=== PATIENT | female | born 1990 | race Caucasian/White ===

== ENCOUNTER 2016-09-27 17:11 | Emergency (ER) | payer MEDICAID ==
[~2016-09-27] VITALS: Ht 177.8 cm; Wt 61.2 kg
[~2016-09-27 17:11] MED LIST: ACYCLOVIR400 MG PO; AURALGAN OT10 ML/BOT OT; CELEXA40 MG PO; CIPRO 500MG TA500 MG PO; CORTISPORIN OTI10 M1 OT; DIFLUCAN150 MG PO; KEFLEX 500MG.500 MG PO; MOTRIN400 MG PO; MOTRIN600 MG PO; PREDNISONE50 MG PO; PYRIDIUM 200MG200 MG PO; SEPTRA DS 800 M1 TAB PO; SULFAMETHOXAZOL1 TA6 PO; TRAMADOL 50MG T50 MG PO; VENLAFAXINE H37.5 M2 PO; VICODIN 5/500 T1 TAB PO; ZITHROMAX Z-PA250 M1 PO; ZOFRAN4 MG PO; ZOLOFT100 MG PO; ZOVIRAX 5% OIN1 INCH TP
--- NOTE | 2016-09-27 17:58 | Urgent Treatment Center Report ---
History of Present Issue Date/Time Seen by Provider 09/27/16 1194 Visit Reason Pt arrived:Walked Presenting Problem:PT STATES MIGRAINE FOR TWO DAYS. STATES NAUSEA AND VOMITING X1. STATES PROBLEMS WITH VERTIGO. Location if Accident: Onset of symptoms date/time:/ or onset unknown for:MEDICAL HX UNKNOWN Have you (or family members/close friends) recently traveled outside the [place]? N If Yes, where/when: Have you had exposure to infectious disease within the past month? TB? Other? Specify: Patient states that she has has a migraine headache for a couple of days States that she went to work today with it and got extremly nauseated and vomited State that she was standing there and kind of got motion sick with the room spinning before vomiting. States that pain is in her orthodoxy area and she has a family history of migraine headache ALLERGIES Coded Allergies: No Known Allergies (03/04/16) Home Medications Reported Medications VENLAFAXINE HCL (Venlafaxine HCl ER) 37.5 MG PO DAILY #14 History Medical History General CAD? No Angina: No RI: No Hypertension? Yes Hyperlipidemia? No CHF? No DVT? No PE? No COPD? No Asthma? Yes Anemia? No GERD? No Gastric ulcers? No GI Bleed? No Hernia? No Thyroid Problems? No Hypothyroidism? No CVA? No Seizures? No Diabetes? No Renal Insuffiency? No UTI? No Stones? No BPH? No GB Disease: No Nephritic Syndrome? No Asplenia? No Hepatitis? No Sickle Cell Disease? No Arthritis? No Migraines? No Cataracts? No Glaucoma? No MRSA? No HIV? No TB? No Anxiety? Yes Depression? Yes Cancer? No More? 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 No: respiratory distress. 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 No Results/Orders Laboratory Tests 09/27/16 1736: Urine Test NEGATIVE Current Medication Orders Sig/Jolene Start time Last Medication Dose Route Stop Time Status Admin Metoclopramide HCl 0 .STK-MED ONE 09/27 1753 DC .ROUTE Diphenhydramine HCl 0 .STK-MED ONE 09/27 1750 DC .ROUTE Ketorolac 0 .STK-MED ONE 09/27 1749 DC Tromethamine .ROUTE Diphenhydramine HCl 25 MG ONCE ONE 09/27 1745 DC 09/27 IM 09/27 1746 1804 Ketorolac 60 MG ONCE ONE 09/27 1745 DC 09/27 Tromethamine IM 09/27 1746 1805 Metoclopramide HCl 10 MG ONCE ONE 09/27 1745 DC 09/27 IM 09/27 1746 1803 Orders Procedure Date/time Status [facility] URINE 09/27 173 Complete Progress [facility] Progress Notes Date 09/27/16 Time 1824 Comment Patient states that the medication that she recieved helped with pain and feeling much better Patient now ready for discharge home Departure Departure Time of Disposition 1824 Disposition DC Home or Self Care(routine) Clinical Impression Primary Impression: Migraine Qualifiers: Migraine type: without aura Status migrainosus presence: without status migrainosus Intractability: not intractable Qualified Code: G43.009 - Migraine without aura, not intractable, without status migrainosus Condition STABLE Referrals LÓPEZ,VIRAL (Family): 2 Days-Call Office if no improvement or worsening of symptom Patient Instructions Migraine -- Adult, Migraine Headaches (Alternative Therapy) Additional Instructions Over the counter Motrin or TYLENOL as needed for pain Follow up with family doctor Return if needed Go home and lay down and rest Discharge Counseling Counseled pt/family regarding diagnosis, medications/RX, home care, follow up needs at [phone]
--- NOTE | 2016-09-27 17:58 | Urgent Treatment Center Report ---
History of Present Issue Date/Time Seen by Provider 09/27/16 9383 Visit Reason Pt arrived:Walked Presenting Problem:PT STATES MIGRAINE FOR TWO DAYS. STATES NAUSEA AND VOMITING X1. STATES PROBLEMS WITH VERTIGO. Location if Accident: Onset of symptoms date/time:/ or onset unknown for:MEDICAL HX UNKNOWN Have you (or family members/close friends) recently traveled outside the [place]? N If Yes, where/when: Have you had exposure to infectious disease within the past month? TB? Other? Specify: Patient states that she has has a migraine headache for a couple of days States that she went to work today with it and got extremly nauseated and vomited State that she was standing there and kind of got motion sick with the room spinning before vomiting. States that pain is in her christianity area and she has a family history of migraine headache ALLERGIES Coded Allergies: No Known Allergies (03/04/16) Home Medications Reported Medications VENLAFAXINE HCL (Venlafaxine HCl ER) 37.5 MG PO DAILY #14 History Medical History General CAD? No Angina: No GA: No Hypertension? Yes Hyperlipidemia? No CHF? No DVT? No PE? No COPD? No Asthma? Yes Anemia? No GERD? No Gastric ulcers? No GI Bleed? No Hernia? No Thyroid Problems? No Hypothyroidism? No CVA? No Seizures? No Diabetes? No Renal Insuffiency? No UTI? No Stones? No BPH? No GB Disease: No Nephritic Syndrome? No Asplenia? No Hepatitis? No Sickle Cell Disease? No Arthritis? No Migraines? No Cataracts? No Glaucoma? No MRSA? No HIV? No TB? No Anxiety? Yes Depression? Yes Cancer? No More? 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 No: respiratory distress. 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 No Results/Orders Laboratory Tests 09/27/16 1736: Urine Test NEGATIVE Current Medication Orders Sig/Jolene Start time Last Medication Dose Route Stop Time Status Admin Metoclopramide HCl 0 .STK-MED ONE 09/27 1753 DC .ROUTE Diphenhydramine HCl 0 .STK-MED ONE 09/27 1750 DC .ROUTE Ketorolac 0 .STK-MED ONE 09/27 1749 DC Tromethamine .ROUTE Diphenhydramine HCl 25 MG ONCE ONE 09/27 1745 DC 09/27 IM 09/27 1746 1804 Ketorolac 60 MG ONCE ONE 09/27 1745 DC 09/27 Tromethamine IM 09/27 1746 1805 Metoclopramide HCl 10 MG ONCE ONE 09/27 1745 DC 09/27 IM 09/27 1746 1803 Orders Procedure Date/time Status [facility] URINE 09/27 173 Complete Progress [facility] Progress Notes Date 09/27/16 Time 1824 Comment Patient states that the medication that she recieved helped with pain and feeling much better Patient now ready for discharge home Departure Departure Time of Disposition 1824 Disposition DC Home or Self Care(routine) Clinical Impression Primary Impression: Migraine Qualifiers: Migraine type: without aura Status migrainosus presence: without status migrainosus Intractability: not intractable Qualified Code: G43.009 - Migraine without aura, not intractable, without status migrainosus Condition STABLE Referrals LÓPEZ,VIRAL (Family): 2 Days-Call Office if no improvement or worsening of symptom Patient Instructions Migraine -- Adult, Migraine Headaches (Alternative Therapy) Additional Instructions Over the counter Motrin or TYLENOL as needed for pain Follow up with family doctor Return if needed Go home and lay down and rest Discharge Counseling Counseled pt/family regarding diagnosis, medications/RX, home care, follow up needs at 182
[2016-09-27 18:37] VITALS: BP 125/90
--- OUTSIDE RECORDS SUMMARY | 2016-09-30 17:04 | External Medical Summary Rpt ---
Author Author , CHASE Navas CHASE Address Unknown Phone [email or web address] Care Team Providers Care Revenue Field Agent Name Role Phone NAT KOVACS, Unavailable Unavailable NAT KOVACS CORDOVA KIR, CORDOVA Unavailable Unavailable KIR [facility] Unavailable Unavailable PHYSICIANS, [facility] SERGIO FUENTES, Unavailable Unavailable SERGIO FUENTES JEFFREY T, Unavailable Unavailable PAOLO LOERA DAVREN Unavailable Unavailable MERRICK VIKY MAR, VIKY Unavailable Unavailable MAR REMA PEARSON, REMA PEARSON Unavailable Unavailable PADMAJA GIANG Unavailable Unavailable KARLOS MORALES, Unavailable Unavailable KARLOS MORALES, ELIN Unavailable Unavailable DAVID MANUEL WORTHINGTON, Unavailable Unavailable MANUEL WORTHINGTON [facility], Unavailable Unavailable [facility] MANUEL SHIN, Unavailable Unavailable MANUEL SHIN [facility] Unavailable [facility], [facility] GLORIA SAUCEDA, Unavailable Unavailable GLORIA SAUCEDA JOHNSON Unavailable Unavailable Ginger Núñez MD, Unavailable Unavailable TIERRA Laird MD, Unavailable Unavailable TIERRA BLOCK LEHMKUHL RAC, Unavailable Unavailable LEHMKUHL RAC DEBORA ANDRADE Unavailable Unavailable K, DEBORA ANDRADE HARRY, MILLS, Unavailable Unavailable FARHAN TONEY, Unavailable Unavailable FARHAN PATE MUKHERJEE Unavailable Unavailable NEILS, NEL W, NEILS, Unavailable Unavailable NEL W LÓPEZ, LÓPEZ Unavailable Unavailable LÓPEZ VIR, LÓPEZ VIR Unavailable Unavailable LÓPEZ, VIRAL, LÓPEZ, Unavailable Unavailable VIRAL JR. JOEY, , Unavailable Unavailable JR. COOK DO [facility] Unavailable Unavailable OF NOT, [facility] NOT [id number], Unavailable Unavailable [id number] BUDDY ESCAMILLA, Unavailable Unavailable BUDDY ESCAMILLA JEFFREY L, Unavailable Unavailable PAOLO MORGAN SCHOTT Unavailable Unavailable KHLOE FREITAS, Unavailable Unavailable KHLOE LEVI SHERMAN Unavailable Unavailable STEVEN LUJAN SOWER, Unavailable Unavailable STEVEN [facility] Unavailable [facility]available [facility] Unavailable Unavailable [facility], [facility], Unavailable Unavailable [facility] Unavailable Unavailable 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 MARION PHYLLIS, Unavailable Unavailable . MARION STEVEN MEJIA, Unavailable Unavailable STEVEN LOPEZ STEVEN B, Unavailable Unavailable ANTIONETTE WALLACE [facility] Unavailable Unavailable #[id number], [facility] Unavailable Unavailable #591, [id number], Unavailable Unavailable [id number] DHRUV PEÑA Unavailable Unavailable DIYA SPRAGUE Unavailable Unavailable JAILENE Purpose Continuity of Care Document - 03-23-2007 through 2016 Problems Code Diagnosis DOS Provider Status N3000 ACUTE 09-02-2016 CYSTITIS [facility] HEMATURIA R300 DYSURIA 09-02-2016 [facility] P30508 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 [facility] GENERAL N [facility]ALTHCARE W/O EDGE ABNORMAL FIND B373 CANDIDIASIS 08-15-2016 OF [facility] AND [facility]INA [facility] N390 URINARY 08-15-2016 TRACT [facility] INFECTION [facility]ANS SITE NOT SPECIFIED N760 ACUTE 08-15-2016 VAGINITIS [facility] R140 ABDOMINAL 08-15-2016 DISTENSION [facility] GASEOUS PHYSIC[facility]ANS Z6820 BODY MASS 08-15-2016 ST INDEX BMI [facility] 20.0-20.9 PHYSICIANS ADULT N3090 CYSTITIS 07-23-2016 [facility] UNSPECIFIED [facility]Y WITHOUT PHYSICIANS HEMATURIA J069 ACUTE UPPER 06-02-2016 [facility] RESPIRATORY [facility]YS[facility]ANS INFECTION UNSPECIFIED N888 OTH SPEC 04-27-2016 [facility] NONINFLAMMA [facility]ERGENCY TORY PHYSICIANS DISORDERS CERVIX UTERI N898 OTHER 04-27-2016 [facility] SPECIFIED [facility]Y NONINFLAMMA PHYSICIANS TORY DISORDERS VAGINA J111 FLU D/T 05-21-2015 [facility] UNIDENTIFIE [facility]ERGENCY D FLU VIRUS PHYSICIANS W/OTH RESP MANIF R109 UNSPECIFIED 03-25-2015 [facility] ABDOMINAL EMERGENCY PAIN PHYSICIANS A64 UNSPECIFIED 01-09-2015 [facility] SEXUALLY EMERGENCY TRANSMITTED PHYSICIANS DISEASE N12 TUBULO-INTE 01-09-2015 [facility] RST EMERGENCY NEPHRITIS PHYSICIANS NOT SPEC ACUTE/CHRON N926 IRREGULAR 01-06-2015 [facility] N PHYLLIS UNSPECIFIED 5950 ACUTE 09-17-2014 [facility] CYSTITIS EMERGENCY PHYSICIANS 37928 HEMATURIA 09-17-2014 [facility] UNSPECIFIED [facility]ERGENCY PHYSICIANS 6268 OTH D/O 08-29-2014 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 N PHYLLIS 46865 ABDOMINAL 10-21-2013 ST. PAIN, [facility] UNSPECIFIED PHYLLIS SITE 62042 GENERALIZED 08-08-2013 ST ANXIETY [facility] DISORDER PHYSIC[facility] 19617 UNSPECIFIED 08-08-2013 [facility] CONSTIPATIO PHYSICIANS N V700 ROUTINE 07-19-2013 [facility]AL [facility] EXAM@HEALTH CARE FACL V7231 ROUTINE 07-19-2013 GYNECOLOGIC [facility] AL PHYSICIANS EXAMINATION 2639 UNSPECIFIED 06-10-2013 [facility] PROTEIN-IRON MED CTR MANAGER INDUSTRIAL ORIE ST MALNUTRITIO N 7804 DIZZINESS 06-10-2013 [facility] GIDDINESS MED CTR MANAGER INDUSTRIAL ST 1101 DERMATOPHYT 04-05-2013 ST [facility] OF [facility] NAIL MED CTR MANAGER INDUSTRIAL ST [phone] 08-14-2012 [facility] PYELONEPHRI [facility] 30576 CLOSED 04-22-2009 [facility] FRACTURE OF ASSOCIATES HEAD OF [facility] RADIUS 64736 CONTUSION 03-25-2009 [facility] PSC 81484 CONTUSION 03-25-2009 [facility] HIP H ORTHOPAEDIC CTR [facility] 4779 ALLERGIC 03-23-2009 [facility]USE [facility] UNSPECIFIED 68088 ESOPHAGEAL 03-23-2009 [facility] 56651 NAUSEA 03-23-2009 [facility] 60393 CLOSED 03-23-2009 [facility] FRACTURE [facility]ICAL UNSPEC PART GROUP LOWER END HUMERUS E8490 PLACE OF 03-20-2009 [place] [facility] E8851 FALL FROM 03-20-2009 [facility] 36276 MASTODYNIA 03-11-2009 [facility] PSC 77955 LUMP OR 03-11-2009 [facility] MASS IN ASSOCIATES BREAST [facility] 22604 UNSPECIFIED 02-12-2009 [facility] VIRAL [facility] INFECTION [facility] IN CCE & UNS SITE 462 ACUTE 02-12-2009 [facility] PHARYNGITIS [facility] 6100 SOLITARY 01-20-2009 [facility] CYST OF MEDICAL BREAST GROUP 81628 OTHER 01-20-2009 [facility] MALAISE AND MEDICAL FATIGUE GROUP 5969 UNSPECIFIED 12-10-2008 [facility] 87045 ABDOMINAL 12-10-2008 [facility] PAIN RIGHT ASS[facility] LOWER [facility] QUADRANT 4619 ACUTE 12-08-2008 [facility] SINUSITIS, MEDICAL UNSPECIFIED GROUP 6253 DYSMENORRHE 12-08-2008 [facility] A [facility] 7231 CERVICALGIA 09-12-2008 [facility] PSC 39391 ABDOMINAL 09-12-2008 [facility] PAIN RIGHT MEDICAL UPPER GROUP QUADRANT 8470 NECK SPRAIN 09-12-2008 [facility] STR[facility] 7379 UNSPECIFIED 09-02-2008 [facility] CURVATURE [facility] OF SPINE PSC 0340 STREPTOCOCC 06-10-2008 [facility] 7892 SPLENOMEGAL 06-10-2008 Y [facility] 3671 MYOPIA 06-06-2008 [facility] 30153 UNSPECIFIED 05-21-2008 [facility] DENTAL ANESTHEISAA CARIES SERVICES [facility] V7284 UNSPECIFIED 05-13-2008 [facility] VE EXAMINATION 28222 CALCU 04-17-2008 [facility] GALLBLADD [facility] W/O MENTION GROUP CHOLECYST/O BST 50858 ABDOMINAL 03-20-2008 [facility] TENDERNESS MEDICAL RIGHT UPPER GROUP QUADRANT 3829 UNSPECIFIED 02-27-2008 [facility] OTITIS MEDICAL MEDIA GROUP 6929 CONTACT 02-27-2008 [facility] DERMATITIS& MEDICAL OTHER GROUP ECZEMA DUE UNSPEC CAUSE 43049 DIARRHEA 01-25-2008 [facility] 21473 EXTRINSIC 12-21-2007 [facility] WITH [facility] STATUS [facility] ASTHMATICUS 74972 ASTHMA, 12-21-[address] [facility] 5110 PLEURISY 06-26-2007 [facility] MENTION INC EFFUS/CURRE NT TB 5997 HEMATURIA 06-26-2007 [facility] 72216 CHEST PAIN 06-26-2007 [place] [facility] 4659 ACUTE URIS 04-25-2007 OF [facility] UNSPECIFIED MED CTR SITE 0549 HERPES 04-17-2007 [facility] WITHOUT INC MENTION OF COMPLICATIO N 34630 UNSPECIFIED 03-29-2007 [facility] 3804 IMPACTED 03-23-2007 [facility] 00015 SCOLIOSIS , 03-23-2007 [facility] B34.9 Viral infection, unspecified B37.3 Candidiasis of vulva and vagina F17.200 Nicotine dependence, unspecified , uncomplicat ed F33.1 Major depressive disorder, recurrent, moderate J06.9 Acute upper respiratory infection, unspecified J20.9 Acute bronchitis, unspecified N30.90 Cystitis, unspecified without hematuria N39.0 Urinary tract infection, site not specified N76.0 Acute vaginitis N88.8 Other specified noninflamma tory disorders of cervix uteri N89.8 Other specified noninflamma tory disorders of vagina R00.0 Tachycardia , unspecified R10.9 Unspecified abdominal pain R14.0 Abdominal distension (gaseous) R30.0 DYSURIA R55 Syncope and collapse R63.4 Abnormal weight loss Z01.419 Encounter for gynecologic al examination (general) (routine) without abnormal findings Allergies, Adverse Reactions, Alerts Type Allergy to substance Adverse Reaction to Substance Substance Reaction Severity NO KNOWN ALLERGIES Unknown Unknown Medications Na ND Rx Da Fi Fi Am Da Di Ph RX Ph St me C No te ll ll ou ys ag ar # ys at rm s nt no ma ic us Or Da si cy ia de te s n re d FL 55 07 08 1. 1 00 AL Ac UC 11 -0 -0 00 00 L- ti ON 10 7- 4- 0 06 MA ve AZ 14 20 20 12 RT OL 51 17 17 78 E 2 44 PH 15 AR 0 MA MG CY TA #5 BL 84 ET VE 00 07 08 30 30 00 AL Ac NL 09 -0 -0 .0 00 L- ti AF 37 7- 4- 00 06 MA ve AX 38 20 20 10 RT IN 65 17 17 76 E 6 22 PH HC AR L MA ER CY 15 #5 0 84 MG CA P ME 62 07 08 30 30 00 AL Ac TO 03 -0 -0 .0 00 L- ti PA 70 7- 4- 00 06 MA ve OL 83 20 20 10 RT OL 01 17 17 76 0 20 PH MERIDA AR CC MA CY ER #5 25 84 MG TA B NI 47 07 08 10 5 00 AL Ac TR 78 -0 -0 .0 00 L- ti OF 10 7- 4- 00 06 MA ve UR 30 20 20 12 RT AN 30 17 17 78 TO 1 43 PH IN AR MA MO CY NO -M #5 CR 84 10 0 MG ME 50 06 07 14 7 00 AL Ac TR 11 -2 -2 .0 00 L- ti ON 10 7- 8- 00 06 MA ve ID 33 20 20 12 RT AZ 40 17 17 58 OL 2 57 PH E AR 50 MA 0 CY MG #5 TA 84 BL ET FL 55 06 07 1. 1 00 AL Ac UC 11 -1 -1 00 00 L- ti ON 10 9- 4- 0 06 MA ve AZ 14 20 20 12 RT OL 51 17 17 41 E 2 11 PH 15 AR 0 MA MG CY TA #5 BL 84 ET ME 50 06 07 4. 1 00 AL Ac TR 11 -2 -1 00 00 L- ti ON 10 1- 4- 0 06 MA ve ID 33 20 20 12 RT AZ 40 17 17 45 OL 2 67 PH E AR 50 MA 0 CY MG #5 TA 84 BL ET PH 51 05 06 6. 2 00 [facility] EN 29 -2 -2 00 00 L- ti AZ 30 7- 3- 0 06 MA ve OP 81 20 20 11 RT YR 10 17 17 92 ID 1 44 PH IN AR E MA 20 CY 0 MG #5 84 TA B CE 68 05 06 15 5 00 [facility] PH 18 -2 -2 .0 00 L- ti AL 00 7- 3- 00 06 MA ve EX 12 20 20 11 RT IN 20 17 17 92 2 45 PH 50 AR 0 MA MG CY CA #5 PS 84 UL E FL 55 05 06 1. 1 00 [facility] UC 11 -2 -2 00 00 L- ti ON 10 7- 3- 0 06 MA ve AZ 14 20 20 11 RT OL 51 17 17 92 E 2 43 PH 15 AR 0 MA MG CY TA #5 BL 84 ET VE 00 05 06 30 30 00 [facility] NL 09 -2 -1 .0 00 L- ti AF 37 4- 6- 00 06 MA ve AX 38 20 20 10 RT IN 65 17 17 76 E 6 22 PH HC AR L MA ER CY 15 #5 [address] 57 05 06 30 30 00 [facility] RT 23 -2 -1 .0 00 L- ti AZ 70 4- 6- 00 06 MA ve AP 00 20 20 10 RT IN 83 17 17 76 E 0 21 PH 15 AR MA MG CY TA #5 BL 84 ET ME 62 05 06 30 30 00 [facility] TO 03 -2 -1 .0 00 L- ti PA 70 4- 6- 00 06 MA ve OL 83 20 20 10 RT OL 01 17 17 76 0 20 PH MERIDA AR CC MA CY ER #5 25 84 MG TA B EQ 49 04 05 89 4 00 [facility] 03 -0 -0 .0 00 L- ti CO 50 7- 5- 00 08 MA ve UG 38 20 20 86 RT H 42 17 17 46 DM 1 36 PH AR ER MA CY 30 #5 MG 84 /5 ML MERIDA SP VE 00 04 05 30 30 00 [facility] NL 09 -0 -0 .0 00 L- ti AF 37 7- 5- 00 06 MA ve AX 38 20 20 10 RT IN 65 17 17 76 E 6 22 PH HC AR L MA ER CY 15 #5 [address] 57 04 05 30 30 00 AL Ac RT 23 -0 -0 .0 00 L- ti AZ 70 7- 5- 00 06 MA ve AP 00 20 20 10 RT IN 83 17 17 76 E 0 21 PH 15 AR MA MG CY TA #5 BL 84 ET ME 62 04 05 30 30 00 [facility] TO 03 -0 -0 .0 00 L- ti PA 70 7- 5- 00 06 MA ve OL 83 20 20 10 RT OL 01 17 17 76 0 20 PH MERIDA AR CC MA CY ER #5 25 84 MG TA B PA 60 04 05 24 8 00 [facility] OM 43 -0 -0 0. 00 L- ti ET 20 7- 5- 00 04 MA ve QURESHI 60 20 20 0 65 RT ZI 61 17 17 22 NE 6 60 PH -C AR OD MA EI CY NE #5 SY 84 RU P CE 68 04 05 40 10 00 [facility] PH 18 -0 -0 .0 00 L- ti AL 00 7- 5- 00 06 MA ve EX 12 20 20 10 RT IN 10 17 17 76 1 18 PH 25 AR 0 MA MG CY CA #5 PS 84 UL E FL 55 04 05 1. 1 00 AL Ac UC 11 -0 -0 00 00 L- ti ON 10 7- 5- 0 06 MA ve AZ 14 20 20 10 RT OL 51 17 17 76 E 2 17 PH 15 AR 0 MA MG CY TA #5 BL 84 ET FL 55 03 04 1. 1 00 AL Ac UC 11 -1 -0 00 00 L- ti ON 10 4- 7- 0 06 MA ve AZ 14 20 20 10 RT OL 51 17 17 09 E 2 10 PH 15 AR 0 MA MG CY TA #5 BL 84 ET ME 50 03 04 14 7 00 AL Ac TR 11 -1 -0 .0 00 L- ti ON 10 4- 7- 00 06 MA ve ID 33 20 20 10 RT AZ 40 17 17 09 OL 2 12 PH E AR 50 MA 0 CY MG #5 TA 84 BL ET VE 00 03 03 30 30 00 GR NL 09 -0 -3 .0 00 AN ti AF 37 6- 1- 00 02 T ve AX 38 20 20 25 CO IN 69 17 17 34 UN E [address] ER UG S, 15 0 IN MG C. CA P CT 57 03 03 30 30 00 GR Ac RT 66 -0 -3 .0 00 AN ti AZ 40 6- 1- 00 02 T ve AP 49 20 20 25 CO IN 98 17 17 34 UN E [address] MG UG S, TA BL IN ET C. ME 49 03 03 30 30 00 GR Ac TO 88 -0 -3 .0 00 AN ti PA 40 6- 1- 00 02 T ve OL 82 20 20 25 CO OL 50 17 17 34 UN [address] UG ER S, 25 IN C. MG TA B Sa 63 06 0 No li 80 -1 ne 70 8- Lo 10 20 ng Fl 07 13 er us 5 h Ac 10 ti ML ve Sy ri ng e Le 51 06 0 No vo 07 -1 fl 90 8- Lo ox 03 20 ng ac 52 13 er in 0 Ac 50 ti 0M ve G Ta bl et SP 00 10 02 03 28 28 RI 80 CE Ac RI 55 -2 -2 .0 TE 49 NT ti NT 59 0- 6- 00 70 NE ve EC 01 20 20 AI R 65 09 10 D RO 28 8 PH NA AR LD DA M F Y #3 TA 93 BL 8 ET PA 37 06 02 00 28 28 RI 82 PA Ac IL 00 -1 -2 .0 TE 16 TE ti OS 00 6- 6- 00 52 L ve EC 45 20 20 AI 50 09 10 D RA OT 3 PH L C AR 20 M .6 #3 93 MG 8 TA BL ET SE 59 11 02 01 30 30 RI 81 PA Ac RT 76 -0 -2 .0 TE 63 TE ti RA 24 2- 6- 00 62 L ve LI 91 20 20 AI NE 00 09 10 D RA 1 PH L HC AR L M 10 #3 0 93 MG 8 TA BL ET PA 68 01 02 00 30 7 WA 75 PA Ac OM 38 -2 -1 .0 L- 40 TE ti ET 20 5- 1- 00 MA 11 L ve QURESHI 04 20 20 RT 9 ZI 10 10 10 RA NE 1 PH L AR 25 MA CY MG #5 TA 84 BL ET IB 68 01 02 00 60 30 WA 75 PA Ac UP 64 -2 -1 .0 L- 40 TE ti RO 50 5- 1- 00 MA 11 L ve FE 22 20 20 RT 6 N 15 10 10 RA 60 9 PH L 0 AR MG MA CY TA BL #5 ET 84 00 01 02 00 30 10 WA 45 PA Ac 40 -2 -1 .0 L- 90 TE ti 60 5- 1- 00 MA 29 L ve 35 20 20 RT 0 70 10 10 RA 5 PH L AR MA CY #5 84 00 01 02 00 12 3 WA 44 GA Ac 40 -2 -1 .0 L- 83 IN ti 60 3- 1- 00 MA 00 EY ve 35 20 20 RT [address] 5 PH CH AR AE MA L CY S #5 91 SP 00 10 01 02 28 28 RI 80 CE Ac RI 55 -2 -2 .0 TE 49 NT ti NT 59 0- 8- 00 70 NE ve EC 01 20 20 AI R 65 09 10 D RO 28 8 PH NA AR LD DA M F Y #3 TA 93 BL 8 ET SE 59 11 01 00 30 30 RI 81 PA Ac RT 76 -0 -1 .0 TE 63 TE ti RA 24 2- 4- 00 62 L ve LI 91 20 20 AI NE 00 09 10 D RA 1 PH L HC AR L M 10 #3 0 93 MG 8 TA BL ET NE 00 12 12 00 30 30 WA 75 PA Ac XI 18 -1 -3 .0 L- 32 TE ti UM 65 7- 1- 00 MA 09 L ve 04 [address] 03 09 09 RA 1 PH L 40 AR MA MG CY CA #5 PS 84 UL E CE 68 12 12 00 21 7 WA 75 PA Ac PH 18 -1 -3 .0 L- 32 TE ti AL 00 7- 1- 00 MA 09 L ve EX 12 20 20 RT 3 IN 20 09 09 RA 1 PH L 50 AR 0 MA MG CY CA #5 PS 84 UL E PA 68 12 12 00 20 6 WA 75 PA Ac OM 38 -1 -3 .0 L- 32 TE ti ET 20 7- 1- 00 MA 09 L ve QURESHI 04 20 20 RT 2 ZI 10 09 09 RA NE 1 PH L AR 25 MA CY MG #5 TA 84 BL ET SE 54 11 12 01 30 30 WA 75 PA Ac RT 45 -0 -1 .0 L- 21 TE ti RA 80 2- 7- 00 MA 78 L ve LI 94 20 20 RT 2 NE 51 09 09 RA 0 PH L HC AR L MA 10 CY 0 MG #5 84 TA BL ET SP 00 10 12 01 28 28 RI 80 CE Ac RI 55 -2 -1 .0 TE 49 NT ti NT 59 0- 7- 00 70 NE ve EC 01 20 20 AI R 65 09 09 D RO 28 8 PH NA AR LD DA M F Y #3 TA 93 BL 8 ET AM 65 11 12 00 30 10 RI 81 ME Ac OX 86 -2 -0 .0 TE 02 LT ti IC 20 4- 3- 00 51 ON ve IL 01 20 20 AI LI 70 09 09 D GA N 5 PH RY 50 AR J 0 M MG #3 93 CA 8 PS UL E SE 54 11 11 00 30 30 WA 75 PA Ac RT 45 -0 -1 .0 L- 21 TE ti RA 80 2- 9- 00 MA 78 L ve LI 94 20 20 RT 2 NE 51 09 09 RA 0 PH L HC AR L MA 10 CY 0 MG #5 84 TA BL ET SF 60 10 11 00 51 20 WA 75 IS Ac 25 -3 -0 .0 L- 21 ON ti 50 80 0- 5- 00 MA 21 ve 00 15 20 20 RT 6 DA [address] 1 PH D US AR E MA CR CY EA M #5 84 SP 00 10 11 00 28 28 RI 80 CE Ac RI 55 -2 -0 .0 TE 49 NT ti NT 59 0- 5- 00 70 NE ve EC 01 20 20 AI R 65 09 09 D RO 28 8 PH NA AR LD DA M F Y #3 TA 93 BL 8 ET CH 00 10 11 00 47 25 WA 75 IS Ac LO 11 -3 -0 3. L- 21 ON ti RH 62 0- 5- 00 MA 21 ve EX 00 20 20 0 RT 5 DA ID 11 09 09 IN 6 PH D E AR E 0. MA 12 CY % RI #5 NS 84 E 00 10 10 00 30 15 WA 75 PA Ac 37 -1 -2 .0 L- 16 TE ti 80 2- 2- 00 MA 56 L ve 75 20 20 RT 9 19 09 09 RA 3 PH L AR MA CY #5 84 59 10 10 00 20 10 WA 75 PA Ac 76 -0 -2 .0 L- 14 TE ti 21 6- 2- 00 MA 96 L ve 05 20 20 RT 9 00 09 09 RA 5 PH L AR MA CY #5 84 NA 00 10 10 00 30 15 WA 75 PA Ac PA 09 -1 -2 .0 L- 16 TE ti OX 30 2- 2- 00 MA 57 L ve EN 14 20 20 RT 0 91 09 09 RA 50 0 PH L 0 AR MG MA CY TA BL #5 ET 84 SE 54 06 10 03 30 30 WA 74 PA Ac RT 45 -1 -0 .0 L- 91 TE ti RA 80 6- 8- 00 MA 27 L ve LI 94 20 20 RT 4 NE 51 09 09 RA 0 PH L HC AR L MA 10 CY 0 MG #5 84 TA BL ET SE 54 06 08 02 30 30 WA 74 PA Ac RT 45 -1 -2 .0 L- 91 TE ti RA 80 6- 7- 00 MA 27 L ve LI 94 20 20 RT 4 NE 51 09 09 RA 0 PH L HC AR L MA 10 CY 0 MG #5 84 TA BL ET 00 07 07 00 30 30 WA 74 PA Ac 37 -1 -3 .0 L- 97 TE ti 80 7- 0- 00 MA 50 L ve 77 20 20 RT 1 19 09 09 RA 3 PH L AR MA CY #5 84 SE 54 06 07 01 30 30 WA 74 PA Ac RT 45 -1 -3 .0 L- 91 TE ti RA 80 6- 0- 00 MA 27 L ve LI 94 20 20 RT 4 NE 51 09 09 RA 0 PH L HC AR L MA 10 CY 0 MG #5 84 TA BL ET LO 00 06 07 00 30 30 WA 88 PA Ac RA 78 -1 -0 .0 L- 27 TE ti TA 15 6- 2- 00 MA 81 L ve DI 07 20 20 RT 9 NE 70 09 09 RA 1 PH L 10 AR MA MG CY TA #5 BL 84 ET PA 37 06 07 00 28 28 WA 88 PA Ac IL 00 -1 -0 .0 L- 27 TE ti OS 00 6- 2- 00 MA 82 L ve EC 45 20 20 RT 0 50 09 09 RA OT 3 PH L C AR 20 MA .6 CY MG #5 84 TA BL ET SE 31 06 07 00 30 30 WA 74 PA Ac RT 72 -1 -0 .0 L- 91 TE ti RA 20 6- 2- 00 MA 27 L ve LI 21 20 20 RT 4 NE 43 09 09 RA 0 PH L HC AR L MA 10 CY 0 MG #5 84 TA BL ET SE 31 03 05 01 15 30 WA 74 PA Ac RT 72 -3 -2 .0 L- 74 TE ti RA 20 1- 1- 00 MA 39 L ve LI 21 20 20 RT 6 NE 43 09 09 RA 0 PH L HC AR L MA 10 CY 0 MG #5 84 TA BL ET SE 31 03 04 00 15 30 WA 74 PA Ac RT 72 -3 -0 .0 L- 74 TE ti RA 20 1- 9- 00 MA 39 L ve LI 21 20 20 RT 6 NE 43 09 09 RA 0 PH L HC AR L MA 10 CY 0 MG #5 84 TA BL ET PE 00 03 04 00 30 7 WA 74 IS Ac NI 78 -2 -0 .0 L- 72 ON ti CI 11 5- 9- 00 MA 94 ve LL 20 20 20 RT 0 DA IN 50 09 09 1 PH D VK AR E MA 25 CY 0 MG #5 84 TA BL ET CH 00 03 04 00 47 30 WA 74 IS Ac LO 11 -2 -0 3. L- 72 ON ti RH 62 5- 9- 00 MA 93 ve EX 00 20 20 0 RT 8 DA ID 11 09 09 IN 6 PH D E AR E 0. MA 12 CY % RI #5 NS 84 E ME 00 03 04 00 21 5 WA 74 IS Ac TH 60 -2 -0 .0 L- 72 ON ti YL 34 9 MA 93 ve PA 59 20 20 RT 9 DA ED 31 09 09 NI 5 PH D SO AR E LO MA NE CY 4 #5 MG 84 DO SE PK 60 03 04 00 20 3 GR 17 IS Ac 95 -2 -0 .0 AN 54 ON ti 10 9 T 97 ve 79 20 20 CO 9 DA 67 09 09 UN [address] UG CE 00 03 04 00 30 30 WA 88 PA Ac TI 37 -3 -0 .0 L- 26 TE ti RI 83 1- 9- 00 MA 88 L ve ZI 63 20 20 RT 8 NE 70 09 09 RA 1 PH L HC AR L MA 10 CY MG #5 84 TA BL ET DI 00 03 04 00 30 30 WA 74 PA Ac CY 52 -3 -0 .0 L- 74 TE ti CL 70 1 9- 00 MA 39 L ve OM 58 20 20 RT 8 IN 60 09 09 RA E 1 PH L 10 AR MA MG CY CA #5 PS 84 UL E PA 68 02 02 00 30 7 WA 74 PA Ac OM 38 -1 -2 .0 L- 64 TE ti ET 20 9- 6- 00 MA 35 L ve QURESHI 04 20 20 RT 1 ZI 10 09 09 RA NE 1 PH L AR 25 MA CY MG #5 TA 84 BL ET PA 37 01 02 01 28 28 RI 76 QURESHI Ac IL 00 -2 -2 .0 TE 81 RT ti OS 00 2- 6- 00 11 IG ve EC 45 20 20 AI 50 09 09 D CLAUS OT 3 PH SE C AR PH 20 M E .6 #3 93 MG 8 TA BL ET MERIDA 53 02 02 00 14 7 WA 74 PA Ac LF 74 -1 -2 .0 L- 64 TE ti AM 60 9- 6- 00 MA 35 L ve ET 27 20 20 RT 0 HO 20 09 09 RA XA 5 PH L ZO AR LE MA -T CY MP #5 DS 84 TA BL ET PA 37 01 01 00 28 28 RI 76 QURESHI Ac IL 00 -2 -3 .0 TE 81 RT ti OS 00 2- 0- 00 11 IG ve EC 45 20 20 AI 50 09 09 D CLAUS OT 3 PH SE C AR PH 20 M E .6 #3 93 MG 8 TA BL ET 00 01 01 00 20 3 WA 74 PA Ac 40 -2 -3 .0 L- 58 TE ti 62 2- 0- 00 MA 28 L ve 04 20 20 RT 5 10 09 09 RA 1 PH L AR MA CY #5 84 AM 00 12 01 00 21 7 WA 74 PA Ac OX 78 -3 -1 .0 L- 53 TE ti IC 12 1- 5- 00 MA 25 L ve IL 61 20 20 RT 8 LI 30 08 09 RA N 5 PH L 50 AR 0 MA MG CY CA #5 PS 84 UL E DE 51 12 01 00 30 7 WA 74 PA Ac SO 67 -3 -1 .0 L- 53 TE ti XI 21 1- 5- 00 MA 26 L ve ME 26 20 20 RT 0 TA 10 08 09 RA SO 1 PH L NE AR MA 0. CY 05 % #5 GE 84 L DI 00 11 12 00 [address] Ac CY 52 -2 -0 .0 L- 46 ER ti CL 71 8- 4- 00 MA 31 NE ve OM 28 20 20 RT 3 BE IN 20 08 08 RG E [address] MA EV MG CY EN B TA #5 BL 84 ET PA 00 10 11 00 8. 4 WA 74 SO Ac ED 59 -2 -0 00 L- 37 WE ti NI 15 4- 7- 0 MA 61 R ve SO 44 20 20 RT 8 DA NE 30 08 08 1 PH D 20 AR MA MG CY TA #5 BL 84 ET AM 00 08 08 00 30 10 WA 74 SO Ac OX 78 -0 -1 .0 L- 19 WE ti IC 12 6- 4- 00 MA 08 R ve IL 61 20 20 RT 2 DA LI 33 08 08 N 1 PH D 50 AR 0 MA MG CY CA #5 PS 84 UL E PA 00 07 08 00 6. 25 WA 74 LI Ac OV 08 -2 -0 70 L- 15 CH ti EN 51 1- 1- 0 MA 44 TE ve TI 13 20 20 RT 1 NS L 20 08 08 TE HF 1 PH IN A AR 90 MA PH CY IL MC IP G #5 K IN 84 QURESHI LE R LO 00 07 08 00 30 30 WA 88 LI Ac RA 78 -1 -0 .0 L- 24 CH ti TA 15 2- 1- 00 MA 43 TE ve DI 07 20 20 RT 6 NS NE 70 08 08 TE 1 PH IN 10 AR MA PH MG CY IL IP TA #5 K BL 84 ET AZ 59 04 05 00 6. 5 RI 73 No Ac IT 76 -2 -2 00 TE 17 t ti HR 23 9- 2- 0 64 Av ve OM 06 20 20 AI ai YC 00 08 08 D la IN 1 PH bl AR e 25 M 0 #3 MG 93 8 TA BL ET 53 04 05 00 15 5 RI 73 No Ac 74 -2 -2 .0 TE 17 t ti 60 9- 2- 00 63 Av ve 13 20 20 AI ai 10 08 08 D la 5 PH bl AR e M #3 93 8 53 01 03 00 9. 3 WA 73 No Ac 74 -2 -2 00 LM 73 t ti 60 6- 6- 0 AR 45 Av ve 13 20 20 T 7 ai 20 08 08 PH la 5 M bl 10 e -0 58 4 AC 00 02 03 00 40 10 RI 72 No Ac YC 09 -1 -2 .0 TE 06 t ti LO 38 9- 6- 00 93 Av ve 94 20 20 AI ai R 30 08 08 D la 40 1 PH bl 0 AR e MG M #3 TA 93 BL 8 ET AZ 59 01 03 00 6. 5 RI 71 No Ac IT 76 -3 -2 00 TE 78 t ti HR 23 1- 6- 0 22 Av ve OM 06 20 20 AI ai YC 00 08 08 D la IN 1 PH bl AR e 25 M 0 #3 MG 93 8 TA BL ET AN 24 01 03 00 10 10 WA 73 No Ac TI 20 -2 -2 .0 LM 73 t ti PY 80 6- 6- 00 AR 45 Av ve RI 56 20 20 T 9 ai NE 16 08 08 PH la -B 2 M bl EN 10 e ZO -0 CA 58 IN [address] OP 64 02 03 00 15 7 RI 72 No Ac 45 -1 -2 .0 TE 06 t ti 50 9- 6- 00 95 Av ve 99 20 20 AI ai 39 08 08 D la 4 PH bl AR e M #3 93 8 NE 61 01 03 00 10 10 WA 73 No Ac OM 31 -2 -2 .0 LM 73 t ti YC 40 6- 6- 00 AR 45 Av ve IN 64 20 20 T 8 ai -P 61 08 08 PH la OL 0 M bl YM 10 e YX -0 IN 58 -H 4 C EA R SO LN TR 00 02 03 00 15 3 RI 71 No Ac AM 09 -0 -2 .0 TE 78 t ti AD 30 1- 6- 00 23 Av ve OL 05 20 20 AI ai 80 08 08 D la HC 1 PH bl L AR e 50 M #3 MG 93 8 TA BL ET 63 01 03 00 21 7 WA 73 No Ac 30 -2 -2 .0 LM 73 t ti 40 6- 6- 00 AR 46 Av ve 65 20 20 T 0 ai 70 08 08 PH la 1 M bl 10 e -0 58 4 PA 00 03 03 00 10 20 WA 73 No Ac EV 12 -2 -2 0. LM 66 t ti ID 60 1- 5- 00 AR 38 Av ve EN 07 20 20 0 T 0 ai T 06 07 08 PH la 50 1 M bl 00 10 e -0 SE 58 NS 4 IT IV E PA ST E Vital Signs 08-14-2012 08:57 Name Value Interpretat Reference Comment ion Range BP 75 mm[Hg] Diastolic BP Systolic 115 mm[Hg] Heart 76 /min Rate/Pulse O2% 98 % Respiratory 20 /min Rate 08-14-2012 07:06 Name Value Interpretat Reference Comment ion Range BP 75 mm[Hg] Diastolic BP Systolic 117 mm[Hg] Heart 84 /min Rate/Pulse O2% 100 % Respiratory 20 /min Rate Results Labs Lab Lab Date Result Refere Interp Status Commen Order Detail nces retati t Range on Urine test by rapid immunoassa (09-27-2016 17:36) Urine NEGATIV NEG complet pregnan 017 E ed cy test 17:36 by rapid immunoa ssa COMPREHENSIVE METABOLIC PANEL (08-14-2012 06:50) Glucose 06-18-2 110 74-106 complet 013 mg/dL ed Bld-mCn 06:50 c BUN 18-2 9 mg/dL 7-18 complet Bld-mCn 013 ed c 06:50 Creat 18-2 0.9 0.6-1.0 complet SerPl-m 013 mg/dL ed Cnc 06:50 ESTIMAT 18-2 83 50-200 complet ED 013 ML/MIN ed CREATIN 06:50 INE CLEARAN CE GFR 18-2 78 59- complet (ESTIMA 013 ML/MIN ed KALEY) 06:50 Sodium 18-2 140 136-145 complet SerPl-s 013 mmoL/L ed Cnc 06:50 Potassi 18-2 3.6 3.5-5.1 complet um 013 mmoL/L ed SerPl-s 06:50 Cnc Chlorid 18-2 104 98-107 complet e 013 mmoL/L ed SerPl-s 06:50 Cnc CO2 18-2 29 21.0-32 complet SerPl-s 013 mmoL/L .0 ed Cnc 06:50 Calcium 18-2 8.6 8.5-10. complet 013 mg/dL 1 ed SerPl-m 06:50 Cnc Prot 18-2 7.7 6.4-8.2 complet SerPl-m 013 gm/dL ed Cnc 06:50 Albumin 18-2 4.1 3.4-5.0 complet 013 gm/dL ed SerPl-m 06:50 Cnc Globuli 18-2 3.6 1.3-3.2 complet n 013 gm/dL ed Ser-mCn 06:50 c Albumin 18-2 1.1 UNK 1.1-1.8 complet /Glob 013 ed SerPl-m 06:50 Rto Bilirub 18-2 0.3 0.2-1.0 complet 013 mg/dL ed SerPl-m 06:50 Cnc AST 18-2 21 U/L 15-37 complet SerPl-c 013 ed Cnc 06:50 ALT 18-2 33 U/L 30-65 complet SerPl-c 013 ed Cnc 06:50 ALP 18-2 59 U/L 50-136 complet SerPl-c 013 ed Cnc 06:50 Amylase SerPl-cCnc (06-18-2013 06:50) Amylase 06-18-2 63 U/L 25-115 complet 013 ed SerPl-c 06:50 Cnc LIPASE (08-14-2012 06:50) LIPASE 06-18-2 170 U/L 73-393 complet 013 ed 06:50 CBC with AUTO DIFF (08-14-2012 06:50) WBC # 06-18-2 7.6 4.8-10. complet Bld 013 K/MM3 8 ed Auto 06:50 RBC # 06-18-2 4.33 4.2-5.4 complet Bld 013 M/mm3 ed Auto 06:50 Hgb 06-18-2 12.0 12.2-16 complet Bld-mCn 013 g/dL .2 ed c 06:50 Hct Fr 06-18-2 37.2 % 37.0-47 complet Bld 013 .0 ed 06:50 MCV RBC 06-18-2 85.9 fl 82.2-97 complet 013 .8 ed 06:50 MCH RBC 06-18-2 27.7 pg 27-31.2 complet Qn 013 ed Auto 06:50 MEAN 06-18-2 32.2 31.8-35 complet CORPUSC 013 g/dl .4 ed ULAR 06:50 HGB CONC RDW RBC 06-18-2 13.6 % 11.5-17 complet Auto 013 .5 ed 06:50 Platele 06-18-2 221 142-424 complet t Bld 013 K/mm3 ed Ql 06:50 Manual MEAN 06-18-2 8.7 fl 7.4-10. complet PLATELE 013 4 ed T 06:50 VOLUME Granulo 06-18-2 63.3 % 37.0-80 complet cytes 013 .0 ed Fr Bld 06:50 Auto LYMPH % 06-18-2 27.9 % 10-50.0 complet 013 ed 06:50 Monocyt 06-18-2 4.8 % 1.7-9.3 complet es Fr 013 ed Bld 06:50 Auto Eosinop 06-18-2 3.3 % 0.1-12. complet hil Fr 013 0 ed Bld 06:50 Auto Basophi 06-18-2 0.6 % 0.1-2.0 complet ls Fr 013 ed Bld 06:50 Auto Granulo 06-18-2 4.8 1.8-7.8 complet cytes # 013 K/mm3 ed Bld 06:50 Auto Lymphoc 06-18-2 2.1 0.7-4.5 complet ytes Fr 013 K/mm3 ed Bld 06:50 Auto Monocyt 06-18-2 0.4 0.1-1.0 complet es # 013 K/mm3 ed Bld 06:50 Auto Eosinop 06-18-2 0.3 0.0-0.4 complet hil # 013 K/mm3 ed Bld 06:50 Auto Basophi 06-18-2 0.0 0-0.2 complet ls # 013 K/MM3 ed Bld 06:50 Auto B-HCG Ur Ql (08-14-2012 06:50) B-HCG 06-18-2 NEGATIV NEG complet Ur Ql 013 E ed 06:50 URINALYSIS/COMPLETE (08-14-2012 06:50) URINE 06-18-2 YELLOW YELLOW complet COLOR 013 ed 06:50 URINE 06-18-2 CLEAR CLEAR complet APPEARA 013 ed NCE 06:50 URINE 06-18-2 NEGATIV NEG complet GLUCOSE 013 E ed - 06:50 DIPSTIC K URINE 06-18-2 NEGATIV NEG complet BILIRUB 013 E ed IN - 06:50 DIPSTIC K URINE 06-18-2 NEGATIV NEG complet KETONE 013 E mg/dL ed 06:50 URINE 06-18-2 Greater 1.005-1 complet SPECIFI 013 than .030 ed C 06:50 or GRAVITY equal to 1.030 URINE 06-18-2 3+ NEG complet BLOOD 013 ed 06:50 URINE 06-18-2 6.0 UNK 5.0-8.5 complet PH 013 ed 06:50 URINE 06-18-2 1+ NEG complet PROTEIN 013 mg/dL ed - 06:50 DIPSTIC K URINE 06-18-2 0.2 NEG complet UROBILI 013 E.U./dL ed NOGEN - 06:50 DIPSTIC K URINE 06-18-2 NEGATIV NEG complet NITRATE 013 E ed - 06:50 DIPSTIC K URINE 06-18-2 NEGATIV NEG complet LEUK 013 E ed ESTERAS 06:50 E URINE 06-18-2 20-50 0 complet RBC 013 rbc/hpf ed 06:50 URINE 06-18-2 OCC O complet WBC 013 wbc/hpf ed 06:50 URINE 18-2 OCC 0-5 complet SQUAMOU 013 #/hpf ed S CELLS 06:50 URINE 08-14-2 2+ O complet BACTERI 013 ed A 06:50 Procedures Procedure DOS Code Location Performer Comment CULTURE 38637 [facility] BACTERIAL 7 HELIO GALLEGOSZABETH QUANTTATI HEALTHCAR HEALTHCAR VE COLONY E EDGE E EDGE COUNT URINE IADNA 40311 [facility] CHLAMYDIA 7 HELIOBOZENA MURILLOTH TRACHOMAT HEALTHCAR HEALTHCAR IS E EDGE E EDGE AMPLIFIED PROBE TQ CYTP C/V 32969 [facility] AUTO THIN 7 HELIO HELIO LYR PREPJ SCR HEALTHCAR HEALTHCAR MNL E EDGE E EDGE RESCR PHYS IADNA 01901 [facility] NEISSERIA 7 HELIO HELIO GONORRHOE HEALTHCAR HEALTHCAR AE E EDGE E EDGE AMPLIFIED PROBE TQ IADNA 90206 [facility] RANDELL 7 HELIO HELIO SPECIES DIRECT HEALTHCAR HEALTHCAR PROBE TQ E EDGE E EDGE IADNA 41178 [facility] GARDNEREL 7 HELIO HELIO LA VAGINALIS HEALTHCAR HEALTHCAR DIRECT E EDGE E EDGE PROBE TQ IADNA 66093 [facility] TRICHOMON 7 HELIO HELIO VAGINALIS HEALTHCAR HEALTHCAR DIRECT E EDGE E EDGE PROBE TQ GONADOTRO 08413 [facility] PIN 5 HELIO MURILLOTH FOLLICLE PHYLLIS PHYLLIS STIMULATI NG HORMONE GONADOTRO 78318 [facility] PIN 5 HELIO MURILLOTH LUTEINIZI PHYLLIS PHYLLIS NG HORMONE HEMOGLOBI 49367 [facility] N 5 HELIO MURILLOTH GLYCOSYLA PHYLLIS [place] [address] [place] [address] [facility] PROLACTIN 5 HELIO MURILLOTH PHYLLIS PHYLLIS GONADOTRO 24951 [facility] PIN 5 HELIO MURILLOTH CHORIONIC PHYLLIS PHYLLIS QUALITATI VE COLLECTIO 26577 [facility] N VENOUS 5 HELIO PHILIPBETH BLOOD PHYLL[place] [address] THYROID 5 HELIO HELIO STIMULATI PHYLLIS PHYLLIS NG HORMONE TSH US PELVIC [address] 5 HELIO HELIO NONOBSTET PHYLLIS PHYLLIS [place]OH[place] [address] TRANSVAGI 5 HELIO HELIO NAL PHYLLIS PHYLLIS CULTURE [address] BACTERIAL 4 HELIO HELIO MED CTR MED CTR QUANTTATI MANAGER INDUSTRIAL ST MANAGER INDUSTRIAL ST VE COLONY COUNT URINE CULTURE [address] BCT 4 HELIO HELIO ISOL&PRSM MED CTR MED CTR PTV ID MANAGER INDUSTRIAL ST MANAGER INDUSTRIAL ST ISOLATE EA URINE SUSCEPTIB [address] LTY STDY 4 HELIO HELIO ANTIMICRB MED CTR MED CTR IAL MANAGER INDUSTRIAL ST MANAGER INDUSTRIAL ST MICRO/[place] [address] RADIOLOGY YOUNG VAN TRANSVAGI 4 NAL ASSOCIATE S OF [facility] US PELVIC 32892 RADIOLOGY YOUNG VAN 4 NONOBSTET ASSOCIATE SOHAN S OF [facility] REAL-TIME IMAGE COMPLETE BASIC [address] METABOLIC 4 HELIO HELIO PANEL MED CTR MED CTR CALCIUM MANAGER INDUSTRIAL ST MANAGER INDUSTRIAL ST TOTAL GONADOTRO [address] PIN 4 HELIO HELIO CHORIONIC MED CTR MED CTR MANAGER INDUSTRIAL ST MANAGER INDUSTRIAL ST QUANTITAT KATYA BLOOD [address] COUNT 4 HELIO HELIO COMPLETE MED CTR MED CTR AUTO&AUTO MANAGER INDUSTRIAL ST MANAGER INDUSTRI[place] [address] THYROID 4 HELIO HELIO STIMULATI MED CTR MED CTR NG MANAGER INDUSTRIAL ST MANAGER INDUSTRIAL ST HORMONE TSH IADNA [address] NEISSERIA 4 HELIO HELIO MED CTR MED CTR GONORRHOE MANAGER INDUSTRIAL ST MANAGER INDUSTRIAL ST AE AMPLIFIED PROBE TQ SUSCEPTIB [address] LTY STDY 4 HELIO HELIO ANTIMICRB MED CTR MED CTR IAL MANAGER INDUSTRIAL ST MANAGER INDUSTRIAL ST MICRO/AGA R DILUTJ CULTURE [address] BACTERIAL 4 HELIO HELIO MED CTR MED CTR QUANTTATI MANAGER INDUSTRIAL ST MANAGER INDUSTRIAL ST VE COLONY COUNT URINE CULTURE [address] BCT 4 [facility] ISOL&PRSM MED CTR MED CTR PTV ID MANAGER INDUSTRIAL ST MANAGER INDUSTRIAL ST ISOLATE EA URINE IADNA [address] CHLAMYDIA 4 [facility] MED CTR MED CTR TRACHOMAT MANAGER INDUSTRIAL ST MANAGER INDUSTRIAL ST IS AMPLIFIED PROBE TQ IADNA [address] CHLAMYDIA 4 [facility] MED CTR MED CTR TRACHOMAT MANAGER INDUSTRIAL ST MANAGER INDUSTRIAL ST IS AMPLIFIED PROBE TQ CYTP C/V [address] AUTO THIN 4 [facility] LYR MED CTR MED CTR PREPJ SCR MANAGER INDUSTRIAL ST MANAGER INDUSTRIAL ST MNL RESCR PHYS CERV/VAGI G0101 ST VIKY NAL 4 HELIO MAR CANCER SCR; PHYSICIAN PELV&CLIN S BREAST EXAM IADNA [address] [place] 4 [facility] CTR MED CTR GONORRHOE MANAGER INDUSTRIAL ST MANAGER INDUSTRIAL ST AE AMPLIFIED PROBE TQ SCREEN Q0091 ST VIKY PAP 4 [facility] SMEAR; OBTAIN PHYSICIAN PREP &C S ONVEY TO LAB BASIC [address] METABOLIC 4 [facility] PANEL MED CTR MED CTR CALCIUM MANAGER INDUSTRIAL ST MANAGER INDUSTRIAL ST TOTAL BLOOD [address] COUNT 4 [facility] COMPLETE MED CTR MED CTR AUTOMATED MANAGER INDUSTRIAL ST MANAGER INDUSTRIAL ST PREALBUMI [address] N 4 [facility] MED CTR MED CTR MANAGER INDUSTRIAL ST MANAGER IND[address] HEMOGLOBI [address] N 4 [facility] GLYCOSYLA MED CTR MED CTR KALEY A1C MANAGER INDUSTRIAL ST MANAGER INDUSTRIAL ST COMPREHEN [address] SIVE 4 [facility] METABOLIC MED CTR MED CTR PANEL MANAGER INDUSTRIAL ST MANAGER INDUSTRIAL ST RADEX [address] ELBOW 2 0 [facility] RADEX 20888 RADIOLOGY NEILS, ELBOW 2 0 NEL W [place] [address] ARLEN SAUCEDA RADIAL 0 GLORIA PENALOZA HEAD/NECK ORTHOPAED M FX W/O [place] [address] ELFEGO WORTHINGTON, RADIAL 0 EMERGENCY MANUEL S HEAD/NECK SERVICES FX W/O MANIPULAT ASSOCIATE ION S RADEX 11343 PEREZ PATE, ELBOW 0 MEDICAL FARHAN P COMPLETE IMAGING MINIMUM 3 ASSOCIATE VIEWS S RADEX 77063 PEREZ PATE, FOREARM 2 0 MEDICAL FARHAN P VIEWS IMAGING ASSOCIATE S US BREAST [address]88 ST REAL 0 [facility] W/IMAGE DOCUMENTA TION IADNA 69351 [facility] STREPTOCO 9 [facility] GROUP A DIRECT PROBE TQ US PELVIC [address] ST [address] [place] [address] SOHAN REAL-TIME IMAGE COMPLETE GONADOTRO 40173 [facility] PIN 9 [facility] CHORIONIC MEDICALCE [place] [address] RAD[facility]OLOGY [facility] 9 , PAOLO W/CONTRAS ASSOCIATE L T S PSC MATERIAL CT PELVIS [address] T MATERIAL RADEX [address] [place] [address] 4 OR [address] [place] [address] STUDY W/SUPINE & ERECT STUDY FRAMES V2020 GAUR[facility] LEVI PURCHASES 9 VISION KHLOE M 1 VISN V2103 GA[facility] LEVI PLANO 9 VISION KHLOE M TO+/-4.00 D SPHER 0.12-2.00 D CYL EA FITTING 55751 GAUR[facility] LEVI SPECTACLE 9 VISION KHLOE Snyder S XCPT APHAKIA MONOFOCAL OPHTH 07372 GAUR[facility] LEVI MEDICAL 9 VISION KHLOE M XM&EVAL COMPRHNSV ESTAB PT 1/> ANESTHESI 33604 TRACI SHIN, A 9 MANUEL A INTRAORAL ANESTHEIS WITH AA BIOPSY SERVICES NOS PSC HEPATBL [address] DUX SYS 9 [facility] GLBLDR PROTHROMB [address] IN TIME 9 HELIO HELIO MEDICALCE MEDICALCE NTER NTER BLOOD [address] COUNT 9 [facility] COMPLETE AUTO&AUTO MEDICALCE MEDICALCE DIFRNTL NTER NTER WBC COLLECTIO 01019 [facility], N VENOUS 9 MEDICAL VIRAL BLOOD GROUP VENIPUNCT URE URNLS DIP 14359 [facility], 9 MEDICAL VIRAL STICK/TAB GROUP LET RGNT AUTO W/[place] [address] ABDOMINAL 9 [facility] TIME W/[place] [address] LIPASE 9 HELIO HELIO [place] [address] AMYLASE 9 HELIO HELIO MEDICALCE MEDICALCE NTER NTER COLLECTIO 75376 [facility], N VENOUS 9 MEDICAL VIRAL BLOOD GROUP VENIPUNCT URE HEPATIC [address] FUNCTION 9 HELIO HELIO PANEL MEDICALCE MEDICALCE NTER NTER HEPATIC [address] FUNCTION 8 HELIO HELIO PANEL MEDICALCE MEDICALCE NTER NTER COLLECTIO 51561 [facility] STERNEBER N VENOUS 8 MEDICAL G, ANTIONETTE BLOOD GROUP B VENIPUNCT URE ANTIBODY [address] HELICOBAC 8 [facility] TER PYLORI MEDICALCE MEDICALCE NTER NTER BLOOD [address] COUNT 8 HELIO HELIO COMPLETE AUTO&AUTO MEDICALCE MEDICALCE DIFRNTL NTER NTER WBC BLOOD 44342 AMIRAH MACARIO COUNT 8 [facility] COMPLETE INC INC AUTO&AUTO DIFRNTL WBC URNLS DIP 63616 AMIRAH MACARIO 8 [facility] STICK/TAB INC INC LET REAGENT AUTO MICROSCOP Y RADIOLOGI 44224 [facility] Jess PATE EXAM 8 MEDICAL FARHAN P CHEST 2 IMAGING VIEWS ASSOCIATE FRONTAL&L S ATERAL FIBRIN 53681 AMIRAH AMIRAH DGRADJ 8 [facility] PRODUCTS INC INC D-DIMER QUAL/SEMI CARLOS URINE 72657 AMIRAH AMIRAH 8 [facility] TEST INC INC VISUAL COLOR CMPRSN METHS CT PELVIS 61648 [facility], W/O 8 MEDICAL SERGIO CONTRAST IMAGING MATERIAL ASSOCIATE S COMPREHEN 64036 AMIRAH AMIRAH SIVE 8 [facility] METABOLIC INC INC PANEL 3D 18372 AMIRAH AMIRAH RENDERING 8 [facility] INC INC W/INTERP& [place] [address] AMIRAH AMIRAH ABDOMEN 8 [facility] W/O INC INC CONTRAST MATERIAL IADNA 26153 [facility] STREPTOCO 8 [facility] GROUP A AMPLIFIED PROBE TQ IRRIGATIO 9652 AMIRAH MACARIO N OF EAR 8 [facility] INC INC Encounters Encounter Start End Date Code Location Performer Type Date OFFICE 95870 [facility] 7 7 HELIO MOORE, DO T VISIT 15 PHYSICIAN MINUTES [facility] 7 7 [facility] 7 7 [facility] OFFICE 71959 [facility] 7 7 HELIO T VISIT 25 PHYSICIAN MINUTES [facility] 7 7 [facility] EMERGENCY 24688 SHERRI ALLEN 7 7 EMERGENCY DEPARTMEN T VISIT PHYSICIAN MODERATE S SEVERITY EMERGENCY 17240 SHERRI JO 7 7 EMERGENCY DEPARTMEN T VISIT PHYSICIAN HIGH/URGE S NT SEVERITY EMERGENCY 35506 [facility] FINKLEMAN 7 7 EMERGENCY DEPARTMEN T VISIT PHYSICIAN HIGH/URGE S NT SEVERITY EMERGENCY 82023 [facility] REMA LILI 6 6 EMERGENCY DEPARTMEN T VISIT PHYSICIAN HIGH/URGE S NT SEVERITY EMERGENCY 50176 [facility] NAT 6 6 EMERGENCY KRI DEPARTMEN T VISIT PHYSICIAN HIGH/URGE S NT SEVERITY EMERGENCY 09021 [facility] DAVREN 5 5 EMERGENCY MERRICK DEPARTMEN T VISIT PHYSICIAN HIGH/URGE S NT SEVERITY EMERGENCY 14413 [facility] DIYA 5 5 EMERGENCY JAILENE DEPARTMEN T VISIT PHYSICIAN HIGH/URGE S NT SEVERITY OFFICE 03146 ST [facility]PATI[facility] 5 5 HELIO MAR T VISIT [address] ACCESS 5 5 [facility] EMERGENCY 36689 [facility] REMA LILI 5 5 EMERGENCY DEPARTMEN T VISIT PHYSICIAN HIGH/URGE S NT SEVERITY HOSPITAL ST. - 5 5 HELIO OUTPATIEN PHYLLIS T EMERGENCY 10818 [facility] ELKEL 5 5 EMERGENCY RAC DEPARTMEN T VISIT PHYSICIAN HIGH/URGE S NT SEVERITY EMERGENCY 77535 [facility] ELEAZAR 5 5 EMERGENCY LINDA DEPARTMEN T VISIT PHYSICIAN MODERATE S SEVERITY EMERGENCY 73356 [facility] 4 4 HELIO [facility] MED CTR T VISIT MODERATE SEVERITY OFFICE 93969 ST [facility] 4 4 HELIO KIR T VISIT 15 PHYSICIAN MINUTES S OFFICE 88586 [facility] VIR OUTPATIEN 4 4 HELIO T VISIT 25 PHYSICIAN [address]ES S [facility]P[address] - 4 4 [facility] OUTPATIEN MED CTR T MANAGER INDUSTRIAL ST OFFICE 76841 ST [facility] OUTPATIEN 4 4 HELIO MAR T VISIT 10 PHYSIC[address] [facility] - 4 4 [facility] - 4 4 [facility] OUTPATIEN MED CTR T MANAGER INDUSTRIAL OFFICE 03626 ST [facility] VIR OUTPATIEN 4 4 HELIO T VISIT 25 PHYSICIAN MINUTES S OFFICE 00564 ST [facility] VIR OUTPATIEN 4 4 HELIO T VISIT [address] - 4 4 [facility] OUTPATIEN MED CTR T MANAGER INDUSTRIAL OFFICE 92197 ST L[facility] VIR OUTPATI 4 4 HELIO T VISIT [address] - 4 4 [facility] 55199 ELIN [place] 4 4 DAVID DAVID DEPARTMEN T VISIT HIGH/URGE NT SEVERITY HOSPITAL ST - OTHER 4 4 HELIO MED CTR [facility] EMERGENC[facility] 22932 ELIN WORTH[place] 4 4 DAVID [facility] DEPARTMEN T VISIT HIGH/URGE NT [facility] OTHER 4 4 HELIO [facility] Emergency RY Núñez MD (ER) 3 06:43 3 09:05 [facility] ST - 0 0 [facility] [address] - 0 0 [facility] T OFFICE 81375 [facility] 0 0 MEDICAL VIRAL T VISIT GROUP 25 MINUTES HOSPITAL AMIRAH - 0 0 [facility] EMERGENCY 82394 ELFEGO WORTH[place], 0 0 EMERGENCY [facility] DEPARTMEN SERVICES T VISIT MODERATE ASSOCIATE SEVERITY [facility] ST - 0 0 [facility] T OFFICE 55174 [facility] ADAIR [facility] 9 9 MEDICAL VIRAL T VISIT GROUP 25 MINUTES OFFICE 64468 [facility] SHAHRAM LÓPEZPATIPERNELL 9 9 MEDICAL VIRAL T VISIT GROUP [address] - 9 9 [facility] T EMERGENCY 14557 [facility] 9 9 HELIO Judd [facility] MED CTR T VISIT MODERATE SEVERITY EMERGENCY 05341 ST 9 9 [facility] T VISIT LOW/MODER SEVERITY HOSPITAL ST [facility] 9 [facility] T OFFICE 02386 [facility] ADAIR [facility] 9 9 MEDICAL VIRAL T VISIT GROUP [address] - 9 9 [facility] MEDICALCE NTER OFFICE 38070 [facility] ADAIR L[facility] 9 9 MEDICAL VIRAL T VISIT GROUP [address] 9 9 [facility] ST 9 9 [facility] T OFFICE 18961 [facility] ADAIR L[facility]PE[facility] 9 9 MEDICAL VIRAL T VISIT GROUP [address] 9 9 [facility] T EMERGENCY 94408 [facility] 9 [address] [facility] MED CTR T VISIT HIGH/URGE NT SEVERITY [facility]OSPITAL ST 9 9 [facility] H[facility]PITAL ST 9 9 [facility] MEDICALCE NTER OFFICE 84467 [facility] SANDRA L[facility] 9 9 MEDICAL VIRAL ION GROUP NEW/ESTAB PATIENT 30 MIN OFFICE 86023 [facility] ADAIR [facility] 9 9 MEDICAL VIRAL T VISIT GROUP [address] - 9 9 [facility] T [facility] - 9 9 [facility] T MEDICALCE NTER OFFICE 66836 [facility] 9 9 MEDICAL VIRAL T VISIT GROUP 15 MINUTES OFFICE 93419 [facility] 8 8 MEDICAL VIRAL T VISIT GROUP 15 MINUTES HOSPITAL - 8 8 [facility] MEDICALCE NTER OFFICE 22103 [facility] 8 8 MEDICAL G, ANTIONETTE T NEW 20 GROUP B MINUTES EMERGENCY 81464 8 8 [facility] T VISIT MODERATE SEVERITY HOSPITAL [facility] 8 8 [facility] T EMERGENCY 76965 [facility], 8 8 [facility] T VISIT HIGH/URGE NT SEVERITY EMERGENCY 90101 8 8 [facility] T VISIT LOW/MODER SEVERITY HOSPITAL - 8 8 [facility] T OFFICE 76962 [facility] 8 8 [place], T VISIT [facility] [place] 15 CARE, MINUTES INC. EMERGENCY 83504 [place] 8 8 [facility] T VISIT LOW/MODER SEVERITY HOSPITAL [facility] 8 8 [facility] T EMERGENC[facility] 60945 8 8 [facility] T VISIT MODERATE SEVERITY HOSPITAL - 8 8 [facility] T EMERGENCY 69342 [place] 8 8 [facility] T VISIT LIMITED[facility]M [facility] 8 8 [facility] EM[facility] [id number] [phone] [facility] T VISIT LOW[facility]MODER SEVERITY [facility] 8 [facility] T EMERGENCY [id number] [place] [phone] 8 [facility] MOD[facility]ATE [facility]VERITY [facility] 8 8 [facility] [address] [place] 8 8 [facility]/MODER SEVERITY
--- OUTSIDE RECORDS SUMMARY | 2016-09-30 17:04 | External Medical Summary Rpt ---
Author Author , CHASE Navas CHASE Address Unknown Phone [email or web address] Care Team Providers Care Supervisor Dry Cleaning Name Role Phone NAT KOVACS, Unavailable Unavailable [...] DAVID MANUEL WORTHINGTON, Unavailable Unavailable MANUEL WORTHINGTON [facility], Unavailable Unavailable [facility] MANUEL SHIN, Unavailable Unavailable MANUEL SHIN [facility] Un[facility] Unavailable [facility], [facility] GLORIA SAUCEDA, Unavailable Unavailable GLORIA [...] Unavailable STEVEN LUJAN SOWER, Unavailable Unavailable STEVEN [facility] Unavailable [facility]available [facility] Unavailable Unavailable [facility], [facility], Unavailable [facility] Unavailable Unavailable BACCARAT MANAGER [facility] BACCARAT MANAGER [facility] Unavailable Unavailable [facility], [facility] Un[facility] Unavailable PHYSICIANS, [facility] PHYSICIANS . COMSTOCK PHYLLIS, Unavailable Unavailable . COMSTOCK STEVEN MEJIA, Unavailable Unavailable STEVEN LOPEZ STEVEN [...] DOS Provider Status N3000 ACUTE 09-02-2016 [facility] WITHOUT PHYSICIANS HEMATURIA R300 DYSURIA 09-02-2016 ST [facility] S55303 ENCOUNTER 08-23-2016 [facility] SHARPENER EXAM [facility] GENERAL N HEALTHCARE W/O EDGE ABNORMAL FIND B373 CANDIDIASIS 08-15-2016 OF VULVA [facility] AND VAGINA PHYSICIANS N390 URINARY 08-15-2016 TRACT [facility] INFECTION PHYSICIANS SITE NOT SPECIFIED N760 ACUTE 08-15-2016 VAGINITIS [facility] PHYSICIANS R140 ABDOMINAL 08-15-2016 DISTENSION [facility] GASEOUS PHYSICIANS Z6820 BODY MASS 08-15-2016 ST INDEX BMI [facility] 20.0-20.9 PHYSICIANS ADULT N3090 CYSTITIS 07-23-2016 [facility] UNSPECIFIED EMERGENCY WITHOUT PHYSICIANS HEMATURIA J069 ACUTE UPPER 06-02-2016 [facility] EM[facility]GENCY RESPIRATORY PHYSICIANS INFECTION UNSPECIFIED N888 OTH SPEC 04-27-2016 [facility] NONINFLAMMA EMERGENCY TORY PHYSICIANS DISORDERS CERVIX UTERI N898 OTHER 04-27-2016 [facility] SPECIFIED EMERGENCY NONINFLAMMA PHYSICIANS TORY DISORDERS VAGINA J111 FLU D/T 05-21-2015 [facility] UNIDENTIFIE EMERGENCY D FLU VIRUS PHYSICIANS W/OTH RESP MANIF R109 UNSPECIFIED 03-25-2015 [facility] ABDOMINAL EMERGENCY PAIN PHYSICIANS A64 UNSPECIFIED 01-09-2015 [facility] SEXUALLY EMERGENCY TRANSMITTED PHYSICIANS DISEASE N12 TUBULO-INTE 01-09-2015 [facility] RST EMERGENCY NEPHRITIS PHYSICIANS NOT SPEC ACUTE/CHRON N926 IRREGULAR 01-06-2015 ST. 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 MENSTRUATIO [facility] N PHYLLIS 27517 ABDOMINAL 10-21-2013 ST. PAIN, [facility] UNSPECIFIED PHYLLIS SITE 70062 GENERALIZED 08-08-2013 ST ANXIETY [facility] DISORDER PHYSICIANS 26514 UNSPECIFIED 08-08-2013 [facility] CONSTIPATIO PHYSICIANS N V700 ROUTINE 07-19-2013 GENERAL [facility] MEDICAL PHYSICIANS EXAM@HEALTH CARE FACL V7231 ROUTINE 07-19-2013 GYNECOLOGIC [facility] AL PHYSICIANS EXAMINATION 2639 UNSPECIFIED 06-10-2013 [facility] PROTEIN-IRON MED CTR BACCARAT MANAGER ORIE ST MALNUTRITIO N 7804 DIZZINESS 06-10-2013 [facility] GIDDINESS MED CTR BACCARAT MANAGER ST 1101 DERMATOPHYT 04-05-2013 ST OSIS OF [facility] NAIL MED CTR BACCARAT MANAGER ST 590.80 590.80 08-14-2012 Amirah PYELONEPHRI [facility] 06330 CLOSED 04-22-2009 RAD[facility] FRACTURE OF ASSOCIATES HEAD OF [facility] RADIUS 27532 CONTUSION 03-25-2009 [facility] OF SHOULDER H REGION ORTHOPAEDIC CTR PSC 18104 CONTUSION 03-25-2009 [facility] OF HIP H ORTHOPAEDIC CTR [facility] 4779 ALLERGIC 03-23-2009 [facility] RHINITIS [facility]ICAL CAUSE GROUP UNSPECIFIED 60287 ESOPHAGEAL 03-23-2009 [facility] 62685 NAUSEA 03-23-2009 [facility]ONE [facility] 24543 CLOSED 03-23-2009 [facility] FRACTURE MEDICAL UNSPEC PART GROUP LOWER END HUMERUS E8490 PLACE OF 03-20-2009 [place] OCCURRENCE, [facility] HOME IMAGING ASSOCIATES E8851 FALL FROM 03-20-2009 [facility] IMAGING [facility]OCI[facility] 55202 MASTODYNIA 03-11-2009 RAD[facility] ASSOCIATES PSC 06822 LUMP OR 03-11-2009 RADIOLOGY MASS IN ASSOCIATES BREAST [facility] 15776 UNSPECIFIED 02-12-2009 [facility] VIRAL [facility]ICAL INFECTION GROUP IN CCE & UNS SITE 462 ACUTE 02-12-2009 [facility] PHARYNGITIS [facility] 6100 SOLITARY 01-20-2009 [facility] CYST OF MEDICAL BREAST GROUP 76478 OTHER 01-20-2009 [facility] MALAISE AND MEDICAL FATIGUE GROUP 5969 UNSPECIFIED 12-10-2008 [facility] 60672 ABDOMINAL 12-10-2008 RADIOLOGY PAIN RIGHT ASSOCIATES LOWER [facility] QUADRANT 4619 ACUTE 12-08-2008 [facility] SINUSITIS, MEDICAL UNSPECIFIED GROUP 6253 DYSMENORRHE 12-08-2008 [facility] A [facility] 7231 CERVICALGIA 09-12-2008 RAD[facility] ASSOCIATES PSC 74882 ABDOMINAL 09-12-2008 [facility] PAIN RIGHT MEDICAL UPPER GROUP QUADRANT 8470 NECK SPRAIN 09-12-2008 [facility] AND STRAIN [facility] 7379 UNSPECIFIED 09-02-2008 RADI[facility] CURVATURE ASSOCIATES OF SPINE PSC 0340 STREPTOCOCC 06-10-2008 [facility] 7892 SPLENOMEGAL 06-10-2008 Y [facility] 3671 MYOPIA 06-06-2008 GA[facility] VISION 68347 UNSPECIFIED 05-21-2008 [facility] DENTAL ANESTHEISAA CARIES SERVICES [facility] V7284 UNSPECIFIED 05-13-2008 [facility] PRE-[facility]ATI [facility] VE EXAMINATION 41808 CALCU 04-17-2008 [facility] GALLBLADD MEDICAL W/O MENTION GROUP CHOLECYST/O BST 65433 ABDOMINAL 03-20-2008 [facility] TENDERNESS MEDICAL RIGHT UPPER GROUP QUADRANT 3829 UNSPECIFIED 02-27-2008 [facility] OTITIS MEDICAL MEDIA GROUP 6929 CONTACT 02-27-2008 [facility] DERMATITIS& MEDICAL OTHER GROUP ECZEMA DUE UNSPEC CAUSE 54501 DIARRHEA 01-25-2008 [facility] 18527 EXTRINSIC 12-21-2007 [facility] WITH [facility] STATUS MED CTR ASTHMATICUS 47912 ASTHMA, 12-21-2007 [facility] 5110 PLEURISY 06-26-2007 [facility] WITHOUT [facility] MENTION INC EFFUS/CURRE NT TB 5997 HEMATURIA 06-26-2007 [facility] 88553 CHEST PAIN 06-26-2007 [facility] 4659 ACUTE URIS 04-25-2007 OF [facility] UNSPECIFIED MED CTR SITE 0549 HERPES 04-17-2007 [facility] WITHOUT INC MENTION OF COMPLICATIO N 59294 UNSPECIFIED 03-29-2007 [facility] 3804 IMPACTED 03-23-2007 [facility] 32279 SCOLIOSIS , 03-23-2007 [facility]IOPATHIC [facility] [...] FL 55 07 08 1. 1 00 MT Ac UC 11 -0 -0 00 00 L- ti ON 10 7- 4- 0 06 MA ve AZ 14 20 20 12 RT OL 51 17 17 78 E 2 44 PH 15 AR 0 MA MG CY TA #5 BL 84 ET VE 00 07 08 30 30 00 MT Ac NL 09 -0 -0 .0 00 L- ti AF 37 7- 4- 00 06 MA ve AX 38 20 20 10 RT IN 65 17 17 76 E 6 22 PH HC AR L MA ER CY 15 #5 0 84 MG CA P ME 62 07 08 30 30 00 MT Ac TO 03 -0 -0 .0 00 L- ti DC 70 7- 4- 00 06 MA ve OL 83 20 20 10 RT OL 01 17 17 76 0 20 PH MERIDA AR CC MA CY ER #5 25 84 MG TA B NI 47 07 08 10 5 00 MT Ac TR 78 -0 -0 .0 00 L- ti OF 10 7- 4- 00 06 MA ve UR 30 20 20 12 RT AN 30 17 17 78 TO 1 43 PH IN AR MA MO CY NO -M #5 CR 84 10 0 MG ME 50 06 07 14 7 00 MT Ac TR 11 -2 -2 .0 00 L- ti ON 10 7- 8- 00 06 MA ve ID 33 20 20 12 RT AZ 40 17 17 58 OL 2 57 PH E AR 50 MA 0 CY MG #5 TA 84 BL ET FL 55 06 07 1. 1 00 MT Ac UC 11 -1 -1 00 00 L- ti ON 10 9- 4- 0 06 MA ve AZ 14 20 20 12 RT OL 51 17 17 41 E 2 11 PH 15 AR 0 MA MG CY TA #5 BL 84 ET ME 50 06 07 4. 1 00 MT Ac TR 11 -2 -1 00 00 [...] 15 #5 0 84 MG CA P SD 57 05 06 30 30 00 [facility] [...] 03 -2 -1 .0 00 L- ti DC 70 4- 6- 00 06 MA ve [...] 15 #5 0 84 MG CA P SD 57 04 05 30 30 00 MT Ac RT 23 -0 -0 .0 00 L- ti AZ 70 7- 5- 00 06 MA ve AP 00 20 20 10 RT IN 83 17 17 76 E 0 21 PH 15 AR MA MG CY TA #5 BL 84 ET ME 62 04 05 30 30 00 [facility] TO 03 -0 -0 .0 00 L- ti DC 70 7- 5- 00 06 MA ve OL 83 20 20 10 RT OL 01 17 17 76 0 20 PH MERIDA AR CC MA CY ER #5 25 84 MG TA B DC 60 04 05 24 8 00 [facility] [...] FL 55 04 05 1. 1 00 MT Ac UC 11 -0 -0 00 00 L- ti ON 10 7- 5- 0 06 MA ve AZ 14 20 20 10 RT OL 51 17 17 76 E 2 17 PH 15 AR 0 MA MG CY TA #5 BL 84 ET FL 55 03 04 1. 1 00 MT Ac UC 11 -1 -0 00 00 L- ti ON 10 4- 7- 0 06 MA ve AZ 14 20 20 10 RT OL 51 17 17 09 E 2 10 PH 15 AR 0 MA MG CY TA #5 BL 84 ET ME 50 03 04 14 7 00 MT Ac TR 11 -1 -0 .0 00 [...] 15 0 IN MG C. CA P SD 57 03 03 30 30 00 GR [...] 88 -0 -3 .0 00 AN ti DC 40 6- 1- 00 02 T ve [...] Y #3 TA 93 BL 8 ET DC 37 06 02 00 28 28 RI [...] 0 93 MG 8 TA BL ET DC 68 01 02 00 30 7 WA [...] 20 20 RT 6 70 10 10 SD 5 PH CH AR AE MA L [...] CY CA #5 PS 84 UL E DC 68 12 12 00 20 6 WA [...] 00 30 15 WA 75 PA Ac DC 09 -1 -2 .0 L- 16 TE [...] MG CY TA #5 BL 84 ET DC 37 06 07 00 28 28 WA [...] ti YL 34 9 MA 93 ve DC 59 20 20 RT 9 DA ED [...] CY CA #5 PS 84 UL E DC 68 02 02 00 30 7 WA 74 PA Ac OM 38 -1 -2 .0 L- 64 TE ti ET 20 9- 6- 00 MA 35 L ve QURESHI 04 20 20 RT 1 ZI 10 09 09 RA NE 1 PH L AR 25 MA CY MG #5 TA 84 BL ET DC 37 01 02 01 28 28 RI [...] MP #5 DS 84 TA BL ET DC 37 01 01 00 28 28 RI [...] EN B TA #5 BL 84 ET DC 00 10 11 00 8. 4 WA [...] CY CA #5 PS 84 UL E DC 00 07 08 00 6. 25 WA [...] M bl 10 e -0 58 4 DC 00 03 03 00 10 20 WA [...] Procedure DOS Code Location Performer Comment CULTURE 15512 [facility]3] BACTERIAL 7 [facility] GALLEGOSZABETH QUANTTATI HEALTHCAR HEALTHCAR VE COLONY E EDGE E EDGE COUNT URINE IADNA 93072 [facility]3] CHLAMYDIA 7 HELIOBOZENA MURILLOTH TRACHOMAT HEALTHCAR HEALTHCAR IS E EDGE E EDGE AMPLIFIED PROBE TQ CYTP C/V 97005 [facility]3] AUTO THIN 7 [facility] LYR PREPJ SCR HEALTHCAR HEALTHCAR MNL E EDGE E EDGE RESCR PHYS IADNA 68575 [facility]3] NEISSERIA 7 [facility]IO [facility] GONORRHOE HEALTHCAR HEALTHCAR AE E EDGE E EDGE AMPLIFIED PROBE TQ IADNA 90817 [facility]3] RANDELL 7 [facility]IO [facility] SPECIES DIRECT HEALTHCAR HEALTHCAR PROBE TQ E EDGE E EDGE IADNA 63073 [facility]3] GARDNEREL 7 HELIO HELIO LA VAGINALIS HEALTHCAR HEALTHCAR DIRECT E EDGE E EDGE PROBE TQ IADNA 71650 [facility]3] TRICHOMON 7 [facility]IO [facility] VAGINALIS HEALTHCAR HEALTHCAR DIRECT E EDGE E EDGE PROBE TQ GONADOTRO 33461 [facility] PIN 5 HELIO MURILLOTH FOLLICLE PHYLLIS PHYLLIS STIMULATI NG HORMONE GONADOTRO 33171 [facility] PIN 5 HELIO MURILLOTH LUTEINIZI PHYLLIS PHYLLIS NG HORMONE HEMOGLOBI 02864 [facility]. N 5 HELIO MURILLOTH GLYCOSYLA PHYLL[place] [address] [facility] PROLACTIN 5 HELIO MURILLOTH PHYLLIS PHYLLIS GONADOTRO 02333 [facility] PIN 5 HELIO MURILLOTH CHORIONIC PHYLLIS PHYLLIS QUALITATI VE COLLECTIO 34136 [facility] N VENOUS 5 [facility] PHILIPBETH BLOOD PHY[place] [address] THYROID 5 [facility] STIMULATI PHYLLIS PHYLLIS NG HORMONE TSH US P[place] [address] 5 [facility] NONOBSTET PHYLLIS PHYLLIS [place] [address] TRANSVAGI 5 [facility] NAL PHYLLIS PHYLLIS CULTURE [address] BACTERIAL 4 [facility] MED CTR MED CTR QUANTTATI BACCARAT MANAGER ST BACCARAT MANAGER ST VE COLONY COUNT URINE CULTURE [address] BCT 4 [facility] ISOL&PRSM MED CTR MED CTR PTV ID BACCARAT MANAGER ST BACCARAT MANAGER ST ISOLATE EA URINE SUSCEPTIB [address] LTY STDY 4 [facility] ANTIMICRB MED CTR MED CTR IAL BACCARAT MANAGER ST BACCARAT MANAGER [place]CRO/[place] [address] RADIOLOGY YOUNG VAN TRANSVAGI 4 NAL ASSOCIATE S OF [facility] US PELVIC 55390 RADIOLOGY YOUNG VAN 4 NONOBSTET ASSOCIATE SOHAN S OF [facility] REAL-TIME IMAGE COMPLETE BASIC [address] METABOLIC 4 [facility] PANEL MED CTR MED CTR CALCIUM BACCARAT MANAGER ST BACCARAT MANAGER ST TOTAL GONADOTRO [address] PIN 4 [facility] CHORIONIC MED CTR MED CTR BACCARAT MANAGER ST BACCARAT MANAGER ST QUANTITAT [place]YA BLOOD [address] COUNT 4 [facility] COMPLETE MED CTR MED CTR AUTO&AUTO BACCARAT MANAGER ST BACCARAT [place] [address] THYROID 4 [facility] STIMULATI MED CTR MED CTR NG BACCARAT MANAGER ST BACCARAT MANAGER ST HORMONE TSH IADNA [address] NEISSERIA 4 [facility] MED CTR GONORRHOE BACCARAT MANAGER ST BACCARAT MANAGER ST AE AMPLIFIED PROBE TQ SUSCEPTIB [address] LTY STDY 4 [facility] ANTIMICRB MED CTR MED CTR IAL BACCARAT MANAGER ST BACCARAT MANAGER ST MICRO/AGA R DILUTJ CULTURE [address] ST ST BACTERIAL 4 [facility] MED CTR QUANTTATI BACCARAT MANAGER ST BACCARAT MANAGER ST VE COLONY COUNT URINE CULTURE [address] BCT 4 [facility] ISOL&PRSM MED CTR MED CTR PTV ID BACCARAT MANAGER ST BACCARAT MANAGER ST ISOLATE EA URINE IADNA [address] CHLAMYDIA 4 [facility] MED CTR MED CTR TRACHOMAT BACCARAT MANAGER ST BACCARAT MANAGER ST IS AMPLIFIED PROBE TQ IADNA [address] CHLAMYDIA 4 [facility] MED CTR MED CTR TRACHOMAT BACCARAT MANAGER ST BACCARAT MANAGER ST IS AMPLIFIED PROBE TQ CYTP C/V [address] AUTO THIN 4 [facility] LYR MED CTR MED CTR PREPJ SCR BACCARAT MANAGER ST BACCARAT MANAGER ST MNL RESCR PHYS CERV/VAGI G0101 ST VIKY NAL 4 [facility] MAR CANCER SCR; PHYSICIAN PELV&CLIN S BREAST EXAM IADNA [address] NEISSERIA 4 [facility] CTR MED CTR GONORRHOE BACCARAT MANAGER ST BACCARAT MANAGER ST AE AMPLIFIED PROBE TQ SCREEN Q0091 ST VIKY PAP [address] [facility] SMEAR; OBTAIN PHYSICIAN PREP &C S ONVEY TO LAB BASIC [address] METABOLIC 4 [facility] PANEL MED CTR MED CTR CALCIUM BACCARAT MANAGER ST BACCARAT MANAGER ST TOTAL BLOOD [address] COUNT 4 [facility] COMPLETE MED CTR MED CTR AUTOMATED BACCARAT MANAGER ST BACCARAT MANAGER ST PREALBUMI [address] N 4 [facility] MED CTR MED CTR BACCARAT MANAGER ST BACCARAT MANAGER ST HEMOGLOBI [address] N 4 [facility] GLYCOSYLA MED CTR MED CTR KALEY A1C BACCARAT MANAGER ST BACCARAT MANAGER ST COMPREHEN [address] SIVE 4 [facility] METABOLIC MED CTR MED CTR PANEL BACCARAT MANAGER ST BACCARAT MANAGER ST RADEX [address] ELBOW 2 0 [facility] RADEX 37423 RADIOLOGY NEILS, ELBOW 2 0 NEL W [place] [address] ARLEN SAUCEDA RADIAL 0 GLORIA PENALOZA HEAD/NECK ORTHOPAED M FX W/O [place] [address] ELFEGO WORTHINGTON, RADIAL 0 EMERGENCY MANUEL S HEAD/NECK SERVICES FX W/O MANIPULAT ASSOCIATE ION S RADEX 00021 PEREZ PATE, ELBOW 0 [facility] P COMPLETE IMAGING MINIMUM 3 ASSOCIATE VIEWS S RADEX 87605 PEREZ PATE, FOREARM 2 0 [facility] P VIEWS IMAGING ASSOCIATE S US BREAST [address]907 ST REAL 0 [facility] W/IMAGE DOCUMENTA TION IADNA 96321 [facility]3] STREPTOCO 9 [facility] A DIRECT [place]BE [place] [address] [place] [address] SOHAN REAL-TIME IMAGE COMPLETE GONADOTRO 14186 [facility]3] PIN 9 [facility] CHORIONIC MEDICALCE [place] [address] [facility]OM[facility] 9 , PAOLO W/CONTRAS ASSOCIATE L T S PSC MATERIAL CT PELVIS [address]/[facility] T MATERIAL RADEX [address] SPINE [address] [place] [address] 4 OR [address] V[address] [facility] [address] [place] [address] STUDY W/SUPINE & ERECT STUDY FRAMES V2020 GAURAV LEVI PURCHASES 9 VISION KHLOE M 1 VISN V2103 GAURAV LEVI PLANO 9 VISION KHLOE M TO+/-4.00 D SPHER 0.12-2.00 D CYL EA FITTING 24098 GAURAV LEVI SPECTACLE 9 VISION KHLOE Snyder S XCPT APHAKIA MONOFOCAL OPHTH 66231 GA[facility]AV LEVI MEDICAL 9 VISION KHLOE M XM&EVAL COMPRHNSV ESTAB PT 1/> ANESTHESI 05606 TRACI SHIN, A 9 MANUEL A INTRAORAL ANESTHEIS WITH AA BIOPSY SERVICES NOS PSC HEPATBL [address] DUX SYS 9 [facility] GLBLDR PROTHROMB [address] IN TIME 9 HELOI [facility] MEDICALCE MEDICALCE NTER NTER BLOOD [address] COUNT 9 [facility] COMPLETE AUTO&AUTO MEDICALCE MEDICALCE DIFRNTL NTER NTER WBC COLLECTIO 20536 [facility], N VENOUS 9 MEDICAL VIRAL BLOOD GROUP VENIPUNCT URE URNLS DIP 08452 [facility], 9 MEDICAL VIRAL STICK/TAB GROUP LET RGNT AUTO [place] [address] ABDOMINAL 9 [facility] TIME W/[place] [address] LIPASE 9 [facility] [place] [address] AMYLASE 9 [facility] MEDICALCE MEDICALCE NTER NTER COLLECTIO 21288 [facility], N VENOUS 9 MEDICAL VIRAL BLOOD GROUP VENIPUNCT URE HEPATIC [address] FUNCTION 9 [facility] PANEL MEDICALCE MEDICALCE NTER NTER HEPATIC [address] FUNCTION 8 [facility] PANEL MEDICALCE MEDICALCE NTER NTER COLLECTIO 19436 [facility] STERNEBER N VENOUS 8 MEDICAL G, ANTIONETTE BLOOD GROUP B VENIPUNCT URE ANTIBODY [address] HELICOBAC 8 [facility] TER PYLORI MEDICALCE MEDICALCE NTER NTER BLOOD [address] COUNT 8 [facility] COMPLETE AUTO&AUTO MEDICALCE MEDICALCE DIFRNTL NTER NTER WBC BLOOD 12150 [facility] MACARIO COUNT 8 [facility] COMPLETE INC INC AUTO&AUTO DIFRNTL WBC URNLS DIP 09224 [facility]AH MACARIO 8 [facility] STICK/TAB INC INC LET REAGENT AUTO MICROSCOP Y RADIOLOGI 93971 [facility]ATION[facility] Jess PATE EXAM 8 [facility] P CHEST 2 IMAGING VIEWS ASSOCIATE FRONTAL&L S ATERAL FIBRIN 96578 [facility]AH DGRADJ 8 [facility] PRODUCTS INC INC D-DIMER QUAL/SEMI CARLOS URINE 22820 [facility] AMIRAH 8 [facility] TEST INC INC VISUAL COLOR CMPRSN METHS CT PELVIS 48964 [facility], W/O 8 MEDICAL SERGIO CONTRAST IMAGING MATERIAL ASSOCIATE S COMPREHEN 47014 [facility]AH SIVE 8 [facility] METABOLIC INC INC PANEL 3D 49164 AMIRAH AMIRAH RENDERING 8 [facility] INC INC W/INTERP& [place] [address] AMIRAH AM[facility]AH ABDOMEN 8 [facility] W/O INC INC CONTRAST MATERIAL IADNA 61162 [facility]3] STREPTOCO 8 [facility] A AMPLIFIED PROBE TQ IRRIGATIO 9652 AMIRAH MACARIO N OF EAR 8 [facility] INC INC Encounters Encounter Start End Date Code Location Performer Type Date OFFICE 37815 [facility] 7 7 HELIO MOORE, DO T VISIT 15 PHYSICIAN MINUTES [facility] 7 7 [facility] 7 7 [facility] OFFICE 21284 [facility] 7 7 HELIO T VISIT 25 PHYSICIAN MINUTES [facility] 7 7 [facility] EMERGENCY 11771 SHERRI ALLEN 7 7 EMERGENCY DEPARTMEN T VISIT PHYSICIAN MODERATE S SEVERITY EMERGENCY 79860 SHERRI JO 7 7 EMERGENCY DEPARTMEN T VISIT PHYSICIAN HIGH/URGE S NT SEVERITY EMERGENCY 34953 [facility] FINKLEMAN 7 7 EMERGENCY DEPARTMEN T VISIT PHYSICIAN HIGH/URGE S NT SEVERITY EMERGENCY 01061 [facility] REMA LILI 6 6 EMERGENCY DEPARTMEN T VISIT PHYSICIAN HIGH/URGE S NT SEVERITY EMERGENCY 53970 [facility] NAT 6 6 EMERGENCY KRI DEPARTMEN T VISIT PHYSICIAN HIGH/URGE S NT SEVERITY EMERGENCY 46043 [facility] DAVREN 5 5 EMERGENCY MERRICK DEPARTMEN T VISIT PHYSICIAN HIGH/URGE S NT SEVERITY EMERGENCY 65221 [facility] DIYA 5 5 EMERGENCY JAILENE DEPARTMEN T VISIT PHYSICIAN HIGH/URGE S NT SEVERITY OFFICE 59244 ST [facility] OUTPATIEN 5 5 HELIO MAR T VISIT [address] ACCESS [address] [facility] EMERGENCY 47458 [facility] REMA LILI 5 5 EMERGENCY DEPARTMEN T VISIT PHYSICIAN HIGH/URGE S NT SEVERITY HOSPITAL ST. - 5 5 [facility] OUTPATIEN PHYLLIS T EMERGENCY 64630 [facility] ELKEL 5 5 EMERGENCY RAC DEPARTMEN T VISIT PHYSICIAN HIGH/URGE S NT SEVERITY EMERGENCY 20926 [facility] ELEAZAR 5 5 EMERGENCY LINDA DEPARTMEN T VISIT PHYSICIAN MODERATE S SEVERITY EMERGENCY 54[address] [facility] [place] 4 4 [facility] IRVING [facility] MED CTR T VISIT MODERATE SEVERITY OFFICE 39364 ST [facility] OUTPATIEN 4 4 [facility] KIR T VISIT 15 PHYSICIAN MINUTES S OFFICE 06[address] [facility] VIR OUTPATIEN 4 4 [facility] T VISIT 25 PHYSICIAN MINUTES S [facility] ST - 4 4 [facility] OUTPAT[facility] MED [facility] T BACCARAT MANAGER ST OFFICE 465[address] ST VIKY OUTPATIEN 4 4 [facility] MAR T VISIT 10 PHYSICIAN MIN[address]ES [facility] 4 [address] [facility] T BACCARAT MANAGER OFFICE 98849 ST [facility] VIR OUTPATIEN 4 4 [facility] T VISIT 25 PHYSICIAN MINUTES S OFFICE 48429 [facility] VIR OUTPATIEN 4 4 [facility] T VISIT [address] [facility] - 4 4 [facility] OUTPAT[facility] T BACCARAT MANAGER OFFICE 82812 [facility] VIR OUTPATI 4 4 [facility] T VISIT [address] [facility] [facility] 4 4 [facility] EMERGENCY 07235 ELIN WORTHINGTON 4 4 DAVID DAVID DEPARTMEN T VISIT HIGH/URGE NT SEVERITY HOSPITAL ST - OTHER 4 4 [facility] MED CTR [facility] EMERGENCY 92864 ELIN WORTHINGTON 4 4 DAVID [facility] DEPARTMEN T VISIT HIGH/URGE NT [facility] ST OTHER 4 4 [facility] MED CTR [facility] Emergency RY Nñúez MD (ER) 3 06:43 3 09:05 [facility] ST - 0 0 [facility] ST - [address] [facility] T OFFICE 66805 [facility] 0 0 MEDICAL VIRAL T VISIT GROUP 25 MINUTES HOSPITAL AMIRAH - 0 0 [facility] EMERGENCY 32709 ELFEGO WORTHINGTON, 0 0 [facility] DE[facility] SERVICES T VISIT MODERATE ASSOCIATE SEVERITY [facility] ST - [address] [facility] T OFFICE 43059 [facility] ADAIR LÓPEZ 9 9 MEDICAL VIRAL T VISIT GROUP 25 MINUTES OFFICE 77138 [facility] SHAHRAM LÓPEZPATIPERNELL 9 9 MEDICAL VIRAL T VISIT GROUP [address] - [address] [facility] T EMERGENCY 47907 [facility] 9 9 [facility] Judd [facility] MED CTR T VISIT MODERATE SEVERITY EMERGENCY [address]75 ST 9 9 [facility] T VISIT LOW/MODER SEVERITY HOSPITAL [facility] [address] [facility] T OFFICE 35130 [facility] ADAIR LÓPEZ 9 9 MEDICAL VIRAL T VISIT GROUP [address] - 9 9 [facility] MEDICALCE NTER OFFICE 15863 [facility] ADAIR LÓPEZ 9 9 MEDICAL VIRAL T VISIT GROUP [address] [facility] [facility] T OFFICE 22898 [facility] ADAIR L[facility]PEZ 9 9 MEDICAL VIRAL T VISIT GROUP [address] [facility] T EMERGENCY 36384 [facility] 9 9 [facility] MED CTR T VISIT HIGH/URGE NT SEVERITY [facility]OSPITAL ST [address] [facility] ST 9 9 [facility] MEDICALCE NTER OFFICE [id number] [facility] SANDRA L[facility]PEZ 9 9 MEDICAL VIRAL ION GROUP NEW/ESTAB PATIENT 30 MIN OFFICE [id number] [facility] ADAIR LÓPEZ 9 9 MEDICAL VIRAL T [facility]ISIT GROUP [address] [facility] [address] [facility] T [facility] ST - 9 9 [facility] OFF[facility] 04081 [facility] 9 9 MEDICAL VIRAL T VISIT GROUP 15 MINUTES OFFICE [id number] [facility] 8 8 MEDICAL VIRAL T VISIT GROUP 15 MINUTES HOSPITAL - 8 8 [facility] MEDICALCE NTER OFFICE 35561 [facility] 8 8 MEDICAL G, ANTIONETTE T NEW 20 GROUP B MINUTES EMERGENCY [id number] 8 8 [facility] T VISIT MODERATE [facility]VERITY HOSPITAL [facility] [address] [facility] T EMERGENCY 82372 [facility], 8 8 [facility] T VISIT HIGH/URGE NT SEVERITY EMERGENCY 64825 8 8 [facility] T VISIT LOW/MODER SEVERITY HOSPITAL - [address] [facility] T OFFICE 00154 [facility] 8 8 [place], T VISIT FAMILY [place] 15 CARE, MINUTES INC. EMERGENCY 93584 [facility] 8 8 [facility] T VISIT LOW/MODER SEVERITY [facility]PITAL [facility] 8 8 [facility] EMERGENC[facility] 83401 8 8 [facility] T VISIT MODERATE [facility]VERITY HOSPITAL - [address] [facility] T EMERGENCY 16698 [facility] 8 8 [facility] T [facility]ISIT LIMITED/M [facility] AMIR[facility] - 8 8 [facility] T EMERGENCY [id number] 8 8 [facility] T VISIT [facility]OW/MODER SEVERITY [facility] 8 [facility] T EMERGENCY [address] [place] [address] 8 [facility] T VISIT MODERATE [facility]VERITY [facility] AMIR[facility] - 8 8 [facility] [id number] [place] 8 8 [facility] [place] T VISIT [facility]OW/MODER SEVERITY
--- OUTSIDE RECORDS SUMMARY | 2016-09-30 17:09 | External Medical Summary Rpt ---
Author Author , CHASE STONE Address Unknown Phone [email or web address] Informatic Care Team Providers Care Md Urologist Name Role Phone NAT KOVACS, Unavailable Unavailable NAT CORDOVA KIR, CORDOVA Unavailable Unavailable KIR [facility] Unavailable Unavailable PHYSICIANS, [facility] LITO PIKE, Unavailable Unavailable LITO PIKE DOUGLAS, Unavailable Unavailable SERGIO FUENTES JEFFREY T, Unavailable Unavailable PAOLO LOERA DAVREN Unavailable Unavailable MERRICK VIKY MAR, VIKY Unavailable Unavailable MAR REMA ABEBE Unavailable Unavailable FINKLKADE FINKLEMAN Unavailable Unavailable KARLOS MORALES, Unavailable Unavailable KARLOS MORALES, ELIN Unavailable Unavailable DAVID MANUEL WORTHINGTON, Unavailable Unavailable MANUEL WORTHINGTON [facility], Unavailable Unavailable [facility] MANUEL SHIN, Unavailable Unavailable MANUEL SHIN [facility] Unavailable Unavailable [facility], [facility] GLORIA SAUCEDA, Unavailable Unavailable GLORIA SAUCEDA JOHNSON Unavailable Unavailable TIERRA BLOCK, Unavailable Unavailable TIERRA BLOCK LEHMKUHL RAC, Unavailable Unavailable LEHMKUHL RAC DEBORA ANDRADE Unavailable Unavailable K, DEBORA ANDRADE K BOB PRUETT, Unavailable Unavailable BOB PRUETT HARRY, MILLS, Unavailable Unavailable FARHAN TONEY, Unavailable Unavailable FARHAN PATE ALEJANDRO, ALEJANDRO Unavailable Unavailable NEILS, NEL W, NEILS, Unavailable Unavailable NEL W LÓPEZ, LÓPEZ Unavailable Unavailable LÓPEZ VIR, LÓPEZ VIR Unavailable Unavailable LÓPEZ, VIRAL, LÓPEZ, Unavailable Unavailable VIRAL JR. COOK DO, Unavailable Unavailable JR. COOK DO [facility] Unavailable Unavailable [facility], [id number], Unavailable Unavailable [id number] BUDDY ESCAMILLA, Unavailable Unavailable BUDDY ESCAMILLA JEFFREY L, Unavailable Unavailable PAOLO MORGAN SCHOTT Unavailable Unavailable KHLOE FRIETAS, Unavailable Unavailable KHLOE LEVI SHERMAN Unavailable Unavailable STEVEN LUJAN SOWER, Unavailable Unavailable STEVEN [facility] Unavailable Unavailable [facility] Unavailable Unavailable [facility], [facility]available Unavailable [facility] Unavailable Unavailable HEEL CASER , [facility] HEEL CASER [facility]available Unavailable [facility], [facility] Unavailable Unavailable PHYSICIANS, [facility], Unavailable Unavailable [facility] STEVEN MEJIA, Unavailable Unavailable STEVEN LOPEZ STEVEN B, Unavailable Unavailable ANTIONETTE WALLACE [facility] Unavailable Unavailable #584, [facility] Unavailable Unavailable #591, [id number], Unavailable Unavailable [facility] DHRUV PEÑA Unavailable Unavailable DIYA DENT, DIYA Unavailable Unavailable JAILENE Purpose Continuity of Care Document - 03-23-2007 through 2016 Problems Code Diagnosis DOS Provider Status N3000 ACUTE 09-02-2016 [facility] HEMATURIA R300 DYSURIA 09-02-2016 [facility] [id number] ENCOUNTER 08-23-2016 PERSONAL LINES ADVISOR EXAM [facility]N [facility] W/O EDGE ABNORMAL FIND B373 CANDIDIASIS 08-15-2016 [facility] N390 URINARY 08-15-2016 TRACT [facility] INFECTION PHYSICIANS SITE NOT SPECIFIED N760 ACUTE 08-15-2016 VAGINITIS [facility] R140 ABDOMINAL 08-15-2016 DISTENSION [facility] GASEOUS PHYSICIANS Z6820 BODY MASS 08-15-2016 INDEX BMI [facility] 20.0-20.9 PHYSICIANS ADULT N3090 CYSTITIS 07-23-2016 [facility] UNSPECIFIED EMERGENCY WITHOUT PHYSICIANS HEMATURIA J069 ACUTE UPPER 06-02-2016 [facility] EMERGENCY RESPIRATORY PHYSICIANS INFECTION UNSPECIFIED N888 OTH SPEC 04-27-2016 [facility] NONINFLAMMA EMERGENCY TORY PHYSICIANS DISORDERS CERVIX UTERI N898 OTHER 04-27-2016 [facility] SPECIFIED EMERGENCY NONINFLAMMA PHYSICIANS TORY DISORDERS VAGINA J111 FLU D/T 05-21-2015 [facility] UNIDENTIFIE EMERGENCY D FLU VIRUS PHYSICIANS W/OTH RESP MANIF R109 UNSPECIFIED 03-25-2015 [facility] ABDOMINAL EMERGENCY PAIN PHYSICIANS A64 UNSPECIFIED 01-09-2015 [facility] SEXUALLY EMERGENCY TRANSMITTED PHYSICIANS DISEASE N12 TUBULO-INTE 01-09-2015 [facility] RST EMERGENCY NEPHRITIS PHYSICIANS NOT SPEC ACUTE/CHRON N926 IRREGULAR 01-06-2015 [facility] N PHYLLIS UNSPECIFIED 5950 ACUTE 09-17-2014 [facility] CYSTITIS EMERGENCY PHYSICIANS 56232 HEMATURIA 09-17-2014 [facility] UNSPECIFIED EMERGENCY PHYSICIANS 6268 OTH D/O 08-29-2014 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 N PHYLLIS 96888 ABDOMINAL 10-21-2013 ST. PAIN, [facility] UNSPECIFIED PHYLLIS SITE 27773 GENERALIZED 08-08-2013 ST ANXIETY [facility] DISORDER PHYSIC[facility]ANS 35474 UNSPECIFIED 08-08-2013 ST [facility] CONSTIPATIO PHYSICIANS N V700 ROUTINE 07-19-2013 GENERAL [facility] MEDICAL [facility] EXAM@HEALTH CARE FACL V7231 ROUTINE 07-19-2013 GYNECOLOGIC [facility] AL PHYSICIANS EXAMINATION 2639 UNSPECIFIED 06-10-2013 [facility] PROTEIN-IRON [facility] CTR HEEL CASER ORIE ST MALNUTRITIO N 7804 DIZZINESS 06-10-2013 AND [facility] GIDDINESS MED CTR HEEL CASER ST 1101 DERMATOPHYT 04-05-2013 ST OS[facility] NAIL MED CTR HEEL [facility] ST 07691 CLOSED 04-22-2009 [facility] FRACTURE OF ASSOCIATES HEAD OF [facility] RADIUS 01420 CONTUSION 03-25-2009 [facility] SHOULDER H [facility]ION [facility]ED[facility] PSC 82958 CONTUSION 03-25-2009 [facility] OF HIP H ORTHOPAEDIC CTR [facility] 4779 ALLERGIC 03-23-2009 [facility] RH[facility]IS [facility] CAUSE [facility] UNSPECIFIED 64693 ESOPHAGEAL 03-23-2009 [facility] 87096 NAUSEA 03-23-2009 [facility]ONE [facility] 98226 CLOSED 03-23-2009 [facility] FRACTURE MEDICAL UNSPEC PART GROUP LOWER END HUMERUS E8490 PLACE OF 03-20-2009 [facility] E8851 FALL FROM 03-20-2009 [facility] 46514 MASTODYNIA 03-11-2009 [facility] PSC 10145 LUMP OR 03-11-2009 [facility] MASS IN ASSOCI[facility] BREAST PSC 57553 UNSPECIFIED 02-12-2009 [facility] VIRAL [facility] INFECTION GROUP IN CCE & UNS SITE 462 ACUTE 02-12-2009 [facility] PHARYNGITIS [facility] 6100 SOLITARY 01-20-2009 [facility] CYST OF MEDICAL BREAST GROUP 51872 OTHER 01-20-2009 [facility] MALAISE AND MEDICAL FATIGUE GROUP 5969 UNSPECIFIED 12-10-2008 [facility] 55450 ABDOMINAL 12-10-2008 [facility] PAIN RIGHT ASSOCIATES LOWER [facility] QUADRANT 4619 ACUTE 12-08-2008 [facility] SINUSITIS, MEDICAL UNSPECIFIED GROUP 6253 DYSMENORRHE 12-08-2008 [facility] A [facility] 7231 CERVICALGIA 09-12-2008 [facility] PSC 02681 ABDOMINAL 09-12-2008 [facility] PAIN RIGHT MEDICAL UPPER GROUP QUADRANT 8470 NECK SPRAIN 09-12-2008 [facility] AND STRAIN [facility]ICAL [facility] 7379 UNSPECIFIED 09-02-2008 [facility] CURVATURE [facility] OF SPINE PSC 0340 STREPTOCOCC 06-10-2008 [facility] 7892 SPLENOMEGAL 06-10-2008 [facility] 3671 MYOPIA 06-06-2008 [facility] 86616 UNSPECIFIED 05-21-2008 [facility] DENTAL ANESTHEISAA CARIES SERVICES [facility] V7284 UNSPECIFIED 05-13-2008 [facility] VE EXAMINATION 28775 CALCU 04-17-2008 [facility] GALL[facility]ADD MEDICAL W/O MENTION GROUP CHOLECYST/O BST 91640 ABDOMINAL 03-20-2008 [facility] TENDERNESS MEDICAL RIGHT UPPER GROUP QUADRANT 3829 UNSPECIFIED 02-27-2008 [facility] OT[facility] MED[facility] MEDIA GROUP 6929 CONTACT 02-27-2008 [facility] DERMAT[facility]& MEDICAL OTHER GROUP ECZEMA DUE UNSPEC CAUSE 20717 DIARRHEA 01-25-2008 [facility] 07871 EXTRINSIC 12-21-2007 [facility] STATUS MED CTR ASTHMATICUS 23430 ASTHMA, 12-21-2007 [facility] 5110 PLEURISY 06-26-2007 [facility] MENTION INC EFFUS/CURRE NT TB 5997 HEMATURIA 06-26-2007 [facility] 03332 CHEST PAIN 06-26-2007 [facility] 4659 ACUTE URIS 04-25-2007 OF [facility] UNSPECIFIED MED CTR SITE 0549 HERPES 04-17-2007 [facility] WITHOUT INC MENTION OF COMPLICATIO N 79074 UNSPECIFIED 03-29-2007 [facility] 3804 IMPACTED 03-23-2007 [facility] 79302 SCOLIOSIS , 03-23-2007 [facility] Medications Na ND Rx Da Fi Fi Am Da Di Ph RX Ph St me C No te ll ll ou ys ag ar # ys at rm s nt no ma ic us Or Da si cy ia de te s n re d NI 47 07 08 10 5 00 [place] Ac TR 78 -0 -0 .0 00 L- ti OF 10 7- 4- 00 06 MA ve UR 30 20 20 12 RT AN 30 17 17 78 TO 1 43 PH IN AR MA MO CY NO -M #5 CR 84 10 0 MG FL 55 07 08 1. 1 00 [place] Ac UC 11 -0 -0 00 00 L- ti ON 10 7- 4- 0 06 MA ve AZ 14 20 20 12 RT OL 51 17 17 78 E 2 44 PH 15 AR 0 MA MG CY TA #5 BL 84 ET VE 00 07 08 30 30 00 [facility] NL 09 -0 -0 .0 00 L- ti AF 37 7- 4- 00 06 MA ve AX 38 20 20 10 RT IN 65 17 17 76 E 6 22 PH HC AR L MA ER CY 15 #5 0 84 MG CA P ME 62 07 08 30 30 00 [facility] TO 03 -0 -0 .0 00 L- ti ND 70 7- 4- 00 06 MA ve OL 83 20 20 10 RT OL 01 17 17 76 0 20 PH MERIDA AR CC MA CY ER #5 25 84 MG TA B ME 50 06 07 14 7 00 [facility] TR 11 -2 -2 .0 00 L- ti ON 10 7- 8- 00 06 MA ve ID 33 20 20 12 RT AZ 40 17 17 58 OL 2 57 PH E AR 50 MA 0 CY MG #5 TA 84 BL ET FL 55 06 07 1. 1 00 [facility] UC 11 -1 -1 00 00 L- ti ON 10 9- 4- 0 06 MA ve AZ 14 20 20 12 RT OL 51 17 17 41 E 2 11 PH 15 AR 0 MA MG CY TA #5 BL 84 ET ME 50 06 07 4. 1 00 [facility] TR 11 -2 -1 00 00 L- ti ON 10 1- 4- 0 06 MA ve ID 33 20 20 12 RT AZ 40 17 17 45 OL 2 67 PH E AR 50 MA 0 CY MG #5 TA 84 BL ET FL 55 05 06 1. 1 00 [facility] UC 11 -2 -2 00 00 L- ti ON 10 7- 3- 0 06 MA ve AZ 14 20 20 11 RT OL 51 17 17 92 E 2 43 PH 15 AR 0 MA MG CY TA #5 BL 84 ET PH 51 05 06 6. 2 00 [facility] EN 29 -2 -2 00 00 L- ti AZ 30 7- 3- 0 06 MA ve OP 81 20 20 11 RT YR 10 17 17 92 ID 1 44 PH IN AR E MA 20 CY 0 MG #5 84 TA B CE 68 05 06 15 5 00 [facility] PH 18 -2 -2 .0 00 L- ti AL 00 7- 3- 00 06 MA ve EX 12 20 20 11 RT IN 20 17 17 92 2 45 PH 50 AR 0 MA MG CY CA #5 PS 84 UL E VE 00 05 06 30 30 00 [facility] NL 09 -2 -1 .0 00 L- ti AF 37 4- 6- 00 06 MA ve AX 38 20 20 10 RT IN 65 17 17 76 E 6 22 PH HC AR L MA ER CY 15 #5 0 84 MG CA P DC 57 05 06 30 30 00 ME Ac RT 23 -2 -1 .0 00 L- ti AZ 70 4- 6- 00 06 MA ve AP 00 20 20 10 RT IN 83 17 17 76 E 0 21 PH 15 AR MA MG CY TA #5 BL 84 ET ME 62 05 06 30 30 00 ME Ac TO 03 -2 -1 .0 00 L- ti ND 70 4- 6- 00 06 MA ve OL 83 20 20 10 RT OL 01 17 17 76 0 20 PH MERIDA AR CC MA CY ER #5 25 84 MG TA B ME 62 04 05 30 30 00 ME Ac TO 03 -0 -0 .0 00 L- ti ND 70 7- 5- 00 06 MA ve OL 83 20 20 10 RT OL 01 17 17 76 0 20 PH MERIDA AR CC MA CY ER #5 25 84 MG TA B DC 57 04 05 30 30 00 [facility] RT 23 -0 -0 .0 00 L- ti AZ 70 7- 5- 00 06 MA ve AP 00 20 20 10 RT IN 83 17 17 76 E 0 21 PH 15 AR MA MG CY TA #5 BL 84 ET VE 00 04 05 30 30 00 [facility] NL 09 -0 -0 .0 00 L- ti AF 37 7- 5- 00 06 MA ve AX 38 20 20 10 RT IN 65 17 17 76 E 6 22 PH HC AR L MA ER CY 15 #5 0 84 MG CA P FL 55 04 05 1. 1 00 [facility] UC 11 -0 -0 00 00 L- ti ON 10 7- 5- 0 06 MA ve AZ 14 20 20 10 RT OL 51 17 17 76 E 2 17 PH 15 AR 0 MA MG CY TA #5 BL 84 ET EQ 49 04 05 89 4 00 ME Ac 03 -0 -0 .0 00 L- ti CO 50 7- 5- 00 08 MA ve UG 38 20 20 86 RT H 42 17 17 46 DM 1 36 PH AR ER MA CY 30 #5 MG 84 /5 ML MERIDA SP CE 68 04 05 40 10 00 ME Ac PH 18 -0 -0 .0 00 L- ti AL 00 7- 5- 00 06 MA ve EX 12 20 20 10 RT IN 10 17 17 76 1 18 PH 25 AR 0 MA MG CY CA #5 PS 84 UL E ND 60 04 05 24 8 00 WA Ac OM 43 -0 -0 0. 00 L- ti ET 20 7- 5- 00 04 MA ve QURESHI 60 20 20 0 65 RT ZI 61 17 17 22 NE 6 60 PH -C AR OD MA EI CY NE #5 SY 84 RU P FL 55 03 04 1. 1 00 WA Ac UC 11 -1 -0 00 00 L- ti ON 10 4- 7- 0 06 MA ve AZ 14 20 20 10 RT OL 51 17 17 09 E 2 10 PH 15 AR 0 MA MG CY TA #5 BL 84 ET ME 50 03 04 14 7 00 WA Ac TR 11 -1 -0 .0 00 L- ti ON 10 4- 7- 00 06 MA ve ID 33 20 20 10 RT AZ 40 17 17 09 OL 2 12 PH E AR 50 MA 0 CY MG #5 TA 84 BL ET ME 49 03 03 30 30 00 GR Ac TO 88 -0 -3 .0 00 AN ti ND 40 6- 1- 00 02 T ve OL 82 20 20 25 CO OL 50 17 17 34 UN [address] REA ER S, 25 IN C. MG TA B VE 00 03 03 30 30 00 GR Ac NL 09 -0 -3 .0 00 AN ti AF 37 6- 1- 00 02 T ve AX 38 20 20 25 CO IN 69 17 17 34 UN E [address] PALAK REA S, 15 0 IN MG C. CA P DC 57 03 03 30 30 00 GR Ac RT 66 -0 -3 .0 00 AN ti AZ 40 6- 1- 00 02 T ve AP 49 20 20 25 CO IN 98 17 17 34 UN E [address] MG REA S, TA BL IN ET C. SP 00 10 02 03 28 28 RI 80 CE Ac RI 55 -2 -2 .0 TE 49 NT ti NT 59 0- 6- 00 70 NE ve EC 01 20 20 AI R 65 09 10 D RO 28 8 PH NA AR LD DA M F Y #3 TA 93 BL 8 ET ND 37 06 02 00 28 28 RI [...] 0 93 MG 8 TA BL ET 00 01 02 00 30 10 WA 45 PA Ac 40 -2 -1 .0 L- 90 TE ti 60 5- 1- 00 MA 29 L ve 35 20 20 RT 0 70 10 10 RA 5 PH L AR MA CY #5 84 ND 68 01 02 00 30 7 WA [...] #5 ET 84 00 01 02 00 12 3 WA 44 GA Ac 40 -2 -1 .0 L- 83 IN ti 60 3- 1- 00 MA 00 EY ve 35 20 20 RT 6 70 10 10 DC 5 PH CH AR AE MA L [...] 0 93 MG 8 TA BL ET CE 68 12 12 00 21 7 WA 75 PA Ac PH 18 -1 -3 .0 L- 32 TE ti AL 00 7- 1- 00 MA 09 L ve EX 12 20 20 RT 3 IN 20 09 09 RA 1 PH L 50 AR 0 MA MG CY CA #5 PS 84 UL E ND 68 12 12 00 20 6 WA 75 PA Ac OM 38 -1 -3 .0 L- 32 TE ti ET 20 7- 1- 00 MA 09 L ve QURESHI 04 20 20 RT 2 ZI 10 09 09 RA NE 1 PH L AR 25 MA CY MG #5 TA 84 BL ET NE 00 12 12 00 30 30 WA 75 PA Ac XI 18 -1 -3 .0 L- 32 TE ti UM 65 7- 1- 00 MA 09 L ve 04 [address] 03 09 09 RA 1 PH L 40 AR MA MG CY CA #5 PS 84 UL E SE 54 11 12 01 30 30 [...] #5 84 TA BL ET CH 00 10 11 00 47 25 WA 75 IS Ac LO 11 -3 -0 3. L- 21 ON ti RH 62 0- 5- 00 MA 21 ve EX 00 20 20 0 RT 5 DA ID 11 09 09 IN 6 PH D E AR E 0. MA 12 CY % RI #5 NS 84 E SF 60 10 11 00 51 20 [...] Y #3 TA 93 BL 8 ET 00 10 10 00 30 15 WA [...] 00 30 15 WA 75 PA Ac ND 09 -1 -2 .0 L- 16 TE [...] 0 MG #5 84 TA BL ET ND 37 06 07 00 28 28 WA 88 PA Ac IL 00 -1 -0 .0 L- 27 TE ti OS 00 6- 2- 00 MA 82 L ve EC 45 20 20 RT 0 50 09 09 RA OT 3 PH L C AR 20 MA .6 CY MG #5 84 TA BL ET LO 00 06 07 00 30 30 WA 88 PA Ac RA 78 -1 -0 .0 L- 27 TE ti TA 15 6- 2- 00 MA 81 L ve DI 07 20 20 RT 9 NE 70 09 09 RA 1 PH L 10 AR MA MG CY TA #5 BL 84 ET SE 31 07 00 30 30 WA 74 PA [...] 0 MG #5 84 TA BL ET CE 00 03 04 00 30 30 WA 88 PA Ac TI 37 -3 -0 .0 L- 26 TE ti RI 83 1 9- 00 MA 88 L ve ZI 63 20 20 RT 8 NE 70 09 09 RA 1 PH L HC AR L MA 10 CY MG #5 84 TA BL ET SE 31 04 00 15 30 WA 74 PA Ac RT 72 -3 -0 .0 L- 74 TE ti RA 20 1 9- 00 MA 39 L ve LI 21 20 20 RT 6 NE 43 09 09 RA 0 PH L HC AR L MA 10 CY 0 MG #5 84 TA BL ET DI 00 03 04 00 30 30 WA 74 PA Ac CY 52 -3 -0 .0 L- 74 TE ti CL 70 1- 9- 00 MA 39 L ve OM 58 20 20 RT 8 IN 60 09 09 RA E 1 PH L 10 AR MA MG CY CA #5 PS 84 UL E PE 00 03 04 00 30 7 [...] .0 L- 72 ON ti YL 34 5- 9- 00 MA 93 ve ND 59 20 20 RT 9 DA ED 31 09 09 NI 5 PH D SO AR E LO MA NE CY 4 #5 MG 84 DO SE PK 60 03 04 00 20 3 GR 17 IS Ac 95 -2 -0 .0 AN 54 ON ti 10 5- 9- 00 T 97 ve 79 20 20 CO 9 DA 67 09 09 UN [address] UG ND 37 01 02 01 28 28 RI [...] MP #5 DS 84 TA BL ET ND 68 02 02 00 30 7 WA 74 PA Ac OM 38 -1 -2 .0 L- 64 TE ti ET 20 9 6- 00 MA 35 L ve QURESHI 04 20 20 RT 1 ZI 10 09 09 RA NE 1 PH L AR 25 MA CY MG #5 TA 84 BL ET 00 01 01 00 20 3 WA 74 PA Ac 40 -2 -3 .0 L- 58 TE ti 62 2- 0- 00 MA 28 L ve 04 20 20 RT 5 10 09 09 RA 1 PH L AR MA CY #5 84 ND 37 01 01 00 28 28 RI 76 QURESHI Ac IL 00 -2 -3 .0 TE 81 RT ti OS 00 2- 0- 00 11 IG ve EC 45 20 20 AI 50 09 09 D CLAUS OT 3 PH SE C AR PH 20 M E .6 #3 93 MG 8 TA BL ET DE 51 12 01 00 30 7 WA 74 PA Ac SO 67 -3 -1 .0 L- 53 TE ti XI 21 1- 5- 00 MA 26 L ve ME 26 20 20 RT 0 TA 10 08 09 RA SO 1 PH L NE AR MA 0. CY 05 % #5 GE 84 L AM 00 12 01 00 21 7 WA 74 PA Ac OX 78 -3 -1 .0 L- 53 TE ti IC 12 1- 5- 00 MA 25 L ve IL 61 20 20 RT 8 LI 30 08 09 RA N 5 PH L 50 AR 0 MA MG CY CA #5 PS 84 UL E DI 00 11 12 00 [address] Ac CY 52 -2 -0 .0 L- 46 ER ti CL 71 8- 4- 00 MA 31 NE ve OM 28 20 20 RT 3 BE IN 20 08 08 RG E [address] MA EV MG CY EN B TA #5 BL 84 ET ND 00 10 11 00 8. 4 WA [...] CY CA #5 PS 84 UL E ND 00 07 08 00 6. 25 WA [...] bl AR e M #3 93 8 TR 00 02 03 00 15 3 [...] M bl 10 e -0 58 4 53 01 03 00 9. 3 WA [...] -H 4 C EA R SO LN ND 00 03 03 00 10 20 WA 73 No Ac EV 12 -2 -2 0. LM 66 t ti ID 60 1- 5- 00 AR 38 Av ve EN 07 20 20 0 T 0 ai T 06 07 08 PH la 50 1 M bl 00 10 e -0 SE 58 NS 4 IT IV E PA ST E Procedures Procedure DOS Code Location Performer Comment CULTURE 87397 [facility] BACTERIAL 7 [facility] QUANTTATI HEALTHCAR HEALTHCAR VE COLONY E EDGE E EDGE COUNT URINE IADNA 80626 [facility] CHLAMYDIA 7 [facility] GALLEGOSZABETH TRACHOMAT HEALTHCAR HEALTHCAR IS E EDGE E EDGE AMPLIFIED PROBE TQ IADNA 17065 [facility] NEISSERIA 7 HELIO [facility] GONORRHOE HEALTHCAR HEALTHCAR AE E EDGE E EDGE AMPLIFIED PROBE TQ CYTP C/V 40422 [facility] AUTO THIN 7 [facility]IO [facility] LYR PREPJ SCR HEALTHCAR HEALTHCAR MNL E EDGE E EDGE RESCR PHYS IADNA 45144 [facility] RANDELL 7 HELIO [facility] SPECIES DIRECT HEALTHCAR HEALTHCAR PROBE TQ E EDGE E EDGE IADNA 47336 [facility] GARDNEREL 7 HELIO CADET LA VAGINALIS HEALTHCAR HEALTHCAR DIRECT E EDGE E EDGE PROBE TQ IADNA 94733 [facility] TRICHOMON 7 HELIOBOZENA CADET VAGINALIS HEALTHCAR HEALTHCAR DIRECT [place] [address] [facility] THYROID 5 HELIO CADET STIMULATI PHYLLIS PHYLLIS NG HORMONE TSH HEMOGLOBI 84953 [facility] N 5 HELIO CADET GLYCOSYLA PHYLLIS [place] [address] [facility] PROLACTIN 5 HELIO CADET PHYLLIS PHYLLIS GONADOTRO 32612 [facility] PIN 5 [facility]IO CADET CHORIONIC PHYLLIS PHYLLIS QUALITATI VE GONADOTRO 03558 [facility] PIN 5 [facility] CADET FOLLICLE PHYLLIS PHYLLIS STIMULATI NG HORMONE COLLECTIO 01031 [facility]. N VENOUS 5 HELIO CADET BLOOD PHYLLIS PHYLLIS VENIPUNCT URE GONADOTRO 90509 [facility] PIN 5 HELIO CADET LUTEINIZI [place] [address] TRANSVAGI 5 [facility] NAL PHYLLIS PHYLLIS US PELV[address] 5 [facility] NONOBSTET PHYLLIS PHYLLIS SOHAN REAL-TIME IMAGE COMPLETE CULTURE [address] BACTERIAL 4 [facility] MED CTR QUANTTATI HEEL CASER ST HEEL CASER ST VE COLONY COUNT URINE CULTURE [address] BCT 4 [facility] ISOL&PRSM MED CTR MED CTR PTV ID HEEL CASER ST HEEL CASER ST ISOLATE EA URINE SUSCEPTIB [address] LTY STDY 4 [facility] ANTIMICRB MED CTR MED CTR IAL HEEL CASER ST HEEL CASER ST MICRO/AGA R DILUTJ US PELVIC 15969 [facility] YOUNG VAN 4 NONOBSTET ASSOCIATE SOHAN S [facility] [place] [place] [address] RADI[facility] YOUNG VAN TRANSVAGI 4 NAL ASSOCIATE S OF [facility] GONADOT[address] PIN 4 [facility] CHORIONIC MED CTR MED CTR HEEL CASER ST HEEL CASER ST QUANTITAT KATYA BASIC [address] METABOLIC 4 [facility] PANEL MED CTR MED CTR CALCIUM HEEL [place]ER [place] [address] THYROID 4 [facility] STIMULATI MED CTR MED CTR NG HEEL CASER ST HEEL CASER ST HORMONE TSH BLOOD [address] COUNT 4 [facility] COMPLETE MED CTR MED CTR AUTO&AUTO HEEL CASER ST HEEL CASER ST DIFRNTL WBC CULTURE [address] BCT 4 [facility] ISOL&PRSM MED CTR MED CTR PTV ID HEEL CASER ST HEEL CASER ST ISOLATE EA URINE IADNA [address] CHLAMYDIA 4 [facility] MED CTR TRACHOMAT HEEL CASER ST HEEL CASER ST IS AMPLIFIED PROBE TQ SUSCEPTIB [address] LTY STDY 4 [facility] ANTIMICRB MED CTR MED CTR IAL HEEL CASER ST HEEL CASER ST MICRO/AGA R DILUTJ CULTURE [address] BACTERIAL 4 [facility] MED [facility] MED CTR QUANTTATI HEEL CASER ST HEEL CASER ST VE COLONY COUNT URINE IADNA [address] NEISSERIA 4 [facility] MED CTR MED CTR GONORRHOE HEEL CASER ST HEEL CASER ST AE AMPLIFIED PROBE TQ IADNA [address] NEISSERIA 4 [facility] MED CTR MED CTR GONORRHOE HEEL CASER ST HEEL CASER ST AE AMPLIFIED PROBE TQ IADNA [address] CHLAMYDIA 4 [facility] MED CTR MED CTR TRACHOMAT HEEL CASER ST HEEL CASER ST IS AMPLIFIED PROBE TQ CYTP C/V [address] AUTO THIN 4 [facility] LYR MED CTR MED CTR PREPJ SCR HEEL CASER ST HEEL CASER ST MNL RESCR PHYS CERV/VAGI G0101 ST VIKY NAL 4 [facility] CANCER SCR; PHYSICIAN PELV&CLIN S BREAST EXAM SCREEN Q0091 ST VIKY PAP 4 [facility] SMEAR; OBTAIN PHYSICIAN PREP &C S ONVEY TO LAB BASIC [address] METABOLIC 4 [facility] PANEL MED CTR MED CTR CALCIUM HEEL CASER ST HEEL CASER ST TOTAL HEMOGLOBI [address] N 4 [facility] GLYCOSYLA MED CTR MED CTR KALEY A1C HEEL CASER ST HEEL CASER ST BLOOD [address] COUNT 4 [facility] COMPLETE MED CTR MED CTR AUTOMATED HEEL CASER ST HEEL CASER ST PREALBUMI [address] N 4 [facility] MED CTR MED CTR HEEL CASER ST HEEL CASER ST COMPREHEN [address] SIVE 4 [facility] METABOLIC MED CTR MED CTR PANEL HEEL CASER ST HEEL CASER ST RADEX 59519 RADIOLOGY NEILS, ELBOW 2 0 NEL W [facility] S PSC RADEX [address] ELBOW 2 0 [facility] [place] [place] [address] ARLEN SAUCEDA RADIAL 0 TREMAINE GLORIA HEAD/NECK ORTHOPAED M FX W/O [place] [address] ELFEGO WORTHINGTON, RADIAL 0 EMERGENCY MANUEL S HEAD/NECK SERVICES FX W/O MANIPULAT ASSOCIATE ION S RADEX 10405 PEREZ PATE, ELBOW 0 MEDICAL FARHAN P COMPLETE IMAGING MINIMUM 3 ASSOCIATE VIEWS S RADEX 30652 PEREZ PATE, FOREARM 2 0 MEDICAL FARHAN P VIEWS IMAGING ASSOCIATE S US BREAST 48377 RADIOLOGY FRANCINE, REAL 0 BUDDY C TIME ASSOCIATE W/IMAGE S PSC DOCUMENTA TION IADNA [address]2960 ST STREPTOCO 9 [facility] GROUP A DIRECT PROBE TQ US PELVIC 15318 RADIOLOGY DARDINGER 9 , PAOLO NONOBSTET ASSOCIATE T SOHAN S PSC REAL-TIME IMAGE COMPLETE GONADOTRO 24617 ST PIN 9 [facility] CHORIONIC MEDICALCE [place] [address] ST ABDOMEN 9 [facility] W/[facility]ERIAL [facility] PELVIS 83154 RADIOLOGY SCHMITTER 9 , PAOLO W/CONTRAS ASSOCIATE L T S PSC MATERIAL RADEX 98951 RADIOLOGY MCKAYLA, SPINE 9 TIERRA G CERVICAL ASSOCIATE 4 OR 5 S PSC VIEWS RADEX 97754 RADIOLOGY FRANCINE, SPINE 9 BUDDY C SCPABLITOOS ASSOCIATE STUDY S PSC W/SUPINE & ERECT STUDY FRAMES V2020 GAURAV LEVI PURCHASES 9 VISION KHLOE M 1 VISN V2103 GAURAV LEVI PLANO 9 VISION KHLOE M TO+/-4.00 D SPHER 0.12-2.00 D CYL EA OPHTH 39966 GAURAV LEVI MEDICAL 9 VISION KHLOE M XM&EVAL COMPRHNSV ESTAB PT 1/> FITTING 43612 GAURAV LEVI, SPECTACLE 9 VISION KHLOE M S XCPT APHAKIA MONOFOCAL ANESTHESI 12937 BLUEGRASS SHIN, A 9 MANUEL A INTRAORAL ANESTHEIS WITH AA BIOPSY SERVICES NOS PSC HEPATBL 36808 RADIOLOGY APPLE PRUETT SYS 9 BOB Maria IMG ASSOCIATE GLBLDR S PSC PROTHROMB [address] IN TIME 9 HELIOOPAL CADET MEDICALCE MEDICALCE NTER NTER BLOOD [address] COUNT 9 HELIO HELIO COMPLETE AUTO&AUTO MEDICALCE MEDICALCE DIFRNTL NTER NTER WBC COLLECTIO 33872 [place], N VENOUS 9 MEDICAL VIRAL BLOOD GROUP VENIPUNCT URE URNLS DIP 51261 [place], 9 MEDICAL VIRAL STICK/TAB GROUP LET RG[place] AUTO [place] [address] RADIOLOGY SHAHZAD, ABDOMINAL 9 LITO T REAL ASSOCIATE TIME S PSC W/[place] [address] AMYLASE 9 HELIOOPAL CADET MEDICALCE MEDICALCE NTER NTER COLLECTIO 33546 [place], N VENOUS 9 MEDICAL VIRAL [place] [address] LIPASE 9 HELIOBOZENA MURILLOTH MEDICALCE MEDICALCE NTER NTER HEPATIC [address] FUNCTION 9 HELIO HELIO PANEL MEDICALCE MEDICALCE NTER NTER HEPATIC [address] FUNCTION 8 HELIO HELIO PANEL MEDICALCE MEDICALCE NTER NTER COLLECTIO 93755 [facility] STERNEBER N VENOUS 8 MEDICAL Patricia, ANTIONETTE BLOOD GROUP B VENIPUNCT URE ANTIBODY [address] HELICOBAC [address] PYLORI MEDICALCE MEDICALCE NTER NTER BLOOD [address] COUNT 8 HELIO HELIO COMPLETE AUTO&AUTO MEDICALCE MEDICALCE DIFRNTL NTER NTER WBC COMPREHEN 41475 AMIRAH MACARIO SIVE 8 [facility] METABOLIC INC INC PANEL FIBRIN 02415 AMIRAH MACARIO DGRADJ 8 [facility] PRODUCTS INC INC D-DIMER QUAL/SEMI CARLOS BLOOD 85212 AMIRAH MACARIO COUNT 8 [facility] COMPLETE INC INC AUTO&AUTO DIFRNTL WBC URNLS DIP 13152 AMIRAH MACARIO 8 [facility] STICK/TAB INC [place] [address] PEREZ MIMSUTCHER, ABDOMEN 8 MEDICAL SERGIO W/O IMAGING CONTRAST ASSOCIATE MATERIAL S URINE 82401 AMIRAH AMIRAH 8 [facility] TEST INC INC VISUAL COLOR CMPRSN METHS CT PELVIS 40043 AMIRAH AMIRAH W/O 8 [facility] CONTRAST INC INC MATERIAL 3D 36481 PEREZ ALFREDO, RENDERING 8 MEDICAL SERGIO IMAGING W/INTERP& ASSOCIATE POSTPROC S DIFF WORK STATION RADIOLOGI 87530 AMIRAH AMIRAH C EXAM 8 [facility] CHEST 2 INC INC VIEWS FRONTAL&L ATERAL IADNA 16565 [facility] STREPTOCO 8 [facility] GROUP A AMPLIFIED PROBE TQ IRRIGATIO 9652 AMIRAH MACARIO N OF EAR 8 [facility] INC INC Encounters Encounter Start End Date Code Location Performer Type Date [facility]OSPITAL [facility] 7 7 [facility] OFFICE 42124 [facility] 7 7 HELIO JR., DO T VISIT 15 PHYSICIAN MINUTES S HOSPITAL [facility] 7 7 [facility] 7 7 [facility] OFFICE 52946 [facility] 7 7 HELIO T VISIT 25 PHYSICIAN MINUTES S EMERGENCY 13076 [facility] ALEJANDRO 7 7 EMERGENCY DEPARTMEN T VISIT PHYSICIAN MODERATE S SEVERITY EMERGENCY 56633 [facility] SANDRO 7 7 EMERGENCY DEPARTMEN T VISIT PHYSICIAN HIGH/URGE S NT SEVERITY EMERGENCY 70569 [facility] PADMAJA 7 7 EMERGENCY DEPARTMEN T VISIT PHYSICIAN HIGH/URGE S NT SEVERITY EMERGENCY 57077 [facility] REMA PEARSON 6 6 EMERGENCY DEPARTMEN T VISIT PHYSICIAN HIGH/URGE S NT SEVERITY EMERGENCY 37357 [facility] NAT 6 6 EMERGENCY KRI DEPARTMEN T VISIT PHYSICIAN HIGH/URGE S NT SEVERITY EMERGENCY 02906 [facility] DAVREN 5 5 EMERGENCY MERRICK DEPARTMEN T VISIT PHYSICIAN HIGH/URGE S NT SEVERITY EMERGENCY 19116 [facility] DIYA 5 5 EMERGENCY JAILENE DEPARTMEN T VISIT PHYSICIAN HIGH/URGE S NT SEVERITY [facility] ACCESS 5 5 [facility] 89[facility] 5 HELIO MAR T VISIT 10 PHYSICIAN MINUTES S EMERGENCY 99547 [facility] REMA LILI 5 5 EMERGENCY DEPARTMEN T VISIT PHYSICIAN HIGH/URGE S NT SEVERITY [facility] - 5 5 HELIO OUTPATIEN PHYLLIS T EMERGENCY 32983 [facility] LEJENNIFERKUHL 5 5 EMERGENCY RAC DEPARTMEN T VISIT PHYSICIAN HIGH/URGE S NT SEVERITY EMERGENCY 36635 [facility] ELEAZAR 5 5 EMERGENCY LINDA DEPARTMEN T VISIT PHYSICIAN MODERATE S SEVERITY EMERGENCY [facility] [facility] [place] 4 4 HELIO [facility] MED CTR T VISIT MODERATE SEVERITY OFFICE 54298 [facility] OUTPATI[facility] 4 4 HELIO KIR T VISIT 15 PHYSICIAN MINUTES S OFFICE 13626 [facility] 4 4 HELIO T VISIT [address] - 4 4 [facility] OUTPATIEN MED CTR T HEEL CASER ST OFFICE 50566 [facility] OUTPATIEN 4 4 HELIO MAR T VISIT [address] - 4 4 HELIO OUTPATIEN PHYLLIS T OFFICE 23465 [facility] 4 4 HELIO T VISIT [address] - 4 4 HELIO OUTPATIEN MED CTR [facility] 4 [facility] [place] OFFICE [address] [facility] [facility]IR [facility] 4 HELIO T VISIT 15 PHYSICIAN MINUTES S OFFICE 15[address] [facility] 4 HELIO T VISIT [address] - 4 4 [facility] [place] EMERGENCY 34997 ELIN [place] 4 4 [facility] DEPARTMEN T VISIT HIGH/URGE NT SEVERITY [facility] ST - OTHER 4 4 HELIO MED CTR [facility] [place] EMERGENCY 78016 ELIN WORTH[place] 4 4 [facility] DEPARTMEN T VISIT HIGH/URGE NT SEVERITY [facility]OSPITAL ST - OTHER 4 4 HELIO MED CTR [facility] - 0 [address] [facility] - 0 0 [facility] 0 0 MEDICAL VIRAL T VISIT GROUP 25 MINUTES EMERGENCY 36078 ELFEGO WORTHINGTON, 0 0 EMERGENCY [facility] SERVICES T VISIT MODERATE ASSOCIATE SEVERITY [facility] AMIRAH - 0 0 [facility] - 0 0 [facility] T OFFICE 99086 [facility] 9 MEDICAL VIRAL T VISIT GROUP 25 MINUTES OFFICE 77727 [place] 9 9 MEDICAL VIRAL T VISIT GROUP [address] - 9 9 [facility] T EMERGENCY 44624 [facility] 9 9 HELIO KARLOS Judd [facility] MED CTR T VISIT MODERATE SEVERITY EMERGENCY 83489 9 9 [facility]MODER SEVERITY [facility] ST 9 9 [facility] T OFFICE 23740 [facility] OUTPATIEN 9 9 MEDICAL VIRAL T VISIT GROUP 15 MINUTES OFFICE 05613 [facility] 9 9 MEDICAL VIRAL T VISIT GROUP 15 MINUTES [facility] 9 [facility] 9 [facility] T OFFICE 58414 [facility] [facility] 9 9 MEDICAL [facility]IRAL T VISIT GROUP 15 MINUTES HOSPITAL [facility] 9 [facility] T EMERGENCY 44512 [facility] 9 9 [place] [facility] MED CTR T VISIT [facility]IGH/URGE NT SEVERITY HOSPITAL [facility] 9 [facility] 9 [facility] MEDICAL NT OFFICE 35488 [facility] 9 9 MEDICAL VIRAL ION GROUP NEW/ESTAB PATIENT 30 MIN OFFICE 22421 [facility] [facility] 9 9 MEDICAL VIRAL T VISIT GROUP 15 MINUTES HOSPITAL [facility] 9 [facility] T OFFICE 33378 [place] [facility] 9 9 MEDICAL VIRAL T VISIT GROUP 15 MINUTES HOSPITAL [facility] 9 HELIO OUTPATIEN T MEDICALCE NTER OFFICE 92674 [facility] 8 MEDICAL VIRAL T VISIT GROUP 15 MINUTES OFFICE 57001 [facility] 8 8 MEDICAL G, ANTIONETTE T NEW 20 GROUP B [facility] ST - 8 8 [facility] T MEDICALCE NT EMERGENCY 61159 8 8 [facility] VIS[facility] MODERATE SEVERITY HOSPITAL - 8 8 [facility] T EMERGENCY 26139 [facility], 8 8 HELIO [facility] MED CTR T VISIT HIGH/URGE NT SEVERITY HOSPITAL - 8 8 [facility] T EMERGENCY 42362 8 8 [facility] LOW/MODER SEVERITY OFFICE 54269 [facility] 8 8 POINT EIN, T VISIT FAMILY [facility] 15 CARE, MINUTES INC. EMERGENCY 25652 [place] 8 8 [facility] T VISIT LOW/MODER SEVERITY [facility] [place] 8 8 [facility] T EMERGENCY 42858 [facility], 8 8 HELIO [facility] MED CTR T VISIT MODERATE SEVERITY HOSPITAL - 8 8 [facility] T EMERGENCY 69625 [place] 8 8 [facility] T V[facility]IT LIMITED/M [facility] PR[facility] [place] - 8 8 [facility] [address] [place] [address] 8 HELIO JACQUELIN [facility] MED CTR T VISIT MODERATE SEVERITY EMERGENCY 22072 8 8 [facility] L[facility]MODER SEVERITY HOSPITAL - 8 8 [facility] [place] [address] 8 [facility] EMERGENCY [address] [place] [address] 8 [facility] VISIT LOW/MODER SEVERITY
--- OUTSIDE RECORDS SUMMARY | 2016-09-30 17:09 | External Medical Summary Rpt ---
Author Author , CHASE STONE Address Unknown Phone [email or web address] Care Team Providers Care Mma Fighter Name Role Phone NAT KOVACS, Unavailable Unavailable [...] DAVID MANUEL WORTHINGTON, Unavailable Unavailable MANUEL WORTHINGTON [facility], Unavailable Unavailable [facility] MANUEL SHIN, Unavailable Unavailable [...] COOK DO [facility] Unavailable Unavailable [facility], [id number], Unavailable Unavailable [id number] BUDDY ESCAMILLA, Unavailable Unavailable BUDDY ESCAMILLA JEFFREY L, Unavailable Unavailable PAOLO MORGAN SCHOTT Unavailable Unavailable KHLOE FREITAS, Unavailable Unavailable KHLOE LEVI SHERMAN Unavailable Unavailable STEVEN LUJAN SOWER, Unavailable Unavailable [facility] Unavailable Unavailable [facility] Unavailable [facility]available [facility], [facility], Unavailable Unavailable [facility] Unavailable Unavailable LURE MAKER , [facility] LURE MAKER [facility] Unavailable Unavailable [facility], [facility] Unavailable Unavailable PHYSICIANS, [facility] PHYLLIS, Unavailable Unavailable [facility] STEVEN MEJIA, Unavailable Unavailable STEVEN LOPEZ STEVEN [...] DOS Provider Status N3000 ACUTE 09-02-2016 [facility]STITIS [facility] WITHOUT PHYSICIANS HEMATURIA R300 DYSURIA 09-02-2016 [facility] [id number] ENCOUNTER 08-23-2016 TREATING PLANT PUMPER EXAM [facility] GENERAL RTN [facility]CARE W/O EDGE ABNORMAL FIND B373 CANDIDIASIS 08-15-2016 [facility] AND VAGINA PHYSICIANS N390 URINARY 08-15-2016 TRACT [facility] INFECTION PHYSICIANS SITE NOT SPECIFIED N760 ACUTE 08-15-2016 VAGINITIS [facility] PH[facility]IANS R140 ABDOMINAL 08-15-2016 DISTENSION [facility] GASEOUS PHYSICIANS Z6820 BODY MASS 08-15-2016 INDEX BMI [facility] 20.0-20.9 PHYSICIANS ADULT N3090 CYSTITIS 07-23-2016 [facility] UNSPECIFIED EMERGENCY WITHOUT PHYSICIANS HEMATURIA J069 ACUTE UPPER 06-02-2016 [facility] EMERGENCY RESPIRATORY PHYSICIANS INFECTION UNSPECIFIED N888 OTH SPEC 04-27-2016 [facility] NONINFLAMMA EMERGENCY TORY PHYSICIANS DISORDERS CERVIX UTERI N898 OTHER 04-27-2016 [facility] SPECIFIED EMERGENCY NONINFLAMMA PHYSICIANS TORY DISORDERS VAGINA J111 FLU D/T 05-21-2015 [facility] UNIDENTIFIE EMERGENCY D FLU VIRUS PHYSICIANS W/OTH RESP MANIF R109 UNSPECIFIED 03-25-2015 [facility] ABDOMINAL EMERGENCY PAIN PHYSICIANS A64 UNSPECIFIED 01-09-2015 [facility] SEXUALLY EMERGENCY TRANSMITTED PHYSICIANS DISEASE N12 TUBULO-INTE 01-09-2015 [facility] RST EMERGENCY NEPHRITIS PHYSICIANS NOT SPEC ACUTE/CHRON N926 IRREGULAR 01-06-2015 [facility] N PHYLLIS UNSPECIFIED 5950 ACUTE 09-17-2014 [facility] CYSTITIS EMERGENCY PHYSICIANS 71269 HEMATURIA 09-17-2014 [facility] UNSPECIFIED EMERGENCY PHYSICIANS 6268 OTH D/O 08-29-2014 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 N PHYLLIS 89832 ABDOMINAL 10-21-2013 ST. PAIN, [facility] UNSPECIFIED PHYLLIS SITE 22763 GENERALIZED 08-08-2013 ST ANXIETY [facility] DISORDER PHYSICIANS 79264 UNSPECIFIED 08-08-2013 ST [facility] CONSTIPATIO PHYSICIANS N V700 ROUTINE 07-19-2013 GENERAL [facility] MEDICAL PHYSICIANS EXAM@HEALTH CARE FACL V7231 ROUTINE 07-19-2013 GYNECOLOGIC [facility] AL PHYSICIANS EXAMINATION 2639 UNSPECIFIED 06-10-2013 [facility] PROTEIN-IRON MED CTR LURE MAKER ORIE ST MALNUTRITIO N 7804 DIZZINESS 06-10-2013 AND [facility] GIDDINESS MED CTR LURE MAKER ST 1101 DERMATOPHYT 04-05-2013 ST OSIS OF [facility] NAIL MED [facility] [place] [address] 60054 CLOSED 04-22-2009 RAD[facility]OLOG[facility] FRACTURE OF ASSOCIATES HEAD OF [facility] RADIUS 68731 CONTUSION 03-25-2009 [facility] SHOULDER H REGION ORTHOPAEDIC CTR PSC 37577 CONTUSION 03-25-2009 [facility] OF HIP H ORTHOPAEDIC CTR [facility] 4779 ALLERGIC 03-23-2009 [facility] RHINITIS [facility]ICAL CAUSE GROUP UNSPECIFIED 03518 ESOPHAGEAL 03-23-2009 [facility] 95324 NAUSEA 03-23-2009 [facility] 39303 CLOSED 03-23-2009 [facility] FRACTURE MEDICAL UNSPEC PART GROUP LOWER END HUMERUS E8490 PLACE OF 03-20-2009 [facility] IM[facility] E8851 FALL FROM 03-20-2009 [facility] 81863 MASTODYNIA 03-11-2009 [facility] PSC 85734 LUMP OR 03-11-2009 [facility] MASS IN ASSOCIATES BREAST PSC 67766 UNSPECIFIED 02-12-2009 [facility] VIRAL [facility]ICAL INFECTION GROUP IN CCE & UNS SITE 462 ACUTE 02-12-2009 [facility] PHARYNGITIS [facility] 6100 SOLITARY 01-20-2009 [facility] CYST OF MEDICAL BREAST GROUP 35596 OTHER 01-20-2009 [facility] MALAISE AND MEDICAL FATIGUE GROUP 5969 UNSPECIFIED 12-10-2008 [facility] 60390 ABDOMINAL 12-10-2008 [facility] PAIN RIGHT ASSOCIATES LOWER [facility] QUADRANT 4619 ACUTE 12-08-2008 [facility] SINUSITIS, MEDICAL UNSPECIFIED GROUP 6253 DYSMENORRHE 12-08-2008 [facility] A [facility] 7231 CERVICALGIA 09-12-2008 [facility] PSC 90761 ABDOMINAL 09-12-2008 [facility] PAIN RIGHT MEDICAL UPPER GROUP QUADRANT 8470 NECK SPRAIN 09-12-2008 [facility] AND STRAIN [facility]ICAL [facility] 7379 UNSPECIFIED 09-02-2008 [facility] CURVATURE ASSOCIATES OF SPINE PSC 0340 STREPTOCOCC 06-10-2008 [facility] THROAT [facility] 7892 SPLENOMEGAL 06-10-2008 [facility] 3671 MYOPIA 06-06-2008 GA[facility] VISION 09690 UNSPECIFIED 05-21-2008 [facility] DENTAL ANESTHEISAA CARIES SERVICES [facility] V7284 UNSPECIFIED 05-13-2008 [facility] VE EXAMINATION 51784 CALCU 04-17-2008 [facility] GALLBLADD MEDICAL W/O MENTION GROUP CHOLECYST/O BST 93467 ABDOMINAL 03-20-2008 [facility] TENDERNESS MEDICAL RIGHT UPPER GROUP QUADRANT 3829 UNSPECIFIED 02-27-2008 [facility] OT[facility] MEDIA GROUP 6929 CONTACT 02-27-2008 [facility] DERMAT[facility]& MEDICAL OTHER GROUP ECZEMA DUE UNSPEC CAUSE 16243 DIARRHEA 01-25-2008 [facility] 11629 EXTRINSIC 12-21-2007 [facility] WITH [facility] STATUS MED CTR ASTHMATICUS 94055 ASTHMA, 12-21-[facility] 5110 PLEURISY 06-26-2007 [facility] WITHOUT [facility] MENTION INC EFFUS/CURRE NT TB 5997 HEMATURIA 06-26-2007 [facility] 91772 CHEST PAIN 06-26-2007 [facility] 4659 ACUTE URIS 04-25-2007 OF [facility] UNSPECIFIED MED CTR SITE 0549 HERPES 04-17-2007 [facility] SIMPLEX [facility] WITHOUT INC MENTION OF COMPLICATIO N 00396 UNSPECIFIED 03-29-2007 [facility] 3804 IMPACTED 03-23-2007 [facility]EN [facility] INC 45040 SCOLIOSIS , 03-23-2007 [facility] IDIOPATHIC [facility] [...] VE 00 07 08 30 30 00 [facility] NL 09 -0 -0 .0 00 L- ti AF 37 7- 4- 00 06 MA ve AX 38 20 20 10 RT IN 65 17 17 76 E 6 22 PH HC AR L MA ER CY 15 #5 0 84 MG CA P ME 62 07 08 30 30 00 [facility] TO 03 -0 -0 .0 00 L- ti WY 70 7- 4- 00 06 MA ve OL 83 20 20 10 RT OL 01 17 17 76 0 20 PH MERIDA AR CC MA CY ER #5 25 84 MG TA B ME 50 06 07 14 7 00 [facility] TR 11 -2 -2 .0 00 L- ti ON 10 7- 8- 00 06 MA ve ID 33 20 20 12 RT AZ 40 17 17 58 OL 2 57 PH E AR 50 MA 0 CY MG #5 TA 84 BL ET FL 55 06 07 1. 1 00 [facility] UC 11 -1 -1 00 00 L- ti ON 10 9- 4- 0 06 MA ve AZ 14 20 20 12 RT OL 51 17 17 41 E 2 11 PH 15 AR 0 MA MG CY TA #5 BL 84 ET ME 50 06 07 4. 1 00 [facility] TR 11 -2 -1 00 00 L- ti ON 10 1- 4- 0 06 MA ve ID 33 20 20 12 RT AZ 40 17 17 45 OL 2 67 PH E AR 50 MA 0 CY MG #5 TA 84 BL ET FL 55 05 06 1. 1 00 [facility] UC 11 -2 -2 00 00 L- ti ON 10 7- 3- 0 06 MA ve AZ 14 20 20 11 RT OL 51 17 17 92 E 2 43 PH 15 AR 0 MA MG CY TA #5 BL 84 ET PH 51 05 06 6. 2 00 [facility] EN 29 -2 -2 00 00 L- ti AZ 30 7- 3- 0 06 MA ve OP 81 20 20 11 RT YR 10 17 17 92 ID 1 44 PH IN AR E MA 20 CY 0 MG #5 84 TA B CE 68 05 06 15 5 00 [facility] PH 18 -2 -2 .0 00 L- ti AL 00 7- 3- 00 06 MA ve EX 12 20 20 11 RT IN 20 17 17 92 2 45 PH 50 AR 0 MA MG CY CA #5 PS 84 UL E VE 00 05 06 30 30 00 [facility] NL 09 -2 -1 .0 00 L- ti AF 37 4- 6- 00 06 MA ve AX 38 20 20 10 RT IN 65 17 17 76 E 6 22 PH HC AR L MA ER CY 15 #5 [address] 57 05 06 30 30 00 PA Ac RT 23 -2 -1 .0 00 L- ti AZ 70 4- 6- 00 06 MA ve AP 00 20 20 10 RT IN 83 17 17 76 E 0 21 PH 15 AR MA MG CY TA #5 BL 84 ET ME 62 05 06 30 30 00 PA Ac TO 03 -2 -1 .0 00 L- ti WY 70 4- 6- 00 06 MA ve OL 83 20 20 10 RT OL 01 17 17 76 0 20 PH MERIDA AR CC MA CY ER #5 25 84 MG TA B ME 62 04 05 30 30 00 PA Ac TO 03 -0 -0 .0 00 L- ti WY 70 7- 5- 00 06 MA ve OL 83 20 20 10 RT OL 01 17 17 76 0 20 PH MERIDA AR CC MA CY ER #5 [address] 57 04 05 30 30 00 [facility] RT 23 -0 -0 .0 00 L- ti AZ 70 7- 5- 00 06 MA ve AP 00 20 20 10 RT IN 83 17 17 76 E 0 21 PH 15 AR MA MG CY TA #5 BL 84 ET VE 00 04 05 30 30 00 [facility] NL 09 -0 -0 .0 00 L- ti AF 37 7- 5- 00 06 MA ve AX 38 20 20 10 RT IN 65 17 17 76 E 6 22 PH HC AR L MA ER CY 15 #5 0 84 MG CA P FL 55 04 05 1. 1 00 [facility] UC 11 -0 -0 00 00 L- ti ON 10 7- 5- 0 06 MA ve AZ 14 20 20 10 RT OL 51 17 17 76 E 2 17 PH 15 AR 0 MA MG CY TA #5 BL 84 ET EQ 49 04 05 89 4 00 PA Ac 03 -0 -0 .0 00 L- ti CO 50 7- 5- 00 08 MA ve UG 38 20 20 86 RT H 42 17 17 46 DM 1 36 PH AR ER MA CY 30 #5 MG 84 /5 ML MERIDA SP CE 68 04 05 40 10 00 PA Ac PH 18 -0 -0 .0 00 L- ti AL 00 7- 5- 00 06 MA ve EX 12 20 20 10 RT IN 10 17 17 76 1 18 PH 25 AR 0 MA MG CY CA #5 PS 84 UL E WY 60 04 05 24 8 00 WA [...] 88 -0 -3 .0 00 AN ti WY 40 6- 1- 00 02 T ve [...] Y #3 TA 93 BL 8 ET WY 37 06 02 00 28 28 RI [...] PH L AR MA CY #5 84 WY 68 01 02 00 30 7 WA [...] CY CA #5 PS 84 UL E WY 68 12 12 00 20 6 WA [...] 00 30 15 WA 75 PA Ac WY 09 -1 -2 .0 L- 16 TE [...] 0 MG #5 84 TA BL ET WY 37 06 07 00 28 28 WA [...] 34 5- 9- 00 MA 93 ve WY 59 20 20 RT 9 DA ED [...] UN [address] UG WY 37 01 02 01 28 28 RI [...] MP #5 DS 84 TA BL ET WY 68 02 02 00 30 7 WA [...] PH L AR MA CY #5 84 WY 37 01 01 00 28 28 RI [...] EN B TA #5 BL 84 ET WY 00 10 11 00 8. 4 WA [...] CY CA #5 PS 84 UL E WY 00 07 08 00 6. 25 WA [...] -H 4 C EA R SO LN W[place] 00 03 03 00 10 20 WA [...] Procedure DOS Code Location Performer Comment CULTURE 98291 [facility] BACTERIAL 7 HELIO HELIO QUANTTATI HEALTHCAR HEALTHCAR VE COLONY E EDGE E EDGE COUNT URINE IADNA 93464 [facility] CHLAMYDIA 7 HELIO GALLEGOSZABETH TRACHOMAT HEALTHCAR HEALTHCAR IS E EDGE E EDGE AMPLIFIED PROBE TQ IADNA 09608 [facility] NEISSERIA 7 HELIO HELIO GONORRHOE HEALTHCAR HEALTHCAR AE E EDGE E EDGE AMPLIFIED PROBE TQ CYTP C/V 97740 [facility] AUTO THIN 7 [facility]IO [facility] LYR PREPJ SCR HEALTHCAR HEALTHCAR MNL E EDGE E EDGE RESCR PHYS IADNA 63352 [facility] RANDELL 7 HELIO HELIO SPECIES DIRECT HEALTHCAR HEALTHCAR PROBE TQ E EDGE E EDGE IADNA 08028 [facility] GARDNEREL 7 HELIO CADET LA VAGINALIS HEALTHCAR HEALTHCAR DIRECT E EDGE E EDGE PROBE TQ IADNA 42640 [facility] TRICHOMON 7 HELIOBOZENA CADET VAGINALIS HEALTHCAR HEALTHCAR DIRECT [place] [address] [facility] THYROID 5 HELIO CADET STIMULATI PHYLLIS PHYLLIS NG HORMONE TSH HEMOGLOBI 16693 [facility] N 5 HELIO CADET GLYCOSYLA PHYLL[place] [address] [facility] PROLACTIN 5 HELIO CADET PHYLLIS PHYLLIS GONADOTRO 53332 [facility] PIN 5 HELIO CADET CHORIONIC PHYLLIS PHYLLIS QUALITATI VE GONADOTRO 18510 [facility] PIN 5 HELIO CADET FOLLICLE PHYLLIS PHYLLIS STIMULATI NG HORMONE COLLECTIO 29776 [facility]. N VENOUS 5 HEL[facility] CADET BLOOD PHYLLIS PHYLLIS VENIPUNCT URE GONADOTRO 48171 [facility] PIN 5 HEL[facility] CADET LUTEINIZI [place] [address] TRANSVAGI 5 [facility] NAL PHYLLIS PHYLLIS [place] [address] 5 [facility] NONOBSTET PHYLLIS PHYLLIS SOHAN REAL-TIME IMAGE COMPLETE CULTURE [address] BACTERIAL 4 [facility] MED CTR QUANTTATI LURE MAKER ST LURE MAKER ST VE COLONY COUNT URINE CULTURE [address] BCT 4 [facility] ISOL&PRSM MED CTR MED CTR PTV ID LURE MAKER ST LURE MAKER ST ISOLATE EA URINE SUSCEPTIB [address] LTY STDY 4 [facility] ANTIMICRB MED CTR MED CTR IAL LURE MAKER ST LURE MAKER ST MICRO/AGA R DILUTJ US PELVIC 99421 [facility] YOUNG VAN 4 NONOBSTET ASSOCIATE SOHAN S OF [facility] [place] [address] [facility] YOUNG VAN TRANSVAGI 4 NAL ASSOCIATE S OF [facility] GONADOTRO [address] PIN 4 [facility] CHORIONIC [facility] MED CTR LURE MAKER ST LURE MAKER ST QUANTITAT KATYA BASIC [address] METABOLIC 4 [facility] PANEL MED CTR MED CTR CALCIUM LURE [place] [address] THYROID 4 [facility] STIMULATI MED CTR MED CTR NG LURE MAKER ST LURE MAKER ST HORMONE TSH BLOOD [address] COUNT 4 [facility] COMPLETE MED CTR MED CTR AUTO&AUTO LURE MAKER ST LURE MAKER ST DIFRNTL WBC CULTURE [address] BCT 4 [facility] ISOL&PRSM MED CTR MED CTR PTV ID LURE MAKER ST LURE MAKER ST ISOLATE EA URINE IADNA [address] CHLAMYDIA 4 [facility] MED CTR TRACHOMAT LURE MAKER ST LURE MAKER ST IS AMPLIFIED PROBE TQ SUSCEPTIB [address] LTY STDY 4 [facility] ANTIMICRB MED CTR MED CTR IAL LURE MAKER ST LURE MAKER ST MICRO/AGA R DILUTJ CULTURE [address] BACTERIAL 4 [facility] MED CTR QUANTTATI LURE MAKER ST LURE MAKER ST VE COLONY COUNT URINE IADNA [address] NEISSERIA 4 [facility] MED CTR MED CTR GONORRHOE LURE MAKER ST LURE MAKER ST AE AMPLIFIED PROBE TQ IADNA [address] NEISSERIA 4 [facility] MED CTR MED CTR GONORRHOE LURE MAKER ST LURE MAKER ST AE AMPLIFIED PROBE TQ IADNA [address] CHLAMYDIA 4 [facility] MED CTR MED CTR TRACHOMAT LURE MAKER ST LURE MAKER ST IS AMPLIFIED PROBE TQ CYTP C/V [address] AUTO THIN 4 [facility] LYR MED CTR MED CTR PREPJ SCR LURE MAKER ST LURE MAKER ST MNL RESCR PHYS CERV/VAGI G0101 ST VIKY NAL 4 [facility]; PHYSICIAN PELV&CLIN S BREAST EXAM SCREEN Q0091 ST VIKY PAP 4 [facility] SMEAR; OBTAIN PHYSICIAN PREP &C S ONVEY TO LAB BASIC [address] METABOLIC 4 [facility] PANEL MED CTR MED CTR CALCIUM LURE MAKER ST LURE MAK[address] ST TOTAL HEMOGLOBI [address] N 4 [facility] GLYCOSYLA MED CTR MED CTR KALEY A1C LURE MAKER ST LURE [address] BLO[address] COUNT 4 [facility] COMPLETE MED CTR MED CTR AUTOMATED LURE MAKER ST LURE [address] ST PREALBUMI [address] N 4 [facility] MED CTR MED CTR LURE MAKER ST LURE MAKER ST COMPREHEN [address] SIVE 4 [facility] METABOLIC MED CTR MED CTR PANEL LURE MAKER ST LURE MAKER ST RADEX 11348 RADIOLOGY NEILS, ELBOW 2 0 NEL W [facility] S PSC RADEX [address] ELBOW 2 0 [facility] [place] [address] ARLEN SAUCEDA RADIAL 0 TREMAINE GLORIA HEAD/NECK ORTHOPAED M FX W/O [place] [address] ELFEGO WORTHINGTON, RADIAL 0 EMERGENCY MANUEL S HEAD/NECK SERVICES FX W/O MANIPULAT ASSOCIATE ION S RADEX 85805 PEREZ PATE, ELBOW 0 MEDICAL FARHAN P COMPLETE IMAGING MINIMUM 3 ASSOCIATE VIEWS S RADEX 07133 PEREZ PATE, FOREARM 2 0 MEDICAL FARHAN P VIEWS IMAGING ASSOCIATE S US BREAST 08514 RADIOLOGY FRANCINE, REAL 0 BUDDY C TIME ASSOCIATE W/IMAGE S PSC DOCUMENTA TION IADNA 59928 ST STREPTOCO 9 [facility] GROUP A DIRECT PROBE TQ US PELVIC 41999 RADIOLOG[facility] DARDINGER 9 , PAOLO NONOBSTET ASSOCIATE T SOHAN S PSC REAL-TIME IMAGE COMPLETE GONADOTRO [address]5947 ST PIN 9 [facility] CHORIONIC MEDICALCE [place] [address] ST ABDOMEN 9 [facility] W/[facility] T MATERIAL CT PELVIS 59141 RADIOLOGY SCHMITTER 9 , PAOLO W/CONTRAS ASSOCIATE L T S PSC MATERIAL RADEX 75100 RADIOLOGY MCKAYLA, SPINE 9 TIERRA G CERVICAL ASSOCIATE 4 OR 5 S PSC VIEWS RADEX 53116 RADIOLOGY FRANCINE, SPINE 9 BUDDY C SCPABLITOOS ASSOCIATE STUDY S PSC W/SUPINE & ERECT STUDY FRAMES V2020 [facility] LEVI PURCHASES 9 VISION KHLOE M 1 VISN V2103 [facility] LEVI PLANO 9 VISION KHLOE M TO+/-4.00 D SPHER 0.12-2.00 D CYL EA OPHTH 31594 [facility] LEVI MEDICAL 9 VISION KHLOE M XM&EVAL COMPRHNSV ESTAB PT 1/> FITTING 76006 GA[facility] LEVI, SPECTACLE 9 VISION KHLOE M S XCPT APHAKIA MONOFOCAL ANESTHESI 33534 [facility] SHIN, A 9 MANUEL A INTRAORAL ANESTHEIS WITH AA BIOPSY SERVICES NOS PSC HEPATBL 81605 RADIOLOGY APPLE PRUETT SYS 9 BOB Maria IMG ASSOCIATE GLBLDR S PSC PROTHROMB [address] IN TIME 9 HELIOOPAL CADET MEDICALCE MEDICALCE NTER NTER BLOOD [address] COUNT 9 [facility] HELIO COMPLETE AUTO&AUTO MEDICALCE MEDICALCE DIFRNTL NTER NTER WBC COLLECTIO 60686 [facility], N VENOUS 9 MEDICAL VIRAL BLOOD GROUP VENIPUNCT URE URNLS DIP 37576 [facility], 9 MEDICAL VIRAL STICK/TAB GROUP [place] RG[place] [address] RADIOLOGY SHAHZAD, ABDOMINAL 9 LITO T REAL ASSOCIATE TIME [place] P[place] W/[place] [address] AMYLASE 9 HELIOOPAL CADET MEDICALCE MEDICALCE NTER NTER COLLECTIO 40923 [facility], N VENOUS 9 MEDICAL VIRAL [place] [address] LIPASE 9 HELIOBOZENA MURILLOTH MEDICALCE MEDICALCE NTER NTER HEPATIC [address] FUNCTION 9 [facility] PANEL MEDICALCE MEDICALCE NTER NTER HEPATIC [address] FUNCTION 8 [facility] PANEL MEDICALCE MEDICALCE NTER NTER COLLECTIO 28932 [facility] STERNEBER N VENOUS 8 MEDICAL Patricia, ANTIONETTE BLOOD GROUP B VENIPUNCT URE ANTIBODY [address] HELICOBAC 8 HELIO HELIO TER PYLORI MEDICALCE MEDICALCE NTER NTER BLOOD [address] COUNT 8 [facility] HELIO COMPLETE AUTO&AUTO MEDICALCE MEDICALCE DIFRNTL NTER NTER WBC COMPREHEN 77853 [facility] MACARIO SIVE 8 [facility] METABOLIC INC INC PANEL FIBRIN 03109 AMIRAH MACARIO DGRADJ 8 [facility] PRODUCTS INC INC D-DIMER QUAL/SEMI CARLOS BLOOD 03584 AMIRAH MACARIO COUNT 8 [facility] COMPLETE INC INC AUTO&AUTO DIFRNTL WBC URNLS DIP 93633 [facility]AH MACARIO 8 [facility] STICK/TAB INC [place] [address] PEREZ MIMSUTCHER, ABDOMEN 8 MEDICAL SERGIO W/O IMAGING CONTRAST ASSOCIATE MATERIAL S URINE [address] [facility] HOSP TEST INC INC VISUAL COLOR CMPRSN METHS CT PELVIS 92929 AMIRAH AMIRAH W/O 8 MEM [facility] HOSP CONTRAST INC INC MATERIAL 3D 45248 PEREZ ALFREDO, RENDERING 8 MEDICAL SERGIO IMAGING W/INTERP& ASSOCIATE POSTPROC S DIFF WORK STATION RADIOLOGI 15328 AMIRAH AMIRAH C EXAM 8 [facility] HOSP CHEST 2 INC INC VIEWS FRONTAL&L ATERAL IADNA 48461 [facility] STREPTOCO 8 [facility] GROUP A AMPLIFIED PROBE TQ IRRIGATIO 9652 AMIRAH MACARIO N OF EAR 8 [facility] HOSP INC INC Encounters Encounter Start End Date Code Location Performer Type Date [facility] 7 7 [facility] OFFICE 18517 [facility] 7 7 HELIO JR., DO T VISIT 15 PHYSICIAN MINUTES S [facility] 7 7 [facility] 7 7 [facility] OFFICE 45475 [facility] 7 7 HELIO T VISIT 25 PHYSICIAN MINUTES S EMERGENCY 30493 [facility] ALEJANDRO 7 7 EMERGENCY DEPARTMEN T VISIT PHYSICIAN MODERATE S SEVERITY EMERGENCY 00183 [facility] SANDRO 7 7 EMERGENCY DEPARTMEN T VISIT PHYSICIAN HIGH/URGE S NT SEVERITY EMERGENCY 16435 [facility] PADMAJA 7 7 EMERGENCY DEPARTMEN T VISIT PHYSICIAN HIGH/URGE S NT SEVERITY EMERGENCY 79344 [facility] REMA PEARSON 6 6 EMERGENCY DEPARTMEN T VISIT PHYSICIAN HIGH/URGE S NT SEVERITY EMERGENCY 30568 [facility] NAT 6 6 EMERGENCY KRI DEPARTMEN T VISIT PHYSICIAN HIGH/URGE S NT SEVERITY EMERGENCY 94122 [facility] DAVREN 5 5 EMERGENCY MERRICK DEPARTMEN T VISIT PHYSICIAN HIGH/URGE S NT SEVERITY EMERGENCY 62075 [facility] DIYA 5 5 EMERGENCY JAILENE DEPARTMEN T VISIT PHYSICIAN HIGH/URGE S NT SEVERITY [facility] ACC[facility] 5 5 [facility] PHYLLIS OFFICE 00798 [facility] 5 5 [facility] MAR T VISIT 10 PHYSICIAN MINUTES S EMERGENCY 96072 [facility] REMA LILI 5 5 EMERGENCY DEPARTMEN T VISIT PHYSICIAN HIGH/URGE S NT SEVERITY [facility] ST[facility] - 5 5 [facility] OUTPATIEN PHYLLIS T EMERGENCY 64015 [facility] LEJENNIFERKUHL 5 5 EMERGENCY RAC DEPARTMEN T VISIT PHYSICIAN HIGH/URGE S NT SEVERITY EMERGENCY 71695 [facility] ELEAZAR 5 5 EMERGENCY LINDA DEPARTMEN T VISIT PHYSICIAN MODERATE S SEVERITY EMERGENCY 98433 [facility] 4 4 [facility] IRVING [facility] MED [facility] T VISIT MODERATE SEVERITY OFFICE 13078 [facility] OUTPATIEN 4 4 [facility] KIR T VISIT 15 PHYSICIAN MINUTES S [facility]ICE 560[facility] T VISIT [address] [facility] - 4 4 [facility] T [facility] OFFICE 52922 [facility] OUTPATIEN 4 4 HEL[facility] MAR T VISIT [address] [facility] - 4 4 [facility] OUTPATIEN PHYLLIS T [facility]ICE 57291 [facility] T VISIT [address] - 4 4 [facility] OUTPATIEN MED CTR [facility] 4 4 [facility] OFFICE 84795 [facility] T VISIT 15 PHYSICIAN MINUTES S OFFICE 22742 [facility] 4 [facility] T VISIT [address] [facility] 4 4 [facility] EMERGENCY 16361 ELIN [place] 4 4 [facility] DEPARTMEN T VISIT HIGH/URGE NT SEVERITY [facility]PITAL ST - OTHER 4 4 [facility] MED CTR [facility] EMERGENCY 99199 ELIN [place] 4 4 [facility] DEPARTMEN T VISIT HIGH/URGE NT SEVERITY HOSPITAL ST - OTHER 4 4 [facility] MED CTR [facility] - [address] [facility] ST - 0 0 [facility] 0 0 MEDICAL VIRAL T VISIT GROUP 25 MINUTES EMERGENCY 23556 ELFEGO [place], 0 0 EMERGENCY [facility] T VISIT MODERATE ASSOCIATE [facility]VERITY [facility] AMIR[facility] - 0 0 [facility] 0 [facility] T OFFICE 45784 [facility] 9 MEDICAL VIRAL T VISIT GROUP 25 MINUTES OFFICE 36229 [facility] 9 9 MEDICAL VIRAL T VISIT GROUP [address] - 9 9 [facility] T EMERGENCY 33741 [facility] 9 9 HELIO KARLOS Judd [facility]ENC[facility] DEPARTMENT MED CTR T VISIT MODERATE SEVERITY EMERGENCY 22707 9 9 [facility] T VISIT LOW/MODER [facility] 9 [facility] T OFFICE [id number] [facility] 9 9 MEDICAL VIRAL T VISIT GROUP 15 MINUTES OFFICE [id number] [facility] 9 MEDICAL VIRAL T [facility]ISIT GROUP 15 MINUTES [facility] 9 [facility] [address] [facility] 9 [facility] T OFFICE 63896 [facility] [facility] 9 9 MEDICAL VIRAL T [facility]ISIT GROUP 15 MINUTES [facility] 9 [facility] T EMERGENCY 70686 [facility] [address] [facility] MED [facility] T VISIT [facility]IGH/URGE NT SEVERITY [facility] [address] [facility] 9 [facility] MEDICAL NT OFFICE 53311 [facility] 9 9 MEDICAL VIRAL ION GROUP NEW/ESTAB PATIENT 30 MIN OFFICE 84551 [facility] 9 9 MEDICAL VIRAL T VISIT GROUP 15 MINUTES [facility] 9 [facility] T OFFICE 49005 [facility] [facility] 9 9 MEDICAL [facility]IRAL T VISIT GROUP 15 MINUTES [facility] 9 [facility] T MEDICALCE NTER OFFICE 68528 [facility] 8 8 MEDICAL VIRAL T VISIT GROUP [address]ES [address] [facility] 8 8 MEDICAL G, ANTIONETTE T NEW 20 GROUP [facility] - 8 8 [facility] T MEDICALCE NT EMERGENCY 61666 8 8 [facility] T VISIT MODERATE [facility]VERITY HOSPITAL - 8 8 [facility] T EMERGENCY 64128 [facility], 8 8 [place] [facility] [facility] EMERGENCY DEPARTMENT MED CTR T VISIT HIGH/URGE NT SEVERITY [facility]OSPITAL - 8 8 [facility] T EMERGENCY 70643 8 8 [facility] T VISIT LOW/MODER SEVERITY OFFICE 23677 [facility] 8 8 [place], T VISIT [facility] [facility] EMERGENCY 79723 [facility] 8 8 [facility] T VISIT [facility]OW/MODER SEVERITY HOSPITAL [facility] - 8 8 [facility] T EMERGENCY 68132 [facility], 8 8 [facility] DEPART[facility] MED CTR T VISIT MODERATE SEVERITY [facility]OSPITAL - 8 8 [facility] T EMERGENCY 60612 [facility] 8 8 [facility] T VISIT LIMITED/M IN[facility] PROB HOSPITAL [facility] - 8 8 [facility] [address] [place] [address] 8 [facility] [facility] DEPARTMENT MED CTR T VISIT MODERATE SEVERITY EMERGENCY 92814 8 8 [facility] T VISIT LOW/MODER SEVERITY HOSPITAL - [address] [facility] [place] [address] 8 [facility] EMERGENCY [address] [place] [address] 8 [facility] VISIT LOW/MODER SEVERITY
--- OUTSIDE RECORDS SUMMARY | 2016-09-30 17:10 | External Medical Summary Rpt ---
Demographics Preferred Language South Korean Marital Status Unknown Scientology Affiliation Unknown Race Unknown Ethnic Group Unknown Author Author , CHASE STONE Address Unknown Phone Immunization Unable to retrieve immunization data due to connection failure with Immunization Registry. Please try again later.
--- OUTSIDE RECORDS SUMMARY | 2016-09-30 17:10 | External Medical Summary Rpt ---
Demographics Preferred Language Venezuelan Marital Status Unknown Tenriism Affiliation Unknown Race Unknown Ethnic Group Unknown Author Author , CHASE STONE Address Unknown Phone Immunization Unable to retrieve immunization data due to connection failure with Immunization Registry. Please try again later.
--- OUTSIDE RECORDS SUMMARY | 2016-09-30 17:12 | External Medical Summary Rpt ---
Author Author TONYELIEZER Cat, [employer] Organization [employer] Address Unknown Phone Unavailable Results Urine test by rapid immunoassa Observa Value Referen Units Interpr Notes Date tion ce etation Range Urine NEGATIV NEG No No No Sep 27 pregnan E informa informa informa 2017 cy test tion in tion in tion in 5:36 PM by source source source rapid data data data immunoa ssa Hemogram Observa Value Referen Units Interpr Notes Date tion ce etation Range LEUKOCY 5.1 4.0 - x10(3)/ No No Sep 20 SUMANTH 11.0 mcL informa informa 2016 tion in tion in 7:58 PM source source data data Erythro 4.22 3.80 - x10(6)/ No No Sep 20 cytes 5.10 mcL informa informa 2016 [#/volu tion in tion in 7:58 PM me] in source source Blood data data by Automat ed count Hemoglo 11.7 12.0 - gm/dL Low No Sep 20 bin 15.6 informa 2016 [Mass/v tion in 7:58 PM olume] source in data Blood Hematoc 35.9 35.7 - % No No Sep 20 rit 45.9 informa informa 2016 [Volume tion in tion in 7:58 PM source source Fractio data data n] of Blood by Automat ed count Erythro 85.0 82.5 - fL No No Sep 20 cyte 99.8 informa informa 2017 mean tion in tion in 7:58 PM corpusc source source ular data data volume [Entiti c volume] by Automat ed count Erythro 27.7 27.0 - pg No No Sep 20 cyte 34.3 informa informa 2017 mean tion in tion in 7:58 PM corpusc source source ular data data hemoglo bin [Entiti c mass] by Automat ed count Erythro 32.6 32.1 - gm/dL No No Sep 20 cyte 35.3 informa informa 2017 mean tion in tion in 7:58 PM corpusc source source ular data data hemoglo bin concent ration [Mass/v olume] by Automat ed count Erythro 13.7 11.5 - % No No Sep 20 cyte 15.0 informa informa 2017 distrib tion in tion in 7:58 PM ution source source width data data [Ratio] by Automat ed count Platele 199 144 - x10(3)/ No No Sep 20 ts 423 mcL informa informa 2017 [#/volu tion in tion in 7:58 PM me] in source source Blood data data by Automat ed count MPV 10.8 6.8 - fL No No Sep 20 10.8 informa informa 2017 tion in tion in 7:58 PM source source data data Chlamyd/GC TMA Observa Value Referen Units Interpr Notes Date tion ce etation Range Chlamyd Negativ No No No No Aug 24 ia e informa informa informa informa 2017 trachom tion in tion in tion in tion in 10:19 atis source source source source AM data data data data Neisser Negativ No No No Testing Aug 24 ia e informa informa informa 2017 gonorrh tion in tion in tion in methodo 10:19 oeae source source source logy is AM data data data transcr iption mediate d amplifi cation (TMA) using the Aptima Combo 2 assay from [employer].\.br \A negativ e result does not complet lakeshia rule out a Chlamyd ia trachom atis or Neisser ia gonorrh oeae infecti on due to potenti al inhibit ors or levels present below the limit of detecti on by this assay. Results are depende nt on proper collect ion and transpo rt of specime n. This test is indicat ed for medical purpose s only and should not be used for legal or forensi c purpose s.\.br\ \.br\Th e perform ance charact eristic s of this test were validat ed by [facility] are laborat ory. This assay is FDA cleared to test the followi ng specime ns: clinici an-malinda ected endocer vical, vaginal and male urethra l swab specime ns, patient collect ed vaginal specime ns within a clinic setting , Thin Prep Specime ns in Preserv Cyt Solutio n, and first-s tream, unprese rved male urine specime ns. Testing on female urine is not FDA approve d by this methodo logy, but has been develop ed and validat ed by the [facility] are laborat ory. Detaile d methodo logy is availab le upon request . UA Observa Value Referen Units Interpr Notes Date tion ce etation Range UA Yellow No No No No July 23 Color informa informa informa informa 2017 tion in tion in tion in ti in 10:58 source source source source AM data data data data UA Slightl Clear No Abnorma No July 23 Appear y informa l informa 2016 Cloudy in ti in 10:58 source source AM data data UA Negativ Negativ No No No July 23 Glucose e e informa informa informa 2016 tion in ti in ti in 10:58 source source source AM data data data UA Negativ Negativ No No No July 23 Ketones e e informa informa informa 2016 tion in ti in ti in 10:58 source source source AM data data data UA Negativ Negativ No No No July 23 Blood e e informa informa informa 2016 tion in ti in ti in 10:58 source source source AM data data data UA pH 6.0 5.0 - No No Referen July 23 8.0 informa informa ce 2016 tion in tion in range 10:58 source source valid AM data data for random specime ns only. UA Trace Negativ No Abnorma No July 23 Protein e informa l informa 2016 ti in ti in 10:58 source source AM data data UA 0.2 <=1 No No No July 23 Urobili E.U./dL E.U./dL informa informa informa 2016 nogen tion in ti in ti in 10:58 source source source AM data data data UA Negativ Negativ No No No July 23 Nitrite e e informa informa informa 2016 tion in ti in ti in 10:58 source source source AM data data data UA Leuk Small Negativ No Abnorma No July 23 Est e informa l informa 2017 tion in tion in 10:58 source source AM data data UA Spec >=1.030 1.001 - No No Referen July 23 Grav 1.035 informa informa ce 2017 tion in tion in range 10:58 source source valid AM data data for random specime ns only. UA WBC 20-50 0 - 4 /HPF Abnorma No July 23 l informa 2016 tion in 10:58 source AM data UA 1+ No No No No July 23 Squam informa informa informa informa 2017 Epi tion in tion in tion in tion in 10:58 source source source source AM data data data data UA 1+ No No No No July 23 Mucous informa informa informa informa 2017 tion in tion in tion in tion in 10:58 source source source source AM data data data data UA 2+ No No No No July 23 Bacteri informa informa informa informa 2017 a tion in tion in tion in tion in 10:58 source source source source AM data data data data Auto Diff Observa Value Referen Units Interpr Notes Date tion ce etation Range Neutrop 51.9 No % No No Apr 6 hils informa informa informa 2016 [#/volu tion in tion in tion in 1:19 PM me] in source source source Blood data data data by Automat ed count Lymphoc 33.8 No % No No Apr 6 ytes informa informa informa 2016 [#/volu tion in tion in tion in 1:19 PM me] in source source source Blood data data data by Automat ed count Monocyt 12.2 No % No No Apr 6 es informa informa informa 2016 [#/volu tion in tion in tion in 1:19 PM me] in source source source Blood data data data by Automat ed count Eos 1.6 No % No No Apr 6 Percent informa informa informa 2017 tion in tion in tion in 1:19 PM source source source data data data Baso 0.5 No % No No Apr 6 Percent informa informa informa 2017 tion in tion in tion in 1:19 PM source source source data data data Neut# 2.1 1.8 - x10(3)/ No No Apr 6 7.7 mcL informa informa 2017 tion in tion in 1:19 PM source source data data Lymph# 1.4 0.6 - x10(3)/ No No May 6 4.8 mcL informa informa 2017 tion in tion in 1:19 PM source source data data Lares# 0.5 0.0 - x10(3)/ No No Apr 6 1.3 mcL informa informa 2017 tion in tion in 1:19 PM source source data data Eos# 0.1 0.0 - x10(3)/ No No Apr 6 0.5 mcL informa informa 2017 tion in tion in 1:19 PM source source data data Baso# 0.0 0.0 - x10(3)/ No No Apr 6 0.2 mcL informa informa 2017 tion in tion in 1:19 PM source source data data CBC Observa Value Referen Units Interpr Notes Date tion ce etation Range LEUKOCY 4.1 4.0 - x10(3)/ No No May 6 SUMANTH 11.0 mcL informa informa 2017 tion in tion in 1:19 PM source source data data Erythro 4.52 3.80 - x10(6)/ No No May 6 cytes 5.10 mcL informa informa 2016 [#/volu tion in tion in 1:19 PM me] in source source Blood data data by Automat ed count Hemoglo 12.8 12.0 - gm/dL No No May 6 bin 15.6 informa informa 2016 [Mass/v tion in tion in 1:19 PM olume] source source in data data Blood Hematoc 38.8 35.7 - % No No May 6 rit 45.9 informa informa 2016 [Volume tion in tion in 1:19 PM source source Fractio data data n] of Blood by Automat ed count Erythro 85.9 82.5 - fL No No Jun 02 cyte 99.8 informa informa 2017 mean tion in tion in 1:19 PM corpusc source source ular data data volume [Entiti c volume] by Automat ed count Erythro 28.2 27.0 - pg No No Jun 02 cyte 34.3 informa informa 2016 mean tion in tion in 1:19 PM corpusc source source ular data data hemoglo bin [Entiti c mass] by Automat ed count Erythro 32.8 32.1 - gm/dL No No Jun 02 cyte 35.3 informa informa 2017 mean tion in tion in 1:19 PM corpusc source source ular data data hemoglo bin concent ration [Mass/v olume] by Automat ed count Erythro 14.0 11.5 - % No No Jun 02 cyte 15.0 informa informa 2017 distrib tion in tion in 1:19 PM ution source source width data data [Ratio] by Automat ed count Platele 154 144 - x10(3)/ No No Jun 02 ts 423 mcL informa informa 2017 [#/volu tion in tion in 1:19 PM me] in source source Blood data data by Automat ed count MPV 10.3 6.8 - fL No No Jun 02 10.8 informa informa 2017 tion in tion in 1:19 PM source source data data Chlamyd/GC TMA Observa Value Referen Units Interpr Notes Date tion ce etation Range Chlamyd Negativ No No No No Apr 2 ia e informa informa informa informa 2017 trachom tion in tion in tion in tion in 4:03 PM atis source source source source data data data data Neisser Negativ No No No Testing Apr 2 ia e informa informa informa 2017 gonorrh tion in tion in tion in methodo 4:03 PM oeae source source source logy is data data data transcr iption mediate d amplifi cation (TMA) using the Aptima Combo 2 assay from [employer].\.br \A negativ e result does not complet lakeshia rule out a Chlamyd ia trachom atis or Neisser ia gonorrh oeae infecti on due to potenti al inhibit ors or levels present below the limit of detecti on by this assay. Results are depende nt on proper collect ion and transpo rt of specime n. This test is indicat ed for medical purpose s only and should not be used for legal or forensi c purpose s.\.br\ \.br\Th e perform ance charact eristic s of this test were validat ed by [facility] are laborat ory. This assay is FDA cleared to test the followi ng specime ns: clinici an-malinda ected endocer vical, vaginal and male urethra l swab specime ns, patient collect ed vaginal specime ns within a clinic setting , Thin Prep Specime ns in Preserv Cyt Solutio n, and first-s tream, unprese rved male urine specime ns. Testing on female urine is not FDA approve d by this methodo logy, but has been develop ed and validat ed by the [facility] are laborat ory. Detaile d methodo logy is availab le upon request . Ag Trich Observa Value Referen Units Interpr Notes Date tion ce etation Range Trichom Negativ No No No No Apr 1 onas Ag e informa informa informa informa 2017 tion in tion in tion in ti in 8:28 PM source source source source data data data data HCG Qual Observa Value Referen Units Interpr Notes Date tion ce etation Range HCG Negativ No No No No Apr 27 QUAL e informa informa informa informa 2016 tion in tion in ti in tion in 8:04 PM source source source source data data data data UA Observa Value Referen Units Interpr Notes Date tion ce etation Range UA Yellow No No No No Apr 1 Color informa informa informa informa 2016 tion in tion in tion in tion in 7:51 PM source source source source data data data data UA Slightl Clear No Abnorma No Apr 1 Appear y Hazy informa l informa 2017 tion in tion in 7:51 PM source source data data UA Negativ Negativ No No No Mar 1 Glucose e e informa informa informa 2017 tion in tion in tion in 7:51 PM source source source data data data UA Negativ Negativ No No No Apr 1 Ketones e e informa informa informa 2016 tion in tion in tion in 7:51 PM source source source data data data UA Negativ Negativ No No No Apr 1 Blood e e informa informa informa 2017 tion in tion in tion in 7:51 PM source source source data data data UA pH 7.0 5.0 - No No Referen Mar 1 8.0 informa informa ce 2017 tion in tion in range 7:51 PM source source valid data data for random specime ns only. UA Negativ Negativ No No No Apr 27 Protein e e informa informa informa 2017 tion in tion in tion in 7:51 PM source source source data data data UA 0.2 <=1 No No No Apr 1 Urobili E.U./dL E.U./dL informa informa informa 2017 nogen tion in tion in tion in 7:51 PM source source source data data data UA Negativ Negativ No No No Apr 27 Nitrite e e informa informa informa 2017 tion in tion in tion in 7:51 PM source source source data data data UA Leuk Trace Negativ No Abnorma No Apr 27 Est e informa l informa 2017 tion in tion in 7:51 PM source source data data UA Spec 1.020 1.001 - No No Referen Apr 27 Grav 1.035 informa informa ce 2017 tion in tion in range 7:51 PM source source valid data data for random specime ns only. UA WBC 3-5 0 - 4 /HPF No No Apr 27 informa informa 2017 tion in tion in 7:51 PM source source data data UA 1+ No No No No Apr 27 Squam informa informa informa informa 2017 Epi tion in tion in tion in tion in 7:51 PM source source source source data data data data UA 1+ No No No No Apr 27 Amorph informa informa informa informa 2017 tion in tion in tion in tion in 7:51 PM source source source source data data data data UA 1+ No No No No Apr 1 Bacteri informa informa informa informa 2017 a tion in tion in tion in tion in 7:51 PM source source source source data data data data Flu A/B Observa Value Referen Units Interpr Notes Date tion ce etation Range Influ A Negativ No No No Negativ Mar 06 Ag e informa informa informa e 2017 tion in tion in tion in results 11:48 source source source in PM data data data patient s with high clinica l suspici on should be verfied with RT-PCR, availab le as Respira tory Viral Mini Panel in Epic.\. br\\.br \The WHO recomme nds molecul ar testing (Respir atory Viral DNA Test) during periods of low influen za activit y instead of rapid tests. Should rapid tests be used, then both positiv e and negativ e test results should be confirm ed by a molecul ar method. The WHO also recomme nds confirm atory testing by a molecul ar method (Respir atory Viral DNA Test) for all negativ e rapid test results during seasona l occurre nce of influen za. Influ B Negativ No No No No Mar 06 Ag e informa informa informa informa 2017 tion in tion in tion in tion in 11:48 source source source source PM data data data data HCG Qual Observa Value Referen Units Interpr Notes Date tion ce etation Range HCG Negativ No No No No Mar 06 QUAL e informa informa informa informa 2017 tion in tion in tion in tion in 11:50 source source source source PM data data data data Chlamyd/GC TMA Observa Value Referen Units Interpr Notes Date tion ce etation Range Chlamyd Negativ No No No No Dec 22 ia e informa informa informa informa 2016 trachom tion in tion in tion in tion in 9:48 AM atis source source source source data data data data Neisser Negativ No No No Testing Dec 22 ia e informa informa informa 2016 gonorrh tion in tion in tion in methodo 9:48 AM oeae source source source logy is data data data transcr iption mediate d amplifi cation (TMA) using the Aptima Combo 2 assay from [employer].\.br \A negativ e result does not complet lakeshia rule out a Chlamyd ia trachom atis or Neisser ia gonorrh oeae infecti on due to potenti al inhibit ors or levels present below the limit of detecti on by this assay. Results are depende nt on proper collect ion and transpo rt of specime n. This test is indicat ed for medical purpose s only and should not be used for legal or forensi c purpose s.\.br\ \.br\Th e perform ance charact eristic s of this test were validat ed by [facility] are laborat ory. This assay is FDA cleared to test the followi ng specime ns: clinici an-malinda ected endocer vical, vaginal and male urethra l swab specime ns, patient collect ed vaginal specime ns within a clinic setting , Thin Prep Specime ns in Preserv Cyt Solutio n, and first-s tream, unprese rved male urine specime ns. Testing on female urine is not FDA approve d by this methodo logy, but has been develop ed and validat ed by the [facility] are laborat ory. Detaile d methodo logy is availab le upon request . Ag Trich Observa Value Referen Units Interpr Notes Date tion ce etation Range Trichom Negativ No No No No Dec 20 onas Ag e informa informa informa informa 2016 tion in tion in tion in tion in 7:25 PM source source source source data data data data HCG Qual Observa Value Referen Units Interpr Notes Date tion ce etation Range HCG Negativ No No No No Dec 20 QUAL e informa informa informa informa 2016 tion in tion in tion in tion in 6:37 PM source source source source data data data data CBC Observa Value Referen Units Interpr Notes Date tion ce etation Range LEUKOCY 7.7 4.0 - x10(3)/ No No Dec 20 SUMANTH 11.0 mcL informa informa 2016 tion in tion in 6:26 PM source source data data Erythro 4.14 3.80 - x10(6)/ No No Dec 20 cytes 5.10 mcL informa informa 2016 [#/volu tion in tion in 6:26 PM me] in source source Blood data data by Automat ed count Hemoglo 11.8 12.0 - gm/dL Low No Dec 20 bin 15.6 informa 2016 [Mass/v tion in 6:26 PM olume] source in data Blood Hematoc 35.5 35.7 - % Low No Dec 20 rit 45.9 informa 2016 [Volume tion in 6:26 PM source Fractio data n] of Blood by Automat ed count Erythro 85.7 82.5 - fL No No Dec 20 cyte 99.8 informa informa 2016 mean tion in tion in 6:26 PM corpusc source source ular data data volume [Entiti c volume] by Automat ed count Erythro 28.4 27.0 - pg No No Dec 20 cyte 34.3 informa informa 2016 mean tion in tion in 6:26 PM corpusc source source ular data data hemoglo bin [Entiti c mass] by Automat ed count Erythro 33.1 32.1 - gm/dL No No Dec 20 cyte 35.3 informa informa 2016 mean tion in tion in 6:26 PM corpusc source source ular data data hemoglo bin concent ration [Mass/v olume] by Automat ed count Erythro 13.9 11.5 - % No No Dec 20 cyte 15.0 informa informa 2016 distrib tion in tion in 6:26 PM ution source source width data data [Ratio] by Automat ed count Platele 220 144 - x10(3)/ No No Dec 20 ts 423 mcL informa informa 2016 [#/volu tion in tion in 6:26 PM me] in source source Blood data data by Automat ed count MPV 10.4 6.8 - fL No No Dec 20 10.8 informa informa 2016 tion in tion in 6:26 PM source source data data Auto Diff Observa Value Referen Units Interpr Notes Date tion ce etation Range Neutrop 64.1 No % No No Dec 20 hils informa informa informa 2015 [#/volu tion in tion in tion in 6:26 PM me] in source source source Blood data data data by Automat ed count Lymphoc 24.1 No % No No Dec 20 ytes informa informa informa 2016 [#/volu tion in tion in tion in 6:26 PM me] in source source source Blood data data data by Automat ed count Monocyt 8.4 No % No No Dec 20 es informa informa informa 2016 [#/volu tion in tion in tion in 6:26 PM me] in source source source Blood data data data by Automat ed count Eos 2.8 No % No No Dec 20 Percent informa informa informa 2016 tion in tion in tion in 6:26 PM source source source data data data Baso 0.6 No % No No Oct 24 Percent informa informa informa 2016 tion in tion in tion in 6:26 PM source source source data data data Neut# 4.9 1.8 - x10(3)/ No No Oct 24 7.7 mcL informa informa 2016 tion in tion in 6:26 PM source source data data Lymph# 1.9 0.6 - x10(3)/ No No Oct 24 4.8 mcL informa informa 2016 tion in tion in 6:26 PM source source data data Lares# 0.6 0.0 - x10(3)/ No No Oct 24 1.3 mcL informa informa 2016 tion in tion in 6:26 PM source source data data Eos# 0.2 0.0 - x10(3)/ No No Oct 24 0.5 mcL informa informa 2016 tion in tion in 6:26 PM source source data data Baso# 0.0 0.0 - x10(3)/ No No Oct 24 0.2 mcL informa informa 2016 tion in tion in 6:26 PM source source data data UA Observa Value Referen Units Interpr Notes Date tion ce etation Range UA Yellow No No No No Nov 24 Color informa informa informa informa 2016 tion in tion in tion in tion in 6:12 PM source source source source data data data data UA Slightl Clear No Abnorma No Nov 24 Appear y informa l informa 2016 Cloudy tion in tion in 6:12 PM source source data data UA Negativ Negativ No No No Nov 24 Glucose e e informa informa informa 2016 tion in tion in tion in 6:12 PM source source source data data data UA Negativ Negativ No No No Nov 24 Ketones e e informa informa informa 2016 tion in tion in tion in 6:12 PM source source source data data data UA Negativ Negativ No No No Nov 24 Blood e e informa informa informa 2016 tion in tion in tion in 6:12 PM source source source data data data UA pH 6.0 5.0 - No No Referen Oct 24 8.0 informa informa ce 2016 tion in tion in range 6:12 PM source source valid data data for random specime ns only. UA Negativ Negativ No No No Dec 20 Protein e e informa informa informa 2016 tion in tion in tion in 6:12 PM source source source data data data UA 0.2 <=1 No No No Dec 20 Urobili E.U./dL E.U./dL informa informa informa 2016 nogen tion in tion in tion in 6:12 PM source source source data data data UA Positiv Negativ No Abnorma No Dec 20 Nitrite e e informa l informa 2016 tion in tion in 6:12 PM source source data data UA Leuk Small Negativ No Abnorma No Dec 20 Est e informa l informa 2016 tion in tion in 6:12 PM source source data data UA Spec 1.015 1.001 - No No Referen Dec 20 Grav 1.035 informa informa ce 2016 tion in tion in range 6:12 PM source source valid data data for random specime ns only. UA WBC 10-20 0 - 4 /HPF Abnorma No Dec 20 l informa 2015 tion in 6:12 PM source data UA 2+ No No No No Dec 20 Squam informa informa informa informa 2016 Epi tion in tion in tion in tion in 6:12 PM source source source source data data data data UA Trace No No No No Dec 20 Mucous informa informa informa informa 2016 tion in tion in tion in tion in 6:12 PM source source source source data data data data UA 4+ No No No No Dec 20 Bacteri informa informa informa informa 2016 a tion in tion in tion in tion in 6:12 PM source source source source data data data data UA Rare No No No No Dec 20 Trans informa informa informa informa 2016 Epi tion in tion in tion in tion in 6:12 PM source source source source data data data data EC ECHOCARDIOGRAM COMPLETE W DOPPLER AND COLOR FLOW MAPPING Observa Value Referen Units Interpr Notes Date tion ce etation Range This No No No No Sep 3 patient informa informa informa informa 2016 tion in tion in tion in tion in 12:06 receive source source source source PM d an data data data data examina tion at the [facility] are Vascula r Laborat ory.\.b r\The complet e report can be found in the [facility] ([facility]) Electro rachel Medical Record of the patient . CT HEAD WO CONTRAST Observa Value Referen Units Interpr Notes Date tion ce etation Range \.br\NO No No No No Sep 29 NCONTRA informa informa informa informa 2015 ST HEAD tion in tion in tion in tion in 12:00 CT, source source source source PM data data data data 6\.br\\ .br\HIS TORY: R55-Syn cope and collaps e-ICD-1 0-CM\.b r\\.br\ FINDING S:\.br\ \.br\Co mpariso n none.\. br\\.br \No focal areas of abnorma l brain parench ymal attenua tion identif ied. There\. br\is no\.br\ acute hemorrh age. There is no acute infarct or mass.\. br\\.br \Ventri cular system within normal limits in size and configu ration. \.br\\. br\No extra axial collect ions, mass effect or midline shift demonst rated.\ .br\\.b r\Bony structu res intact. Sinuses and mastoid s clear.\ .br\\.b r\IMPRE SSION: Normal noncont rast head CT.\.br \ HM HOLTER MONITOR RECORDING AND ANALYSIS Observa Value Referen Units Interpr Notes Date ti ce etation Range Scanned No No No No Sep 29 Holter informa informa informa informa 2015 tion in tion in tion in tion in 11:30 Report\ source source source source AM .br\St. data data data data [facility] [place]\.br\ Interpr etive Stateme nts\.br \[place] Representative Date: 6\.br\R eferrin g Physici an: Korina Rae MD\.br\ Patient was monitor ed for 72 hours. Diary entries were present \.br\IN DICATIO NS: Syncope , unspeci fied syncope type\.b r\CONCL USION:\ .br\DAY 1\.br\1 . Rhythm was sinus with episode s of sinus arrhyth frederic and sinus tachyca rdia\.b r\>150. \.br\2. There was rare suprave ntricul ar ectopy. \.br\3. No ventric ular ectopy. \.br\4. Patient marker correla juma with sinus tachyca rdia.\. br\5. Diary entry indicat ing chest pain correla juma with sinus rhythm. \.br\SV /AF Collyer: 0%\.br\ DAY 2\.br\1 . Rhythm was sinus with episode s of sinus tachyca rdia >150.\. br\2. There was rare suprave ntricul ar ectopy. \.br\3. There was rare ventric ular ectopy. \.br\4. Patient marker was not used.\. br\5. Diary was asympto matic.\ .br\SV/ AF Collyer: 0%\.br\ DAY 3\.br\1 . Rhythm was sinus with an episode of sinus arrhyth frederic\.br \2. There was rare suprave ntricul ar ectopy\ .br\3. No ventric ular ectopy. \.br\4. Patient marker was used.\. br\5. Diary was asympto matic.\ .br\SV/ AF Collyer: 0%\.br\ Electro nically Signed On 10-08-19 9:02:45 EDT by Denny inman MD HCG Qual Observa Value Referen Units Interpr Notes Date tion ce etation Range HCG Negativ No No No No Sep 11 QUAL e informa informa informa informa 2015 tion in tion in tion in tion in 7:23 PM source source source source data data data data Auto Diff Observa Value Referen Units Interpr Notes Date tion ce etation Range Neutrop 67.0 No % No No Sep 11 hils informa informa informa 2015 [#/volu tion in tion in tion in 7:06 PM me] in source source source Blood data data data by Automat ed count Lymphoc 22.8 No % No No Sep 11 ytes informa informa informa 2015 [#/volu tion in tion in tion in 7:06 PM me] in source source source Blood data data data by Automat ed count Monocyt 5.9 No % No No Sep 11 es informa informa informa 2016 [#/volu tion in tion in tion in 7:06 PM me] in source source source Blood data data data by Automat ed count Eos 3.5 No % No No Aug 16 Percent informa informa informa 2016 tion in tion in tion in 7:06 PM source source source data data data Baso 0.8 No % No No Aug 16 Percent informa informa informa 2016 tion in tion in tion in 7:06 PM source source source data data data Neut# 4.2 1.8 - x10(3)/ No No Sep 11 7.7 mcL informa informa 2016 tion in tion in 7:06 PM source source data data Lymph# 1.4 0.6 - x10(3)/ No No Sep 11 4.8 mcL informa informa 2016 tion in tion in 7:06 PM source source data data Lares# 0.4 0.0 - x10(3)/ No No Aug 16 1.3 mcL informa informa 2016 tion in tion in 7:06 PM source source data data Eos# 0.2 0.0 - x10(3)/ No No Aug 16 0.5 mcL informa informa 2016 tion in tion in 7:06 PM source source data data Baso# 0.0 0.0 - x10(3)/ No No Aug 16 0.2 mcL informa informa 2016 tion in tion in 7:06 PM source source data data CBC Observa Value Referen Units Interpr Notes Date tion ce etation Range LEUKOCY 6.2 4.0 - x10(3)/ No No Sep 11 SUMANTH 11.0 mcL informa informa 2016 tion in tion in 7:06 PM source source data data Erythro 4.34 3.80 - x10(6)/ No No Sep 11 cytes 5.10 mcL informa informa 2016 [#/volu tion in tion in 7:06 PM me] in source source Blood data data by Automat ed count Hemoglo 12.2 12.0 - gm/dL No No Sep 11 bin 15.6 informa informa 2016 [Mass/v tion in tion in 7:06 PM olume] source source in data data Blood Hematoc 37.4 35.7 - % No No Sep 11 rit 45.9 informa informa 2016 [Volume tion in tion in 7:06 PM source source Fractio data data n] of Blood by Automat ed count Erythro 86.2 82.5 - fL No No Sep 11 cyte 99.8 informa informa 2016 mean tion in tion in 7:06 PM corpusc source source ular data data volume [Entiti c volume] by Automat ed count Erythro 28.0 27.0 - pg No No Sep 11 cyte 34.3 informa informa 2016 mean tion in tion in 7:06 PM corpusc source source ular data data hemoglo bin [Entiti c mass] by Automat ed count Erythro 32.5 32.1 - gm/dL No No Sep 11 cyte 35.3 informa informa 2016 mean tion in tion in 7:06 PM corpusc source source ular data data hemoglo bin concent ration [Mass/v olume] by Automat ed count Erythro 13.8 11.5 - % No No Sep 11 cyte 15.0 informa informa 2016 distrib tion in tion in 7:06 PM ution source source width data data [Ratio] by Automat ed count Platele 182 144 - x10(3)/ No No Sep 11 ts 423 mcL informa informa 2016 [#/volu tion in tion in 7:06 PM me] in source source Blood data data by Automat ed count MPV 10.0 6.8 - fL No No Sep 11 10.8 informa informa 2016 tion in tion in 7:06 PM source source data data Glu Bed Observa Value Referen Units Interpr Notes Date tion ce etation Range GLU BED 86 70 - mg/dL No No Sep 06 100 informa informa 2016 tion in tion in 7:52 AM source source data data HCG Qual Observa Value Referen Units Interpr Notes Date tion ce etation Range HCG Negativ No No No No Sep 06 QUAL e informa informa informa informa 2016 tion in tion in tion in tion in 7:31 AM source source source source data data data data Auto Diff Observa Value Referen Units Interpr Notes Date tion ce etation Range Neutrop 66.1 No % No No Sep 06 hils informa informa informa 2016 [#/volu tion in tion in tion in 7:11 AM me] in source source source Blood data data data by Automat ed count Lymphoc 24.9 No % No No Sep 06 ytes informa informa informa 2016 [#/volu tion in tion in tion in 7:11 AM me] in source source source Blood data data data by Automat ed count Monocyt 5.7 No % No No Sep 06 es informa informa informa 2016 [#/volu tion in tion in tion in 7:11 AM me] in source source source Blood data data data by Automat ed count Eos 2.6 No % No Sep 06 Percent informa informa informa 2016 tion in tion in tion in 7:11 AM source source source data data data Baso 0.7 No % No Sep 06 Percent informa informa informa 2016 tion in tion in tion in 7:11 AM source source source data data data Neut# 4.2 1.8 - x10(3)/ No No Sep 06 7.7 mcL informa informa 2016 tion in tion in 7:11 AM source source data data Lymph# 1.6 0.6 - x10(3)/ No No Sep 06 4.8 mcL informa informa 2016 tion in tion in 7:11 AM source source data data Lares# 0.4 0.0 - x10(3)/ No No Sep 06 1.3 mcL informa informa 2016 tion in tion in 7:11 AM source source data data Eos# 0.2 0.0 - x10(3)/ No No Sep 06 0.5 mcL informa informa 2016 tion in tion in 7:11 AM source source data data Baso# 0.0 0.0 - x10(3)/ No No Sep 06 0.2 mcL informa informa 2016 tion in tion in 7:11 AM source source data data CBC Observa Value Referen Units Interpr Notes Date tion ce etation Range LEUKOCY 6.3 4.0 - x10(3)/ No No Sep 06 SUMANTH 11.0 mcL informa informa 2016 tion in tion in 7:11 AM source source data data Erythro 4.46 3.80 - x10(6)/ No No Sep 06 cytes 5.10 mcL informa informa 2016 [#/volu tion in tion in 7:11 AM me] in source source Blood data data by Automat ed count Hemoglo 12.5 12.0 - gm/dL No No Sep 06 bin 15.6 informa informa 2016 [Mass/v tion in tion in 7:11 AM olume] source source in data data Blood Hematoc 38.5 35.7 - % No No Sep 06 rit 45.9 informa informa 2016 [Volume tion in tion in 7:11 AM source source Fractio data data n] of Blood by Automat ed count Erythro 86.2 82.5 - fL No No Sep 06 cyte 99.8 informa informa 2016 mean tion in tion in 7:11 AM corpusc source source ular data data volume [Entiti c volume] by Automat ed count Erythro 28.0 27.0 - pg No No Sep 06 cyte 34.3 informa informa 2016 mean tion in tion in 7:11 AM corpusc source source ular data data hemoglo bin [Entiti c mass] by Automat ed count Erythro 32.4 32.1 - gm/dL No No Sep 06 cyte 35.3 informa informa 2016 mean tion in tion in 7:11 AM corpusc source source ular data data hemoglo bin concent ration [Mass/v olume] by Automat ed count Erythro 13.4 11.5 - % No No Sep 06 cyte 15.0 informa informa 2016 distrib tion in tion in 7:11 AM ution source source width data data [Ratio] by Automat ed count Platele 169 144 - x10(3)/ No No Sep 06 ts 423 mcL informa informa 2016 [#/volu tion in tion in 7:11 AM me] in source source Blood data data by Automat ed count MPV 10.0 6.8 - fL No No Sep 06 10.8 informa informa 2016 tion in tion in 7:11 AM source source data data EK EKG 12 LEAD Observa Value Referen Units Interpr Notes Date tion ce etation Range Station No No No No Sep 06 pushpa ECG informa informa informa informa 2016 tion in tion in tion in tion in 7:00 AM Study\. source source source source br\St. data data data data Elizabe th Florenc e\.br\I nterpre tive Stateme nts\.br \SINUS RHYTHM WITH SHORT MD INTERVA L\.br\n o old ekg's for compari son\.br \Electr onicall y Signed On 09-07-19 16 7:00:07 EDT by Alistair cunningham MD Glu Bed Observa Value Referen Units Interpr Notes Date ce etation Range GLU BED 102 70 - mg/dL High No Sep 06 100 informa 2015 tion in 6:42 AM source data HSV 2 IgG-ARUP Observa Value Referen Units Interpr Notes Date ti ce etation Range HSV 2 0.11 <=0.90 IV No INTERPR Flakito 3 IgG-ARU informa ETIVE 2015 P tion in INFORMA 5:37 AM source TION: data HSV 2 Glycopr otein G Ab, IgG (MARTHA)\. br\ 0.90 IV or less ....... Negativ e - No signifi cant level\. br\ of detecta ble IgG antibod y to\.br\ HSV type 2 glycopr otein G.\.br\ 0.91 - 1.09 IV ....... . Equivoc al - Questio nable\. br\ presenc e of IgG antibod y to HSV\.br \ type 2 glycopr otein G. Repeat\ .br\ testing in 10-14 days may be helpful .\.br\ 1.10 IV or greater .... Positiv e - IgG antibod y to HSV\.br \ type 2 glycopr otein G detecte d,\.br\ which may indicat e a current or\.br\ past HSV infecti on.\.br \Indivi duals infecte d with HSV may not exhibit detecta ble IgG\.br \antibo dy to type specifi c HSV antigen s 1 and 2 in the early stages\ .br\of infecti on. Detecti on of antibod y presenc e in these cases may\.br \only be possibl e using a non-typ e specifi c screeni ng test. Free T4 Observa Value Referen Units Interpr Notes Date tion ce etation Range Thyroxi 1.09 0.93 - ng/dL No No Jul 28 ne (T4) 1.70 informa informa 2016 free tion in tion in 9:21 PM [Mass/v source source olume] data data in Serum or Plasma TSH Observa Value Referen Units Interpr Notes Date tion ce etation Range Thyrotr 1.000 0.270 - mcIU/mL No No Jul 28 opin 4.200 informa informa 2016 [Units/ tion in tion in 9:21 PM volume] source source in data data Serum or Plasma Flu A/B Observa Value Referen Units Interpr Notes Date tion ce etation Range Influ A Positiv No No Abnorma Negativ May 20 Ag e informa informa l e 2016 tion in tion in results 7:57 PM source source in data data patient s with high clinica l suspici on should be verfied with RT-PCR, availab le as Respira tory Viral Mini Panel in Epic.\. br\\.br \The WHO recomme nds molecul ar testing (Respir atory Viral DNA Test) during periods of low influen za activit y instead of rapid tests. Should rapid tests be used, then both positiv e and negativ e test results should be confirm ed by a molecul ar method. The WHO also recomme nds confirm atory testing by a molecul ar method (Respir atory Viral DNA Test) for all negativ e rapid test results during seasona l occurre nce of influen za. Influ B Negativ No No No No May 20 Ag e informa informa informa informa 2016 tion in tion in tion in tion in 7:57 PM source source source source data data data data UA Observa Value Referen Units Interpr Notes Date tion ce etation Range UA Yellow No No No No May 20 Color informa informa informa informa 2016 tion in tion in tion in tion in 7:43 PM source source source source data data data data UA Hazy Clear No Abnorma No May 20 Appear informa l informa 2016 tion in tion in 7:43 PM source source data data UA Negativ Negativ No No No May 20 Glucose e e informa informa informa 2016 tion in tion in tion in 7:43 PM source source source data data data UA Negativ Negativ No No No May 20 Ketones e e informa informa informa 2016 tion in tion in tion in 7:43 PM source source source data data data UA Large Negativ No Abnorma No May 20 Blood e informa l informa 2016 tion in tion in 7:43 PM source source data data UA pH 6.0 5.0 - No No Referen May 20 8.0 informa informa ce 2016 tion in tion in range 7:43 PM source source valid data data for random specime ns only. UA 30 Negativ No Abnorma No May 20 Protein mg/dl e informa l informa 2016 tion in tion in 7:43 PM source source data data UA 0.2 <=1 No No No May 20 Urobili E.U./dL E.U./dL informa informa informa 2016 nogen tion in tion in tion in 7:43 PM source source source data data data UA Negativ Negativ No No No May 20 Nitrite e e informa informa informa 2016 tion in tion in tion in 7:43 PM source source source data data data UA Leuk Negativ Negativ No No No May 20 Est e e informa informa informa 2016 tion in tion in tion in 7:43 PM source source source data data data UA Spec 1.025 1.001 - No No ReferMay 20 Grav 1.035 informa informa ce 2016 tion in tion in range 7:43 PM source source valid data data for random specime ns only. UA WBC 0-2 0 - 4 /HPF No No May 20 informa informa 2016 tion in tion in 7:43 PM source source data data UA RBC 3-5 0 - 3 /HPF Abnorma No May 20 l informa 2016 tion in 7:43 PM source data UA Rare No No No No May 20 Squam informa informa informa informa 2016 Epi tion in tion in tion in tion in 7:43 PM source source source source data data data data UA Trace No No No No May 20 Mucous informa informa informa informa 2016 tion in tion in tion in tion in 7:43 PM source source source source data data data data UA Trace No No No No May 20 Bacteri informa informa informa informa 2016 a tion in tion in tion in tion in 7:43 PM source source source source data data data data Chlamyd/GC TMA Observa Value Referen Units Interpr Notes Date tion ce etation Range Chlamyd Negativ No No No No Mar 25 ia e informa informa informa informa 2016 trachom tion in tion in tion in tion in 11:55 atis source source source source AM data data data data Neisser Negativ No No No Testing Mar 25 ia e informa informa informa 2016 gonorrh tion in tion in tion in methodo 11:55 oeae source source source logy is AM data data data transcr iption mediate d amplifi cation (TMA) using the Aptima Combo 2 assay from [employer] [facility] [facility].\.br \A negativ e result does not complet lakeshia rule out a Chlamyd ia trachom atis or Neisser ia gonorrh oeae infecti on due to potenti al inhibit ors or levels present below the limit of detecti on by this assay. Results are depende nt on proper collect ion and transpo rt of specime n. This test is indicat ed for medical purpose s only and should not be used for legal or forensi c purpose s.\.br\ \.br\Th e perform ance charact eristic s of this test were validat ed by [facility] are laborat ory. This assay is FDA cleared to test the followi ng specime ns: clinici an-malinda ected endocer vical, vaginal and male urethra l swab specime ns, patient collect ed vaginal specime ns within a clinic setting , Thin Prep Specime ns in Preserv Cyt Solutio n, and first-s tream, unprese rved male urine specime ns. Testing on female urine is not FDA approve d by this methodo logy, but has been develop ed and validat ed by the [facility] are laborat ory. Detaile d methodo logy is availab le upon request . Ag Trich Observa Value Referen Units Interpr Notes Date tion ce etation Range Trichom Negativ No No No No Mar 25 onas Ag e informa informa informa informa 2016 tion in tion in tion in tion in 3:28 AM source source source source data data data data HCG Qual Observa Value Referen Units Interpr Notes Date tion ce etation Range HCG Negativ No No No No Mar 25 QUAL e informa informa informa informa 2016 tion in tion in tion in tion in 2:42 AM source source source source data data data data Auto Diff Observa Value Referen Units Interpr Notes Date tion ce etation Range Neutrop 38.1 No % No No Mar 25 hils informa informa informa 2015 [#/volu tion in tion in tion in 2:18 AM me] in source source source Blood data data data by Automat ed count Lymphoc 48.6 No % No No Mar 25 ytes informa informa informa 2015 [#/volu tion in tion in tion in 2:18 AM me] in source source source Blood data data data by Automat ed count Monocyt 8.0 No % No No Mar 25 es informa informa informa 2015 [#/volu tion in tion in tion in 2:18 AM me] in source source source Blood data data data by Automat ed count Eos 4.5 No % No No Mar 25 Percent informa informa informa 2016 tion in tion in tion in 2:18 AM source source source data data data Baso 0.8 No % No No Mar 25 Percent informa informa informa 2016 tion in tion in tion in 2:18 AM source source source data data data Neut# 1.8 1.8 - x10(3)/ No No Mar 25 7.7 mcL informa informa 2016 tion in tion in 2:18 AM source source data data Lymph# 2.3 0.6 - x10(3)/ No No Mar 25 4.8 mcL informa informa 2016 tion in tion in 2:18 AM source source data data Lares# 0.4 0.0 - x10(3)/ No No Mar 25 1.3 mcL informa informa 2016 tion in tion in 2:18 AM source source data data Eos# 0.2 0.0 - x10(3)/ No No Mar 25 0.5 mcL informa informa 2016 tion in tion in 2:18 AM source source data data Baso# 0.0 0.0 - x10(3)/ No No Mar 25 0.2 mcL informa informa 2016 tion in tion in 2:18 AM source source data data CBC Observa Value Referen Units Interpr Notes Date tion ce etation Range LEUKOCY 4.7 4.0 - x10(3)/ No Mar 25 SUMANTH 11.0 mcL informa informa 2016 tion in tion in 2:18 AM source source data data Erythro 4.39 3.80 - x10(6)/ No Mar 25 cytes 5.10 mcL informa informa 2016 [#/volu tion in tion in 2:18 AM me] in source source Blood data data by Automat ed count Hemoglo 12.2 12.0 - gm/dL No Mar 25 bin 15.6 informa informa 2016 [Mass/v tion in tion in 2:18 AM olume] source source in data data Blood Hematoc 37.8 35.7 - % No Mar 25 rit 45.9 informa informa 2016 [Volume tion in tion in 2:18 AM source source Fractio data data n] of Blood by Automat ed count Erythro 86.2 82.5 - fL No No Mar 25 cyte 99.8 informa informa 2016 mean tion in tion in 2:18 AM corpusc source source ular data data volume [Entiti c volume] by Automat ed count Erythro 27.8 27.0 - pg No Mar 25 cyte 34.3 informa informa 2016 mean tion in tion in 2:18 AM corpusc source source ular data data hemoglo bin [Entiti c mass] by Automat ed count Erythro 32.3 32.1 - gm/dL No Mar 25 cyte 35.3 informa informa 2016 mean tion in tion in 2:18 AM corpusc source source ular data data hemoglo bin concent ration [Mass/v olume] by Automat ed count Erythro 14.2 11.5 - % No Mar 25 cyte 15.0 informa informa 2016 distrib tion in tion in 2:18 AM ution source source width data data [Ratio] by Automat ed count Platele 182 144 - x10(3)/ No No Mar 25 ts 423 mcL informa informa 2016 [#/volu tion in tion in 2:18 AM me] in source source Blood data data by Automat ed count MPV 10.1 6.8 - fL No No Mar 25 10.8 informa informa 2016 tion in tion in 2:18 AM source source data data UA Observa Value Referen Units Interpr Notes Date tion ce etation Range UA Yellow No No No No Mar 25 Color informa informa informa informa 2016 tion in tion in tion in tion in 2:31 AM source source source source data data data data UA Cloudy Clear No Abnorma No Mar 25 Appear informa l informa 2016 tion in tion in 2:31 AM source source data data UA Negativ Negativ No No No Mar 25 Glucose e e informa informa informa 2016 tion in tion in tion in 2:31 AM source source source data data data UA Negativ Negativ No No No Mar 25 Ketones e e informa informa informa 2016 tion in tion in tion in 2:31 AM source source source data data data UA Negativ Negativ No No No Mar 25 Blood e e informa informa informa 2016 tion in tion in tion in 2:31 AM source source source data data data UA pH 7.0 4.8 - No No Referen Mar 25 8.0 informa informa ce 2016 tion in tion in range 2:31 AM source source valid data data for random specime ns only. UA 30 Negativ No Abnorma No Mar 25 Protein mg/dl e informa l informa 2016 tion in tion in 2:31 AM source source data data UA Normal <=1 No No No Mar 25 Urobili mg/dl informa informa informa 2016 nogen tion in tion in tion in 2:31 AM source source source data data data UA Negativ Negativ No No No Mar 25 Nitrite e e informa informa informa 2016 tion in tion in tion in 2:31 AM source source source data data data UA Leuk Small Negativ No Abnorma No Mar 25 Est e informa l informa 2016 tion in tion in 2:31 AM source source data data UA Spec 1.021 1.001 - No No Referen Mar 25 Grav 1.035 informa informa ce 2016 tion in tion in range 2:31 AM source source valid data data for random specime ns only. UA WBC 5 0 - 4 /HPF High No Mar 25 informa 2016 tion in 2:31 AM source data UA 4+ No No No No Mar 25 Squam informa informa informa informa 2016 Epi tion in tion in tion in tion in 2:31 AM source source source source data data data data UA 4+ No No No No Mar 25 Mucous informa informa informa informa 2016 tion in tion in tion in tion in 2:31 AM source source source source data data data data UA 1+ No No Abnorma No Mar 25 Bacteri informa informa l informa 2016 a tion in tion in tion in 2:31 AM source source source data data data UA Micro Observa Value Referen Units Interpr Notes Date tion ce etation Range UA WBC 5-10 0 - 4 /HPF Abnorma No Feb 21 l informa 2015 tion in 12:53 source AM data UA RBC 0-2 0 - 3 /HPF No No Feb 21 informa informa 2015 tion in tion in 12:53 source source AM data data UA 1+ No No No No Feb 21 Squam informa informa informa informa 2015 Epi tion in tion in tion in tion in 12:53 source source source source AM data data data data UA 1+ No No No No Feb 21 Mucous informa informa informa informa 2015 tion in tion in tion in tion in 12:53 source source source source AM data data data data UA 2+ No No No No Feb 21 Amorph informa informa informa informa 2015 tion in tion in tion in tion in 12:53 source source source source AM data data data data UA Rare No No No No Feb 21 Trans informa informa informa informa 2015 Epi tion in tion in tion in tion in 12:53 source source source source AM data data data data POC UA Observa Value Referen Units Interpr Notes Date tion ce etation Range UA Yellow No No No No Feb 20 Color informa informa informa informa 2014 POC tion in tion in tion in tion in 11:52 source source source source PM data data data data UA Cloudy Clear No Abnorma No Feb 20 Appear informa l informa 2014 POC tion in tion in 11:52 source source PM data data UA Gluc Negativ Negativ No No No Feb 20 POC e e informa informa informa 2014 tion in tion in tion in 11:52 source source source PM data data data UA Negativ Negativ No No No Feb 20 Ketones e e informa informa informa 2014 POC tion in tion in tion in 11:52 source source source PM data data data UA Negativ Negativ No No No Feb 20 Blood e e informa informa informa 2015 POC tion in tion in tion in 11:52 source source source PM data data data UA pH 7.0 5.0 - No No No Feb 20 POC 8.0 informa informa informa 2014 tion in tion in tion in 11:52 source source source PM data data data UA Negativ Negativ No No No Feb 20 Protein e e informa informa informa 2014 POC tion in tion in tion in 11:52 source source source PM data data data UA 0.2 <=1 No No No Feb 20 Urobili mg/dl mg/dl informa informa informa 2014 nogen tion in tion in tion in 11:52 POC source source source PM data data data UA Negativ Negativ No No No Feb 20 Nitrite e e informa informa informa 2014 POC tion in tion in tion in 11:52 source source source PM data data data UA Leuk Trace Negativ No Abnorma No Feb 20 Est e informa l informa 2014 POC tion in tion in 11:52 source source PM data data UA SG 1.020 1.001 - No No No Feb 20 POC 1.035 informa informa informa 2015 tion in tion in tion in 11:52 source source source PM data data data HCG Qual Observa Value Referen Units Interpr Notes Date tion ce etation Range HCG Negativ No No No No Feb 20 QUAL e informa informa informa informa 2015 tion in tion in tion in tion in 11:22 source source source source PM data data data data Chlamyd/GC TMA Observa Value Referen Units Interpr Notes Date tion ce etation Range Chlamyd Negativ No No No No Feb 21 ia e informa informa informa informa 2015 trachom tion in tion in tion in tion in 10:22 atis source source source source AM data data data data Neisser Negativ No No No Testing Feb 21 ia e informa informa informa 2015 gonorrh tion in tion in tion in methodo 10:22 oeae source source source logy is AM data data data transcr iption mediate d amplifi cation (TMA) using the Aptima Combo 2 assay from [employer] [facility] [facility].\.br \A negativ e result does not complet lakeshia rule out a Chlamyd ia trachom atis or Neisser ia gonorrh oeae infecti on due to potenti al inhibit ors or levels present below the limit of detecti on by this assay. Results are depende nt on proper collect ion and transpo rt of specime n. This test is indicat ed for medical purpose s only and should not be used for legal or forensi c purpose s.\.br\ \.br\Th e perform ance charact eristic s of this test were validat ed by [facility] are laborat ory. This assay is FDA cleared to test the followi ng specime ns: clinici an-malinda ected endocer vical, vaginal and male urethra l swab specime ns, patient collect ed vaginal specime ns within a clinic setting , Thin Prep Specime ns in Preserv Cyt Solutio n, and first-s tream, unprese rved male urine specime ns. Testing on female urine is not FDA approve d by this methodo logy, but has been develop ed and validat ed by the [facility] are laborat ory. Detaile d methodo logy is availab le upon request . Chlamyd/GC TMA Observa Value Referen Units Interpr Notes Date tion ce etation Range Chlamyd Negativ No No No No Jan 09 ia e informa informa informa informa 2014 trachom tion in tion in tion in tion in 11:45 atis source source source source AM data data data data Neisser Negativ No No No Testing Jan 09 ia e informa informa informa 2014 gonorrh tion in tion in tion in methodo 11:45 oeae source source source logy is AM data data data transcr iption mediate d amplifi cation (TMA) using the Aptima Combo 2 assay from [employer].\.br \A negativ e result does not complet lakeshia rule out a Chlamyd ia trachom atis or Neisser ia gonorrh oeae infecti on due to potenti al inhibit ors or levels present below the limit of detecti on by this assay. Results are depende nt on proper collect ion and transpo rt of specime n. This test is indicat ed for medical purpose s only and should not be used for legal or forensi c purpose s.\.br\ \.br\Th e perform ance charact eristic s of this test were validat ed by [facility] are laborat ory. This assay is FDA cleared to test the followi ng specime ns: clinici an-malinda ected endocer vical, vaginal and male urethra l swab specime ns, patient collect ed vaginal specime ns within a clinic setting , Thin Prep Specime ns in Preserv Cyt Solutio n, and first-s tream, unprese rved male urine specime ns. Testing on female urine is not FDA approve d by this methodo logy, but has been develop ed and validat ed by the [facility] are laborat ory. Detaile d methodo logy is availab le upon request . UA Observa Value Referen Units Interpr Notes Date tion ce etation Range UA Yellow No No No No Jan 09 Color informa informa informa informa 2014 tion in tion in tion in tion in 1:38 AM source source source source data data data data UA Slightl Clear No Abnorma No Jan 09 Appear y informa l informa 2014 Cloudy tion in tion in 1:38 AM source source data data UA Negativ Negativ No No No Jan 09 Glucose e e informa informa informa 2014 tion in tion in tion in 1:38 AM source source source data data data UA Negativ Negativ No No No Nov 13 Ketones e e informa informa informa 2014 tion in tion in tion in 1:38 AM source source source data data data UA Small Negativ No Abnorma No Jan 09 Blood e informa l informa 2014 tion in tion in 1:38 AM source source data data UA pH 6.0 5.0 - No No Referen Jan 09 8.0 informa informa ce 2014 tion in tion in range 1:38 AM source source valid data data for random specime ns only. UA 100 Negativ No Abnorma No Jan 09 Protein mg/dl e informa l informa 2014 tion in tion in 1:38 AM source source data data UA 0.2 <=1 No No No Jan 09 Urobili E.U./dL E.U./dL informa informa informa 2014 nogen tion in tion in tion in 1:38 AM source source source data data data UA Positiv Negativ No Abnorma No Jan 09 Nitrite e e informa l informa 2014 tion in tion in 1:38 AM source source data data UA Leuk Small Negativ No Abnorma No Jan 09 Est e informa l informa 2014 tion in tion in 1:38 AM source source data data UA Spec >=1.030 1.001 - No No ReferJan 09 Grav 1.035 informa informa ce 2014 tion in tion in range 1:38 AM source source valid data data for random specime ns only. UA WBC 50-100 0 - 4 /HPF Abnorma No Jan 09 l informa 2014 tion in 1:38 AM source data UA RBC 10-20 0 - 3 /HPF Abnorma No Jan 09 l informa 2014 tion in 1:38 AM source data UA 2+ No No No No Jan 09 Squam informa informa informa informa 2015 Epi tion in tion in tion in tion in 1:38 AM source source source source data data data data UA 3+ No No No No Jan 09 Mucous informa informa informa informa 2015 tion in tion in tion in tion in 1:38 AM source source source source data data data data UA 2+ No No No No Jan 09 Amorph informa informa informa informa 2015 tion in tion in tion in tion in 1:38 AM source source source source data data data data UA 3+ No No No No Jan 09 Bacteri informa informa informa informa 2015 a tion in tion in tion in tion in 1:38 AM source source source source data data data data TSH Reflex Observa Value Referen Units Interpr Notes Date tion ce etation Range Thyrotr 1.100 0.270 - mcIU/mL No No Jan 06 opin 4.200 informa informa 2014 [Units/ tion in tion in 4:51 PM volume] source source in data data Serum or Plasma Glyco Observa Value Referen Units Interpr Notes Date tion ce etation Range Hemoglo 4.7 <=7.0 % No Referen Jan 06 bin informa ce 2015 A1c/Hem tion in Interva 4:14 PM oglobin source l for .total data Hgb in A1c\.br Blood \\.br\H gb A1c Interpr etation \.br\-- ------- -- ------- ------- --\.br\ \.br\ < 6.0 Non-Korin betic Range\. br\6.0 - 7.0 ADA Therape utic Target\ .br\ > 7.0 Action suggest ed LH/FSH Observa Value Referen Units Interpr Notes Date tion ce etation Range Lutropi 32.98 No mIU/mL No Suggest Jan 06 n informa informa ed 2014 [Moles/ tion in tion in Referen 4:13 PM volume] source source ce in data data Ranges Serum (mIU/mL or )\.br\\ Plasma .br\Fem ales\.b r\Folli cular Phase 2.4 - 12.6\.b r\Ovula tion Phase 14.0 - 95.6\.b r\Lutea l Phase 1.0 - 11.4\.b r\Postm enopaus e 7.7 - 58.5\.b r\\.br\ Males\. br\1.7 - 8.6 Follitr 6.12 No mIU/mL No Suggest Jan 06 opin informa informa ed 2014 [Moles/ tion in tion in Referen 4:12 PM volume] source source ce in data data Range Serum (mIU/mL or )\.br\\ Plasma .br\Fem ales\.b r\Folli cular Phase 3.5 - 12.5\.b r\Ovula tion Phase 4.7 - 21.5\.b r\Lutea l Phase 1.7 - 7.7\.br \Postme nopause 25.8 - 134.8\. br\\.br \Males\ .br\1.5 - 12.4 Prolactin Observa Value Referen Units Interpr Notes Date ti ce etation Range Prolact 17.76 4.79 - ng/mL No No Jan 06 in 23.30 informa informa 2014 tion in ti in 4:12 PM source source data data HCG Qual Observa Value Referen Units Interpr Notes Date ti ce etation Range HCG Negativ No No No No Jan 06 QUAL e informa informa informa informa 2014 ti in ti in ti in ti in 10:44 source source source source AM data data data data UA Observa Value Referen Units Interpr Notes ti ce etation Range UA Yellow No No No No Sep 17 Color informa informa informa informa 2014 tion in tion in tion in tion in 12:36 source source source source AM data data data data UA Cloudy Clear No Abnorma No Sep 17 Appear informa l informa 2014 ti in in 12:36 source source AM data data UA Negativ Negativ No No No Sep 17 Glucose e e informa informa informa 2014 ti in ti in ti in 12:36 source source source AM data data data UA Trace Negativ No Abnorma No Sep 17 Ketones (5 e informa l informa 2014 mg/dl) tion in ti in 12:36 source source AM data data UA Large Negativ No Abnorma No Sep 17 Blood e informa l informa 2014 ti in ti in 12:36 source source AM data data UA pH 6.0 5.0 - No No Referen Sep 17 8.0 informa informa ce 2014 tion in tion in range 12:36 source source valid AM data data for random specime ns only. UA 100 Negativ No Abnorma No Sep 17 Protein mg/dl e informa l informa 2014 tion in tion in 12:36 source source AM data data UA 0.2 <=1 No No No Sep 17 Urobili E.U./dL E.U./dL informa informa informa 2014 nogen tion in tion in tion in 12:36 source source source AM data data data UA Negativ Negativ No No No Sep 17 Nitrite e e informa informa informa 2014 tion in tion in tion in 12:36 source source source AM data data data UA Leuk Trace Negativ No Abnorma No Sep 17 Est e informa l informa 2014 tion in tion in 12:36 source source AM data data UA Spec >=1.030 1.001 - No No Referen Sep 17 Grav 1.035 informa informa ce 2014 tion in tion in range 12:36 source source valid AM data data for random specime ns only. UA WBC 50-100 0 - 4 /HPF Abnorma No Sep 17 l informa 2014 tion in 12:36 source AM data UA RBC 10-20 0 - 3 /HPF Abnorma No Sep 17 l informa 2014 tion in 12:36 source AM data UA 3+ No No No No Sep 17 Squam informa informa informa informa 2015 Epi tion in tion in tion in tion in 12:36 source source source source AM data data data data UA 3+ No No No No Sep 17 Mucous informa informa informa informa 2014 tion in tion in tion in tion in 12:36 source source source source AM data data data data UA 2+ No No No No Sep 17 Amorph informa informa informa informa 2014 tion in tion in tion in tion in 12:36 source source source source AM data data data data UA 2+ No No No No Sep 17 Bacteri informa informa informa informa 2015 a tion in tion in tion in tion in 12:36 source source source source AM data data data data US PELVIS AND TRANSVAGINAL NON OB COMPLETE Observa Value Referen Units Interpr Notes Date tion ce etation Range Transab No No No No Aug 29 dominal informa informa informa informa 2014 tion in tion in tion in tion in 9:39 AM transva source source source source ginal data data data data pelvic ultraso und, 5\.br\\ .br\COM PARISON : 10/22/19 14\.br\ \.br\HI STORY: Abnorma l menstru ation\. br\\.br \FINDIN GS: uterus 7.2 x 3.2 x 4.4 cm. Endomet rial stripe 4 mm thick. No\.br\ uterine masses. Normal\ .br\ova kayy. Mild pelvic free fluid, likely physiol ogic.\. br\\.br \IMPRES FARZAD: Normal. Chlamyd/GC TMA Observa Value Referen Units Interpr Notes Date tion ce etation Range Chlamyd Negativ No No No No Jul 30 ia e informa informa informa informa 2014 trachom tion in tion in tion in tion in 10:41 atis source source source source AM data data data data Neisser Negativ No No No Testing Jul 30 ia e informa informa informa 2014 gonorrh tion in tion in tion in methodo 10:41 oeae source source source logy is AM data data data transcr iption mediate d amplifi cation (TMA) using the Aptima Combo 2 assay from [employer].\.br \A negativ e result does not complet lakeshia rule out a Chlamyd ia trachom atis or Neisser ia gonorrh oeae infecti on due to potenti al inhibit ors or levels present below the limit of detecti on by this assay. Results are depende nt on proper collect ion and transpo rt of specime n. This test is indicat ed for medical purpose s only and should not be used for legal or forensi c purpose s.\.br\ \.br\ e perform ance charact eristic s of this test were validat ed by [facility] are laborat ory. This assay is FDA cleared to test the followi ng specime ns: clinici an-malinda ected endocer vical, vaginal and male urethra l swab specime ns, patient collect ed vaginal specime ns within a clinic setting , Thin Prep Specime ns in Preserv Cyt Solutio n, and first-s tream, unprese rved male urine specime ns. Testing on female urine is not FDA approve d by this methodo logy, but has been develop ed and validat ed by the [facility] are laborat ory. Detaile d methodo logy is availab le upon request . Ag Trich Observa Value Referen Units Interpr Notes Date tion ce etation Range Trichom Negativ No No No No July 25 onas Ag e informa informa informa informa 2014 tion in tion in tion in tion in 1:46 PM source source source source data data data data HCG Qual Observa Value Referen Units Interpr Notes Date ti ce etation Range HCG Negativ No No No No July 25 QUAL e informa informa informa informa 2014 tion in tion in tion in tion in 1:17 PM source source source source data data data data UA Observa Value Referen Units Interpr Notes Date ti ce etation Range UA Yellow No No No No July 25 Color informa informa informa informa 2014 tion in tion in tion in tion in 1:13 PM source source source source data data data data UA Slightl Clear No Abnorma No July 25 Appear y informa l informa 2014 Cloudy tion in tion in 1:13 PM source source data data UA Negativ Negativ No No No July 25 Glucose e e informa informa informa 2014 tion in tion in tion in 1:13 PM source source source data data data UA Negativ Negativ No No No July 25 Ketones e e informa informa informa 2014 tion in tion in tion in 1:13 PM source source source data data data UA Small Negativ No Abnorma No July 25 Blood e informa l informa 2014 tion in tion in 1:13 PM source source data data UA pH 6.0 5.0 - No No Referen July 25 8.0 informa informa ce 2014 tion in tion in range 1:13 PM source source valid data data for random specime ns only. UA 100 Negativ No Abnorma No July 25 Protein mg/dl e informa l informa 2014 tion in tion in 1:13 PM source source data data UA 0.2 <=1 No No No July 25 Urobili E.U./dL E.U./dL informa informa informa 2014 nogen tion in tion in tion in 1:13 PM source source source data data data UA Positiv Negativ No Abnorma No July 25 Nitrite e e informa l informa 2014 tion in tion in 1:13 PM source source data data UA Leuk Negativ Negativ No No No July 25 Est e e informa informa informa 2015 tion in tion in tion in 1:13 PM source source source data data data UA Spec >=1.030 No No No Referen July 25 Grav informa informa informa ce 2015 tion in tion in tion in range 1:13 PM source source source valid data data data for random specime ns only. UA WBC 5-10 No /HPF No No July 25 informa informa informa 2014 tion in tion in tion in 1:13 PM source source source data data data UA RBC 0-3 No /HPF No No July 25 informa informa informa 2015 tion in tion in tion in 1:13 PM source source source data data data UA 1+ No No No No July 25 Squam informa informa informa informa 2015 Epi tion in tion in tion in tion in 1:13 PM source source source source data data data data UA 1+ No No No No July 25 Mucous informa informa informa informa 2015 tion in tion in tion in tion in 1:13 PM source source source source data data data data UA 4+ No No No No July 25 Bacteri informa informa informa informa 2015 a tion in tion in tion in tion in 1:13 PM source source source source data data data data Auto Diff Observa Value Referen Units Interpr Notes Date tion ce etation Range Neutrop 47.6 No % No No July 25 hils informa informa informa 2014 [#/volu tion in tion in tion in 1:06 PM me] in source source source Blood data data data by Automat ed count Lymphoc 40.1 No % No No July 25 ytes informa informa informa 2014 [#/volu tion in tion in tion in 1:06 PM me] in source source source Blood data data data by Automat ed count Monocyt 6.5 No % No No July 25 es informa informa informa 2014 [#/volu tion in tion in tion in 1:06 PM me] in source source source Blood data data data by Automat ed count Eos 4.9 No % No July 25 Percent informa informa informa 2014 tion in tion in tion in 1:06 PM source source source data data data Baso 0.9 No % No July 25 Percent informa informa informa 2015 tion in tion in tion in 1:06 PM source source source data data data Neut# 2.0 1.8 - x10(3)/ No No July 25 7.7 mcL informa informa 2014 tion in tion in 1:06 PM source source data data Lymph# 1.7 0.6 - x10(3)/ No No July 25 4.8 mcL informa informa 2014 tion in tion in 1:06 PM source source data data Lares# 0.3 0.0 - x10(3)/ No July 25 1.3 mcL informa informa 2014 tion in tion in 1:06 PM source source data data Eos# 0.2 0.0 - x10(3)/ No No July 25 0.5 mcL informa informa 2014 tion in tion in 1:06 PM source source data data Baso# 0.0 0.0 - x10(3)/ No No July 25 0.2 mcL informa informa 2014 tion in tion in 1:06 PM source source data data CBC Observa Value Referen Units Interpr Notes Date tion ce etation Range LEUKOCY 4.3 4.0 - x10(3)/ No July 25 SUMANTH 11.0 mcL informa informa 2014 tion in tion in 1:06 PM source source data data Erythro 4.64 3.80 - x10(6)/ No July 25 cytes 5.10 mcL informa informa 2014 [#/volu tion in tion in 1:06 PM me] in source source Blood data data by Automat ed count Hemoglo 12.9 12.0 - gm/dL No July 25 bin 15.6 informa informa 2014 [Mass/v tion in tion in 1:06 PM olume] source source in data data Blood Hematoc 39.5 35.7 - % No July 25 rit 45.9 informa informa 2014 [Volume tion in tion in 1:06 PM source source Fractio data data n] of Blood by Automat ed count Erythro 85.2 82.5 - fL No No July 25 cyte 99.8 informa informa 2014 mean tion in tion in 1:06 PM corpusc source source ular data data volume [Entiti c volume] by Automat ed count Erythro 27.7 27.0 - pg No No July 25 cyte 34.3 informa informa 2014 mean tion in tion in 1:06 PM corpusc source source ular data data hemoglo bin [Entiti c mass] by Automat ed count Erythro 32.6 32.1 - gm/dL No No July 25 cyte 35.3 informa informa 2014 mean tion in tion in 1:06 PM corpusc source source ular data data hemoglo bin concent ration [Mass/v olume] by Automat ed count Erythro 14.4 11.5 - % No No July 25 cyte 15.0 informa informa 2014 distrib tion in tion in 1:06 PM ution source source width data data [Ratio] by Automat ed count Platele 150 144 - x10(3)/ No No July 25 ts 423 mcL informa informa 2014 [#/volu tion in tion in 1:06 PM me] in source source Blood data data by Automat ed count MPV 10.6 6.8 - fL No No July 25 10.8 informa informa 2014 tion in tion in 1:06 PM source source data data HCG Qual Observa Value Referen Units Interpr Notes Date tion ce etation Range HCG Negativ No No No No Dec 04 QUAL e informa informa informa informa 2014 tion in tion in tion in tion in 7:03 PM source source source source data data data data US PELVIS AND TRANSVAGINAL NON OB COMPLETE Observa Value Referen Units Interpr Notes Date tion ce etation Range Transab No No No No Oct 21 dominal informa informa informa informa 2014 tion in tion in tion in tion in 11:55 transva source source source source AM ginal data data data data pelvic ultraso und, 10/22/19 14\.br\ \.br\CO MPARISO N: 009\.br \\.br\H ISTORY: Abnorma l menstru ation\. br\\.br \FINDIN GS: uterus 7.8 x 3.1 x 5.3 cm. Right ovary 4.3 x 2.2 x 1.8 cm. Left\.b r\ovary 4.3 x 2.4 x 4.3\.br \cm. Endomet rial stripe 4 mm thick. 3.4 x 3.0 cm complex left ovarian \.br\cy st, likely hemorrh agic\.b r\cyst. Right ovary normal. Mild pelvic free fluid, likely seconda ry to\.br\ hemorrh agic cyst.\. br\Ques tionabl e septate uterus. \.br\\. br\IMPR ESSION: \.br\1. Possibl e septate uterus. \.br\2. Hemorrh agic cyst left ovary. TSH Observa Value Referen Units Interpr Notes Date tion ce etation Range Thyrotr 2.060 0.270 - mcIU/mL No Oct 14 opin 4.200 informa informa 2013 [Units/ tion in tion in 7:15 PM volume] source source in data data Serum or Plasma hCG Quant Observa Value Referen Units Interpr Notes Date tion ce etation Range hCG 1 No mIU/mL No Oct 14 Quant informa informa informa 2013 tion in tion in tion in 7:01 PM source source source data data data Auto Diff Observa Value Referen Units Interpr Notes Date tion ce etation Range Neutrop 49.0 No % No Oct 14 hils informa informa informa 2013 [#/volu tion in tion in tion in 5:31 PM me] in source source source Blood data data data by Automat ed count Lymphoc 34.4 No % No No Oct 14 ytes informa informa informa 2013 [#/volu tion in tion in tion in 5:31 PM me] in source source source Blood data data data by Automat ed count Monocyt 8.8 No % No No Oct 14 es informa informa informa 2013 [#/volu tion in tion in tion in 5:31 PM me] in source source source Blood data data data by Automat ed count Eos 7.2 No % No No Aug 18 Percent informa informa informa 2013 tion in tion in tion in 5:31 PM source source source data data data Baso 0.6 No % No No Aug 18 Percent informa informa informa 2014 tion in tion in tion in 5:31 PM source source source data data data Neut# 2.5 1.8 - x10(3)/ No No Aug 18 7.7 mcL informa informa 2014 tion in tion in 5:31 PM source source data data Lymph# 1.8 0.6 - x10(3)/ No No Aug 18 4.8 mcL informa informa 2014 tion in tion in 5:31 PM source source data data Lares# 0.4 0.0 - x10(3)/ No No Aug 18 1.3 mcL informa informa 2014 tion in tion in 5:31 PM source source data data Eos# 0.4 0.0 - x10(3)/ No No Aug 18 0.5 mcL informa informa 2013 tion in tion in 5:31 PM source source data data Baso# 0.0 0.0 - x10(3)/ No No Aug 18 0.2 mcL informa informa 2013 tion in tion in 5:31 PM source source data data CBC Observa Value Referen Units Interpr Notes Date tion ce etation Range LEUKOCY 5.1 4.0 - x10(3)/ No No Aug 18 SUMANTH 11.0 mcL informa informa 2013 tion in tion in 5:31 PM source source data data Erythro 4.24 3.80 - x10(6)/ No No Aug 18 cytes 5.10 mcL informa informa 2013 [#/volu tion in tion in 5:31 PM me] in source source Blood data data by Automat ed count Hemoglo 11.8 12.0 - gm/dL Low No Sep 18 bin 15.6 informa 2013 [Mass/v tion in 5:31 PM olume] source in data Blood Hematoc 35.7 35.7 - % No No Aug 18 rit 45.9 informa informa 2013 [Volume tion in tion in 5:31 PM source source Fractio data data n] of Blood by Automat ed count Erythro 84.3 82.5 - fL No No Oct 14 cyte 99.8 informa informa 2013 mean tion in tion in 5:31 PM corpusc source source ular data data volume [Entiti c volume] by Automat ed count Erythro 27.9 27.0 - pg No No Oct 14 cyte 34.3 informa informa 2013 mean tion in tion in 5:31 PM corpusc source source ular data data hemoglo bin [Entiti c mass] by Automat ed count Erythro 33.1 32.1 - gm/dL No No Oct 14 cyte 35.3 informa informa 2013 mean tion in tion in 5:31 PM corpusc source source ular data data hemoglo bin concent ration [Mass/v olume] by Automat ed count Erythro 13.8 11.5 - % No No Oct 14 cyte 15.0 informa informa 2013 distrib tion in tion in 5:31 PM ution source source width data data [Ratio] by Automat ed count Platele 173 144 - x10(3)/ No No Oct 14 ts 423 mcL informa informa 2013 [#/volu tion in tion in 5:31 PM me] in source source Blood data data by Automat ed count MPV 10.8 6.8 - fL No No Oct 14 10.8 informa informa 2013 tion in tion in 5:31 PM source source data data Chl/GC Urine Results Observa Value Referen Units Interpr Notes Date tion ce etation Range C. Urine No No No Test Sep 08 trachom informa informa informa methodo 2014 atis/N. tion in tion in tion in logy is 9:59 AM source source source gonorrh data data data amplifi oeae ed DNA Specime probe n using [employer] A negativ e result does not rule out the presenc e of DNA in concent rations below\. br\the level of detecti on of the assay.\ .br\\.b r\The perform ance charact eristic s of this test were validat ed by [facility] or[facility]. This laborat ory is authori micheal under the Clinica l\.br\L aborato ry Improve ment Amendme nts (CLIA) as qualifi ed to perform high-co mplexit y testing . Complia nce stateme nt is availab le in the Laborat ory.\.b r\\.br\ Extract ion of genetic materia l from urine and Thin Prep samples was perform ed using a method that was develop ed and validat ed in the perform ing laborat ory. Detaile d methodo logy is availab le upon request .\.br\\ .br\In rare instanc es, non-pat hogenic strains of Neisser ia may cross react and give a false positiv e result for N. gonorrh ea. If concern ed that this cross\. br\reac tivity has occurre d, please recolle ct and submit for genital culture prior to treatme nt.\.br \\.br\T he perform ance of this test has not been verifie d in minor aged patient s. This test is indicat ed for medical purpose s only. Chlamyd Negativ No No No No Sep 08 ia e informa informa informa informa 2013 trachom tion in tion in tion in tion in 9:59 AM atis source source source source data data data data Neisser Negativ No No No No Sep 08 ia e informa informa informa informa 2013 gonorrh tion in tion in tion in tion in 9:59 AM oeae source source source source data data data data Chl/GC Genital Results Observa Value Referen Units Interpr Notes Date tion ce etation Range C. Genital No No No Test July 22 trachom informa informa informa methodo 2013 atis/N. tion in tion in tion in logy is 4:16 PM source source source gonorrh data data data amplifi oeae ed DNA Specime probe n using [employer] A negativ e result does not rule out the presenc e of DNA in concent rations below\. br\the level of detecti on of the assay.\ .br\\.b r\The perform ance charact eristic s of this test were validat ed by [facility] [facility] are Laborat ory. This laborat ory is authori micheal under the Clinica l\.br\L aborato ry Improve ment Amendme nts (CLIA) as qualifi ed to perform high-co mplexit y testing . Complia nce stateme nt is availab le in the Laborat ory.\.b r\\.br\ Extract ion of genetic materia l from urine and Thin Prep samples was perform ed using a method that was develop ed and validat ed in the perform ing laborat ory. Detaile d methodo logy is availab le upon request .\.br\\ .br\In rare instanc es, non-pat hogenic strains of Neisser ia may cross react and give a false positiv e result for N. gonorrh ea. If concern ed that this cross\. br\reac tivity has occurre d, please recolle ct and submit for genital culture prior to treatme nt.\.br \\.br\T he perform ance of this test has not been verifie d in minor aged patient s. This test is indicat ed for medical purpose s only. Chlamyd Negativ No No No No July 22 ia e informa informa informa informa 2013 trachom tion in tion in tion in tion in 4:16 PM atis source source source source data data data data Neisser Negativ No No No No July 22 ia e informa informa informa informa 2013 gonorrh tion in tion in tion in tion in 4:16 PM oeae source source source source data data data data Glyco Observa Value Referen Units Interpr Notes Date tion ce etation Range Hemoglo 5.0 <=7.0 % No Initial May 15 bin informa 2014 A1c/Hem tion in Diagnos 8:48 PM oglobin source tic .total data Criteri in a\.br\< Blood 5.7 % Normal\ .br\5.7 - 6.4 % At risk for diabete s mellitu s\.br\> = 6.5 % Consist ent with diabete s mellitu s\.br\\ .br\Korin betes monitor ing\.br \Target Value (ADA recomme nded): < 7 % Prealbumin Observa Value Referen Units Interpr Notes Date tion ce etation Range Prealbu 21.8 20.0 - mg/dL No No Apr 14 min 40.0 informa informa 2014 tion in tion in 10:04 source source PM data data Hemogram Observa Value Referen Units Interpr Notes Date tion ce etation Range LEUKOCY 7.3 4.0 - x10(3)/ No No May 14 SUMANTH 11.0 mcL informa informa 2013 tion in tion in 9:44 PM source source data data Erythro 4.21 3.80 - x10(6)/ No No May 14 cytes 5.10 mcL informa informa 2013 [#/volu tion in tion in 9:44 PM me] in source source Blood data data by Automat ed count Hemoglo 11.9 12.0 - gm/dL Low No Jun 10 bin 15.6 informa 2013 [Mass/v tion in 9:44 PM olume] source in data Blood Hematoc 35.7 35.7 - % No No Jun 10 rit 45.9 informa informa 2013 [Volume tion in tion in 9:44 PM source source Fractio data data n] of Blood by Automat ed count Erythro 85.0 82.5 - fL No No Jun 10 cyte 99.8 informa informa 2013 mean tion in tion in 9:44 PM corpusc source source ular data data volume [Entiti c volume] by Automat ed count Erythro 28.2 27.0 - pg No No Jun 10 cyte 34.3 informa informa 2013 mean tion in tion in 9:44 PM corpusc source source ular data data hemoglo bin [Entiti c mass] by Automat ed count Erythro 33.2 32.1 - gm/dL No No Jun 10 cyte 35.3 informa informa 2013 mean tion in tion in 9:44 PM corpusc source source ular data data hemoglo bin concent ration [Mass/v olume] by Automat ed count Erythro 14.1 11.5 - % No No Jun 10 cyte 15.0 informa informa 2013 distrib tion in tion in 9:44 PM ution source source width data data [Ratio] by Automat ed count Platele 215 144 - x10(3)/ No No May 14 ts 423 mcL informa informa 2013 [#/volu tion in tion in 9:44 PM me] in source source Blood data data by Automat ed count MPV 10.6 6.8 - fL No No Apr 14 10.8 informa informa 2014 tion in tion in 9:44 PM source source data data
--- OUTSIDE RECORDS SUMMARY | 2016-09-30 17:12 | External Medical Summary Rpt ---
[...] using the Aptima Combo 2 assay from [employer].\.br \A negativ e result does not [...] of this test were validat ed by [facility] are laborat ory. This assay is [...] develop ed and validat ed by the [facility] are laborat ory. Detaile d methodo [...] in 1:19 PM source source data data [place]# 0.5 0.0 - x10(3)/ No No Apr [...] using the Aptima Combo 2 assay from [employer].br \A negativ e result does [...] of this test were validat ed by [facility] are laborat ory. This assay is [...] develop ed and validat ed by the [facility] are laborat ory. Detaile d methodo [...] using the Aptima Combo 2 assay from [employer].\.br \A negativ e result does not [...] of this test were validat ed by [facility] are laborat ory. This assay is [...] develop ed and validat ed by the [facility] are laborat ory. Detaile d methodo [...] in 6:26 PM source source data data [place]# 0.6 0.0 - x10(3)/ No No Oct [...] data data data examina tion at the [facility] are Vascula r Laborat ory.\.b r\The complet e report can be found in the [facility] ([facility]) Electro rachle Medical Record of the patient . CT [...] source AM .br\St. data data data data [facility] [employer]\.br\ Interpr etive Stateme nts\.br \Medical Device Assembler Date: 6\.br\R eferrin g Physici an: Korina [...] correla juma with sinus rhythm. \.br\SV /AF [place]: 0%\.br\ DAY 2\.br\1 . Rhythm was sinus with episode s of sinus tachyca rdia >150.\. br\2. There was rare suprave ntricul ar ectopy. \.br\3. There was rare ventric ular ectopy. \.br\4. Patient marker was not used.\. br\5. Diary was asympto matic.\ .br\SV/ AF [place]: 0%\.br\ DAY 3\.br\1 . Rhythm was sinus with an episode of sinus arrhyth frederic\.br \2. There was rare suprave ntricul ar ectopy\ .br\3. No ventric ular ectopy. \.br\4. Patient marker was used.\. br\5. Diary was asympto matic.\ .br\SV/ AF [place]: 0%\.br\ Electro nically Signed On 10-08-19 9:02:45 [...] in 7:06 PM source source data data [place]# 0.4 0.0 - x10(3)/ No No Aug [...] in 7:11 AM source source data data [place]# 0.4 0.0 - x10(3)/ No No Sep [...] tive Stateme nts\.br \SINUS RHYTHM WITH SHORT IL INTERVA L\.br\n o old ekg's for compari [...] using the Aptima Combo 2 assay from [employer] be.\.br \A negativ e result does not [...] of this test were validat ed by [facility] are laborat ory. This assay is [...] develop ed and validat ed by the [facility] are laborat ory. Detaile d methodo [...] in 2:18 AM source source data data [place]# 0.4 0.0 - x10(3)/ No No Mar [...] using the Aptima Combo 2 assay from [employer] be.\.br \A negativ e result does not [...] of this test were validat ed by [facility] are laborat ory. This assay is [...] develop ed and validat ed by the [facility] are laborat ory. Detaile d methodo [...] using the Aptima Combo 2 assay from [employer].br \A negativ e result does [...] of this test were validat ed by [facility] are laborat ory. This assay is [...] develop ed and validat ed by the [facility] are laborat ory. Detaile d methodo [...] using the Aptima Combo 2 assay from [employer] be.\.br \A negativ e result does not [...] of this test were validat ed by [facility] are laborat ory. This assay is [...] develop ed and validat ed by the [facility] are laborat ory. Detaile d methodo [...] in 1:06 PM source source data data [place]# 0.3 0.0 - x10(3)/ No July 25 [...] in 5:31 PM source source data data [place]# 0.4 0.0 - x10(3)/ No No Aug [...] oeae ed DNA Specime probe n using [employer] A negativ e result does not rule out the presenc e of DNA in concent rations below\. br\the level of detecti on of the assay.\ .br\\.b r\The perform ance charact eristic s of this test were validat ed by [facility]. This laborat [...] oeae ed DNA Specime probe n using [employer] A negativ e result does not rule out the presenc e of DNA in concent rations below\. br\the level of detecti on of the assay.\ .br\\.b r\The perform ance charact eristic s of this test were validat ed by [facility] are Laborat ory. This laborat ory [...]
[2016-10-01] MEDS ORDERED: FIORICET1 CAP PO (00:28)
[2016-10-01] MEDS ORDERED: PHENERGAN25 M3 PO (00:28)
== END 2016-09-27 18:38 | disposition home or self-care (01) ==
LOC: UTC 17:11
DX: G43.009 Migraine without aura, not intractable, without status migrainosus (principal)

== ENCOUNTER 2016-12-19 20:29 | Emergency (ER) | payer MEDICAID ==
[~2016-12-19] VITALS: Ht 177.8 cm; Wt 63.5 kg
[~2016-12-19 20:29] MED LIST changes: +FIORICET1 CAP PO; +PHENERGAN25 M3 PO
[2016-12-19] MEDS ORDERED: NITROFURANTOIN100 M4 PO (20:43)
[2016-12-19] MEDS ORDERED: MICROGESTIN FE1 TA1 PO (20:44)
[2016-12-19] MEDS ORDERED: METOPROLOL SUCC25 M2 PO (20:44)
[2016-12-19] MEDS ORDERED: MIRTAZAPINE15 M1 PO (20:45)
[2016-12-19 20:54] LABS: HEMOGLOBIN 12.4 g/dL (12.2-16.2); LYMPH # 2.9 K/mm3 (0.7-4.5); LYMPH % 21.6 % (10-50.0)
[2016-12-19 20:55] LABS: URINE BILIRUBIN - DIPSTICK NEGATIVE (NEG); URINE BLOOD 1+ (NEG)
--- OUTSIDE RECORDS SUMMARY | 2016-12-19 21:14 | External Medical Summary Rpt | CCD ---
Author Author , [facility] Address Unknown Phone Care Team Providers Care Echo Tech Name Role Phone NAT KOVACS, Unavailable Unavailable NAT KOVACS CORDOVA KIR, CORDOVA Unavailable Unavailable KIR YARI, YARI Unavailable Unavailable [facility] Unavailable Unavailable [facility], [facility] SERGIO FUENTES, Unavailable Unavailable SERGIO FUENTES JEFFREY T, Unavailable Unavailable PAOLO LOERA MERRICK, DAVREN Unavailable Unavailable MERRICK VIKY, VIKY Unavailable Unavailable VIKY MAR, IVKY Unavailable Unavailable MAR REMA ABEBE Unavailable Unavailable PADMAJA GIANG Unavailable Unavailable KARLOS MORALES, Unavailable Unavailable KARLOS MORALES GAINEY Unavailable Unavailable DAVID MANUEL WORTHINGTON, Unavailable Unavailable MANUEL WORTHINGTON [facility], Unavailable Unavailable [facility] MANUEL SHIN, Unavailable Unavailable MANUEL SHIN [facility] Unavailable Unavailable INC, [facility] GLORIA SAUCEDA, Unavailable Unavailable GLORIA SAUCEDA JACOB Unavailable Unavailable POLINA FISH Unavailable Unavailable SANDRO JO Unavailable Unavailable Ginger Núñez MD, Unavailable Unavailable TIERRA Laird MD, Unavailable Unavailable TIERRA BLOCK KREGER Unavailable Unavailable LEHMKUHL RAC, Unavailable Unavailable LEHMKUHL RAC DEBORA ANDRADE Unavailable Unavailable [employer], DEBORA ANDRADE HARRY, MILLS, Unavailable Unavailable FARHAN TONEY, Unavailable Unavailable FARHAN PATE MUKHERJEE Unavailable Unavailable NEILS, NEL W, NEILS, Unavailable Unavailable NEL W [facility], Unavailable [facility]available [facility] LÓPEZ, LÓPEZ Unavailable Unavailable LÓPEZ VIR, LÓPEZ VIR Unavailable Unavailable LÓPEZ, VIRAL, LÓPEZ, Unavailable Unavailable VIRAL JR. JOEY, DO, Unavailable Unavailable JR. JOEY, DO [facility] Unavailable Unavailable OF NOT, [facility] RENUSCH, RENUSC Unavailable Unavailable [id number], Unavailable Unavailable [id number] BUDDY ESCAMILLA Jess, Unavailable Unavailable BUDDY ESCAMILLA PAOLO GUZMAN, Unavailable Unavailable PAOLO MORGAN SCHOTT Unavailable Unavailable KHLOE FREITAS, Unavailable Unavailable KHLOE LEVI SHERMAN Unavailable Unavailable STEVEN LUJAN SOWER, Unavailable Unavailable STEVEN [facility] Unavailable Unavailable [facility] Unavailable [facility]available [facility], [facility]available Unavailable [facility]available Unavailable [facility] [employer] Unavailable Unavailable [facility] Unavailable Unavailable [facility], [facility], Unavailable Unavailable . [facility] STEVEN MEJIA, Unavailable Unavailable STEVEN LOPEZ STEVEN B, Unavailable Unavailable [facility]IONETTE [facility] Unavailable Unavailable [facility] Unavailable Unavailable #[id number], [facility] Unavailable Unavailable #591, [id number], Unavailable Unavailable [id number] DIYA JAILENE, DIYA Unavailable Unavailable JAILENE Purpose Continuity of Care Document - 03-23-2007 through 2016 Problems Code Diagnosis DOS Provider Status [id number] SLOW 11-09-2016 TRANSIT [facility] N N3000 ACUTE 11-09-2016 CYSTITIS [facility] WITHOUT [facility] HEMATURIA N390 URINARY 11-09-2016 TRACT [facility] INFECTION [facility] SITE NOT SPECIFIED N398 OTHER 11-09-2016 SPECIFIED [facility] DISORDERS [facility]IANS OF URINARY SYSTEM R3914 FEELING OF 11-09-2016 INCOMPLETE [facility] BLADDER [facility]YS[facility] EMPTYING H78359 OTHER 11-09-2016 DIFFICULTIE [facility] S WITH [facility] MICTURITION N898 OTHER 10-25-2016 SPECIFIED [facility] NONINFLAMMA PHYSICIANS TORY DISORDERS [place] N926 IRREGULAR 10-25-2016 MENSTRUATIO [facility] N PHYSICIANS UNSPECIFIED Z681 BODY MASS 10-25-2016 ST INDEX 19.9 [facility] OR LESS PHYSICIANS ADULT R110 NAUSEA 09-30-2016 [facility] R51 HEADACHE 09-30-2016 [facility] [id number] MIGRAINE 09-27-2016 [facility] NOT INTRACT INC W/O STAT MIGRAIN R197 DIARRHEA 09-20-2016 UNSPECIFIED [facility] R630 ANOREXIA 09-20-2016 [facility] H5203 HYPERMETROP 09-19-2016 [place] IA BILATERAL R300 DYSURIA 09-02-2016 [facility] 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 [facility] GENERAL RTN PHYSICIANS W/O ABNORMAL FIND B373 CANDIDIASIS 08-15-2016 OF [place] [facility] AND [place]INA [facility]ANS N760 ACUTE 08-15-2016 VAGINITIS [facility] R140 ABDOMINAL 08-15-2016 DISTENSION [facility] GASEOUS PHYSICIANS Z6820 BODY MASS 08-15-2016 ST INDEX BMI [facility] 20.0-20.9 PHYSICIANS ADULT N3090 CYSTITIS 07-23-2016 [facility] UNSPECIFIED EMERGENCY WITHOUT PHYSICIANS HEMATURIA J069 ACUTE UPPER 06-02-2016 [facility] EMERGENCY RESPIRATORY PHYSICIANS INFECTION UNSPECIFIED N888 OTH SPEC 04-27-2016 [facility] NONINFLAMMA EMERGENCY TORY PHYSICIANS DISORDERS CERVIX UTERI J111 FLU D/T 05-21-2015 [facility] UNIDENTIFIE EMERGENCY D FLU VIRUS PHYSICIANS W/OTH RESP MANIF R109 UNSPECIFIED 03-25-2015 [facility] ABDOMINAL EMERGENCY PAIN PHYSICIANS A64 UNSPECIFIED 01-09-2015 [facility] SEXUALLY EMERGENCY TRANSMITTED PHYSICIANS DISEASE N12 TUBULO-INTE 01-09-2015 [facility] RST EMERGENCY NEPHRITIS PHYSICIANS NOT SPEC ACUTE/CHRON 5950 ACUTE 09-17-2014 [facility] CYSTITIS EMERGENCY PHYSICIANS 33181 HEMATURIA 09-17-2014 [facility]NSPEC[facility]IED [facility]Y [facility]YSIC[facility]ANS 6268 OTH D/O 08-29-2014 . 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 M[facility]STRU[facility]IO [facility] N PHYLLIS 61578 ABDOMINAL 10-21-2013 ST. PAIN, [facility] UNSPECIFIED PHYLLIS SITE 99364 GENERALIZED 08-08-2013 ANXIETY [facility] DISORDER [facility] 25297 UNSPECIFIED 08-08-2013 [facility] N V700 ROUTINE 07-19-2013 GENERAL [facility] MEDICAL [facility] EXAM@HEALTH CARE FACL V7231 ROUTINE 07-19-2013 GYNECOLOGIC [facility] AL [facility] EXAMINATION 2639 UNSPECIFIED 06-10-2013 [facility] PR[facility] OR[facility] MALNUTRITIO N 7804 DIZZINESS 06-10-2013 AND [facility] GIDDINESS [facility] 1101 DERMATOPHYT 04-05-2013 ST OSIS OF [facility] NAIL [facility] 590.80 590.80 08-14-2012 [facility] PYELONEPHRI [facility] 55297 CLOSED 04-22-2009 [facility] FRACTURE OF ASSOCIATES HEAD OF [facility] RADIUS 52865 CONTUSION 03-25-2009 [facility] OF SHOULDER H REGION OR[facility]ED[facility] CTR [facility] 07366 CONTUSION 03-25-2009 [facility] OF HIP H ORTHOPAEDIC CTR [facility] 4779 ALLERGIC 03-23-2009 [facility] CAUSE [facility] UNSPECIFIED 50314 ESOPHAGEAL 03-23-2009 [facility] 28625 NAUSEA 03-23-2009 [facility] 02197 CLOSED 03-23-2009 [facility] FRACTURE [facility]ICAL UNSPEC PART GROUP LOWER END HUMERUS E8490 PLACE OF 03-20-2009 [facility] OCC[facility]RENCE[facility] E8851 FALL FROM 03-20-2009 [facility] SKATES [facility] 87147 MASTODYNIA 03-11-2009 [facility] PSC 64956 LUMP OR 03-11-2009 [facility] M[facility] IN [facility] BREAST PSC 83732 UNSPECIFIED 02-12-2009 [facility] VIRAL [facility] INFECTION GROUP IN CCE & UNS SITE 462 ACUTE 02-12-2009 [facility] PHARYNGITIS [facility] 6100 SOLITARY 01-20-2009 [facility] CYST OF MEDICAL BREAST GROUP 14908 OTHER 01-20-2009 [facility] MALAISE AND MEDICAL FATIGUE GROUP 5969 UNSPECIFIED 12-10-2008 [facility] 55238 ABDOMINAL 12-10-2008 [facility] PAIN RIGHT [facility]OC[facility] LOWER PSC QUADRANT 4619 ACUTE 12-08-2008 [facility] SINUSITIS, MEDICAL UNSPECIFIED GROUP 6253 DYSMENORRHE 12-08-2008 [facility] A [facility] 7231 CERVICALGIA 09-12-2008 [facility] PSC 27907 ABDOMINAL 09-12-2008 [facility] PAIN RIGHT MEDICAL UPPER GROUP QUADRANT 8470 NECK SPRAIN 09-12-2008 [facility] AND STRAIN [facility] 7379 UNSPECIFIED 09-02-2008 [facility] CURVATURE [facility] OF SPINE PSC 0340 STREPTOCOCC 06-10-2008 [facility] 7892 SPLENOMEGAL 06-10-2008 Y [facility] 3671 MYOPIA 06-06-2008 [facility] 33824 UNSPECIFIED 05-21-2008 [facility] PSC V7284 UNSPECIFIED 05-13-2008 [facility] PRE-OPERATI [facility] VE EXAMINATION 84112 CALCU 04-17-2008 [facility] GALLBLADD [facility] W/O MENTION GROUP CHOLECYST/O BST 88066 ABDOMINAL 03-20-2008 [facility] TENDERNESS MEDICAL RIGHT UPPER GROUP QUADRANT 3829 UNSPECIFIED 02-27-2008 [facility] OTITIS [facility] MEDIA [facility] 6929 CONTACT 02-27-2008 [facility] DERMATITIS& MEDICAL OTHER GROUP ECZEMA DUE UNSPEC CAUSE 48335 DIARRHEA 01-25-2008 [facility] 01161 EXTRINSIC 12-21-2007 [facility]US [facility] ASTHMATICUS 39112 ASTHMA, 12-21-2007 UNSPECIFIED [facility] UNSPECIFIED STATUS 5110 PLEURISY 06-26-2007 [facility] MENTION INC EFFUS/CURRE NT TB 5997 HEMATURIA 06-26-2007 [facility] 15085 CHEST PAIN 06-26-2007 [facility]PECIFIED [facility] 4659 ACUTE URIS 04-25-2007 [facility] UNSPECIFIED MED CTR SITE 0549 HERPES 04-17-2007 [facility] WITHOUT INC MENTION OF COMPLICATIO N 69285 UNSPECIFIED 03-29-2007 [facility] 3804 IMPACTED 03-23-2007 [facility] 83455 SCOLIOSIS , 03-23-2007 [facility] Allergies, Adverse Reactions, Alerts Type Allergy to [...] te s n re d FL 55 09 10 1. 1 00 TN Ac UC 11 -1 -0 00 00 L- ti ON 10 3- 6- 0 06 MA ve AZ 14 20 20 14 RT OL 51 17 17 27 E 2 16 PH 15 AR 0 MA MG CY TA #5 BL 84 ET CE 68 09 10 14 7 00 TN Ac PH 18 -1 -0 .0 00 L- ti AL 00 3- 6- 00 06 MA ve EX 12 20 20 14 RT IN 20 17 17 27 2 15 PH 50 AR 0 MA MG CY CA #5 PS 84 UL E PO 00 09 10 28 28 00 TN Ac LY 57 -1 -0 .0 00 L- ti ET 40 3- 6- 00 06 MA ve HY 41 20 20 14 RT LE 20 17 17 27 NE 7 14 PH AR GL MA YC CY OL #5 33 84 50 PO WD ME 62 09 09 30 30 00 TN Ac TO 03 -0 -2 .0 00 L- ti OR 70 6- 9- 00 06 MA ve OL 83 20 20 10 RT OL 01 17 17 76 0 20 PH MERIDA AR CC MA CY ER #5 25 84 MG TA B VE 00 09 09 30 30 00 TN Ac NL 09 -0 -2 .0 00 L- ti AF 37 6- 9- 00 06 MA ve AX 38 20 20 10 RT IN 65 17 17 76 E 6 22 PH HC AR L MA ER CY 15 #5 0 84 MG CA P FL 55 09 09 1. 1 00 [facility] UC 11 -0 -2 00 00 L- ti ON 10 6- 9- 0 06 MA ve AZ 14 20 20 14 RT OL 51 17 17 09 E 2 31 PH 15 AR 0 MA MG CY TA #5 BL 84 ET FL 55 08 09 1. 1 00 [facility] UC 11 -2 -2 00 00 L- ti ON 10 9- 2- 0 06 MA ve AZ 14 20 20 13 RT OL 51 17 17 92 E 2 93 PH 15 AR 0 MA MG CY TA #5 BL 84 ET NM 51 08 09 28 28 00 [facility] CR 86 -2 -2 .0 00 L- ti OG 20 9- 2- 00 06 MA ve ES 01 20 20 13 RT TI 20 17 17 92 N 6 94 PH FE AR MA 1- CY 20 #5 TA 84 BL ET ME 50 08 09 14 7 00 [facility] TR 11 -3 -2 .0 00 L- ti ON 10 0- 2- 00 06 MA ve ID 33 20 20 13 RT AZ 40 17 17 96 OL 2 34 PH E AR 50 MA 0 CY MG #5 TA 84 BL ET FL 55 08 09 1. 1 00 [facility] 11 -2 -1 00 00 L- ti ON 10 1- 5- 0 06 MA ve AZ 14 20 20 13 RT OL 51 17 17 72 E 2 72 PH 15 AR 0 MA MG CY TA #5 BL 84 ET CE 68 08 09 21 7 00 [facility] PH 18 -2 -1 .0 00 L- ti AL 00 1- 5- 00 06 MA ve EX 12 20 20 13 RT IN 20 17 17 72 2 71 PH 50 AR 0 MA MG CY CA #5 PS 84 UL E NM 57 08 09 30 30 00 [facility] RT 23 -0 -0 .0 00 L- ti AZ 70 6- 1- 00 06 MA ve AP 00 20 20 12 RT IN 83 17 17 94 E 0 05 PH 15 AR MA MG CY TA #5 BL 84 ET ME 62 08 08 30 30 00 [facility] TO 03 -0 -2 .0 00 L- ti OR 70 1- 5- 00 06 MA ve OL 83 20 20 10 RT OL 01 17 17 76 0 20 PH MERIDA AR CC MA CY ER #5 25 84 MG TA B VE 00 08 08 30 30 00 [facility] NL 09 -0 -2 .0 00 L- ti AF 37 1- 5- 00 06 MA ve AX 38 20 20 10 RT IN 65 17 17 76 E 6 22 PH HC AR L MA ER CY 15 #5 0 84 MG CA P ON 57 07 08 12 3 00 [place] Ac DA 23 -2 -1 .0 00 L- ti NS 70 5- 8- 00 06 MA ve ET 07 20 20 13 RT RO 71 17 17 17 N 0 05 PH OD AR T MA 4 CY MG #5 TA 84 BL ET NM 57 07 08 30 30 00 TN Ac RT 23 -1 -1 .0 00 L- ti AZ 70 4- 1- 00 06 MA ve AP 00 20 20 12 RT IN 83 17 17 94 E 0 05 PH 15 AR MA MG CY TA #5 BL 84 ET ME 62 07 08 30 30 00 TN Ac TO 03 -0 -0 .0 00 L- ti OR 70 7- 4- 00 06 MA ve OL 83 20 20 10 RT OL 01 17 17 76 0 20 PH MERIDA AR CC MA CY ER #5 25 84 MG TA B VE 00 07 08 30 30 00 TN Ac NL 09 -0 -0 .0 00 L- ti AF 37 7- 4- 00 06 MA ve AX 38 20 20 10 RT IN 65 17 17 76 E 6 22 PH HC AR L MA ER CY 15 #5 0 84 MG CA P FL 55 07 08 1. 1 00 TN Ac UC 11 -0 -0 00 00 L- ti ON 10 7- 4- 0 06 MA ve AZ 14 20 20 12 RT OL 51 17 17 78 E 2 44 PH 15 AR 0 MA MG CY TA #5 BL 84 ET NI 47 07 08 10 5 00 TN Ac TR 78 -0 -0 .0 00 L- ti OF 10 7- 4- 00 06 MA ve UR 30 20 20 12 RT AN 30 17 17 78 TO 1 43 PH IN AR MA MO CY NO -M #5 CR 84 10 0 MG ME 50 06 07 14 7 00 TN Ac TR 11 -2 -2 .0 00 L- ti ON 10 7- 8- 00 06 MA ve ID 33 20 20 12 RT AZ 40 17 17 58 OL 2 57 PH E AR 50 MA 0 CY MG #5 TA 84 BL ET ME 50 06 07 4. 1 00 TN Ac TR 11 -2 -1 00 00 L- ti ON 10 1- 4- 0 06 MA ve ID 33 20 20 12 RT AZ 40 17 17 45 OL 2 67 PH E AR 50 MA 0 CY MG #5 TA 84 BL ET FL 55 06 07 1. 1 00 [facility] UC 11 -1 -1 00 00 L- ti ON 10 9- 4- 0 06 MA ve AZ 14 20 20 12 RT OL 51 17 17 41 E 2 11 PH 15 AR 0 MA MG CY TA #5 BL 84 ET PH 51 05 06 6. 2 00 [facility] EN 29 -2 -2 00 00 L- ti AZ 30 7- 3- 0 06 MA ve OP 81 20 20 11 RT YR 10 17 17 92 ID 1 44 PH IN AR E MA 20 CY 0 MG #5 84 TA B CE 68 05 06 15 5 00 [facility] PH 18 -2 -2 .0 00 L- ti AL 00 7- 3- 00 06 MA ve EX 12 20 20 11 RT IN 20 17 17 92 2 45 PH 50 AR 0 MA MG CY CA #5 PS 84 UL E FL 55 05 06 1. 1 00 [facility] UC 11 -2 -2 00 00 L- ti ON 10 7- 3- 0 06 MA ve AZ 14 20 20 11 RT OL 51 17 17 92 E 2 43 PH 15 AR 0 MA MG CY TA #5 BL 84 ET VE 00 05 06 30 30 00 [facility] NL 09 -2 -1 .0 00 L- ti AF 37 4- 6- 00 06 MA ve AX 38 20 20 10 RT IN 65 17 17 76 E 6 22 PH HC AR L MA ER CY 15 #5 0 84 MG CA P NM 57 05 06 30 30 00 [facility] RT 23 -2 -1 .0 00 L- ti AZ 70 4- 6- 00 06 MA ve AP 00 20 20 10 RT IN 83 17 17 76 E 0 21 PH 15 AR MA MG CY TA #5 BL 84 ET ME 62 05 06 30 30 00 [facility] TO 03 -2 -1 .0 00 L- ti OR 70 4- 6- 00 06 MA ve OL 83 20 20 10 RT OL 01 17 17 76 0 20 PH MERIDA AR CC MA CY ER #5 25 84 MG TA B EQ 49 04 05 89 4 00 [facility] 03 -0 -0 .0 00 L- ti CO 50 7- 5- 00 08 MA ve UG 38 20 20 86 RT H 42 17 17 46 DM 1 36 PH AR ER MA CY 30 #5 MG 84 /5 ML MERIDA SP FL 55 04 05 1. 1 00 [facility] UC 11 -0 -0 00 00 L- ti ON 10 7- 5- 0 06 MA ve AZ 14 20 20 10 RT OL 51 17 17 76 E 2 17 PH 15 AR 0 MA MG CY TA #5 BL 84 ET CE 68 04 05 40 10 00 [place] Ac PH 18 -0 -0 .0 00 L- ti AL 00 7- 5- 00 06 MA ve EX 12 20 20 10 RT IN 10 17 17 76 1 18 PH 25 AR 0 MA MG CY CA #5 PS 84 UL E OR 60 04 05 24 8 00 TN Ac OM 43 -0 -0 0. 00 L- ti ET 20 7- 5- 00 04 MA ve QURESHI 60 20 20 0 65 RT ZI 61 17 17 22 NE 6 60 PH -C AR OD MA EI CY NE #5 SY 84 RU P ME 62 04 05 30 30 00 TN Ac TO 03 -0 -0 .0 00 L- ti OR 70 7 5- 06 MA ve OL 83 20 20 10 RT OL 01 17 17 76 0 20 PH MERIDA AR CC MA CY ER #5 25 84 MG TA B NM 57 04 05 30 30 00 TN Ac RT 23 -0 -0 .0 00 L- ti AZ 70 7 06 MA ve AP 00 20 20 10 RT IN 83 17 17 76 E 0 21 PH 15 AR MA MG CY TA #5 BL 84 ET VE 00 04 05 30 30 00 TN Ac NL 09 -0 -0 .0 00 L- ti AF 37 7- 5- 00 06 MA ve AX 38 20 20 10 RT IN 65 17 17 76 E 6 22 PH HC AR L MA ER CY 15 #5 0 84 MG CA P FL 55 03 04 1. 1 00 TN Ac UC 11 -1 -0 00 00 L- ti ON 10 4- 7- 0 06 MA ve AZ 14 20 20 10 RT OL 51 17 17 09 E 2 10 PH 15 AR 0 MA MG CY TA #5 BL 84 ET ME 50 03 04 14 7 00 TN Ac TR 11 -1 -0 .0 00 L- ti ON 10 4- 7- 00 06 MA ve ID 33 20 20 10 RT AZ 40 17 17 09 OL 2 12 PH E AR 50 MA 0 CY MG #5 TA 84 BL ET ME 49 03 03 30 30 00 GR Ac TO 88 -0 -3 .0 00 AN ti OR 40 6- 1- 00 02 T ve [...] 15 0 IN MG C. CA P NM 57 03 03 30 30 00 GR Ac RT 66 -0 -3 .0 00 AN ti AZ 40 6- 1- 00 02 T ve AP 49 20 20 25 CO IN 98 17 17 34 UN E [address] MG UG S, TA BL IN ET C. Sa 63 06 0 No li 80 [...] Y #3 TA 93 BL 8 ET OR 37 06 02 00 28 28 RI [...] 0 93 MG 8 TA BL ET IB 68 01 02 00 [...] PH L AR MA CY #5 84 OR 68 01 02 00 30 7 WA 75 PA Ac OM 38 -2 -1 .0 L- 40 TE ti ET 20 5- 1- 00 MA 11 L ve QURESHI 04 20 20 RT 9 ZI 10 10 10 RA NE 1 PH L AR 25 MA CY MG #5 TA 84 BL ET 00 01 02 00 12 3 WA 44 GA Ac 40 -2 -1 .0 L- 83 IN ti 60 3- 1- 00 MA 00 EY ve 35 20 20 RT 6 70 10 10 NM 5 PH CH AR AE MA L [...] 0 93 MG 8 TA BL ET OR 68 12 12 00 20 6 WA 75 PA Ac OM 38 -1 -3 .0 L- 32 TE ti ET 20 7- 1- 00 MA 09 L ve QURESHI 04 20 20 RT 2 ZI 10 09 09 RA NE 1 PH L AR 25 MA CY MG #5 TA 84 BL ET CE 68 12 12 00 21 7 WA 75 PA Ac PH 18 -1 -3 .0 L- 32 TE ti AL 00 7- 1- 00 MA 09 L ve EX 12 20 20 RT 3 IN 20 09 09 RA 1 PH L 50 AR 0 MA MG CY CA #5 PS 84 UL E NE 00 12 12 00 30 30 WA 75 PA Ac XI 18 -1 -3 .0 L- 32 TE ti UM 65 7- 1- 00 MA 09 L ve 04 [address] 03 09 09 RA 1 PH L 40 AR MA MG CY CA #5 PS 84 UL E SP 00 10 12 01 28 28 RI 80 CE Ac RI 55 -2 -1 .0 TE 49 NT ti NT 59 0- 7- 00 70 NE ve EC 01 20 20 AI R 65 09 09 D RO 28 8 PH NA AR LD DA M F Y #3 TA 93 BL 8 ET 54 11 12 01 30 30 WA 75 PA Ac 45 -0 -1 .0 L- 21 TE ti 80 2- 7- 00 MA 78 L ve 94 20 20 RT 2 51 09 09 RA 0 PH L AR MA CY #5 84 AM 65 11 12 00 30 10 RI 81 ME Ac OX 86 -2 -0 .0 TE 02 LT ti IC 20 4- 3- 00 51 ON ve IL 01 20 20 AI LI 70 09 09 D GA N 5 PH RY 50 AR J 0 M MG #3 93 CA 8 PS UL E 54 11 11 00 30 30 WA 75 PA Ac 45 -0 -1 .0 L- 21 TE ti 80 2- 9- 00 MA 78 L ve 94 20 20 RT 2 51 09 09 RA 0 PH L AR MA CY #5 84 CH 00 10 11 00 47 25 [...] Y #3 TA 93 BL 8 ET 59 10 10 00 20 10 WA 75 PA Ac 76 -0 -2 .0 L- 14 TE ti 21 6- 2- 00 MA 96 L ve 05 20 20 RT 9 00 09 09 RA 5 PH L AR MA CY #5 84 00 10 10 00 30 15 WA 75 PA Ac 37 -1 -2 .0 L- 16 TE ti 80 2- 2- 00 MA 56 L ve 75 20 20 RT 9 19 09 09 RA 3 PH L AR MA CY #5 84 NA 00 10 10 00 30 15 WA 75 PA Ac OR 09 -1 -2 .0 L- 16 TE ti OX 30 2- 2- 00 MA 57 L ve EN 14 20 20 RT 0 91 09 09 RA 50 0 PH L 0 AR MG MA CY TA BL #5 ET 84 54 06 10 03 30 30 WA 74 PA Ac 45 -1 -0 .0 L- 91 TE ti 80 6- 8- 00 MA 27 L ve 94 20 20 RT 4 51 09 09 RA 0 PH L AR MA CY #5 84 54 06 08 02 30 30 WA 74 PA Ac 45 -1 -2 .0 L- 91 TE ti 80 6- 7- 00 MA 27 L ve 94 20 20 RT 4 51 09 09 RA 0 PH L AR MA CY #5 84 54 06 07 01 30 30 WA 74 PA Ac 45 -1 -3 .0 L- 91 TE ti 80 6- 0- 00 MA 27 L ve 94 20 20 RT 4 51 09 09 RA 0 PH L AR MA CY #5 84 00 07 07 00 30 30 WA 74 PA Ac 37 -1 -3 .0 L- 97 TE ti 80 7- 0- 00 MA 50 L ve 77 20 20 RT 1 19 09 09 RA 3 PH L AR MA CY #5 84 LO 00 06 07 00 30 30 WA 88 PA Ac RA 78 -1 -0 .0 L- 27 TE ti TA 15 6- 2- 00 MA 81 L ve DI 07 20 20 RT 9 NE 70 09 09 RA 1 PH L 10 AR MA MG CY TA #5 BL 84 ET OR 37 06 07 00 28 28 WA [...] .0 L- 72 ON ti CI 11 - 9- 00 MA 94 ve LL 20 20 20 RT 0 DA IN 50 09 09 1 PH D VK AR E MA 25 CY 0 MG #5 84 TA BL ET 60 03 04 00 20 3 GR 17 IS Ac 95 -2 -0 .0 AN 54 ON ti 10 5 9 T 97 ve 79 20 20 CO 9 DA 67 09 09 UN [address] UG CH 00 03 04 00 47 30 [...] .0 L- 72 ON ti YL 34 5 9 00 MA 93 ve OR 59 20 20 RT 9 DA ED 31 09 09 NI 5 PH D SO AR E LO MA NE CY 4 #5 MG 84 DO SE PK SE 31 03 04 00 15 30 WA 74 PA Ac RT 72 -3 -0 .0 L- 74 TE ti RA 20 1- 9- 00 MA 39 L ve LI 21 20 20 RT 6 NE 43 09 09 RA 0 PH L HC AR L MA 10 CY 0 MG #5 84 TA BL ET OR 37 01 02 01 28 28 RI [...] MP #5 DS 84 TA BL ET OR 68 02 02 00 30 7 WA [...] PH L AR MA CY #5 84 OR 37 01 01 00 28 28 RI [...] EN B TA #5 BL 84 ET OR 00 10 11 00 8. 4 WA [...] CY CA #5 PS 84 UL E OR 00 07 08 00 6. 25 WA [...] -H 4 C EA R SO LN OR 00 03 03 00 10 20 WA [...] Order Detail nces retati t Range on CBC w auto diff (12-19-2016 20:45) Automat = 13.0 11.5-17 complet ed 017 % .5 ed erythro 20:45 cyte distrib ution width Blood = 13.3 4.8-10. complet leukocy 017 K/MM3 8 ed armando 20:45 count (number /volume ) Automat = 0.1 0-0.2 complet ed 017 K/MM3 ed blood 20:45 basophi l count (count/ vo Baso % = 0.4 % 0.1-2.0 complet 017 ed 20:45 Automat = 0.3 0.0-0.4 complet ed 017 K/mm3 ed blood 20:45 eosinop hil count Automat = 1.9 % 0.1-12. complet ed 017 0 ed blood 20:45 eosinop hils/10 0 leukocy t Blood = 9.2 1.8-7.8 complet granulo 017 K/mm3 ed cytes 20:45 automat ed count (numb Granulo = 69.1 37.0-80 complet cyte 017 % .0 ed percent 20:45 age Blood = 37.6 37.0-47 complet hematoc 017 % .0 ed rit 20:45 (volume fractio n) Blood = 12.4 12.2-16 complet hemoglo 017 g/dL .2 ed bin 20:45 measure ment (mass/v olum Absolut = 2.9 0.7-4.5 complet e 017 K/mm3 ed lymphoc 20:45 yte count Lymphoc = 21.6 10-50.0 complet yte 017 % ed count, 20:45 blood, automat ed Mean = 28.0 27-31.2 complet corpusc 017 pg ed ular 20:45 hemoglo bin ([facility]) determ Automat = 33.0 31.8-35 complet ed 017 g/dl .4 ed erythro 20:45 cyte mean corpusc ular h Automat = 84.8 82.2-97 complet ed 017 fl .8 ed erythro 20:45 cyte mean corpusc ular v Absolut = 0.9 0.1-1.0 complet e 017 K/mm3 ed monocyt 20:45 e count [place] % = 7.0 % 1.7-9.3 complet 017 ed 20:45 Automat = 9.1 7.4-10. complet ed 017 fl 4 ed blood 20:45 platele t mean volume claudine Blood 10-23-2 = 241 142-424 complet platele 017 K/mm3 ed t count 20:45 Red 10--2 = 4.43 4.2-5.4 complet blood 017 M/mm3 ed cell 20:45 count Urine test (12-19-2016 20:34) Urine --2 = NEG complet pregnan 017 NEGATIV ed cy test 20:34 E Urinalysis with microscopy (12-19-2016 20:34) Urine 12-19-2 CLEAR CLEAR complet appeara 017 CLEAR L ed nce 20:34 determi nation Urine 12-19-2 NEGATIV NEG complet total 017 E ed bilirub 20:34 NEGATIV in E L detecti on by test Urine 12-19-2 1+ 1+ L NEG complet blood 017 ed detecti 20:34 on Urine 12-19-2 YELLOW YELLOW complet color 017 YELLOW ed 20:34 L Glucose 12-19-2 = NEG complet ur 017 NEGATIV ed test 20:34 E strip Urine 12-19-2 TRACE NEG complet ketones 017 TRACE L ed 20:34 mg/dL detecti on by automat ed armando Mucus 12-19-2 2+ 2+ L NEG complet detecti 017 ed on in 20:34 urine sedimen t by lig Urine 12-19-2 NEGATIV NEG complet nitrite 017 E ed 20:34 NEGATIV detecti E L on by test strip Urine 12-19-2 = 8.5 5.0-8.5 complet pH 017 ed 20:34 Urine 12-19-2 1 + NEG complet protein 017 mg/dL ed 20:34 measure ment by automat ed t Urine --2 = 1.015 1.005-1 complet specifi 017 .030 ed c 20:34 gravity measure ment Urine 12-19-2 0.2 0.2 NEG complet urobili 017 L ed nogen 20:34 E.U./dL detecti on by test str Urine test by rapid immunoassa (09-27-2016 17:36) Urine NEGATIV NEG complet pregnan 017 E ed cy test 17:36 by rapid immunoa ssa COMPREHENSIVE METABOLIC PANEL (08-14-2012 06:50) Glucose 110 74-106 complet 013 mg/dL ed Bld-mCn 06:50 c BUN 06-18-2 9 mg/dL 7-18 complet Bld-mCn 013 ed [...] SerPl-c 013 ed Cnc 06:50 Amylase SerPl-cCnc (08-14-2012 06:50) Amylase 18-2 63 U/L 25-115 complet 013 ed SerPl-c [...] complet WBC 013 wbc/hpf ed 06:50 URINE 06-18-2 OCC 0-5 complet SQUAMOU 013 #/hpf ed S CELLS 06:50 URINE 08-14-2 2+ O complet BACTERI 013 ed A 06:50 Procedures Procedure DOS Code Location Performer Comment SUSCEPTIB [address] LTY STDY 7 HEILO HELIO ANTIMICRB IAL HEALTHCAR HEALTHCAR MICRO/AGA E EDGE E EDGE R DILUTJ CULTURE [address] BACTERIAL 7 HELIOBOZENA MURILLOTH QUANTTATI HEALTHCAR HEALTHCAR VE COLONY E EDGE E EDGE COUNT URINE CULTURE [address] BCT 7 HELIO HELIO ISOL&PRSM PTV ID HEALTHCAR HEALTHCAR ISOLATE E EDGE E EDGE EA URINE JASMIN [id number] ST YARI POST-VOID 7 HELIO ING RESIDUAL PHYSICIAN URINE&/BL S ADDER CAP URINE [address] ST VIKY 7 HELIO TEST VISUAL PHYSICIAN COLOR S CMPRSN METHS IADNA [address] TRICHOMON 7 HELIO HELIO VAGINALIS HEALTHCAR HEALTHCAR DIRECT E EDGE E EDGE PROBE TQ IADNA [address] RANDELL 7 HELIO HELIO SPECIES DIRECT HEALTHCAR HEALTHCAR PROBE TQ E EDGE E EDGE IADNA [address] GARDNEREL 7 HELIO HELIO LA VAGINALIS HEALTHCAR HEALTHCAR DIRECT E EDGE E EDGE PROBE TQ SUSCEPTIB [address] LTY STDY 7 HELIO HELIO ANTIMICRB IAL HEALTHCAR HEALTHCAR MICRO/AGA E EDGE E EDGE R DILUTJ CULTURE [address] BACTERIAL 7 HELIO HELIO QUANTTATI HEALTHCAR HEALTHCAR VE COLONY E EDGE E EDGE COUNT URINE CULTURE [address] BCT 7 HELIO HELIO ISOL&PRSM PTV ID HEALTHCAR HEALTHCAR ISOLATE E EDGE E EDGE EA URINE URINE 89253 AMIRAH AMIRAH 7 [facility] TEST INC INC VISUAL COLOR CMPRSN METHS THERAPEUT 92614 AMIRAH MACARIO IC 7 [facility] PROPHYLAC INC INC TIC/DX INJECTION SUBQ/IM COLLECTIO 82912 [facility] N VENOUS 7 HELIO MURILLOTH BLOOD VENIPUNCT HEALTHCAR HEALTHCAR URE E EDGE E EDGE COMPREHEN 56670 [facility] SIVE 7 HELIO HELIO METABOLIC PANEL HEALTHCAR HEALTHCAR E EDGE E EDGE BLOOD 62349 [facility] COUNT 7 HELIO HELIO COMPLETE AUTOMATED HEALTHCAR HEALTHCAR E EDGE E EDGE OPHTH 22427 [facility] 7 XM&EVAL COMPRE NEW PT 1/> VST CULTURE 02499 [facility] BACTERIAL 7 HELIO HELIO QUANTTATI HEALTHCAR HEALTHCAR VE COLONY E EDGE E EDGE COUNT URINE IADNA 83910 [facility] NEISSERIA 7 HELIO HELIO GONORRHOE HEALTHCAR HEALTHCAR AE E EDGE E EDGE AMPLIFIED PROBE TQ IADNA 36785 [facility] CHLAMYDIA 7 HELIO HELIO TRACHOMAT HEALTHCAR HEALTHCAR IS E EDGE E EDGE AMPLIFIED PROBE TQ CYTP C/V 31998 [facility] AUTO THIN 7 HELIOBOZENA MURILLOTH LYR PREPJ SCR HEALTHCAR HEALTHCAR MNL E EDGE E EDGE RESCR PHYS IADNA 85111 [facility] TRICHOMON 7 HELIO HELIO VAGINALIS HEALTHCAR HEALTHCAR DIRECT E EDGE E EDGE PROBE TQ IADNA 25912 [facility] RANDELL 7 HELIO HELIO SPECIES DIRECT HEALTHCAR HEALTHCAR PROBE TQ E EDGE E EDGE IADNA 90329 [facility] GARDNEREL 7 HELIO HELIO LA VAGINALIS HEALTHCAR HEALTHCAR DIRECT E EDGE E EDGE PROBE TQ HEMOGLOBI 67897 [facility]. N 5 HELIO CADET GLYCOSYLA PHYLL[place] [address] [facility] PROLACTIN 5 HELIO CADET PHYLLIS PHYLLIS GONADOTRO 51195 [facility]. PIN 5 HELIO CADET CHORIONIC PHYLLIS PHYLLIS QUALITATI VE COLLECTIO 26339 [facility]. N VENOUS 5 HELIO MURILLOTH BLOOD PHY[place] [address] THYROID 5 HELIO HELIO STIMULATI PHYLLIS PHYLLIS NG HORMONE TSH GONADOTRO [address] PIN 5 HELIO HELIO FOLLICLE PHYLLIS PHYLLIS STIMULATI NG [place]ORMONE GONADOTRO [address] PIN 5 HELIO HELIO [place]UTEIN[place] [address] . . TRANSVAGI 5 HELIOADRIENNE MURILLOTH NAL PHYLLIS PHYLLIS [place]IC [address] 5 HELIO HELIO NONOBSTET PHYLLIS PHYLLIS SOHAN REAL-TIME IMAGE COMPLETE SUSCEPTIB [address]9465 ST LTY STDY 4 HELIO HELIO ANTIMICRB MED CTR MED CTR IAL POST GRADUATE INTERNSHIP ST POST GRADUATE INTERNSHIP ST MICRO/AGA R DILUTJ CULTURE 08908 ST BACTERIAL 4 HELIO HELIO MED CTR MED CTR QUANTTATI POST GRADUATE INTERNSHIP ST POST GRADUATE INTERNSHIP ST VE COLONY COUNT URINE CULTURE 08829 [facility] BCT 4 HELIOBOZENA CADET ISOL&PRSM MED CTR MED CTR PTV ID POST GRADUATE INTERNSHIP ST POST GRADUATE INTERNSHIP ST ISOLATE EA URINE US PELVIC [address] 4 HELIOBOZENA CADET NONOBSTET PHYLLIS PYH[place] [address] [facility]. TRANSVAGI 4 HELIO CADET NAL PHYLLIS PHYLLIS BASIC [address] ST METABOLIC 4 HELIO HELIO PANEL MED CTR MED CTR CALCIUM POST GRADUATE INTERNSHIP ST POST GRADUATE INTERNSHIP ST TOTAL GONADOTRO [address] PIN 4 HELIO HELIO CHORIONIC MED CTR MED CTR POST GRADUATE INTERNSHIP ST POST GRADUATE INTERNSHIP ST QUANTITAT KATYA BLOOD [address] COUNT 4 HELIO HELIO COMPLETE MED CTR MED CTR AUTO&AUTO POST GRADUATE INTERNSHIP ST POST GRADUATE [place] [address] ST THYROID 4 HELIOBOZENA CADET STIMULATI MED CTR MED CTR NG POST GRADUATE INTERNSHIP ST POST GRADUATE INTERNSHIP ST HORMONE TSH IADNA 18956 [facility] CHLAMYDIA 4 HELIO HELIO MED CTR MED CTR TRACHOMAT POST GRADUATE INTERNSHIP ST POST GRADUATE INTERNSHIP ST IS AMPLIFIED PROBE TQ CULTURE [address] BACTERIAL 4 HELIO HELIO MED CTR MED CTR QUANTTATI POST GRADUATE INTERNSHIP ST POST GRADUATE INTERNSHIP ST VE COLONY COUNT URINE IADNA [address] NEISSERIA 4 HELIO HELIO MED CTR MED CTR GONORRHOE POST GRADUATE INTERNSHIP ST POST GRADUATE INTERNSHIP ST AE AMPLIFIED PROBE TQ SUSCEPTIB [address] LTY STDY 4 [facility] MED CTR IAL POST GRADUATE INTERNSHIP ST POST GRADUATE INTERNSHIP ST MICRO/AGA R DILUTJ CULTURE [address] BCT 4 HELIO HELIO ISOL&PRSM MED CTR MED CTR PTV ID POST GRADUATE INTERNSHIP ST POST GRADUATE INTERNSHIP ST ISOLATE EA URINE CYTP C/V [address] AUTO THIN 4 HELIO HELIO LYR MED CTR MED CTR PREPJ SCR POST GRADUATE INTERNSHIP ST POST GRADUATE INTERNSHIP ST MNL RESCR PHYS CERV/VAGI G0101 ST VIKY NAL 4 HELIO MAR CANCER SCR; PHYSICIAN PELV&CLIN S BREAST EXAM SCREEN Q0091 ST VIKY PAP 4 HELIO MAR SMEAR; OBTAIN PHYSICIAN PREP &C S ONVEY TO LAB IADNA [address] [facility] 4 [facility] CTR GONORRHOE POST GRADUATE INTERNSHIP ST POST GRADUATE INTERNSHIP ST AE AMPLIFIED PROBE TQ IADNA [address] CHLAMYDIA 4 HELIO HELIO MED CTR MED CTR TRACHOMAT POST GRADUATE INTERNSHIP ST POST GRADUATE INTERNSHIP ST IS AMPLIFIED PROBE TQ BASIC [address] METABOLIC 4 HELIO HELIO PANEL MED CTR MED CTR CALCIUM POST GRADUATE INTERNSHIP ST POST GRADUATE INTERNSHIP ST TOTAL BLOOD [address] COUNT 4 HELIO HELIO COMPLETE MED CTR MED CTR AUTOMATED POST GRADUATE INTERNSHIP ST POST GRADUATE INTERNSHIP ST PREALBUMI [address] N 4 HELIO HELIO MED CTR MED CTR POST GRADUATE INTERNSHIP ST POST GRADUATE INTERNSH[address] ST HEMOGLOBI [address] N 4 HELIO HELIO GLYCOSYLA MED CTR MED CTR KALEY A1C POST GRADUATE INTERNSHIP ST POST GRADUATE INTERNS[address] ST COMPREHEN [address] SIVE 4 [facility] MET[facility] MED CTR PANEL POST GRADUATE INTERNSHIP ST POST GRADUATE INTERNSHIP ST RADEX 00744 RADIOLOGY NEILS, ELBOW 2 0 NEL W VIEWS ASSOCIATE S PSC RADEX 87080 COMMONWEA HOBLITA ELBOW 2 0 LTH , GLORIA VIEWS [place] [address] ARLEN SOHAIL RADIAL 0 LTH , GLORIA HEAD/NECK ORTHOPAED M FX W/O [place] [address] ELFEGO ELIN, RADIAL 0 EMERGENCY MANUEL S HEAD/NECK SERVICES FX W/O MANIPULAT ASSOCIATE ION S RADEX 67462 PEREZ RIO, ELBOW 0 MEDICAL FARHAN P COMPLETE IMAGING MINIMUM 3 ASSOCIATE VIEWS S RADEX 10113 PEREZ RIO, FOREARM 2 0 MEDICAL FARHAN P VIEWS IMAGING ASSOCIATE S US BREAST 95690 RADIOLOGY FRANCINE, REAL 0 BUDDY Mercado TIME ASSOCIATE W/IMAGE S PSC DOCUMENTA TION IADNA 41706 [facility] STREPTOCO [address] [place] [address] GROUP A DIRECT PROBE TQ US PELVIC [address] SOHAN REAL-TIME IMAGE COMPLETE GONADOTRO 37277 [facility] PIN [address] [place] [address] CHORIONIC MEDICALCE [place] [address] [facility]Y [facility]BDOM[facility] 9 , PAOLO W/DARREN ASSOCIATE L T S PSC MATERIAL CT PELVIS [address] W/[facility] T MATERIAL RADEX 74925 [facility] SPINE [address] [place] [address] 4 OR 5 VIEWS RADEX 79575 RADIOLOGY FRANCINE SPINE 9 BUDDY CORBIN ASSOCIATE STUDY S PSC W/SUPINE & ERECT STUDY FRAMES V2020 JUAN MASSEY 9 VISION KHLOE M 1 VISN V2103 KASH MASSEY 9 VISION KHLOE M TO+/-4.00 D SPHER 0.12-2.00 D CYL EA OPHTH 30776 GAURAV LEVI, MEDICAL 9 VISION KHLOE M XM&EVAL COMPRHNSV ESTAB PT 1/> FITTING 87277 GAURAV LEVI, SPECTACLE 9 VISION KHLOE Snyder S XCPT APHAKIA MONOFOCAL ANESTHESI 22354 [facility] SHIN, A 9 MANUEL A INTRAORAL ANESTHEIS WITH AA BIOPSY SERVICES NOS PSC HEPATBL [address] DUX SYS 9 [facility] GLBLDR COLLECTIO 38984 [facility], N VENOUS 9 MEDICAL VIRAL BLOOD GROUP VENIPUNCT URE BLOOD [address] COUNT 9 [facility] COMPLETE AUTO&AUTO MEDICALCE MEDICALCE DIFRNTL NTER NTER WBC PROTHROMB [address] IN TIME 9 [facility] MEDICALCE MEDICALCE NTER NTER URNLS DIP 38061 [facility], 9 MEDICAL VIRAL STICK/TAB GROUP LET RGNT AUT[place] [address] [facility]BDOMINAL 9 [facility] TIME W/IMAGE LIMITED HEPATIC [address]96 ST FUNCTION 9 [facility] PANEL MEDICALCE MEDICALCE NTER NTER COLLECTIO 56440 [facility], N VENOUS 9 MEDICAL VIR[place] [address] AMYLASE 9 [facility] [place] [address] LIPASE 9 [facility] MEDICALCE MEDICALCE NTER NTER ANTIBODY [address] HELICOBAC [address] [facility] [address] PYLORI MEDICALCE MEDICALCE NTER NTER COLLECTIO 29011 [facility] STERNE[facility] N VENOUS 8 MEDICAL G, ANTIONETTE BLOOD GROUP B VENIPUNCT URE BLOOD [address] COUNT 8 [facility] COMPLETE AUTO&AUTO MEDICALCE MEDICALCE DIFRNTL NTER NTER WBC HEPATIC [address] FUNCTION 8 [facility] PANEL MEDICALCE MEDICALCE NTER NTER URNLS DIP 89996 AMIRAH MACARIO 8 [facility] STICK/TAB INC INC LET REAGENT AUTO MICROSCOP Y RADIOLOGI 86313 PEREZ Jess PATE EXAM 8 MEDICAL FARHAN P CHEST 2 IMAGING VIEWS ASSOCIATE FRONTAL&L S ATERAL BLOOD 93176 AMIRAH MACARIO COUNT 8 [facility] COMPLETE INC INC AUTO&AUTO DIFRNTL WBC COMPREHEN 29189 AMIRAH MACARIO SIVE 8 [facility] [place] [address] AMIRAH MACARIO ABDOMEN 8 [facility] W/O INC INC CONTRAST MATERIAL 3D 71524 AMIRAH MACARIO RENDERING 8 [facility] INC INC W/INTERP& POSTPROC DIFF WORK STATION FIBRIN 61360 AMIRAH MACARIO DGRADJ 8 [facility] PRODUCTS INC INC D-DIMER QUAL/SEMI CARLOS CT PELVIS 28661 AMIRAH MACARIO W/O 8 [facility] CONTRAST INC INC MATERIAL URINE 55796 AMIRAH MACARIO 8 [facility] TEST INC INC VISUAL COLOR CMPRSN METHS IADNA 84858 [facility] STREPTOCO 8 [facility] GROUP A AMPLIFIED PROBE TQ IRRIGATIO 9652 AMIRAH MACARIO N OF EAR 8 [facility] INC INC Encounters Encounter Start End Date Code Location Performer Type Date OFFICE 85635 YARI OUTPATIEN 7 7 HELIO T NEW 45 MINUTES PHYSICIAN S HOSPITAL - OTHER [address] [facility] [address] OTHER 7 7 [facility] OFFICE 13701 VIKY OUTPATIEN 7 7 [facility] VISIT 15 PHYSICIAN MINUTES S OFFICE 48378 MALLY OUTPATIEN 7 7 HELIO T VISIT 15 PHYSICIAN MINUTES [facility] 7 7 HELIO HEALTHCAR E EDGE EMERGENCY 18753 EVE MILLER 7 7 PHYS[facility]PART[facility] MOD[facility]ATE SEVERITY [facility]OSPITAL AMIRAH - 7 7 [facility] OUTPATIEN INC T OFFICE 04236 [place] [facility] 7 7 [facility] T VISIT INC 10 MINUTES OFFICE 05589 [facility] 7 7 HELIO JR., DO T VISIT 25 PHYSICIAN MINUTES S HOSPITAL - 7 7 [facility] T [facility] 7 7 HELIO HEALTHCAR E EDGE OFFICE 13594 [facility] 7 7 HELIO JR., DO T VISIT 15 PHYSICIAN MINUTES [facility] 7 7 HELIO HEALTHCAR E EDGE PERIODIC 04462 [facility] 7 7 HELIO E MED EST PATIENT PHYSICIAN 18-39 YRS [facility] 7 7 HELIO HEALTHCAR E EDGE OFFICE 20093 [facility] 7 7 HELIO T VISIT 25 PHYSICIAN MINUTES S EMERGENCY 74728 [facility] ALEJANDRO 7 7 EMERGENCY DEPARTMEN T VISIT PHYSICIAN MODERATE S SEVERITY EMERGENCY 27790 [facility] SANDRO 7 7 EMERGENCY DEPARTMEN T VISIT PHYSICIAN HIGH/URGE S NT SEVERITY EMERGENCY 30878 [facility] PADMAJA 7 7 EMERGENCY DEPARTMEN T VISIT PHYSICIAN HIGH/URGE S NT SEVERITY EMERGENCY 55898 [facility] REMA PEARSON 6 6 EMERGENCY DEPARTMEN T VISIT PHYSICIAN HIGH/URGE S NT SEVERITY EMERGENCY 47055 [facility] NAT 6 6 EMERGENCY KRI DEPARTMEN T VISIT PHYSICIAN HIGH/URGE S NT SEVERITY EMERGENCY 52846 [facility] DAVREN 5 5 EMERGENCY MERRICK DEPARTMEN T VISIT PHYSICIAN HIGH/URGE S NT SEVERITY EMERGENCY 16490 [facility] DIYA 5 5 EMERGENCY JAILENE DEPARTMEN T VISIT PHYSICIAN HIGH/URGE S NT SEVERITY [facility]ICAL [facility] ACCESS 5 5 [facility] OFFICE [address] VIKY [facility] 5 HELIO MAR T VISIT 10 PHYSICIAN MINUTES S EMERGENCY 85794 [facility] REMA LILI 5 5 EMERGENCY DEPARTMEN T VISIT PHYSICIAN HIGH/URGE S NT SEVERITY HOSPITAL ST. - 5 5 HELIO OUTPATIEN PHYLLIS T EMERGENCY 55730 [facility] LEHMKUHL 5 5 EMERGENCY RAC DEPARTMEN T VISIT PHYSICIAN HIGH/URGE S NT SEVERITY EMERGENCY 40271 [facility] ELEAZAR 5 5 EMERGENCY LINDA DEPARTMEN T VISIT PHYSICIAN MODERATE S SEVERITY EMERGENCY 85[address] [facility] [address] [facility] MED CTR T VISIT MODERATE SEVERITY OFFICE [address]39 ST CORDOVA OUTPATIEN 4 4 HELIO KIR T VISIT 15 PHYSICIAN MINUTES S OFFICE 39488 ST LÓ[facility] VIR OUTPATIEN 4 4 HELIO T VISIT [address] [facility] - 4 4 HELIO OUTPATIEN MED CTR T POST GRADUATE INTERNSHIP ST OFFICE 28427 ST VIKY OUTPATIEN 4 4 HELIO MAR T VISIT [address] [facility] - 4 4 HELIO OUTPATIEN [facility] OFFICE 23179 ST LÓPEZ VIR OUTPATIEN 4 4 HELIO T VISIT [address] [facility] - 4 4 HELIO OUTPATIEN MED CTR T POST GRADUATE INTERNSHIP [facility] ST - 4 4 [facility] OFFICE 87147 ST L[facility]Z VIR [facility] 4 4 HELIO T VISIT 15 PHYSICIAN MINUTES S OFFICE 39396 [facility] L[facility] VIR [facility] 4 4 HELIO T VISIT 25 PHYSICIAN MINUTES [facility] ST - 4 4 [facility] T [facility] EMERGENCY 15220 ELIN [place] 4 4 [facility] T VISIT HIGH/URGE NT SEVERITY HOSPITAL ST - OTHER 4 4 HELIO MED CTR [facility] EMERGENCY 10434 ELIN [place] 4 4 [facility] T VISIT HIGH/URGE NT SEVERITY HOSPITAL ST - OTHER 4 4 HELIO MED CTR [facility] Emergency RY Núñez MD (ER) 3 06:43 3 09:05 [facility] ST - 0 0 [facility] - 0 0 [facility] T OFFICE 64330 [facility] [facility] 0 0 MEDICAL VIRAL T VISIT GROUP 25 MINUTES HOSPITAL AMIRAH - [address] [facility] EMERGENCY 81208 ELFEGO [place], 0 0 EMERGENCY [facility] SERVICES T VISIT MODERATE ASSOCIATE SEVERITY [facility] ST - 0 0 [facility] T OFFICE 37854 [facility] 9 9 MEDICAL VIRAL T VISIT GROUP 25 MINUTES OFFICE 03422 [facility] 9 9 MEDICAL VIRAL T VISIT GROUP [address] 9 9 [facility] T VISIT LOW/MODER SEVERITY HOSPITAL [facility] 9 [facility] T EMERGENCY [address] [place] [address] [facility] MED CTR T VISIT MODERATE SEVERITY HOSPITAL [facility] 9 [facility] 9 [facility] MEDICALCE NTER OFFICE 12262 [facility] 9 9 MEDICAL VIRAL T VISIT GROUP 15 MINUTES OFFICE 56248 [facility] 9 9 MEDICAL VIRAL T VISIT GROUP 15 MINUTES HOSPITAL [facility] 9 [facility] T OFFICE 58110 [place] [facility] 9 9 MEDICAL VIRAL T [facility]ISIT GROUP 15 MINUTES [facility] 9 [facility] H[facility]PITAL [facility] 9 [facility] T EMERGENCY 57444 [facility] [address] [facility] MED CTR T VISIT HIGH/URGE NT SEVERITY [facility] 9 [facility] T OFFICE 42899 [facility] SANDRA [facility] 9 9 MEDICAL VIRAL ION GROUP NEW/ESTAB PATIENT 30 MIN HOSPITAL [facility] 9 [facility] MEDICALCE NTER OFFICE 32914 [facility] 9 9 MEDICAL VIRAL T VISIT GROUP 15 MINUTES HOSPITAL [facility] 9 [facility] T OFFICE 05769 [facility] [facility] 9 9 MEDICAL VIRAL T VISIT GROUP [address] - 9 9 [facility] T MEDICALCE NTER OFFICE 61968 [facility] 8 MEDICAL VIRAL T VISIT GROUP 15 MINUTES OFFICE 03354 [facility] 8 8 MEDICAL GANTIONETTE T NEW 20 GROUP [facility] ST - 8 8 [facility] T MEDICALCE NTER EMERGENCY 50377 8 8 [facility] T VISIT MODERATE SEVERITY HOSPITAL - 8 8 [facility] T EMERGENCY 16944 [facility] 8 8 [facility] MED CTR T VISIT HIGH/URGE NT SEVERITY EMERGENCY 45348 8 8 [facility] T VISIT LOW/MODER SEVERITY [facility] 8 8 [facility] T OFFICE 76965 [facility] 8 8 [place], T VISIT FAMILY CAZARES K 15 CARE, MINUTES INC HOSPITAL [place] [address] 8 [facility] EMERGENCY 87813 [place] 8 8 [facility] T VISIT LOW/MODER SEVERITY [facility] 8 [facility] T EMERGENCY [address]4843 [place] [address] 8 [facility] MED CTR T VISIT MODERATE SEVERITY HOSPITAL [place] - 8 [facility] T EMERGENCY 46380 [place] 8 8 [facility] T VISIT LIMITED/M INOR PROB EMERGENCY 50609 8 8 [facility] T VISIT LOW/MODER SEVERITY [facility] 8 8 [facility] T EMERGENCY 77321 [facility] 8 8 [facility] T VISIT MODERATE SEVERITY EMERGENCY [address] [place] [address] [facility] VISIT LOW/MODER SEVERITY HOSPITAL AMIRAH 8 8 [facility] T
--- OUTSIDE RECORDS SUMMARY | 2016-12-19 21:14 | External Medical Summary Rpt | CCD ---
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 Name Role Phone NAT KOVACS, Unavailable Unavailable NAT KOVACS CORDOVA KIR, CORDOVA Unavailable Unavailable KIR YARI, YARI Unavailable Unavailable [facility] Unavailable Unavailable PHYSICIANS, [facility] SERGIO FUENTES, Unavailable Unavailable SERGIO FUENTES JEFFREY T, Unavailable Unavailable PAOLO LOERA MERRICK, DAVREN Unavailable Unavailable MERRICK VIKY, VIKY Unavailable Unavailable VIKY MAR, VIKY Unavailable Unavailable MAR REMA ABEBE Unavailable Unavailable PADMAJA GIANG Unavailable Unavailable KARLOS MORALES, Unavailable Unavailable KARLOS MORALES GAINEY Unavailable Unavailable DAVID MANUEL WORTHINGTON, Unavailable Unavailable MANUEL WORTHINGTON [facility], Unavailable Unavailable [facility] MANUEL SHIN, Unavailable Unavailable MANUEL SHIN [facility] Unavailable [facility], [facility] GLORIA SAUCEDA, Unavailable Unavailable GLORIA [...] Unavailable Unavailable OF NOT, [facility] RENUSCH, RENUSC Unavailable Unavailable [id number], Unavailable Unavailable [id number] BUDDY ESCAMILLA Jess, Unavailable Unavailable BUDDY ESCAMILLA PAOLO GUZMAN, Unavailable Unavailable PAOLO MORGAN SCHOTT Unavailable Unavailable KHLOE FREITAS, Unavailable Unavailable KHLOE LEVI SHERMAN Unavailable Unavailable STEVEN LUJAN SOWER, Unavailable Unavailable [facility]EN [facility] Unavailable Unavailable [facility] Unavailable [facility]available [facility], [facility]available Unavailable [facility] Unavailable Unavailable [facility] , [facility] Unavailable Unavailable [facility] Unavailable Unavailable [facility], [facility] . [facility] PHYLLIS, Unavailable Unavailable . [facility] STEVEN MEJIA, Unavailable Unavailable STEVEN LOPEZ STEVEN [...] DOS Provider Status [id number] SLOW 11-09-2016 TRANSIT [facility] CONSTIPATIO PHYSICIANS N N3000 ACUTE 11-09-2016 CYSTITIS [facility] WITHOUT PHYSICIANS HEMATURIA N390 URINARY 11-09-2016 TRACT [facility] INFECTION [facility]YSICIANS SITE NOT SPECIFIED N398 OTHER 11-09-2016 SPECIFIED [facility] DISORDERS PHYSICIANS OF URINARY SYSTEM R3914 FEELING OF 11-09-2016 INCOMPLETE [facility] BLADDER PHYSICIANS EMPTYING [id number] OTHER 11-09-2016 DIFFICULTIE [facility] S WITH PHYSICIANS MICTURITION N898 OTHER 10-25-2016 SPECIFIED [facility] NONINFLAMMA PHYSICIANS TORY DISORDERS VAGINA N926 IRREGULAR 10-25-2016 MENSTRUATIO [facility] N PHYSICIANS UNSPECIFIED Z681 BODY MASS 10-25-2016 ST INDEX 19.9 [facility] OR LESS PHYSICIANS ADULT R110 NAUSEA 09-30-2016 [facility] R51 HEADACHE 09-30-2016 [facility] [id number] MIGRAINE 09-27-2016 [facility] NOT INTRACT INC W/O STAT MIGRAIN R197 DIARRHEA 09-20-2016 UNSPECIFIED [facility] PHYSICIANS R630 ANOREXIA 09-20-2016 [facility] H5203 HYPERMETROP 09-19-2016 [place] IA BILATERAL R300 DYSURIA 09-02-2016 [facility] [id number] ENCOUNTER 08-23-2016 CT TECHNICIAN EXAM [facility] GENERAL RTN PHYSICIANS W/O ABNORMAL FIND B373 CANDIDIASIS 08-15-2016 OF VULVA [facility] AND VAGINA PHYSICIANS N760 ACUTE 08-15-2016 VAGINITIS [facility] PHYSICIANS R140 ABDOMINAL 08-15-2016 DISTENSION [facility] GASEOUS PHYSICIANS Z6820 BODY MASS 08-15-2016 ST INDEX BMI [facility] 20.0-20.9 PHYSICIANS ADULT N3090 CYSTITIS 07-23-2016 [facility] UNSPECIFIED EMERGENCY WITHOUT PHYSICIANS HEMATURIA J069 ACUTE UPPER 06-02-2016 [facility] EMERGENCY RESPIRATORY PHYSICIANS INFECTION UNSPECIFIED N888 OTH SPEC 04-27-2016 [facility] NONINFLAMMA EMERGENCY TORY PHYSICIANS DISORDERS CERVIX UTERI J111 FLU D/T 05-21-2015 [facility] UNIDENTIFIE EMERGENCY D FLU VIRUS PHYSICIANS W/OTH RESP MANIF R109 UNSPECIFIED 03-25-2015 [facility] ABDOMINAL EMERGENCY PAIN PHYSICIANS A64 UNSPECIFIED 01-09-2015 [facility] SEXUALLY EMERGENCY TRANSMITTED PHYSICIANS DISEASE N12 TUBULO-INTE 01-09-2015 [facility] RST EMERGENCY NEPHRITIS PHYSICIANS NOT SPEC ACUTE/CHRON 5950 ACUTE 09-17-2014 [facility] CYSTITIS EMERGENCY PHYSICIANS 68001 HEMATURIA 09-17-2014 [facility] UNSPECIFIED [facility]ERGENCY PHYSICIANS 6268 OTH D/O 08-29-2014 . 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 MENSTRUATIO [facility] N PHYLLIS 79563 ABDOMINAL 10-21-2013 ST. PAIN, [facility] UNSPECIFIED PHYLLIS SITE 56356 GENERALIZED 08-08-2013 ANXIETY [facility] DISORDER PHYSICIANS 51180 UNSPECIFIED 08-08-2013 [facility] CONSTIPATIO PHYSICIANS N V700 ROUTINE 07-19-2013 GENERAL [facility] MEDICAL PHYSICIANS EXAM@HEALTH CARE FACL V7231 ROUTINE 07-19-2013 GYNECOLOGIC [facility] AL PHYSICIANS EXAMINATION 2639 UNSPECIFIED 06-10-2013 [facility] PROTEIN-IRON MED CTR [facility] ORIE ST MALNUTRITIO N 7804 DIZZINESS 06-10-2013 AND [facility] GIDDINESS MED CTR [facility] [address] 1101 DERMATOPHYT 04-05-2013 ST OSIS OF [facility] NAIL MED CTR [facility]DR[facility] 590.80 590.80 08-14-2012 [facility] PYELONEPHRI [facility] 82298 CLOSED 04-22-2009 [facility] FRACTURE OF ASSOCIATES HEAD OF [facility] RADIUS 67039 CONTUSION 03-25-2009 [facility] SHOULDER H [facility]ION ORTH[facility]ED[facility] CTR [facility] 84082 CONTUSION 03-25-2009 [facility] OF HIP H ORTHOP[facility]EDIC CTR [facility] 4779 ALLERGIC 03-23-2009 [facility]USE [facility] UNSPECIFIED 91522 ESOPHAGEAL 03-23-2009 [facility] 92238 NAUSEA 03-23-2009 [facility] 70885 CLOSED 03-23-2009 [facility] FRACTURE [facility]ICAL UNSPEC PART GROUP LOWER END HUMERUS E8490 PLACE OF 03-20-2009 [place] [facility] E8851 FALL FROM 03-20-2009 [facility] 98053 MASTODYNIA 03-11-2009 [facility] PSC 52084 LUMP OR 03-11-2009 [facility] MASS IN ASSOCIATES BREAST PSC 16690 UNSPECIFIED 02-12-2009 [facility] VIRAL [facility] INFECTION [facility] IN CCE & UNS SITE 462 ACUTE 02-12-2009 [facility]ARY[facility]IS [facility] 6100 SOLITARY 01-20-2009 [facility] CYST OF MEDICAL BREAST GROUP 57363 OTHER 01-20-2009 [facility] MALAISE AND MEDICAL FATIGUE GROUP 5969 UNSPECIFIED 12-10-2008 [facility] 12081 ABDOMINAL 12-10-2008 [facility] PAIN RIGHT ASSOCIATES LOWER PSC QUADRANT 4619 ACUTE 12-08-2008 [facility] SINUSITIS, MEDICAL UNSPECIFIED GROUP 6253 DYSMENORRHE 12-08-2008 [facility] A [facility] 7231 CERVICALGIA 09-12-2008 [facility] PSC 91491 ABDOMINAL 09-12-2008 [facility] PAIN RIGHT MEDICAL UPPER GROUP QUADRANT 8470 NECK SPRAIN 09-12-2008 [facility] AND STRAIN [facility] 7379 UNSPECIFIED 09-02-2008 [facility] CURVATURE [facility] OF SPINE PSC 0340 STREPTOCOCC 06-10-2008 [facility] 7892 SPLENOMEGAL 06-10-2008 Y [facility] 3671 MYOPIA 06-06-2008 [facility] 75324 UNSPECIFIED 05-21-2008 [facility] PSC V7284 UNSPECIFIED 05-13-2008 [facility] PRE-OPERATI [facility] VE EXAMINATION 57237 CALCU 04-17-2008 [facility] GALLBLADD [facility] W/O MENTION GROUP CHOLECYST/O BST 56905 ABDOMINAL 03-20-2008 [facility] TENDERNESS MEDICAL RIGHT UPPER GROUP QUADRANT 3829 UNSPECIFIED 02-27-2008 [facility] OTITIS [facility] MEDIA [facility] 6929 CONTACT 02-27-2008 [facility] DERMATITIS& MEDICAL OTHER GROUP ECZEMA DUE UNSPEC CAUSE 66926 DIARRHEA 01-25-2008 [facility] 89489 EXTRINSIC 12-21-2007 [facility] WITH [facility] STATUS MED CTR ASTHMATICUS 35529 ASTHMA, 12-21-2007 UNSPECIFIED [facility] UNSPECIFIED STATUS 5110 PLEURISY 06-26-2007 [facility] MENTION INC EFFUS/CURRE NT TB 5997 HEMATURIA 06-26-2007 [facility] 18028 CHEST PAIN 06-26-2007 [facility] 4659 ACUTE URIS 04-25-2007 [facility] UNSPECIFIED MED CTR SITE 0549 HERPES 04-17-2007 [facility] WITHOUT INC MENTION OF COMPLICATIO N 05167 UNSPECIFIED 03-29-2007 [facility] 3804 IMPACTED 03-23-2007 [facility] 46868 SCOLIOSIS , 03-23-2007 [facility] [...] FL 55 09 10 1. 1 00 MA Ac UC 11 -1 -0 00 00 L- ti ON 10 3- 6- 0 06 MA ve AZ 14 20 20 14 RT OL 51 17 17 27 E 2 16 PH 15 AR 0 MA MG CY TA #5 BL 84 ET CE 68 09 10 14 7 00 MA Ac PH 18 -1 -0 .0 00 L- ti AL 00 3- 6- 00 06 MA ve EX 12 20 20 14 RT IN 20 17 17 27 2 15 PH 50 AR 0 MA MG CY CA #5 PS 84 UL E PO 00 09 10 28 28 00 MA Ac LY 57 -1 -0 .0 00 L- ti ET 40 3- 6- 00 06 MA ve HY 41 20 20 14 RT LE 20 17 17 27 NE 7 14 PH AR GL MA YC CY OL #5 33 84 50 PO WD ME 62 09 09 30 30 00 MA Ac TO 03 -0 -2 .0 00 L- ti WI 70 6- 9- 00 06 MA ve OL 83 20 20 10 RT OL 01 17 17 76 0 20 PH MERIDA AR CC MA CY ER #5 25 84 MG TA B VE 00 09 09 30 30 00 MA Ac NL 09 -0 -2 .0 00 L- ti AF 37 6- 9- 00 06 MA ve AX 38 20 20 10 RT IN 65 17 17 76 E 6 22 PH HC AR L MA ER CY 15 #5 0 84 MG CA P FL 55 09 09 1. 1 00 [facility] UC 11 -0 -2 00 00 L- ti ON 10 6- 9- 0 06 MA ve AZ 14 20 20 14 RT OL 51 17 17 09 E 2 31 PH 15 AR 0 MA MG CY TA #5 BL 84 ET FL 55 08 09 1. 1 00 [facility] UC 11 -2 -2 00 00 L- ti ON 10 9- 2- 0 06 MA ve AZ 14 20 20 13 RT OL 51 17 17 92 E 2 93 PH 15 AR 0 MA MG CY TA #5 BL 84 ET [place] 51 08 09 28 28 00 [facility] CR 86 -2 -2 .0 00 L- ti OG 20 9- 2- 00 06 MA ve ES 01 20 20 13 RT TI 20 17 17 92 N 6 94 PH FE AR MA 1- CY 20 #5 TA 84 BL ET ME 50 08 09 14 7 00 [facility] TR 11 -3 -2 .0 00 L- ti ON 10 0- 2- 00 06 MA ve ID 33 20 20 13 RT AZ 40 17 17 96 OL 2 34 PH E AR 50 MA 0 CY MG #5 TA 84 BL ET FL 55 08 09 1. 1 00 [facility] 11 -2 -1 00 00 L- ti ON 10 1- 5- 0 06 MA ve AZ 14 20 20 13 RT OL 51 17 17 72 E 2 72 PH 15 AR 0 MA MG CY TA #5 BL 84 ET CE 68 08 09 21 7 00 [facility] PH 18 -2 -1 .0 00 L- ti AL 00 1- 5- 00 06 MA ve EX 12 20 20 13 RT IN 20 17 17 72 2 71 PH 50 AR 0 MA MG CY CA #5 PS 84 UL E [place] 57 08 09 30 30 00 [facility] RT 23 -0 -0 .0 00 L- ti AZ 70 6- 1- 00 06 MA ve AP 00 20 20 12 RT IN 83 17 17 94 E 0 05 PH 15 AR MA MG CY TA #5 BL 84 ET ME 62 08 08 30 30 00 [facility] TO 03 -0 -2 .0 00 L- ti WI 70 1- 5- 00 06 MA ve OL 83 20 20 10 RT OL 01 17 17 76 0 20 PH MERIDA AR CC MA CY ER #5 25 84 MG TA B VE 00 08 08 30 30 00 [facility] NL 09 -0 -2 .0 00 L- [...] CY MG #5 TA 84 BL ET [place] 57 07 08 30 30 00 MA Ac RT 23 -1 -1 .0 00 L- ti AZ 70 4- 1- 00 06 MA ve AP 00 20 20 12 RT IN 83 17 17 94 E 0 05 PH 15 AR MA MG CY TA #5 BL 84 ET ME 62 07 08 30 30 00 MA Ac TO 03 -0 -0 .0 00 L- ti WI 70 7- 4- 00 06 MA ve OL 83 20 20 10 RT OL 01 17 17 76 0 20 PH MERIDA AR CC MA CY ER #5 25 84 MG TA B VE 00 07 08 30 30 00 MA Ac NL 09 -0 -0 .0 00 L- ti AF 37 7- 4- 00 06 MA ve AX 38 20 20 10 RT IN 65 17 17 76 E 6 22 PH HC AR L MA ER CY 15 #5 0 84 MG CA P FL 55 07 08 1. 1 00 MA Ac UC 11 -0 -0 00 00 L- ti ON 10 7- 4- 0 06 MA ve AZ 14 20 20 12 RT OL 51 17 17 78 E 2 44 PH 15 AR 0 MA MG CY TA #5 BL 84 ET NI 47 07 08 10 5 00 MA Ac TR 78 -0 -0 .0 00 L- ti OF 10 7- 4- 00 06 MA ve UR 30 20 20 12 RT AN 30 17 17 78 TO 1 43 PH IN AR MA MO CY NO -M #5 CR 84 10 0 MG ME 50 06 07 14 7 00 MA Ac TR 11 -2 -2 .0 00 L- ti ON 10 7- 8- 00 06 MA ve ID 33 20 20 12 RT AZ 40 17 17 58 OL 2 57 PH E AR 50 MA 0 CY MG #5 TA 84 BL ET ME 50 06 07 4. 1 00 MA Ac TR 11 -2 -1 00 00 L- ti ON 10 1- 4- 0 06 MA ve ID 33 20 20 12 RT AZ 40 17 17 45 OL 2 67 PH E AR 50 MA 0 CY MG #5 TA 84 BL ET FL 55 06 07 1. 1 00 [facility] UC 11 -1 -1 00 00 L- ti ON 10 9- 4- 0 06 MA ve AZ 14 20 20 12 RT OL 51 17 17 41 E 2 11 PH 15 AR 0 MA MG CY TA #5 BL 84 ET PH 51 05 06 6. 2 00 [facility] EN 29 -2 -2 00 00 L- ti AZ 30 7- 3- 0 06 MA ve OP 81 20 20 11 RT YR 10 17 17 92 ID 1 44 PH IN AR E MA 20 CY 0 MG #5 84 TA B CE 68 05 06 15 5 00 [facility] PH 18 -2 -2 .0 00 L- ti AL 00 7- 3- 00 06 MA ve EX 12 20 20 11 RT IN 20 17 17 92 2 45 PH 50 AR 0 MA MG CY CA #5 PS 84 UL E FL 55 05 06 1. 1 00 [facility] UC 11 -2 -2 00 00 L- ti ON 10 7- 3- 0 06 MA ve AZ 14 20 20 11 RT OL 51 17 17 92 E 2 43 PH 15 AR 0 MA MG CY TA #5 BL 84 ET VE 00 05 06 30 30 00 [facility] NL 09 -2 -1 .0 00 L- ti AF 37 4- 6- 00 06 MA ve AX 38 20 20 10 RT IN 65 17 17 76 E 6 22 PH HC AR L MA ER CY 15 #5 0 84 MG CA P [place] 57 05 06 30 30 00 [facility] RT 23 -2 -1 .0 00 L- ti AZ 70 4- 6- 00 06 MA ve AP 00 20 20 10 RT IN 83 17 17 76 E 0 21 PH 15 AR MA MG CY TA #5 BL 84 ET ME 62 05 06 30 30 00 [facility] TO 03 -2 -1 .0 00 L- ti WI 70 4- 6- 00 06 MA ve OL 83 20 20 10 RT OL 01 17 17 76 0 20 PH MERIDA AR CC MA CY ER #5 25 84 MG TA B EQ 49 04 05 89 4 00 [facility] 03 -0 -0 .0 00 L- ti CO 50 7- 5- 00 08 MA ve UG 38 20 20 86 RT H 42 17 17 46 DM 1 36 PH AR ER MA CY 30 #5 MG 84 /5 ML MERIDA SP FL 55 04 05 1. 1 00 [facility] UC 11 -0 -0 00 00 L- [...] CY CA #5 PS 84 UL E WI 60 04 05 24 8 00 MA Ac OM 43 -0 -0 0. 00 L- ti ET 20 7- 5- 00 04 MA ve QURESHI 60 20 20 0 65 RT ZI 61 17 17 22 NE 6 60 PH -C AR OD MA EI CY NE #5 SY 84 RU P ME 62 04 05 30 30 00 MA Ac TO 03 -0 -0 .0 00 L- ti WI 70 7 5- 06 MA ve OL 83 20 20 10 RT OL 01 17 17 76 0 20 PH MERIDA AR CC MA CY ER #5 25 84 MG TA B [place] 57 04 05 30 30 00 MA Ac RT 23 -0 -0 .0 00 L- ti AZ 70 7 06 MA ve AP 00 20 20 10 RT IN 83 17 17 76 E 0 21 PH 15 AR MA MG CY TA #5 BL 84 ET VE 00 04 05 30 30 00 MA Ac NL 09 -0 -0 .0 00 L- ti AF 37 7- 5- 00 06 MA ve AX 38 20 20 10 RT IN 65 17 17 76 E 6 22 PH HC AR L MA ER CY 15 #5 0 84 MG CA P FL 55 03 04 1. 1 00 MA Ac UC 11 -1 -0 00 00 L- ti ON 10 4- 7- 0 06 MA ve AZ 14 20 20 10 RT OL 51 17 17 09 E 2 10 PH 15 AR 0 MA MG CY TA #5 BL 84 ET ME 50 03 04 14 7 00 MA Ac TR 11 -1 -0 .0 00 L- ti ON 10 4- 7- 00 06 MA ve ID 33 20 20 10 RT AZ 40 17 17 09 OL 2 12 PH E AR 50 MA 0 CY MG #5 TA 84 BL ET ME 49 03 03 30 30 00 GR Ac TO 88 -0 -3 .0 00 AN ti WI 40 6- 1- 00 02 T ve [...] 15 0 IN MG C. CA P [place] 57 03 03 30 30 00 GR [...] Y #3 TA 93 BL 8 ET WI 37 06 02 00 28 28 RI [...] PH L AR MA CY #5 84 WI 68 01 02 00 30 7 WA [...] 20 20 RT 6 70 10 10 KY 5 PH CH AR AE MA L [...] 0 93 MG 8 TA BL ET WI 68 12 12 00 20 6 WA [...] 00 30 15 WA 75 PA Ac WI 09 -1 -2 .0 L- 16 TE [...] MG CY TA #5 BL 84 ET WI 37 06 07 00 28 28 WA [...] 34 5 9 00 MA 93 ve WI 59 20 20 RT 9 DA ED [...] 0 MG #5 84 TA BL ET WI 37 01 02 01 28 28 RI [...] MP #5 DS 84 TA BL ET WI 68 02 02 00 30 7 WA [...] PH L AR MA CY #5 84 WI 37 01 01 00 28 28 RI [...] EN B TA #5 BL 84 ET WI 00 10 11 00 8. 4 WA [...] CY CA #5 PS 84 UL E WI 00 07 08 00 6. 25 WA [...] -H 4 C EA R SO LN WI 00 03 03 00 10 20 WA [...] 017 K/mm3 ed monocyt 20:45 e count Snyder % = 7.0 % 1.7-9.3 complet 017 [...] Procedure DOS Code Location Performer Comment SUSCEPTIB [address] LTY STDY 7 [facility] ANTIMICRB IAL HEALTHCAR HEALTHCAR MICRO/AGA E EDGE E EDGE R DILUTJ CULTURE [address] BACTERIAL 7 HELIOBOZENA MURILLOTH QUANTTATI HEALTHCAR HEALTHCAR VE COLONY E EDGE E EDGE COUNT URINE CULTURE [address] BCT 7 [facility] ISOL&PRSM PTV ID HEALTHCAR HEALTHCAR ISOLATE E EDGE E EDGE EA URINE JASMIN [address] ST YARI POST-VOID 7 [facility] ING RESIDUAL PHYSICIAN URINE&/BL S ADDER CAP URINE [address]187 ST VIKY 7 [facility] TEST VISUAL PHYSICIAN COLOR S CMPRSN METHS IADNA [address] TRICHOMON 7 [facility] VAGINALIS HEALTHCAR HEALTHCAR DIRECT E EDGE E EDGE PROBE TQ IADNA [address] RANDELL 7 [facility] SPECIES DIRECT HEALTHCAR HEALTHCAR PROBE TQ E EDGE E EDGE IADNA [address] GARDNEREL 7 [facility] HELIO LA VAGINALIS HEALTHCAR HEALTHCAR DIRECT E EDGE E EDGE PROBE TQ SUSCEPTIB [address] LTY STDY 7 [facility] ANTIMICRB IAL HEALTHCAR HEALTHCAR MICRO/AGA E EDGE E EDGE R DILUTJ CULTURE [address] BACTERIAL 7 [facility] HELIO QUANTTATI HEALTHCAR HEALTHCAR VE COLONY E EDGE E EDGE COUNT URINE CULTURE [address] BCT 7 [facility] HELIO ISOL&PRSM PTV ID HEALTHCAR HEALTHCAR ISOLATE E EDGE E EDGE EA URINE URINE 16219 [facility] 7 [facility] TEST INC INC VISUAL COLOR CMPRSN METHS THERAPEUT 69312 [facility] MACARIO IC 7 [facility] PROPHYLAC INC INC TIC/DX INJECTION SUBQ/IM COLLECTIO 25114 [facility] N VENOUS 7 [facility] MURILLOTH BLOOD VENIPUNCT HEALTHCAR HEALTHCAR URE E EDGE E EDGE COMPREHEN 05742 [facility] SIVE 7 [facility] METABOLIC PANEL HEALTHCAR HEALTHCAR E EDGE E EDGE BLOOD 70426 [facility] COUNT 7 [facility] COMPLETE AUTOMATED HEALTHCAR HEALTHCAR E EDGE E EDGE OPHTH 44570 [facility] 7 XM&EVAL COMPRE NEW PT 1/> VST CULTURE 96293 [facility] BACTERIAL 7 HELIO HELIO QUANTTATI HEALTHCAR HEALTHCAR VE COLONY E EDGE E EDGE COUNT URINE IADNA 47371 [facility] NEISSERIA 7 HELIO HELIO GONORRHOE HEALTHCAR HEALTHCAR AE E EDGE E EDGE AMPLIFIED PROBE TQ IADNA 12873 [facility] CHLAMYDIA 7 HELIO [facility]IO TRACHOMAT HEALTHCAR HEALTHCAR IS E EDGE E EDGE AMPLIFIED PROBE TQ CYTP C/V 61932 [facility] AUTO THIN 7 HELIOBOZENA MURILLOTH LYR PREPJ SCR HEALTHCAR HEALTHCAR MNL E EDGE E EDGE RESCR PHYS IADNA 14654 [facility] TRICHOMON 7 HELIO HELIO VAGINALIS HEALTHCAR HEALTHCAR DIRECT E EDGE E EDGE PROBE TQ IADNA 38084 [facility] RANDELL 7 HELIO [facility]IO SPECIES DIRECT HEALTHCAR HEALTHCAR PROBE TQ E EDGE E EDGE IADNA 20936 [facility] GARDNEREL 7 HELIO HELIO LA VAGINALIS HEALTHCAR HEALTHCAR DIRECT E EDGE E EDGE PROBE TQ HEMOGLOBI 36188 [facility]. N 5 HELIO CADET GLYCOSYLA PHYLL[place] [address] [place] [address] [facility]. PROLACTIN 5 HELIO CADET PHYLLIS PHYLLIS GONADOTRO 06583 [facility]. PIN 5 HELIO CADET CHORIONIC PHYLLIS PHYLLIS QUALITATI VE COLLECTIO 28140 [facility]. N VENOUS 5 HELIO MURILLOTH BLOOD PH[place] [address] THYROID 5 [facility] HELIO STIMULATI PHYLLIS PHYLLIS NG HORMONE TSH GONADOTRO [address] PIN 5 [facility]IO FOLLICLE PHYLLIS PHYLLIS STIMULATI NG [place]ORMONE GONADOTRO [address] PIN 5 [facility] HEL[facility] [place]UTEIN[place] [address] . . TRANSVAGI 5 HELIOADRIENNE MURILLOTH NAL PHYLLIS PHYLLIS [place] [address] 5 [facility]IO NONOBSTET PHYLLIS PHYLLIS SOHAN REAL-TIME IMAGE COMPLETE SUSCEPTIB [address]19 ST LTY STDY 4 [facility] ANTIMICRB MED CTR MED CTR IAL WARDROBE MISTRESS ST WARDROBE MISTRESS ST MICRO/AGA R DILUTJ CULTURE 57112 ST BACTERIAL 4 [facility] MED CTR MED CTR QUANTTATI WARDROBE MISTRESS ST WARDROBE MISTRESS ST VE COLONY COUNT URINE CULTURE 64083 [facility] BCT 4 HELIOBOZENA CADET ISOL&PRSM MED CTR MED CTR PTV ID WARDROBE MISTRESS ST WARDROBE MISTRESS ST ISOLATE EA URINE US PELVIC [address] 4 HELIOBOZENA CADET NONOBSTET PHYLLIS PHYLLIS [place] [address] [facility]. TRANSVAGI 4 HELIO CADET NAL PHYLLIS PHYLLIS BASIC [address] METABOLIC 4 [facility] PANEL MED CTR MED CTR CALCIUM WARDR[address]ESS ST W[address]DRO[address] MIST[facility]ESS ST TOTAL GONADOTRO [address] PIN 4 [facility] CHORIONIC MED CTR MED CTR WARDROBE MISTRESS ST WARDROBE MISTRESS ST QUANTITAT KATYA BLOOD [address] COUNT 4 [facility] COMPLETE MED CTR MED CTR AUTO&AUTO WARDROBE MISTRESS ST [facility] [address] ST THYROID 4 HELIOBOZENA CADET STIMULATI MED CTR MED CTR NG WAR[address] [facility] [address] HORMONE TSH IADNA 15378 [facility] CHLAMYDIA 4 [facility] MED CTR MED CTR TRACHOMAT WARDROBE MISTRESS ST WARDROBE MISTRESS ST IS AMPLIFIED PROBE TQ CULTURE [address] BACTERIAL 4 [facility] MED CTR MED CTR QUANTTATI WARDROBE MISTRESS ST WARDROBE MISTRESS ST VE COLONY COUNT URINE IADNA [address] NEISSERIA 4 [facility] MED CTR MED CTR GONORRHOE WARDROBE MISTRESS ST WARDROBE MISTRESS ST AE AMPLIFIED PROBE TQ SUSCEPTIB [address] LTY STDY [facility] MED CTR IAL WARDROBE MISTRESS ST WARDROBE MISTRESS ST MICRO/AGA R DILUTJ CULTURE [address] BCT 4 [facility] ISOL&PRSM MED CTR MED CTR PTV ID WARDROBE MISTRESS ST WARDROBE MISTRESS ST ISOLATE EA URINE CYTP C/V [address] AUTO THIN 4 [facility] LYR MED [facility] MED CTR PREPJ SCR WARDROBE MISTRESS ST WARDRO[facility] MISTRESS ST MNL RESCR PHYS CERV/VAGI G0101 ST VIKY NAL 4 HELIO MAR CANCER SCR; PHYSICIAN PELV&CLIN S BREAST EXAM SCREEN Q0091 ST VIKY PAP 4 HELIO MAR SMEAR; OBTAIN PHYSICIAN PREP &C S ONVEY TO LAB IADNA [address] [place] 4 [facility] GONORRHOE WARDROBE MISTRESS ST WARDRO[facility] MISTRESS ST AE AMPLIFIED PROBE TQ IADNA [address] CHLAMYDIA 4 [facility] MED CTR TRACHOMAT WARDROBE MISTRESS ST WARDROBE MISTRESS ST IS AMPLIFIED PROBE TQ BASIC [address] METABOLIC 4 [facility] PANEL MED CTR MED CTR CALCIUM WARDROBE MISTRESS ST [facility]DRO[facility]ESS ST TOTAL BLOOD [address] COUNT 4 [facility] COMPLETE MED CTR MED CTR AUTOMATED WARDROBE MISTRESS ST [facility]DRO[facility] MIST[facility]ESS ST PREALBUMI [address] N 4 [facility]IO [facility] MED CTR WARDR[facility] [facility] [address] HEMOGLOBI [address] N 4 HELIO HELIO GLYCOSYLA MED CTR MED CTR KALEY A1C [address] [facility]ESS ST COMPREHEN [address] [facility] 4 [facility] PANEL WARDROBE MISTRESS ST [facility] ST RADEX [address] RADIOLOGY NEILS, ELBOW 2 0 NEL W VIEWS ASSOCIATE S PSC RADEX 38622 COMMONWEA HOBLITA ELBOW 2 0 LTH , GLORIA VIEWS [place] [address] ARLEN OSHAIL RADIAL 0 LTH , GLORIA HEAD/NECK ORTHOPAED M FX W/O [place] [address] ELFEGO ELIN, RADIAL 0 EMERGENCY MANUEL S HEAD/NECK SERVICES FX W/O MANIPULAT ASSOCIATE ION S RADEX 36974 PEREZ RIO, ELBOW 0 MEDICAL FARHAN P COMPLETE IMAGING MINIMUM 3 ASSOCIATE VIEWS S RADEX 96130 PEREZ RIO, FOREARM 2 0 MEDICAL FARHAN P VIEWS IMAGING ASSOCIATE S US BREAST 91760 RADIOLOGY FRANCINE, REAL 0 BUDDY Mercado TIME ASSOCIATE W/IMAGE S PSC DOCUMENTA TION IADNA 29086 [facility] STREPTOCO [address] [place] [address] GROUP A DIRECT PROBE TQ US PELVIC [address] SOHAN REAL-TIME IMAGE COMPLETE GONADOTRO [address] [facility] PIN [address] [place] [address] [facility] [place] [address] RADIOLOGY [facility]BDOM[facility] 9 , PAOLO W/DARREN ASSOCIATE L T S PSC MATERIAL CT PELVIS [address] W/TRISTAR [facility] T MATERIAL RADEX [address] [facility] SPINE [address] [place] [address] 4 OR 5 VIEWS RADEX 65125 RADIOLOGY FRANCINE SPINE 9 BUDDY CORBIN ASSOCIATE STUDY S PSC W/SUPINE & ERECT STUDY FRAMES V2020 JUAN MASSEY 9 VISION KHLOE M 1 VISN V2103 KASH MASSEY 9 VISION KHLOE M TO+/-4.00 D SPHER 0.12-2.00 D CYL EA OPHTH 06000 GAURAV LEVI, MEDICAL 9 VISION KHLOE M XM&EVAL COMPRHNSV ESTAB PT 1/> FITTING 70507 GAURAV LEVI, SPECTACLE 9 VISION KHLOE Snyder S XCPT APHAKIA MONOFOCAL ANESTHESI 12593 [place] SHIN, A 9 MANUEL A INTRAORAL ANESTHEIS WITH AA BIOPSY SERVICES NOS PSC HEPATBL [address] DUX SYS 9 [facility] GLBLDR COLLECTIO 78960 [facility] [place], N VENOUS 9 MEDICAL VIRAL BLOOD GROUP VENIPUNCT URE BLOOD [address] COUNT 9 [facility] COMPLETE AUTO&AUTO MEDICALCE MEDICALCE DIFRNTL NTER NTER WBC PROTHROMB [address] IN TIME 9 [facility] MEDICALCE MEDICALCE NTER NTER URNLS DIP 65888 [facility] [place], 9 MEDICAL VIRAL STICK/TAB GROUP LET RGNT AUTO W/[place] [address] ABDOMINAL 9 [facility] TIME W/IMAGE LIMITED HEPATIC [address]47 ST FUNCTION 9 [facility] PANEL MEDICALCE MEDICALCE NTER NTER COLLECTIO 64950 [facility], N VENOUS 9 MEDICAL VIR[place] [address] AMYLASE 9 [facility] [place] [address] LIPASE 9 [facility] MEDICALCE NTER NTER ANTIBODY [address] [facility]AC [facility] TER PYLORI MEDICALCE MEDICALCE NTER NTER COLLECTIO 38237 [facility] STERNEBER N VENOUS 8 MEDICAL G, ANTIONETTE BLOOD GROUP B VENIPUNCT URE BLOOD [address] COUNT 8 [facility] COMPLETE AUTO&AUTO MEDICALCE MEDICALCE DIFRNTL NTER NTER WBC HEPATIC [address] FUNCTION 8 [facility] PANEL MEDICALCE MEDICALCE NTER NTER URNLS DIP 98579 AMIRAH MACARIO 8 [facility] STICK/TAB INC INC LET REAGENT AUTO MICROSCOP Y RADIOLOGI 70416 PEREZ Jess PATE EXAM 8 MEDICAL FARHAN P CHEST 2 IMAGING VIEWS ASSOCIATE FRONTAL&L S ATERAL BLOOD 60949 AMIRAH MACARIO COUNT 8 [facility] COMPLETE INC INC AUTO&AUTO DIFRNTL WBC COMPREHEN 40953 AMIRAH MACARIO SIVE 8 [facility] [place] [address] AMIRAH MACARIO ABDOMEN [address] [facility] W/O INC INC CONTRAST MATERIAL 3D 21808 AMIRAH MACARIO RENDERING 8 [facility] INC INC W/INTERP& POSTPROC DIFF WORK STATION FIBRIN 37192 AMIRAH MACARIO DGRADJ 8 [facility] PRODUCTS INC INC D-DIMER QUAL/SEMI CARLOS CT PELVIS 77118 AMIRAH MACARIO W/O 8 [facility] CONTRAST INC INC MATERIAL URINE 08328 AMIRAH MACARIO [address] [facility] TEST INC INC VISUAL COLOR CMPRSN METHS IADNA 54990 [facility] STREPTOCO 8 [facility] GROUP A AMPLIFIED PROBE TQ IRRIGATIO 9652 AMIRAH MACARIO N OF EAR 8 [facility] INC INC Encounters Encounter Start End Date Code Location Performer Type Date OFFICE 32085 YARI OUTPATIEN 7 7 HELIO T NEW 45 MINUTES [facility] - OTHER 7 [address] [facility] [address] OTHER 7 7 [facility] OFFICE 42414 VIKY OUTPATIEN 7 7 [facility] PHYSIC[facility] MINUT[facility] S OFFICE 27369 MALLY OUTPATIEN 7 7 [facility] T VISIT 15 PHYSICIAN MINUTES [facility]OSPITAL [facility] 7 7 [facility] EMERGENCY 28296 EVE MILLER 7 7 PHYSICIAN DEPARTMEN S, [facility] VISIT MODERATE SEVERITY HOSPITAL AMIRAH - 7 7 [facility] OUTPATIEN INC T OFFICE 05459 [facility] 7 7 [facility] T VISIT INC 10 MINUTES OFFICE 09669 [facility] 7 7 HELIO JR., DO T VISIT 25 PHYSICIAN MINUTES S HOSPITAL - 7 7 [facility] 7 7 [facility] OFFICE 35537 [facility] 7 7 HELIO JR., DO T VISIT 15 PHYSICIAN MINUTES [facility] 7 7 [facility]ALTH[facility] EDGE PERIODIC 95142 [facility] 7 7 HELIO E MED EST PATIENT PHYSICIAN 18-39 YRS [facility] 7 7 [facility] OFFICE 76497 [facility] 7 7 HELIO T VISIT 25 PHYSICIAN MINUTES S EMERGENCY 68469 [facility] ALEJANDRO 7 7 EMERGENCY DEPARTMEN T VISIT PHYSICIAN MODERATE S SEVERITY EMERGENCY 77321 [facility] SANDRO 7 7 EMERGENCY DEPARTMEN T VISIT PHYSICIAN HIGH/URGE S NT SEVERITY EMERGENCY 57780 [facility] PADMAJA 7 7 EMERGENCY DEPARTMEN T VISIT PHYSICIAN HIGH/URGE S NT SEVERITY EMERGENCY 99825 [facility] REMA PEARSON 6 6 EMERGENCY DEPARTMEN T VISIT PHYSICIAN HIGH/URGE S NT SEVERITY EMERGENCY 23754 [facility] NAT 6 6 EMERGENCY KRI DEPARTMEN T VISIT PHYSICIAN HIGH/URGE S NT SEVERITY EMERGENCY 35848 [facility] DAVREN 5 5 EMERGENCY MERRICK DEPARTMEN T VISIT PHYSICIAN HIGH/URGE S NT SEVERITY EMERGENCY 32582 [facility] DIYA 5 5 EMERGENCY JAILENE DEPARTMEN T VISIT PHYSICIAN HIGH/URGE S NT SEVERITY [facility]ICAL [facility] ACCESS 5 5 [facility] OFFICE [address] [facility]KY [facility] HELIO MAR T VISIT 10 PHYSICIAN MINUTES S EMERGENCY 19758 [facility] REMA LILI 5 5 EMERGENCY DEPARTMEN T VISIT PHYSICIAN HIGH/URGE S NT SEVERITY [facility]OSPITAL ST[facility] - 5 5 HELIO OUTPATIEN PHYLLIS T EMERGENCY 51449 [facility] LEHMKUHL 5 5 EMERGENCY RAC DEPARTMEN T VISIT PHYSICIAN HIGH/URGE S NT SEVERITY EMERGENCY 29838 [facility] ELEAZAR 5 5 EMERGENCY LINDA DEPARTMEN T VISIT PHYSICIAN MODERATE S SEVERITY EMERGENCY [address] [facility] [place] 4 4 [facility] MED CTR T VISIT MODERATE SEVERITY OFFICE [address] ST [facility] OUTPATIEN 4 4 HELIO KIR T VISIT 15 PHYSICIAN MINUTES S OFFICE 55856 ST LÓPEZ VIR OUTPATIEN 4 4 HELIO T VISIT [address] [facility] - 4 4 [facility] OUTPATIEN MED CTR T [facility]DR[facility]IST[facility] OFFICE 81608 ST VIKY OUTPATIEN 4 4 HELIO MAR T VISIT [address] [facility] - 4 4 HELIO OUTPATIEN [facility] OFFICE 39809 ST L[facility] VIR OUTPATIEN 4 4 HELIO T VISIT [address] [facility] - 4 4 [facility] OUTPATIEN MED CTR T W[facility]DROBE MISTRESS [facility] ST - 4 4 [facility] T [facility] OFFICE 85588 [facility] 4 4 [facility] T VISIT 15 PHYSICIAN MINUTES S OFFICE 19174 [facility] 4 4 HEL[facility] T VISIT 25 PHYSICIAN MINUTES [facility] EMERGENCY 87708 ELIN [place] 4 4 [facility] T VISIT HIGH/URGE NT SEVERITY HOSPITAL ST - OTHER 4 4 [facility] MED CTR [facility] EMERGENCY 26187 ELIN [place] 4 4 [facility] T VISIT HIGH/URGE NT SEVERITY HOSPITAL ST - OTHER 4 4 [facility] Emergency RY Núñez MD (ER) 3 06:43 3 09:05 [facility] ST - 0 0 [facility] 0 0 [facility] T OFFICE 90052 [facility], [facility] 0 0 MEDICAL [facility]IRAL T VISIT GROUP 25 MINUTES HOSPITAL AMIRAH - 0 0 [facility] EMERGENCY 74412 ELFEGO [place], 0 0 EMERGENCY [facility] SERVICES T VISIT MODERATE ASSOCIATE SEVERITY [facility] ST - 0 0 [facility] T OFFICE 76217 [facility], [facility] 9 9 MEDICAL VIRAL T VISIT GROUP 25 MINUTES OFFICE 43179 [place], [facility] 9 MEDICAL VIRAL T VISIT GROUP [address] 9 9 [facility] T VISIT LOW/MODER SEVERITY HOSPITAL [facility] 9 [facility] T EMERGENCY [address] [place] [address] 9 HELIO Judd [facility] MED CTR T VISIT MODERATE [facility]VERITY HOSPITAL [facility] 9 [facility] [address] [facility] MEDICALCE NTER OFFICE 95382 [facility] 9 9 MEDICAL VIRAL T VISIT GROUP 15 MINUTES OFFICE 44055 [place] [facility] 9 MEDICAL VIRAL T VISIT GROUP 15 MINUTES HOSPITAL [facility] 9 [facility] T OFFICE 23506 [place] [facility] [facility] 9 9 MEDICAL [facility]IRAL T VISIT GROUP 15 MINUTES [facility] 9 [facility] 9 [facility] T EMERGENCY 31888 [facility] 9 [address] [place] MED CTR T VISIT HIGH/URGE NT SEVERITY [facility] 9 [facility] T OFFICE 01398 [facility] SANDRA L[facility] 9 9 MEDICAL VIRAL ION GROUP NEW/ESTAB PATIENT 30 MIN HOSPITAL [facility] [address] [facility] MEDICALCE NTER OFFICE 24372 [facility] [facility] [facility] 9 9 MEDICAL VIRAL T VISIT GROUP 15 MINUTES HOSPITAL [facility] 9 [facility] T OFFICE 58685 [facility] 9 9 MEDICAL VIRAL T VISIT GROUP [address] - 9 9 [facility] T MEDICALCE NTER OFFICE 13619 [facility] 8 8 MEDICAL VIRAL T VISIT GROUP 15 MINUTES OFFICE 42800 [facility] 8 8 MEDICAL GANTIONETTE T NEW 20 GROUP B [facility] ST - 8 8 [facility] T MEDICALCE NTER EMERGENCY 56464 8 8 [facility] T VISIT MODERATE SEVERITY HOSPITAL - 8 8 [facility] T EMERGENC[facility] 98254 [facility] 8 8 [facility] T VISIT HIGH/URGE NT SEVERITY EMERGENCY 26398 8 8 [facility] T VISIT LOW/MODER SEVERITY [facility] 8 8 [facility] T OFFICE 03388 [facility] 8 8 [place], T VISIT FAMILY CAZARES K 15 CARE, MINUTES INC [facility] [place] [address] [facility] EMERGENCY 67980 [facility] 8 8 [facility] T VISIT LOW/MODER SEVERITY [facility]OSPITAL [facility] 8 [facility] T EMERGENCY [address] [place] [address] 8 [facility] T VISIT MODERATE [facility]VERITY HOSPITAL [facility] 8 [facility] T EMERGENCY 36629 [facility] 8 8 [facility] T [facility]ISIT LIMITED/M INOR PROB EMERGENCY 59189 8 8 [facility] T VISIT LOW/MODER SEVERITY [facility]OSPITAL [facility] 8 8 [facility] T EMERGENCY 62905 [facility] 8 8 [facility]IO ROPER [facility] T VISIT MODERATE SEVERITY EMERGENCY 12046 AMIRAH 8 8 [facility] VISIT LOW/MODER SEVERITY HOSPITAL AMIRAH 8 8 [facility] T
--- OUTSIDE RECORDS SUMMARY | 2016-12-19 21:21 | External Medical Summary Rpt | CCD ---
Author Author , [facility]ASE Organization [facility] Address Unknown Phone [email or web address] Care Team Providers Care Chronometer Assembler And Adjuster Name Role Phone NAT KOVACS, Unavailable Unavailable NAT KOVACS CORDOVA KIR, CORDOVA Unavailable Unavailable KIR YARI, YARI Unavailable Unavailable [facility] Unavailable Unavailable [facility]YSICIANS, [facility] LITO PIKE, Unavailable Unavailable LITO PIKE DOUGLAS, Unavailable Unavailable SERGIO FUENTES JEFFREY T, Unavailable Unavailable PAOLO LOERA MERRICK, ARCHANAREN Unavailable Unavailable MERRICK VIKY, VIKY Unavailable Unavailable VIKY MAR, VIKY Unavailable Unavailable MAR REMA ABEBE Unavailable Unavailable PADMAJA GIANG Unavailable Unavailable KARLOS MORALES, Unavailable Unavailable KARLOS MORALES GAINEY Unavailable Unavailable DAVID MANUEL WORTHINGTON, Unavailable Unavailable MANUEL WORTHINGTON [facility], Unavailable Unavailable [facility] MANUEL SHIN, Unavailable Unavailable MANUEL SHIN [facility] Unavailable Unavailable INC, [facility] GLORIA SAUCEDA, Unavailable Unavailable GLORIA SAUCEDA JACOB Unavailable Unavailable POLINA FISH Unavailable Unavailable SANDRO SANDRO Unavailable Unavailable TIERRA BLOCK, Unavailable Unavailable TIERRA BLOCK KREGER Unavailable Unavailable [...] VIRAL JR. JOEY, , Unavailable Unavailable JR. JOEY, [facility] Unavailable Unavailable OF NOT, [facility] NOT RENUSCH, RENUSCH Unavailable Unavailable [id number], Unavailable Unavailable [id number] BUDDY ESCAMILLA, Unavailable Unavailable BUDDY ESCAMILLA JEFFREY L, Unavailable Unavailable PAOLO MORGAN, ELEAZAR Unavailable Unavailable KHLEO FREITAS, Unavailable Unavailable KHLOE LEVI SHERMAN Unavailable Unavailable STEVEN LUJAN SOWER, Unavailable Unavailable STEVEN [facility] Unavailable [facility] Unavailable [facility]available [facility], [facility]available Unavailable [facility] Unavailable Unavailable [facility] Unavailable [facility]available [facility] Unavailable Unavailable PHYSICIANS, [facility], Unavailable Unavailable [facility] STEVEN MEJIA, Unavailable Unavailable STEVEN LOPEZ STEVEN B, Unavailable Unavailable ANTIONETTE WALLACE VON HOENE Unavailable Unavailable [facility] Unavailable Unavailable #584, [facility] Unavailable Unavailable #591, [id number], Unavailable Unavailable [id number] DHRUV PEÑA Unavailable Unavailable DIYA JAILENE, DIYA Unavailable Unavailable JAILENE Purpose Continuity of Care Document - 03-23-2007 through 2016 Problems Code Diagnosis DOS Provider Status [id number] SLOW 11-09-2016 TRANSIT [facility] CONSTIPATIO PHYSICIANS N N3000 ACUTE 11-09-2016 CYSTITIS [facility] WITHOUT PHYSICIANS HEMATURIA N390 URINARY 11-09-2016 TRACT [facility] INFECTION PHYSICIANS SITE NOT SPECIFIED N398 OTHER 11-09-2016 SPECIFIED [facility] DISORDERS PHYSICIANS OF URINARY SYSTEM R3914 FEELING OF 11-09-2016 INCOMPLETE [facility] BLADDER PHYSICIANS EMPTYING N73478 OTHER 11-09-2016 DIFFICULTIE [facility] S WITH PHYSICIANS MICTURITION N898 OTHER 10-25-2016 SPECIFIED [facility] NONINFLAMMA PHYSICIANS TORY DISORDERS VAG[place] N926 IRREGULAR 10-25-2016 MENSTRUATIO [facility] N PHYSICIANS UNSPECIFIED Z681 BODY MASS 10-25-2016 ST INDEX 19.9 [facility] OR LESS PHYSICIANS ADULT R110 NAUSEA 09-30-2016 [facility] R51 HEADACHE 09-30-2016 [facility] N11087 MIGRAINE 09-27-2016 [facility] NOT INTRACT INC W/O STAT MIGRAIN R197 DIARRHEA 09-20-2016 UNSPECIFIED [facility] PHYSICIANS R630 ANOREXIA 09-20-2016 [facility] PH[facility]IANS H5203 HYPERMETROP 09-19-2016 POLINA IA BILATERAL R300 DYSURIA 09-02-2016 [facility] PHYSICIANS Z70970 ENCOUNTER 08-23-2016 CIGARETTE STAMPER EXAM [facility] GENERAL RTN PHYSICIANS W/O ABNORMAL FIND B373 CANDIDIASIS 08-15-2016 OF VULVA [facility] AND VAGINA PHYSICIANS N760 ACUTE 08-15-2016 VAGINITIS [facility] PHYSICIANS R140 ABDOMINAL 08-15-2016 DISTENSION [facility] GASEOUS PHYSICIANS Z6820 BODY MASS 08-15-2016 ST INDEX BMI [facility] 20.0-20.9 PHYSICIANS ADULT N3090 CYSTITIS 07-23-2016 [facility] UNSPECIFIED EMERGENCY WITHOUT PHYSICIANS HEMATURIA J069 ACUTE UPPER 06-02-2016 [facility] EMERGENCY RESPIRATORY PHYSICIANS INFECTION UNSPECIFIED N888 OTH SPEC 04-27-2016 [facility] NONINFLAMMA EMERGENCY TORY PHYSICIANS DISORDERS CERVIX UTERI J111 FLU D/T 05-21-2015 [facility] UNIDENTIFIE EMERGENCY D FLU VIRUS PHYSICIANS W/OTH RESP MANIF R109 UNSPECIFIED 03-25-2015 [facility] ABDOMINAL EMERGENCY PAIN PHYSICIANS A64 UNSPECIFIED 01-09-2015 [facility] SEXUALLY EMERGENCY TRANSMITTED PHYSICIANS DISEASE N12 TUBULO-INTE 01-09-2015 [facility] RST EMERGENCY NEPHRITIS PHYSICIANS NOT SPEC ACUTE/CHRON 5950 ACUTE 09-17-2014 [facility] CYSTITIS EMERGENCY PHYSICIANS 87698 HEMATURIA 09-17-2014 [facility] UNSPECIFIED EMERGENCY PHYSICIANS 6268 [...] 7881 DYSURIA 12-04-2013 [facility] 20571 ABDOMINAL 12-04-2013 ST PAIN OTHER [facility] SPECIFIED MED CTR SITE 6202 OTHER AND 12-03-2013 ST UNSPECIFIED [facility] OVARIAN PHYSICIANS CYST 6259 UNSPEC 12-03-2013 SYMPTOM [facility] ASSOC PHYSICIANS W/FEMALE GENITAL ORGANS 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 MENSTRUATIO [facility] N PHYLLIS 29678 ABDOMINAL 10-21-2013 ST. PAIN, [facility] UNSPECIFIED PHYLLIS SITE 31249 GENERALIZED 08-08-2013 ANXIETY [facility] DISORDER PHYSICIANS 85852 UNSPECIFIED 08-08-2013 ST [facility] CONSTIPATIO PHYSICIANS N V700 ROUTINE 07-19-2013 GENERAL [facility] MEDICAL PHYSICIANS EXAM@HEALTH CARE FACL V7231 ROUTINE 07-19-2013 GYNECOLOGIC [facility] AL PHYSICIANS EXAMINATION 2639 UNSPECIFIED 06-10-2013 [facility] PROTEIN-IRNO MED CTR AIRPLANE PILOT CROP DUSTING ORIE ST MALNUTRITIO N 7804 DIZZINESS 06-10-2013 ST AND [facility] GIDDINESS MED CTR AIRPLANE PILOT CROP DUSTING ST 1101 DERMATOPHYT 04-05-2013 ST OSIS OF [facility] NAIL MED CTR AIRPLANE PILOT CR[facility] [address] 42312 CLOSED 04-22-2009 [facility] FRACTURE OF ASSOCIATES HEAD OF [facility] RADIUS 73282 CONTUSION 03-25-2009 [facility] PSC 70838 CONTUSION 03-25-2009 [facility] OF HIP H ORTHOPAEDIC CTR [facility] 4779 ALLERGIC 03-23-2009 [facility] RH[facility]IS [facility] CAUSE [facility] UNSPECIFIED 06688 ESOPHAGEAL 03-23-2009 [facility] 25903 NAUSEA 03-23-2009 [facility]ONE [facility] 55959 CLOSED 03-23-2009 [facility] FRACTURE MEDICAL UNSPEC PART GROUP LOWER END HUMERUS E8490 PLACE OF 03-20-2009 [place] [facility] E8851 FALL FROM 03-20-2009 [facility] 91467 MASTODYNIA 03-11-2009 [facility] PSC 63129 LUMP OR 03-11-2009 [facility] MASS IN ASSOCIATES BREAST PSC 79395 UNSPECIFIED 02-12-2009 [facility] VIRAL [facility] INFECTION GROUP IN CCE & UNS SITE 462 ACUTE 02-12-2009 [facility] PHARYNGITIS [facility] 6100 SOLITARY 01-20-2009 [facility] CYST OF MEDICAL BREAST GROUP 98493 OTHER 01-20-2009 [facility] MALAISE AND MEDICAL FATIGUE GROUP 5969 UNSPECIFIED 12-10-2008 [facility] 38404 ABDOMINAL 12-10-2008 [facility] PAIN RIGHT ASSOCIATES LOWER PSC QUADRANT 4619 ACUTE 12-08-2008 [facility] SINUSITIS, MEDICAL UNSPECIFIED GROUP 6253 DYSMENORRHE 12-08-2008 [facility] A [facility] 7231 CERVICALGIA 09-12-2008 [facility] PSC 73146 ABDOMINAL 09-12-2008 [facility] PAIN RIGHT MEDICAL UPPER GROUP QUADRANT 8470 NECK SPRAIN 09-12-2008 [facility] AND STRAIN [facility] 7379 UNSPECIFIED 09-02-2008 [facility] CURVATURE [facility] OF SPINE PSC 0340 STREPTOCOCC 06-10-2008 [facility] 7892 SPLENOMEGAL 06-10-2008 ST Y [facility] 3671 MYOPIA 06-06-2008 [facility] 21794 UNSPECIFIED 05-21-2008 [facility] DENTAL ANESTHEISAA CARIES SERVICES [facility] V7284 UNSPECIFIED 05-13-2008 [facility] PRE-OPERATI [facility] VE EXAMINATION 42315 CALCU 04-17-2008 [facility] GALLBLADD [facility]ICAL W/O MENTION GROUP CHOLECYST/O BST 13264 ABDOMINAL 03-20-2008 [facility] TENDERNESS MEDICAL RIGHT UPPER GROUP QUADRANT 3829 UNSPECIFIED 02-27-2008 [facility] OTITIS [facility]ICAL MEDIA [facility] 6929 CONTACT 02-27-2008 [facility] DERMATITIS& MEDICAL OTHER GROUP ECZEMA DUE UNSPEC CAUSE 31114 DIARRHEA 01-25-2008 [facility] 20494 EXTRINSIC 12-21-2007 [facility] WITH [facility] STATUS MED CTR ASTHMATICUS 79348 ASTHMA, 12-21-2007 [facility] UNSPECIFIED STATUS 5110 PLEURISY 06-26-2007 [facility] MENTION INC EFFUS/CURRE NT TB 5997 HEMATURIA 06-26-2007 [facility] 14924 CHEST PAIN 06-26-2007 [facility] 4659 ACUTE URIS 04-25-2007 [facility] UNSPECIFIED MED CTR SITE 0549 HERPES 04-17-2007 [facility] WITHOUT INC MENTION OF COMPLICATIO N 93493 UNSPECIFIED 03-29-2007 [facility] 3804 IMPACTED 03-23-2007 [facility] 02299 SCOLIOSIS , 03-23-2007 [facility] Medications Na ND Rx Da Fi Fi Am Da Di Ph RX Ph St me C No te ll ll ou ys ag ar # ys at rm s nt no ma ic us Or Da si cy ia de te s n re d FL 55 09 10 1. 1 00 DE Ac UC 11 -1 -0 00 00 L- ti ON 10 3- 6- 0 06 MA ve AZ 14 20 20 14 RT OL 51 17 17 27 E 2 16 PH 15 AR 0 MA MG CY TA #5 BL 84 ET CE 68 09 10 14 7 00 DE Ac PH 18 -1 -0 .0 00 L- ti AL 00 3- 6- 00 06 MA ve EX 12 20 20 14 RT IN 20 17 17 27 2 15 PH 50 AR 0 MA MG CY CA #5 PS 84 UL E PO 00 09 10 28 28 00 DE Ac LY 57 -1 -0 .0 00 L- ti ET 40 3- 6- 00 06 MA ve HY 41 20 20 14 RT LE 20 17 17 27 NE 7 14 PH AR GL MA YC CY OL #5 33 84 50 PO WD ME 62 09 09 30 30 00 DE Ac TO 03 -0 -2 .0 00 L- ti ME 70 6- 9- 00 06 MA ve OL 83 20 20 10 RT OL 01 17 17 76 0 20 PH MERIDA AR CC MA CY ER #5 25 84 MG TA B VE 00 09 09 30 30 00 DE Ac NL 09 -0 -2 .0 00 L- ti AF 37 6- 9- 00 06 MA ve AX 38 20 20 10 RT IN 65 17 17 76 E 6 22 PH HC AR L MA ER CY 15 #5 0 84 MG CA P FL 55 09 09 1. 1 00 DE Ac UC 11 -0 -2 00 00 L- ti ON 10 6- 9- 0 06 MA ve AZ 14 20 20 14 RT OL 51 17 17 09 E 2 31 PH 15 AR 0 MA MG CY TA #5 BL 84 ET SD 51 08 09 28 28 00 [facility] CR 86 -2 -2 .0 00 L- ti OG 20 9- 2- 00 06 MA ve ES 01 20 20 13 RT TI 20 17 17 92 N 6 94 PH FE AR MA 1- CY 20 #5 TA 84 BL ET ME 50 08 09 14 7 00 [facility] TR 11 -3 -2 .0 00 L- ti ON 10 0- 2- 00 06 MA ve ID 33 20 20 13 RT AZ 40 17 17 96 OL 2 34 PH E AR 50 MA 0 CY MG #5 TA 84 BL ET FL 55 08 09 1. 1 00 [facility] UC 11 -2 -2 00 00 L- ti ON 10 9- 2- 0 06 MA ve AZ 14 20 20 13 RT OL 51 17 17 92 E 2 93 PH 15 AR 0 MA MG CY TA #5 BL 84 ET CE 68 08 09 21 7 00 [facility] PH 18 -2 -1 .0 00 L- ti AL 00 1- 5- 00 06 MA ve EX 12 20 20 13 RT IN 20 17 17 72 2 71 PH 50 AR 0 MA MG CY CA #5 PS 84 UL E FL 55 08 09 1. 1 00 [facility] UC 11 -2 -1 00 00 L- ti ON 10 1- 5- 0 06 MA ve AZ 14 20 20 13 RT OL 51 17 17 72 E 2 72 PH 15 AR 0 MA MG CY TA #5 BL 84 ET SD 57 08 09 30 30 00 [facility] RT 23 -0 -0 .0 00 L- ti AZ 70 6- 1- 00 06 MA ve AP 00 20 20 12 RT IN 83 17 17 94 E 0 05 PH 15 AR MA MG CY TA #5 BL 84 ET ME 62 08 08 30 30 00 [facility] TO 03 -0 -2 .0 00 L- ti ME 70 1- 5- 00 06 MA ve OL 83 20 20 10 RT OL 01 17 17 76 0 20 PH MERIDA AR CC MA CY ER #5 25 84 MG TA B VE 00 08 08 30 30 00 [facility] NL 09 -0 -2 .0 00 L- ti AF 37 1- 5- 00 06 MA ve AX 38 20 20 10 RT IN 65 17 17 76 E 6 22 PH HC AR L MA ER CY 15 #5 0 84 MG CA P ON 57 07 08 12 3 00 [facility] DA 23 -2 -1 .0 00 L- ti NS 70 5- 8- 00 06 MA ve ET 07 20 20 13 RT RO 71 17 17 17 N 0 05 PH OD AR T MA 4 CY MG #5 TA 84 BL ET SD 57 07 08 30 30 00 DE Ac RT 23 -1 -1 .0 00 L- ti AZ 70 4- 1- 00 06 MA ve AP 00 20 20 12 RT IN 83 17 17 94 E 0 05 PH 15 AR MA MG CY TA #5 BL 84 ET NI 47 07 08 10 5 00 DE Ac TR 78 -0 -0 .0 00 L- ti OF 10 7- 4- 00 06 MA ve UR 30 20 20 12 RT AN 30 17 17 78 TO 1 43 PH IN AR MA MO CY NO -M #5 CR 84 10 0 MG FL 55 07 08 1. 1 00 DE Ac UC 11 -0 -0 00 00 L- ti ON 10 7- 4- 0 06 MA ve AZ 14 20 20 12 RT OL 51 17 17 78 E 2 44 PH 15 AR 0 MA MG CY TA #5 BL 84 ET VE 00 07 08 30 30 00 [facility] NL 09 -0 -0 .0 00 L- ti AF 37 7- 4- 00 06 MA ve AX 38 20 20 10 RT IN 65 17 17 76 E 6 22 PH HC AR L MA ER CY 15 #5 0 84 MG CA P ME 62 07 08 30 30 00 DE Ac TO 03 -0 -0 .0 00 L- ti ME 70 7- 4- 00 06 MA ve OL 83 20 20 10 RT OL 01 17 17 76 0 20 PH MERIDA AR CC MA CY ER #5 25 84 MG TA B ME 50 06 07 14 7 00 DE Ac TR 11 -2 -2 .0 00 L- ti ON 10 - 8- 00 06 MA ve ID 33 20 20 12 RT AZ 40 17 17 58 OL 2 57 PH E AR 50 MA 0 CY MG #5 TA 84 BL ET FL 55 06 07 1. 1 00 DE Ac UC 11 -1 -1 00 00 L- ti ON 10 9- 4- 0 06 MA ve AZ 14 20 20 12 RT OL 51 17 17 41 E 2 11 PH 15 AR 0 MA MG CY TA #5 BL 84 ET ME 50 06 07 4. 1 00 DE Ac TR 11 -2 -1 00 00 L- ti ON 10 1- 4- 0 06 MA ve ID 33 20 20 12 RT AZ 40 17 17 45 OL 2 67 PH E AR 50 MA 0 CY MG #5 TA 84 BL ET FL 55 05 06 1. 1 00 [facility] UC 11 -2 -2 00 00 L- ti ON 10 7- 3- 0 06 MA ve AZ 14 20 20 11 RT OL 51 17 17 92 E 2 43 PH 15 AR 0 MA MG CY TA #5 BL 84 ET PH 51 05 06 6. 2 00 [facility] EN 29 -2 -2 00 00 L- ti AZ 30 7- 3- 0 06 MA ve OP 81 20 20 11 RT YR 10 17 17 92 ID 1 44 PH IN AR E MA 20 CY 0 MG #5 84 TA B CE 68 05 06 15 5 00 [facility] PH 18 -2 -2 .0 00 L- ti AL 00 7- 3- 00 06 MA ve EX 12 20 20 11 RT IN 20 17 17 92 2 45 PH 50 AR 0 MA MG CY CA #5 PS 84 UL E VE 00 05 06 30 30 00 [facility] NL 09 -2 -1 .0 00 L- ti AF 37 4- 6- 00 06 MA ve AX 38 20 20 10 RT IN 65 17 17 76 E 6 22 PH HC AR L MA ER CY 15 #5 0 84 MG CA P SD 57 05 06 30 30 00 [facility] RT 23 -2 -1 .0 00 L- ti AZ 70 4- 6- 00 06 MA ve AP 00 20 20 10 RT IN 83 17 17 76 E 0 21 PH 15 AR MA MG CY TA #5 BL 84 ET ME 62 05 06 30 30 00 [facility] TO 03 -2 -1 .0 00 L- ti ME 70 4- 6- 00 06 MA ve OL 83 20 20 10 RT OL 01 17 17 76 0 20 PH MERIDA AR CC MA CY ER #5 25 84 MG TA B ME 62 04 05 30 30 00 [facility] TO 03 -0 -0 .0 00 L- ti ME 70 7- 5- 00 06 MA ve OL 83 20 20 10 RT OL 01 17 17 76 0 20 PH MERIDA AR CC MA CY ER #5 25 84 MG TA B SD 57 04 05 30 30 00 [facility] RT 23 -0 -0 .0 00 L- ti AZ 70 7- 5- 00 06 MA ve AP 00 20 20 10 RT IN 83 17 17 76 E 0 21 PH 15 AR MA MG CY TA #5 BL 84 ET VE 00 04 05 30 30 00 [facility] NL 09 -0 -0 .0 00 L- ti AF 37 7- 5- 00 06 MA ve AX 38 20 20 10 RT IN 65 17 17 76 E 6 22 PH HC AR L MA ER CY 15 #5 0 84 MG CA P FL 55 04 05 1. 1 00 DE Ac UC 11 -0 -0 00 00 L- ti ON 10 7- 5- 0 06 MA ve AZ 14 20 20 10 RT OL 51 17 17 76 E 2 17 PH 15 AR 0 MA MG CY TA #5 BL 84 ET EQ 49 04 05 89 4 00 DE Ac 03 -0 -0 .0 00 L- ti CO 50 7- 5- 00 08 MA ve UG 38 20 20 86 RT H 42 17 17 46 DM 1 36 PH AR ER MA CY 30 #5 MG 84 /5 ML MERIDA SP CE 68 04 05 40 10 00 DE Ac PH 18 -0 -0 .0 00 L- ti AL 00 08-31- 06 MA ve EX 12 20 20 10 RT IN 10 17 17 76 1 18 PH 25 AR 0 MA MG CY CA #5 PS 84 UL E ME 60 04 05 24 8 00 DE Ac OM 43 -0 -0 0. 00 L- ti ET 20 7- 5- 00 04 MA ve QURESHI 60 20 20 0 65 RT ZI 61 17 17 22 NE 6 60 PH -C AR OD MA EI CY NE #5 SY 84 RU P FL 55 03 04 1. 1 00 DE Ac UC 11 -1 -0 00 00 L- ti ON 10 4- 7- 0 06 MA ve AZ 14 20 20 10 RT OL 51 17 17 09 E 2 10 PH 15 AR 0 MA MG CY TA #5 BL 84 ET ME 50 03 04 14 7 00 DE Ac TR 11 -1 -0 .0 00 L- ti ON 10 - 7 00 06 MA ve ID 33 20 20 10 RT AZ 40 17 17 09 OL 2 12 PH E AR 50 MA 0 CY MG #5 TA 84 BL ET ME 49 03 03 30 30 00 GR Ac TO 88 -0 -3 .0 00 AN ti ME 40 6- 1- 00 02 T ve [...] UG S, TA BL IN ET C. SP 00 10 02 03 28 28 RI 80 CE Ac RI 55 -2 -2 .0 TE 49 NT ti NT 59 0- 6- 00 70 NE ve EC 01 20 20 AI R 65 09 10 D RO 28 8 PH NA AR LD DA M F Y #3 TA 93 BL 8 ET ME 37 06 02 00 28 28 RI [...] PH L AR MA CY #5 84 ME 68 01 02 00 30 7 WA [...] CY CA #5 PS 84 UL E ME 68 12 12 00 20 6 WA [...] CY CA #5 PS 84 UL E 54 11 12 01 30 30 WA 75 PA Ac 45 -0 -1 .0 L- 21 TE ti 80 2- 7- 00 MA 78 L ve 94 20 20 RT 2 51 09 09 RA 0 PH L AR MA CY #5 84 SP 00 10 12 01 28 28 [...] 00 30 15 WA 75 PA Ac ME 09 -1 -2 .0 L- 16 TE [...] PH L AR MA CY #5 84 ME 37 06 07 00 28 28 WA [...] TA #5 BL 84 ET SE 31 06 07 00 30 [...] .0 L- 72 ON ti YL 34 9- MA 93 ve ME 59 20 20 RT 9 DA ED 31 09 09 NI 5 PH D SO AR E LO MA NE CY 4 #5 MG 84 DO SE PK 60 03 04 00 20 3 GR 17 IS Ac 95 -2 -0 .0 AN 54 ON ti 10 T 97 ve 79 20 20 CO 9 DA 67 09 09 UN [address] UG DI 00 03 04 00 30 30 WA 74 PA Ac CY 52 -3 -0 .0 L- 74 TE ti CL 70 1 9- 00 MA 39 L ve OM 58 20 20 RT 8 IN 60 09 09 RA E 1 PH L 10 AR MA MG CY CA #5 PS 84 UL E ME 37 01 02 01 28 28 RI [...] MP #5 DS 84 TA BL ET ME 68 02 02 00 30 7 WA [...] PH L AR MA CY #5 84 ME 37 01 01 00 28 28 RI [...] EN B TA #5 BL 84 ET ME 00 10 11 00 8. 4 WA [...] CY CA #5 PS 84 UL E ME 00 07 08 00 6. 25 WA [...] -H 4 C EA R SO LN ME 00 03 03 00 10 20 WA [...] Procedure DOS Code Location Performer Comment SUSCEPTIB [address] LTY STDY 7 [facility] CADET ANTIMICRB IAL HEALTHCAR HEALTHCAR MICRO/AGA E EDGE E EDGE R DILUTJ JASMIN [address] ST YARI POST-VOID 7 [facility] RIVERA RESIDUAL PHYSICIAN URINE&/BL S ADDER CAP CULTURE [address] BACTERIAL 7 [facility] CADET QUANTTATI HEALTHCAR HEALTHCAR VE COLONY E EDGE E EDGE COUNT URINE CULTURE [address] BCT 7 [facility] CADET ISOL&PRSM PTV ID HEALTHCAR HEALTHCAR ISOLATE E EDGE E EDGE EA URINE IADNA [address] GARDNEREL 7 [facility] CADET LA VAGINALIS HEALTHCAR HEALTHCAR DIRECT E EDGE E EDGE PROBE TQ URINE [address]278 ST VIKY 7 [facility] TEST VISUAL PHYSICIAN COLOR S CMPRSN METHS IADNA [address] TRICHOMON 7 [facility] CADET VAGINALIS HEALTHCAR HEALTHCAR DIRECT E EDGE E EDGE PROBE TQ IADNA [address] RANDELL 7 [facility] CADET SPECIES DIRECT HEALTHCAR HEALTHCAR PROBE TQ E EDGE E EDGE SUSCEPTIB [address] LTY STDY 7 [facility] CADET ANTIMICRB IAL HEALTHCAR HEALTHCAR MICRO/AGA E EDGE E EDGE R DILUTJ CULTURE [address] BCT 7 [facility] ISOL&PRSM PTV ID HEALTHCAR HEALTHCAR ISOLATE E EDGE E EDGE EA URINE CULTURE [address] BACTERIAL 7 [facility] HELIO QUANTTATI HEALTHCAR HEALTHCAR VE COLONY E EDGE E EDGE COUNT URINE URINE 90458 [facility] MACARIO [facility] TEST INC INC VISUAL COLOR CMPRSN METHS THERAPEUT 47964 [facility] MACARIO IC 7 [facility] PROPHYLAC INC INC TIC/DX INJECTION SUBQ/IM BLOOD [address] COUNT 7 [facility] COMPLETE AUTOMATED HEALTHCAR HEALTHCAR E EDGE E EDGE COLLECTIO [address] N VENOUS 7 [facility] BLOOD VENIPUNCT HEALTHCAR HEALTHCAR URE E EDGE E EDGE COMPREHEN [address] SIVE 7 [facility] METABOLIC PANEL HEALTHCAR HEALTHCAR E EDGE E EDGE OPHTH 36147 [facility] 7 XM&EVAL COMPRE NEW PT 1/> VST CULTURE [address] BACTERIAL 7 [facility] HELIO QUANTTATI HEALTHCAR HEALTHCAR VE COLONY E EDGE E EDGE COUNT URINE IADNA [address] CHLAMYDIA 7 [facility] TRACHOMAT HEALTHCAR HEALTHCAR IS E EDGE E EDGE AMPLIFIED PROBE TQ CYTP C/V [address] AUTO THIN 7 [facility] LYR PREPJ SCR HEALTHCAR HEALTHCAR MNL E EDGE E EDGE RESCR PHYS IADNA [address] NEISSERIA 7 [facility] GONORRHOE HEALTHCAR HEALTHCAR AE E EDGE E EDGE AMPLIFIED PROBE TQ IADNA [address] RANDELL 7 [facility] SPECIES DIRECT HEALTHCAR HEALTHCAR PROBE TQ E EDGE E EDGE IADNA [address] TRICHOMON 7 HELIO HELIO VAGINALIS HEALTHCAR HEALTHCAR DIRECT E EDGE E EDGE PROBE TQ IADNA [address] GARDNEREL 7 HELIO HELIO LA VAGINALIS HEALTHCAR HEALTHCAR DIRECT E EDGE E EDGE PROBE TQ GONADOTRO [address] PIN 5 HEL[facility] HELIO LUTEINIZI PHYLLIS PHYLLIS NG HORMONE HEMOGLOBI [address] N 5 HELIO HELIO GLYCOSYLA PHYLL[place] [address] PROLACTIN 5 HELIO HELIO PHYLLIS PHYLLIS GONADOTRO [address] PIN 5 HEL[facility] HELIO CHORIONIC PH[place] [address] [facility] [address] THYROID 5 HELIO HELIO STIMULATI PHYLLIS PHYLLIS NG HORMONE TSH [address]ONADOTRO [address] [facility] [address] PIN 5 [facility] FOLLICLE PHYLLIS PHYLLIS STIMULATI NG HORMONE COLLECTIO [address] [facility] [address] N VENOUS 5 HLEIO MURILLOTH BLOOD PHYLLIS PHYLLIS VENIPUNCT URE US PELVIC [address] 5 [facility] NONOBSTET PHYLLIS PHYLL[place] [address] TRANSVAGI 5 [facility] NAL PHYLLIS PHYLLIS CULTURE [address] BACTERIAL 4 [facility] MED CTR QUANTTATI AIRPLANE PILOT CROP DUSTING ST AIRPLANE PILOT CROP DUSTING ST VE COLONY COUNT URINE CULTURE [address] BCT 4 [facility] MURILLOTH ISOL&PRSM MED CTR MED CTR PTV ID AIRPLANE PILOT CROP DUSTING ST AIRPLANE PILOT CROP DUSTING ST ISOLATE EA URINE SUSCEPTIB [address] LTY STDY 4 [facility] ANTIMICRB MED CTR MED CTR IAL AIRPLANE PILOT CROP DUSTING ST AIRPLANE PILOT CROP DUSTING ST MICRO/[place] [address] RADIOLOGY YOUNG VAN TRANSVAGI 4 NAL [facility] US PELVIC 92958 RADIOLOGY YOUNG VAN 4 NONOBSTET ASSOCIATE [facility] REAL-TIME IMAGE COMPLETE BASIC [address] METABOLIC 4 [facility] PANEL MED CTR MED CTR CALCIUM AIRPLANE PILOT CROP DUSTING ST AIRPLANE [place] [address] THYROID 4 [facility] STIMULATI MED CTR MED CTR NG AIRPLANE PILOT CROP DUSTING ST AIRPLANE PILOT CROP DUSTING ST HORMONE TSH BLOOD [address] COUNT 4 [facility] COMPLETE MED CTR MED CTR AUTO&AUTO AIRPLANE PILOT CROP DUSTING ST AIRPLANE PILOT CROP DUSTING ST DIFRNTL WBC GONADOTRO [address] PIN 4 [facility] CHORIONIC MED CTR MED CTR AIRPLANE PILOT CROP DUSTING ST AIRPLANE PILOT CROP DUSTING ST QUANTITAT KATYA SUSCEPTIB [id number] LTY STDY 4 [facility] MED CTR IAL AIRPLANE PILOT CROP DUSTING ST AIRPLANE PILOT CROP DUSTING ST MICRO/AGA R DILUTJ CULTURE [id number] [facility] 4 [facility] QUANTTATI AIRPLANE PILOT CROP DUSTING ST AIRPLANE PILOT CROP DUSTING ST VE COLONY COUNT URINE CULTURE [address] BCT 4 [facility] HELIO ISOL&PRSM MED CTR MED CTR PTV ID AIRPLANE PILOT CROP DUSTING ST AIRPLANE PILOT CROP DUSTING ST ISOLATE EA URINE IADNA [address] [facility]AMYDIA 4 [facility] TRACHOMAT AIRPLANE PILOT CROP DUSTING ST AIRPLANE PILOT CROP DUSTING ST IS AMPLIFIED PROBE TQ IADNA [address] [facility] CTR GONORRHOE AIRPLANE PILOT CROP [address]USTING ST AIRPLANE PILOT CROP DUSTING ST AE AMPLIFIED PROBE TQ IADNA [address] [facility] MED CTR GONORRHOE AIRPLANE PILOT CROP DUSTING ST AIRPLANE PILOT CROP DUSTING ST AE AMPLIFIED PROBE TQ SCREEN Q0091 ST VIKY PAP 4 HELIO MAR SMEAR; OBTAIN PHYSICIAN PREP &C S ONVEY TO LAB IADNA [address] CHLAMYDIA 4 [facility] CTR TRACHOMAT AIRPLANE PILOT CROP DUSTING ST AIRPLANE PILOT CROP DUSTING ST IS AMPLIFIED PROBE TQ CERV/VAGI G0101 ST VIKY NAL 4 HELIO MAR CANCER SCR; PHYSICIAN PELV&CLIN S BREAST EXAM CYTP C/V [address] AUTO THIN 4 HELIO HELIO LYR MED CTR MED CTR PREPJ SCR AIRPLANE PILOT CROP DUSTING ST AIRPLANE PILOT CROP DUSTING ST MNL RESCR PHYS BLOOD [address] COUNT 4 [facility] HELIO COMPLETE MED CTR MED CTR AUTOMATED AIRPLANE PILOT CROP DUSTING ST AIRPLANE PILOT CROP DUSTING ST PREALBUMI [address] N 4 [facility] MED [facility] MED CTR AIRPLANE PILOT CROP [facility]USTING ST AIRPLANE PILOT CROP DUSTING ST HEMOGLOBI [address] N 4 [facility] MED CTR KALEY A1C AIRPLANE PILOT CROP DUSTING ST AIRPLANE PILOT CROP [facility]USTING ST BASIC [address] METABOLIC 4 [facility] PAN[facility] CTR CALCIUM AIRPLANE PILOT CROP DUSTING [facility] AIRPLANE PILOT [facility] TOTAL COMPREHEN [address] ST [facility] 4 [facility] MED CTR PANEL AIRPLANE PILOT CROP DUSTING [facility] AIRPLANE PILOT CROP DUSTING ST RADEX 09781 RADIOLOGY NEILS, ELBOW 2 0 NEL W VIEWS ASSOCIATE S PSC RADEX 47602 [facility] EL[facility] [address] [facility] [place] [address] ARLEN SAUCEDA RADIAL 0 LTH , GLORIA HEAD/NECK ORTHOPAED M FX W/O [place] [address] ELFEGO WORTHINGTON, RADIAL 0 EMERGENCY MANUEL S HEAD/NECK SERVICES FX W/O MANIPULAT ASSOCIATE ION S RADEX 15359 [facility], ELBOW 0 MEDICAL FARHAN P COMPLETE IMAGING MINIMUM 3 ASSOCIATE VIEWS S RADEX 94342 [place] RIO, FOREARM 2 0 MEDICAL FARHAN P VIEWS IMAGING ASSOCIATE S US BREAST 56912 RADIOLOGY FRANCINE, REAL 0 BUDDY C TIME ASSOCIATE W/IMAGE S PSC DOCUMENTA TION IADNA 85408 [facility] STREPTOCO 9 [facility] GROUP A DIRECT PROBE TQ US PELVIC 95682 RADIOLOGY PAOLO DAVIS NONOBSTET ASSOCIATE T SOHAN S PSC REAL-TIME IMAGE COMPLETE GONADOTRO 74899 [facility] PIN 9 [facility]ION[facility] MEDICALCE [place] [address] [facility] ABDOMEN 9 [facility] T MATERIAL CT PELVIS 38418 RADIOLOGY SCHMITTER PAOLO Rowe W/[facility] ASS[facility] L T S PSC MATERIAL RADEX 54557 RADIOLOGY MCKAYLA, SPINE 9 TIERRA G CERVICAL ASSOCIATE 4 OR 5 S PSC VIEWS RADEX 31771 RADIOLOGY FRANCINE, SPINE 9 BUDDY Mercado SHAQUILLE ASSOCIATE STUDY S PSC W/SUPINE & ERECT STUDY FITTING 58643 GAURAV LEVI, SPECTACLE 9 VISION KHLOE M S XCPT APHAKIA MONOFOCAL FRAMES V2020 GAURAV LEVI, PURCHASES 9 VISION KHLOE M 1 VISN V2103 GAURAV LEVI, PLANO 9 VISION KHLOE M TO+/-4.00 D SPHER 0.12-2.00 D CYL EA OPHTH 53329 GAURAV LEVI, MEDICAL 9 VISION KHLOE M XM&EVAL COMPRHNSV ESTAB PT 1/> ANESTHESI 23761 Lin BROWER 9 MANUEL Ceballos INTRAORAL ANESTHEIS WITH AA BIOPSY SERVICES NOS PSC HEPATBL 71839 RADIOLOGY APPLE PRUETT SYS 9 BOB Maria IMG ASSOCIATE GLBLDR S PSC PROTHROMB [address] IN TIME 9 HELIO HELIO MEDICALCE MEDICALCE NTER NTER BLOOD [address] COUNT 9 HELIO HELIO COMPLETE AUTO&AUTO MEDICALCE MEDICALCE DIFRNTL NTER NTER WBC COLLECTIO 40266 [facility], N VENOUS 9 MEDICAL VIRAL BLOOD GROUP VENIPUNCT URE URNLS DIP 39472 [facility], 9 MEDICAL VIRAL STICK/TAB GROUP LET RG[place] AUT[place] [address] RADIOLOGY SHAHZAD, ABDOMINAL 9 LITO Zaragoza REAL ASSOCIATE TIME S PSC W/[place] [address] AMYLASE 9 HELIO HELIO MEDICALCE MEDICALCE NTER NTER COLLECTIO 37997 [facility] L[facility], N VENOUS 9 MEDICAL VIRAL [place] [address] LIPASE 9 HELIO HELIO MEDICALCE MEDICALCE NTER NTER HEPATIC [address] FUNCTION 9 HELIO HELIO PANEL MEDICALCE MEDICALCE NTER NTER HEPATIC [address] FUNCTION 8 HELIO HELIO PANEL MEDICALCE MEDICALCE NTER NTER ANTIBODY 15901 [facility] HELICOBAC 8 [facility] [place] MEDICALCE MEDICALCE NTER NTER BLOOD 66816 [facility] COUNT 8 [facility] COMPLETE AUTO&AUTO MEDICALCE MEDICALCE DIFRNTL NTER NTER WBC COLLECTIO 75594 [facility] STERNEBER N VENOUS 8 MEDICAL Patricia, ANTIONETTE BLOOD GROUP B VENIPUNCT URE CT PELVIS 22392 AMIRAH MACARIO W/O 8 [facility] CONTRAST INC INC MATERIAL RADIOLOGI 36035 AMIRAH Mercado EXAM 8 [facility] CHEST 2 INC INC VIEWS FRONTAL&L ATERAL URINE 29449 AMIRAH MACARIO 8 [facility] TEST INC INC VISUAL COLOR CMPRSN METHS BLOOD 64062 AMIRAH MACARIO COUNT 8 [facility] COMPLETE INC INC AUTO&AUTO DIFRNTL WBC URNLS DIP 95002 AMIRAH MACARIO 8 [facility] STICK/TAB INC INC LET REAGENT AUTO MICROSCOP Y FIBRIN 06951 AMIRAH MACARIO DGRADJ 8 [facility] PRODUCTS INC INC D-DIMER QUAL/SEMI CARLOS 3D 01692 [facility] FUENTES, RENDERING 8 MEDICAL SERGIO IMAGING W/INTERP& ASSOCIATE POSTPROC S DIFF WORK STATION COMPREHEN 34808 AMIRAH MACARIO SIVE 8 [facility] [place] [address] [facility] MIMSALFREDO, ABDOMEN 8 MEDICAL SERGIO W/O IMAGING CONTRAST ASSOCIATE MATERIAL S IADNA 66471 [facility] STREPTOCO 8 [facility] GROUP A AMPLIFIED PROBE TQ IRRIGATIO 9652 AMIRAH Pedersen OF EAR 8 [facility] INC INC Encounters Encounter Start End Date Code Location Performer Type Date HOSPITAL ST - OTHER 7 7 [facility] OFF[facility] 09874 [facility] OUTPATI[facility] 7 7 HELIO T NEW 45 MINUTES [address]YSICIAN S [facility] - OTHER 7 7 [facility] OFFICE 02317 [facility] OUTPATIEN 7 7 HELIO T VISIT 15 PHYSICIAN MINUTES S OFFICE 82877 MALLY OUTPATIEN 7 7 HEL[facility] T VISIT 15 PHYSICIAN [address] S [facility] - OTHER 7 7 [facility] EMERGENCY 74325 [facility] 7 7 PHYSICIAN DEPARTMEN S, PLLC T VISIT MODERATE SEVERITY HOSPITAL AMIRAH - 7 7 [facility] OUTPATI[facility] INC T OFFICE 16833 [facility] T VISIT INC [address]ES [address] [facility] OUTPATIEN 7 7 HELIO MOORE, DO T VISIT [address] - 7 7 [facility] OFF[facility] 66023 [facility] OUTPATIEN 7 7 HELIO MOORE, DO T VISIT 15 PHYSICIAN MIN[address] S HOSP[facility] [address] - OTHER 7 7 [facility] H[facility]PITAL ST - OTHER 7 7 [facility]ALTHCAR E EDGE PERIODIC 37250 [facility] PREVENTIV 7 7 HELIO E MED EST PATIENT PHYSICIAN 18-39 YRS S OFFICE 68441 [facility] OUTPATIEN 7 7 HELIO T VISIT 25 PHYSICIAN MINUTES S HOSPITAL ST - OTHER 7 7 [facility]ALTH[facility] E EDGE EMERGENCY 87898 SHERRI ALLEN 7 7 EMERGENCY DEPARTMEN T VISIT PHYSICIAN MODERATE S SEVERITY EMERGENCY 00316 [facility] SANDRO 7 7 EMERGENCY DEPARTMEN T VISIT PHYSICIAN HIGH/URGE S NT SEVERITY EMERGENCY 13214 [facility] BRIANKLEMAN 7 7 EMERGENCY DEPARTMEN T VISIT PHYSICIAN HIGH/URGE S NT SEVERITY EMERGENCY 89189 [facility] REMA LILI 6 6 EMERGENCY DEPARTMEN T VISIT PHYSICIAN HIGH/URGE S NT SEVERITY EMERGENCY 47496 [facility] NAT 6 6 EMERGENCY KRI DEPARTMEN T VISIT PHYSICIAN HIGH/URGE S NT SEVERITY EMERGENCY 52314 [facility] DAVREN 5 5 EMERGENCY MERRICK DEPARTMEN T VISIT PHYSICIAN HIGH/URGE S NT SEVERITY EMERGENCY 64477 [facility] DIYA 5 5 EMERGENCY JAILENE DEPARTMEN T VISIT PHYSICIAN HIGH/URGE S NT SEVERITY CRITICAL [facility]. ACCESS [address] [facility] OFFICE [address] VIKY OUTPATIEN 5 5 HELIO MAR T VISIT 10 PHYSICIAN MINUTES S EMERGENCY 92122 [facility] REMA LILI 5 5 EMERGENCY DEPARTMEN T VISIT PHYSICIAN HIGH/URGE S NT SEVERITY HOSPITAL ST. - 5 5 HELIO OUTPATIEN PHYLLIS T EMERGENCY 80171 [facility] ELKEL 5 5 EMERGENCY RAC DEPARTMEN T VISIT PHYSICIAN HIGH/URGE S NT SEVERITY EMERGENCY 27858 [facility] ELEAZAR 5 5 EMERGENCY LINDA DEPARTMEN T VISIT PHYSICIAN MODERATE S SEVERITY EMERGENCY 09375 ST [place] 4 4 [facility]IO IRVING DEPARTMEN MED CTR T VISIT MODERATE SEVERITY OFFICE 87932 ST [facility] OUTPATIEN 4 4 HELIO KIR T VISIT 15 PHYSICIAN MINUTES S OFFICE 42790 ST L[facility] VIR OUTPATIEN 4 4 HELIO T VISIT 25 PHYSICIAN MINUTES S HOSPITAL ST - 4 4 [facility] OUTPATIEN MED CTR T AIRPLANE PILOT CROP DUSTING ST OFFICE [address]04 ST VIKY OUTPATIEN 4 4 HELIO MAR T VISIT 10 PHYSICIAN MIN[address]ES S [facility] - 4 4 [facility] [address] [facility] L[facility] VIR OUTPATIEN 4 4 HELIO T VISIT 25 PHYSICIAN [facility] ST - 4 4 [facility] T AIRPLANE PILOT CROP DUSTING OFFICE 46379 ST LÓPEZ VIR OUTPATIEN 4 4 HELIO T VISIT 15 [facility] ST - 4 4 [facility] T AIRPLANE PILOT CROP DUSTING OFFICE 34993 ST L[facility] VIR [facility] T VISIT 25 [facility] ST - 4 4 [facility] T AIRPLANE PILOT CROP DUSTING EMERGENCY 33367 ELIN WORTHINGTON 4 4 DAVID DAVID DEPARTMEN T VISIT HIGH/URGE NT SEVERITY HOSPITAL ST - OTHER 4 4 HELIO MED CTR AIRPLANE PILOT CROP DUSTING EMERGENCY 76637 ELIN WORTHINGTON 4 4 DAVID DAVID DEPARTMEN T VISIT HIGH/URGE NT [facility] HOSPITAL ST - OTHER 4 4 HELIO MED CTR [facility] ST - 0 0 [facility] HOSPITAL ST - [address] [facility] T OFFICE 44782 [facility] 0 0 MEDICAL VIRAL T VISIT GROUP 25 [facility] AMIRAH - 0 0 [facility] EMERGENCY 30118 ELFEGO WORTHINGTON, 0 0 [facility] T VISIT MODERATE [facility] ST - [address] [facility] T OFFICE 13901 [facility] ADAIR LÓPEZ 9 9 MEDICAL VIRAL T VISIT GROUP 25 MINUTES OFFICE 98234 [facility] RENE OUTPATIEN 9 9 MEDICAL VIRAL T VISIT GROUP 15 MINUTES EMERGENCY 82081 [facility], 9 9 HELIO KARLOS Judd [facility] MED CTR T VISIT MODERATE SEVERITY HOSPITAL ST - [address] [facility] T EMERGENCY [address] 9 9 [facility] T VISIT LOW/MODER SEVERITY HOSPITAL ST - [address] [facility] T OFFICE 95307 [facility] ADAIR LÓPEZ 9 9 MEDICAL VIRAL T VISIT GROUP 15 MINUTES [facility] ST - 9 9 [facility] MEDICALCE NTER OFFICE 49725 [facility] ADAIR LÓPEZ 9 9 MEDICAL VIRAL T VISIT GROUP [address] [facility] T [address]PITAL [address] [facility] T OFFICE 52937 [facility] SHAHRAM [facility] 9 9 MEDICAL VIRAL T VISIT GROUP [address] - [address] [facility] T EMERGENCY 11119 [facility] 9 9 STEVEN CADET [facility] MED CTR T VISIT HIGH/URGE NT SEVERITY HOSPITAL ST [address] [facility] T OFFICE 59367 SANDRA MCCLELLAN 9 9 MEDICAL VIRAL ION GROUP NEW/ESTAB PATIENT [address] - 9 9 [facility] MEDICALCE NTER OFFICE 20789 [facility] ADAIR LÓPEZ 9 9 MEDICAL VIRAL T VISIT GROUP 15 MINUTES HOSPITAL [facility] [address] [facility] T OFFICE 82637 [facility] 9 9 MEDICAL VIRAL T VISIT GROUP 15 [facility] - 9 9 [facility] MEDICALCE NTER OFFICE 82965 [facility] 8 8 MEDICAL [facility]IRAL T VISIT GROUP 15 [facility] OFF[address] 67069 [facility] 8 8 MEDICAL G, ANTIONETTE T NEW 20 GROUP B [facility] 8 8 [facility]ERGENC[facility] 41460 8 8 [facility] T VISIT MODERATE SEVERITY EMERGENCY [address] [place] [address] 8 [facility] MED CTR T VISIT HIGH/URGE NT SEVERITY HOSPITAL [facility] [address] [facility] T EMERGENCY 62004 [facility] 8 [facility] T VISIT LOW/MODER SEVERITY HOSPITAL [facility] 8 [facility] T OFFICE 24597 [facility] 8 8 POINT E[place], T VISIT FAMILY [place] 15 CARE, MINUTES [facility] [place] [address] 8 [facility] EMERGENCY [address] [place] [address] 8 [facility] T VISIT LOW/MODER SEVERITY EMERGENCY [address] [place] [address] 8 HELIO [facility] MED CTR T VISIT MODERATE SEVERITY HOSPITAL [facility] 8 [facility] T EMERGENCY 96148 [facility] 8 8 [facility] T VISIT LIMITED/M IN[facility] PROB H[facility] 8 8 [facility] 63879 [facility], 8 8 [facility] T VISIT MODERATE [facility]VERITY HOSPITAL - [address] [facility] T EMERGENCY 49350 [facility] 8 [facility] T VISIT LOW/MODER SEVERITY EMERGENCY 18522 [facility] 8 8 [facility] T VISIT LOW/MODER SEVERITY HOSPITAL AMIRAH - 8 8 [facility] T
--- OUTSIDE RECORDS SUMMARY | 2016-12-19 21:21 | External Medical Summary Rpt | CCD ---
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 Claims Adjuster Name Role Phone NAT KOVACS, Unavailable [...] DAVID MANUEL WORTHINGTON, Unavailable Unavailable MANUEL WORTHINGTON [facility], Unavailable Unavailable [facility] MANUEL SHIN, Unavailable Unavailable MANUEL SHIN [facility] Unavailable Unavailable [facility], [facility] [...] Unavailable Unavailable PAOLO MORGAN, ELEAZAR Unavailable Unavailable KHLOE FREITAS, Unavailable Unavailable KHLOE LEVI SHERMAN Unavailable Unavailable STEVEN LUJAN SOWER, Unavailable Unavailable STEVEN [facility] Unavailable Un[facility] Unavailable [facility]available [facility]available Unavailable [facility] Unavailable Unavailable SW[facility] TENDER [facility] Unavailable Unavailable [facility], [facility] Unavailable Unavailable PHYSICIANS, [facility] PHYSICIANS [facility], Unavailable Unavailable [facility] STEVEN MEJIA, Unavailable Unavailable STEVEN LOPEZ STEVEN [...] CONSTIPATIO PHYSICIANS N N3000 ACUTE 11-09-2016 CYSTITIS [place] WITHOUT PHYSICIANS HEMATURIA N390 URINARY 11-09-2016 TRACT [place] INFECTION PHYSICIANS SITE NOT SPECIFIED N398 OTHER 11-09-2016 SPECIFIED [place] DISORDERS PHYSICIANS OF URINARY SYSTEM R3914 FEELING OF 11-09-2016 INCOMPLETE [place] BLADDER PHYSICIANS EMPTYING [id number] OTHER 11-09-2016 DIFFICULTIE [place] S WITH PHYSICIANS MICTURITION N898 OTHER 10-25-2016 SPECIFIED [facility] NONINFLAMMA PHYSICIANS TORY DISORDERS [place]AG[place] N926 IRREGULAR 10-25-2016 MENSTRUATIO [facility] N PHYSICIANS UNSPECIFIED Z681 BODY MASS 10-25-2016 ST INDEX 19.9 [facility] OR LESS PHYSICIANS ADULT R110 NAUSEA 09-30-2016 [facility] R51 HEADACHE 09-30-2016 [facility], [facility] [id number] MIGRAINE 09-27-2016 [facility] NOT INTRACT INC W/O STAT MIGRAIN R197 DIARRHEA 09-20-2016 UNSPECIFIED [facility] PHYSICIANS R630 ANOREXIA 09-20-2016 [facility] PH[facility]IANS H5203 HYPERMETROP 09-19-2016 [place] IA BILATERAL R300 DYSURIA 09-02-2016 [facility] PH[facility]ICIANS O96136 ENCOUNTER 08-23-2016 SCARRER EXAM [place] GENERAL RTN PHYSICIANS W/O ABNORMAL FIND B373 CANDIDIASIS 08-15-2016 OF VULVA [facility] AND VAGINA PHYSICIANS N760 ACUTE 08-15-2016 VAGINITIS [facility] PHYSICIANS R140 ABDOMINAL 08-15-2016 DISTENSION [facility] GASEOUS PHYSICIANS Z6820 BODY MASS 08-15-2016 ST INDEX BMI [facility] 20.0-20.9 PHYSICIANS ADULT N3090 CYSTITIS 07-23-2016 [facility] UNSPECIFIED EMERGENCY WITHOUT PHYSICIANS HEMATURIA J069 ACUTE UPPER 06-02-2016 [facility] EMERGENCY RESPIRATORY PHYSICIANS INFECTION UNSPECIFIED N888 OTH SPEC 04-27-2016 [facility] NONINFLAMMA EMERGENCY TORY PHYSICIANS DISORDERS CERVIX UTERI J111 FLU D/T 05-21-2015 [facility] UNIDENTIFIE EMERGENCY D FLU VIRUS PHYSICIANS W/OTH RESP MANIF R109 UNSPECIFIED 03-25-2015 [facility] ABDOMINAL EMERGENCY PAIN PHYSICIANS A64 UNSPECIFIED 01-09-2015 [facility] SEXUALLY EMERGENCY TRANSMITTED PHYSICIANS DISEASE N12 TUBULO-INTE 01-09-2015 [facility] RST EMERGENCY NEPHRITIS PHYSICIANS NOT SPEC ACUTE/CHRON 5950 ACUTE 09-17-2014 [facility] CYSTITIS EMERGENCY PHYSICIANS 52055 HEMATURIA 09-17-2014 [place] UNSPECIFIED EMERGENCY PHYSICIANS 6268 [...] 7881 DYSURIA 12-04-2013 [facility] 63546 ABDOMINAL 12-04-2013 ST PAIN OTHER [facility] SPECIFIED MED CTR SITE 6202 OTHER AND 12-03-2013 ST UNSPECIFIED [facility] OVARIAN PHYSICIANS CYST 6259 UNSPEC 12-03-2013 SYMPTOM [facility] ASSOC PHYSICIANS W/FEMALE GENITAL ORGANS 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 MENSTRUATIO [facility] N PHYLLIS 49987 ABDOMINAL 10-21-2013 ST. PAIN, [facility] UNSPECIFIED PHYLLIS SITE 05453 GENERALIZED 08-08-2013 ANXIETY [facility] DISORDER PHYSICIANS 79727 UNSPECIFIED 08-08-2013 ST [facility] CONSTIPATIO PHYSICIANS N V700 ROUTINE 07-19-2013 GENERAL [facility] MEDICAL PHYSICIANS EXAM@HEALTH CARE FACL V7231 ROUTINE 07-19-2013 GYNECOLOGIC [facility] AL PHYSICIANS EXAMINATION 2639 UNSPECIFIED 06-10-2013 [facility] PROTEIN-IRON MED CTR SWITCH TENDER ORIE ST MALNUTRITIO N 7804 DIZZINESS 06-10-2013 ST AND [facility] GIDDINESS MED CTR SWITCH TENDER ST 1101 DERMATOPHYT 04-05-2013 ST OSIS OF [facility] NAIL MED CTR SWITCH TENDER ST 57768 CLOSED 04-22-2009 [facility] FRACTURE OF ASSOCIATES HEAD OF [facility] RADIUS 88222 CONTUSION 03-25-2009 [facility] OF SHOULDER H REGION ORTHOPAEDIC CTR PSC 41215 CONTUSION 03-25-2009 [facility] OF HIP H ORTHOPAEDIC CTR [facility] 4779 ALLERGIC 03-23-2009 [facility] RH[facility]IS [facility] CAUSE [facility] UNSPECIFIED 26640 ESOPHAGEAL 03-23-2009 [facility] 46281 NAUSEA 03-23-2009 [facility] 41514 CLOSED 03-23-2009 [facility] FRACTURE MEDICAL UNSPEC PART GROUP LOWER END HUMERUS E8490 PLACE OF 03-20-2009 [place] OCCURRENCE, [facility] E8851 FALL FROM 03-20-2009 [facility] 66217 MASTODYNIA 03-11-2009 [facility] PSC 55883 LUMP OR 03-11-2009 RADI[facility] MASS IN ASSOCIATES BREAST PSC 29799 UNSPECIFIED 02-12-2009 [facility] VIRAL [facility] INFECTION GROUP IN CCE & UNS SITE 462 ACUTE 02-12-2009 [facility] PHARYNGITIS [facility] 6100 SOLITARY 01-20-2009 [facility] CYST OF MEDICAL BREAST GROUP 98338 OTHER 01-20-2009 [facility] MALAISE AND MEDICAL FATIGUE GROUP 5969 UNSPECIFIED 12-10-2008 [facility] 49426 ABDOMINAL 12-10-2008 [facility] PAIN RIGHT ASSOCIATES LOWER PSC QUADRANT 4619 ACUTE 12-08-2008 [facility] SINUSITIS, MEDICAL UNSPECIFIED GROUP 6253 DYSMENORRHE 12-08-2008 [facility] A [facility] 7231 CERVICALGIA 09-12-2008 [facility]OC[facility] PSC 05918 ABDOMINAL 09-12-2008 [facility] PAIN RIGHT MEDICAL UPPER GROUP QUADRANT 8470 NECK SPRAIN 09-12-2008 [facility] AND STRAIN [facility] 7379 UNSPECIFIED 09-02-2008 [facility] CURVATURE ASSOCIATES OF SPINE PSC 0340 STREPTOCOCC 06-10-2008 [facility] [place] [facility] 7892 SPLENOMEGAL 06-10-2008 ST Y [place] [facility] 3671 MYOPIA 06-06-2008 [facility] 14729 UNSPECIFIED 05-21-2008 [facility] DENTAL ANESTHEISAA CARIES SERVICES [facility] V7284 UNSPECIFIED 05-13-2008 [facility] PRE-OPERATI [facility] VE EXAMINATION 25445 CALCU 04-17-2008 [facility] GALLBLADD [facility]ICAL W/O MENTION GROUP CHOLECYST/O BST 80788 ABDOMINAL 03-20-2008 [facility] TENDERNESS MEDICAL RIGHT UPPER GROUP QUADRANT 3829 UNSPECIFIED 02-27-2008 [facility] OTITIS [facility] MEDIA [facility] 6929 CONTACT 02-27-2008 [facility] DERMATITIS& MEDICAL OTHER GROUP ECZEMA DUE UNSPEC CAUSE 14384 DIARRHEA 01-25-2008 [facility] 41745 EXTRINSIC 12-21-2007 [facility] WITH [place] STATUS MED CTR ASTHMATICUS 33750 ASTHMA, 12-21-2007 [facility] 5110 PLEURISY 06-26-2007 [facility] MENTION INC EFFUS/CURRE NT TB 5997 HEMATURIA 06-26-2007 [facility] 47436 CHEST PAIN 06-26-2007 [facility] 4659 ACUTE URIS 04-25-2007 [facility] UNSPECIFIED MED CTR SITE 0549 HERPES 04-17-2007 [facility] WITHOUT INC MENTION OF COMPLICATIO N 61625 UNSPECIFIED 03-29-2007 [facility] 3804 IMPACTED 03-23-2007 [facility] 45452 SCOLIOSIS , 03-23-2007 [facility] Medications Na ND Rx Da Fi Fi Am Da Di Ph RX Ph St me C No te ll ll ou ys ag ar # ys at rm s nt no ma ic us Or Da si cy ia de te s n re d FL 55 09 10 1. 1 00 [place] Ac UC 11 -1 -0 00 00 L- ti ON 10 3- 6- 0 06 MA ve AZ 14 20 20 14 RT OL 51 17 17 27 E 2 16 PH 15 AR 0 MA MG CY TA #5 BL 84 ET CE 68 09 10 14 7 00 [place] Ac PH 18 -1 -0 .0 00 L- ti AL 00 3- 6- 00 06 MA ve EX 12 20 20 14 RT IN 20 17 17 27 2 15 PH 50 AR 0 MA MG CY CA #5 PS 84 UL E PO 00 09 10 28 28 00 [place] Ac LY 57 -1 -0 .0 00 L- ti ET 40 3- 6- 00 06 MA ve HY 41 20 20 14 RT LE 20 17 17 27 NE 7 14 PH AR GL MA YC CY OL #5 33 84 50 PO WD ME 62 09 09 30 30 00 [place] Ac TO 03 -0 -2 .0 00 L- ti IL 70 6- 9- 00 06 MA ve OL 83 20 20 10 RT OL 01 17 17 76 0 20 PH MERIDA AR CC MA CY ER #5 25 84 MG TA B VE 00 09 09 30 30 00 [place] Ac NL 09 -0 -2 .0 00 L- ti AF 37 6- 9- 00 06 MA ve AX 38 20 20 10 RT IN 65 17 17 76 E 6 22 PH HC AR L MA ER CY 15 #5 0 84 MG CA P FL 55 09 09 1. 1 00 [place] Ac UC 11 -0 -2 00 00 L- ti ON 10 6- 9- 0 06 MA ve AZ 14 20 20 14 RT OL 51 17 17 09 E 2 31 PH 15 AR 0 MA MG CY TA #5 BL 84 ET CA 51 [address] [facility] CR 86 -2 -2 .0 00 L- ti OG 20 9- 2- 00 06 MA ve ES 01 20 20 13 RT TI 20 17 17 92 N 6 94 PH FE AR MA 1- CY 20 #5 TA 84 BL ET ME 50 [address] [facility] TR 11 -3 -2 .0 00 L- ti ON 10 0- 2- 00 06 MA ve ID 33 20 20 13 RT AZ 40 17 17 96 OL 2 34 PH E AR 50 MA 0 CY MG #5 TA 84 BL ET FL 55 [address] [facility] UC 11 -2 -2 00 00 L- ti ON 10 9- 2- 0 06 MA ve AZ 14 20 20 13 RT OL 51 17 17 92 E 2 93 PH 15 AR 0 MA MG CY TA #5 BL 84 ET CE 68 [address] [facility] PH 18 -2 -1 .0 00 L- ti AL 00 1- 5- 00 06 MA ve EX 12 20 20 13 RT IN 20 17 17 72 2 71 PH 50 AR 0 MA MG CY CA #5 PS 84 UL E FL 55 [address] [facility] UC 11 -2 -1 00 00 L- ti ON 10 1- 5- 0 06 MA ve AZ 14 20 20 13 RT OL 51 17 17 72 E 2 72 PH 15 AR 0 MA MG CY TA #5 BL 84 ET CA 57 [address] [facility] RT 23 -0 -0 .0 00 L- ti AZ 70 6- 1- 00 06 MA ve AP 00 20 20 12 RT IN 83 17 17 94 E 0 05 PH 15 AR MA MG CY TA #5 BL 84 ET ME 62 [address] [facility] TO 03 -0 -2 .0 00 L- ti IL 70 1- 5- 00 06 MA ve OL 83 20 20 10 RT OL 01 17 17 76 0 20 PH MERIDA AR CC MA CY ER #5 25 84 MG TA B VE 00 [address] [facility] NL 09 -0 -2 .0 00 L- ti AF 37 1- 5- 00 06 MA ve AX 38 20 20 10 RT IN 65 17 17 76 E 6 22 PH HC AR L MA ER CY 15 #5 0 84 MG CA P ON 57 07 [address] [facility] DA 23 -2 -1 .0 00 L- ti NS 70 5- 8- 00 06 MA ve ET 07 20 20 13 RT RO 71 17 17 17 N 0 05 PH OD AR T MA 4 CY MG #5 TA 84 BL ET CA 57 07 08 30 30 00 [place] Ac RT 23 -1 -1 .0 00 L- ti AZ 70 4- 1- 00 06 MA ve AP 00 20 20 12 RT IN 83 17 17 94 E 0 05 PH 15 AR MA MG CY TA #5 BL 84 ET NI 47 07 08 10 5 00 [place] Ac TR 78 -0 -0 .0 00 L- ti OF 10 7- 4- 00 06 MA ve UR 30 20 20 12 RT AN 30 17 17 78 TO 1 43 PH IN AR MA MO CY NO -M #5 CR 84 10 0 MG FL 55 07 08 1. 1 00 [place] Ac UC 11 -0 -0 00 00 L- ti ON 10 7- 4- 0 06 MA ve AZ 14 20 20 12 RT OL 51 17 17 78 E 2 44 PH 15 AR 0 MA MG CY TA #5 BL 84 ET VE 00 07 [address] [facility] NL 09 -0 -0 .0 00 L- ti AF 37 7- 4- 00 06 MA ve AX 38 20 20 10 RT IN 65 17 17 76 E 6 22 PH HC AR L MA ER CY 15 #5 0 84 MG CA P ME 62 07 08 30 30 00 [place] Ac TO 03 -0 -0 .0 00 L- ti IL 70 7- 4- 00 06 MA ve OL 83 20 20 10 RT OL 01 17 17 76 0 20 PH MERIDA AR CC MA CY ER #5 25 84 MG TA B ME 50 06 07 14 7 00 [place] Ac TR 11 -2 -2 .0 00 L- ti ON 10 - 8- 00 06 MA ve ID 33 20 20 12 RT AZ 40 17 17 58 OL 2 57 PH E AR 50 MA 0 CY MG #5 TA 84 BL ET FL 55 06 07 1. 1 00 [place] Ac UC 11 -1 -1 00 00 L- ti ON 10 9- 4- 0 06 MA ve AZ 14 20 20 12 RT OL 51 17 17 41 E 2 11 PH 15 AR 0 MA MG CY TA #5 BL 84 ET ME 50 06 07 4. 1 00 [place] Ac TR 11 -2 -1 00 00 L- ti ON 10 1- 4- 0 06 MA ve ID 33 20 20 12 RT AZ 40 17 17 45 OL 2 67 PH E AR 50 MA 0 CY MG #5 TA 84 BL ET FL 55 [address] [facility] UC 11 -2 -2 00 00 L- ti ON 10 7- 3- 0 06 MA ve AZ 14 20 20 11 RT OL 51 17 17 92 E 2 43 PH 15 AR 0 MA MG CY TA #5 BL 84 ET PH 51 [address] [facility] EN 29 -2 -2 00 00 L- ti AZ 30 7- 3- 0 06 MA ve OP 81 20 20 11 RT YR 10 17 17 92 ID 1 44 PH IN AR E MA 20 CY 0 MG #5 84 TA B CE 68 [address] [facility] PH 18 -2 -2 .0 00 L- ti AL 00 7- 3- 00 06 MA ve EX 12 20 20 11 RT IN 20 17 17 92 2 45 PH 50 AR 0 MA MG CY CA #5 PS 84 UL E VE 00 05 [address] [facility] NL 09 -2 -1 .0 00 L- ti AF 37 4- 6- 00 06 MA ve AX 38 20 20 10 RT IN 65 17 17 76 E 6 22 PH HC AR L MA ER CY 15 #5 0 84 MG CA P CA 57 05 [address] [facility] RT 23 -2 -1 .0 00 L- ti AZ 70 4- 6- 00 06 MA ve AP 00 20 20 10 RT IN 83 17 17 76 E 0 21 PH 15 AR MA MG CY TA #5 BL 84 ET ME 62 05 [address] [facility] TO 03 -2 -1 .0 00 L- ti IL 70 4- 6- 00 06 MA ve OL 83 20 20 10 RT OL 01 17 17 76 0 20 PH MERIDA AR CC MA CY ER #5 25 84 MG TA B ME 62 04 [address] [facility] TO 03 -0 -0 .0 00 L- ti IL 70 7- 5- 00 06 MA ve OL 83 20 20 10 RT OL 01 17 17 76 0 20 PH MERIDA AR CC MA CY ER #5 25 84 MG TA B CA 57 04 [address] [facility] RT 23 -0 -0 .0 00 L- ti AZ 70 7- 5- 00 06 MA ve AP 00 20 20 10 RT IN 83 17 17 76 E 0 21 PH 15 AR MA MG CY TA #5 BL 84 ET VE 00 04 [address] [facility] NL 09 -0 -0 .0 00 L- ti AF 37 7- 5- 00 06 MA ve AX 38 20 20 10 RT IN 65 17 17 76 E 6 22 PH HC AR L MA ER CY 15 #5 0 84 MG CA P FL 55 04 05 1. 1 00 [place] Ac UC 11 -0 -0 00 00 L- ti ON 10 7- 5- 0 06 MA ve AZ 14 20 20 10 RT OL 51 17 17 76 E 2 17 PH 15 AR 0 MA MG CY TA #5 BL 84 ET EQ 49 04 05 89 4 00 [place] Ac 03 -0 -0 .0 00 L- ti CO 50 7- 5- 00 08 MA ve UG 38 20 20 86 RT H 42 17 17 46 DM 1 36 PH AR ER MA CY 30 #5 MG 84 /5 ML MERIDA SP CE 68 04 05 40 10 00 [place] Ac PH 18 -0 -0 .0 00 L- ti AL 00 08-31- 06 MA ve EX 12 20 20 10 RT IN 10 17 17 76 1 18 PH 25 AR 0 MA MG CY CA #5 PS 84 UL E IL 60 04 05 24 8 00 [place] Ac OM 43 -0 -0 0. 00 L- ti ET 20 7- 5- 00 04 MA ve QURESHI 60 20 20 0 65 RT ZI 61 17 17 22 NE 6 60 PH -C AR OD MA EI CY NE #5 SY 84 RU P FL 55 03 04 1. 1 00 [place] Ac UC 11 -1 -0 00 00 L- ti ON 10 4- 7- 0 06 MA ve AZ 14 20 20 10 RT OL 51 17 17 09 E 2 10 PH 15 AR 0 MA MG CY TA #5 BL 84 ET ME 50 03 04 14 7 00 [place] Ac TR 11 -1 -0 .0 00 L- ti ON 10 - 7 00 06 MA ve ID 33 20 20 10 RT AZ 40 17 17 09 OL 2 12 PH E AR 50 MA 0 CY MG #5 TA 84 BL ET ME 49 03 03 30 30 00 GR Ac TO 88 -0 -3 .0 00 AN ti IL 40 6- 1- 00 02 T ve [...] 15 0 IN MG C. CA P CA 57 03 03 30 30 00 GR [...] Y #3 TA 93 BL 8 ET IL 37 06 02 00 28 28 RI [...] PH L AR MA CY #5 84 IL 68 01 02 00 30 7 WA [...] 20 20 RT 6 70 10 10 CA 5 PH CH AR AE MA L [...] CY CA #5 PS 84 UL E IL 68 12 12 00 20 6 WA [...] 00 30 15 WA 75 PA Ac IL 09 -1 -2 .0 L- 16 TE [...] PH L AR MA CY #5 84 IL 37 06 07 00 28 28 WA [...] ti YL 34 9- MA 93 ve IL 59 20 20 RT 9 DA ED [...] CY CA #5 PS 84 UL E IL 37 01 02 01 28 28 RI [...] MP #5 DS 84 TA BL ET IL 68 02 02 00 30 7 WA [...] PH L AR MA CY #5 84 IL 37 01 01 00 28 28 RI [...] EN B TA #5 BL 84 ET IL 00 10 11 00 8. 4 WA [...] CY CA #5 PS 84 UL E IL 00 07 08 00 6. 25 WA [...] -H 4 C EA R SO LN [place] 00 03 03 00 10 20 WA [...] Procedure DOS Code Location Performer Comment SUSCEPTIB [address] LTY STDY 7 [facility] CADET ANTIMICRB IAL HEALTHCAR HEALTHCAR MICRO/AGA E EDGE E EDGE R DILUTJ JASMIN 88189 ST YARI POST-VOID 7 [facility] RIVERA RESIDUAL PHYSICIAN URINE&/BL S ADDER CAP CULTURE [address] BACTERIAL 7 [facility] CADET QUANTTATI HEALTHCAR HEALTHCAR VE COLONY E EDGE E EDGE COUNT URINE CULTURE [address] BCT 7 [facility] CADET ISOL&PRSM PTV ID HEALTHCAR HEALTHCAR ISOLATE E EDGE E EDGE EA URINE IADNA [address] ST ST GARDNEREL 7 [facility] CADET LA VAGINALIS HEALTHCAR HEALTHCAR DIRECT E EDGE E EDGE PROBE TQ URINE 72043 ST VIKY 7 [facility] TEST VISUAL PHYSICIAN COLOR S CMPRSN METHS IADNA [address] TRICHOMON 7 [facility] CADET VAGINALIS HEALTHCAR HEALTHCAR DIRECT E EDGE E EDGE PROBE TQ IADNA [address] RANDELL 7 [facility] CADET SPECIES DIRECT HEALTHCAR HEALTHCAR PROBE TQ E EDGE E EDGE SUSCEPTIB [address] LTY STDY 7 [facility] CADET ANTIMICRB IAL HEALTHCAR HEALTHCAR MICRO/AGA E EDGE E EDGE R DILUTJ CULTURE [address] BCT 7 [facility] ISOL&PRSM PTV ID HEALTHCAR HEALTHCAR ISOLATE E EDGE E EDGE EA URINE CULTURE 90[address] ST ST BACTERIAL 7 [facility] HELIO QUANTTATI HEALTHCAR HEALTHCAR VE COLONY E EDGE E EDGE COUNT URINE URINE 45027 [facility] MACARIO [facility] TEST INC INC VISUAL COLOR CMPRSN METHS THERAPEUT 18838 [facility] MACARIO IC 7 [facility] PROPHYLAC INC INC TIC/DX INJECTION SUBQ/IM BLOOD [address] COUNT 7 [facility] COMPLETE AUTOMATED HEALTHCAR HEALTHCAR E EDGE E EDGE COLLECTIO [address] N VENOUS 7 [facility] BLOOD VENIPUNCT HEALTHCAR HEALTHCAR URE E EDGE E EDGE COMPREHEN [address] SIVE 7 [facility] METABOLIC PANEL HEALTHCAR HEALTHCAR E EDGE E EDGE OPHTH 91909 [facility] 7 XM&EVAL COMPRE NEW PT 1/> VST CULTURE [address] BACTERIAL 7 [facility] HELIO QUANTTATI HEALTHCAR HEALTHCAR VE COLONY E EDGE E EDGE COUNT URINE IADNA [address] CHLAMYDIA 7 [facility] TRACHOMAT HEALTHCAR HEALTHCAR IS E EDGE E EDGE AMPLIFIED PROBE TQ CYTP C/V [address] AUTO THIN 7 [facility]IO LYR PREPJ SCR HEALTHCAR HEALTHCAR MNL E EDGE E EDGE RESCR PHYS IADNA [address] NEISSERIA 7 [facility] HELIO GONORRHOE HEALTHCAR HEALTHCAR AE E EDGE E EDGE AMPLIFIED PROBE TQ IADNA [address] RANDELL 7 [facility] SPECIES DIRECT HEALTHCAR HEALTHCAR PROBE TQ E EDGE E EDGE IADNA [address] TRICHOMON 7 HELIO HELIO VAGINALIS HEALTHCAR HEALTHCAR DIRECT E EDGE E EDGE PROBE TQ IADNA [address] GARDNEREL 7 HELIO HELIO LA VAGINALIS HEALTHCAR HEALTHCAR DIRECT E EDGE E EDGE PROBE TQ GONADOTRO [address] PIN 5 HELIO HELIO LUTEINIZI PHYLLIS PHYLLIS NG HORMONE HEMOGLOBI [address] N 5 HELIO HELIO GLYCOSYLA PHYLLIS [place] [address] PROLACTIN 5 HELIO HELIO PHYLLIS PHYLLIS GONADOTRO [address] PIN 5 HELIO HELIO CHORIONIC PHY[place] [address] [facility] THYROID 5 HELIO HELIO STIMULATI PHYLLIS PHYLLIS NG HORMONE TSH GONADOTRO [address] [facility] [address] PIN 5 HEL[facility] HELIO FOLLICLE PHYLLIS PHYLLIS STIMULATI NG HORMONE COLLECTIO 50[address] [facility] [address]. N VENOUS 5 [facility] MURILLOTH BLOOD PHYLLIS PHYLLIS VENIPUNCT URE US PELVIC [address] 5 [facility] NONOBSTET PHYLLIS PHY[place] [address] TRANSVAGI 5 [facility] NAL PHYLLIS PHYLLIS CULTURE [address] BACTERIAL 4 [facility] MED CTR QUANTTATI SWITCH TENDER ST SWITCH TENDER ST VE COLONY COUNT URINE CULTURE [address] BCT 4 [facility] MURILLOTH ISOL&PRSM MED CTR MED CTR PTV ID SWITCH TENDER ST SWITCH TENDER ST ISOLATE EA URINE SUSCEPTIB [address] LTY STDY 4 [facility] ANTIMICRB MED CTR MED CTR IAL SWITCH TENDER ST SWITCH TENDER ST MICRO/[place] [address] RADIOLOGY YOUNG VAN TRANSVAGI 4 NAL ASSOCIATE S OF [facility] US PELVIC 13748 RADIOLOGY YOUNG VAN 4 NONOBSTET ASSOCIATE SOHAN S OF [facility] REAL-TIME IMAGE COMPLETE BASIC [address] METABOLIC 4 [facility] PANEL MED CTR MED CTR CALCIUM SWITCH TENDER [place] [address] THYROID 4 [facility] STIMULATI MED CTR MED CTR NG SWITCH TENDER ST SWITCH TENDER ST HORMONE TSH BLOOD [address] COUNT 4 [facility] COMPLETE MED CTR MED CTR AUTO&AUTO SWITCH TENDER ST SWITCH TENDER ST DIFRNTL WBC GONADOTRO [address] PIN 4 [facility] CHORIONIC MED CTR MED CTR SWITCH TENDER ST SWITCH TENDER ST QUANTITAT KATYA SUSCEPTIB [address] [facility]TY STDY 4 [facility] MED CTR IAL SWITCH TENDER ST SWITCH TENDER ST MICRO/AGA R DILUTJ CULTURE [address] BACTERIAL [address] [facility] MED CTR MED CTR QUANTTATI SWITCH TENDER ST SWITCH TENDER ST VE COLONY COUNT URINE CULTURE [address] BCT 4 [facility] ISOL&PRSM MED CTR MED CTR PTV ID SWITCH TENDER ST SWITCH TENDER ST ISOLATE EA URINE IADNA [address] CHLAMYDIA 4 [facility] CTR TRACHOMAT SWITCH TENDER ST SWITCH TENDER ST IS AMPLIFIED PROBE TQ IADNA [address] NEISSERIA [address] [facility] MED CTR MED CTR GONORRHOE SWITCH TENDER ST SWITCH TENDER ST AE AMPLIFIED PROBE TQ IADNA [address] NEISSERIA 4 [facility] MED CTR GONORRHOE SWITCH TENDER ST SWITCH TENDER ST AE AMPLIFIED PROBE TQ SCREEN Q0091 ST VIKY PAP 4 [facility] MAR SMEAR; OBTAIN PHYSICIAN PREP &C S ONVEY TO LAB IADNA [address] CHLAMYDIA [address] [facility] MED CTR MED CTR TRACHOMAT SWITCH TENDER ST SWITCH TENDER ST IS AMPLIFIED PROBE TQ CERV/VAGI G0101 ST VIKY NAL 4 [facility] MAR CANCER SCR; PHYSICIAN PELV&CLIN S BREAST EXAM CYTP C/V [address] AUTO THIN 4 [facility] LYR MED CTR MED CTR PREPJ SCR SWITCH TENDER ST SWITCH TENDER ST MNL RESCR PHYS BLOOD [address] COUNT 4 [facility] COMPLETE MED CTR MED CTR AUTOMATED SWITCH TENDER ST SWITCH TENDER ST PREALBUMI [address] N 4 [facility] MED CTR SWITCH TENDER ST SWITCH TENDER ST HEMOGLOBI [address] N [address] [facility] GLYCOSYLA MED CTR MED CTR KALEY A1C SWITCH TENDER ST SWITCH T[address] BASIC [address] METABOLIC [address] [facility] PANEL MED CTR MED CTR CALCIUM SWITCH TENDER ST SWITCH T[address] ST TOTAL COMPREHEN [address] ST SIVE [address] [facility] METABOLIC MED CTR MED CTR PANEL SWITCH TENDER ST SWITCH TENDER ST RADEX 84794 RADIOLOGY NEILS, ELBOW 2 0 NEL W VIEWS ASSOCIATE S PSC RADEX 36976 [facility] ELBOW 2 0 [facility] [place] [place] [address] ARLEN SAUCEDA RADIAL 0 LTH , GLORIA HEAD/NECK ORTHOPAED M FX W/O [place] [address] ELFEGO WORTHINGTON, RADIAL 0 EMERGENCY MANUEL S HEAD/NECK SERVICES FX W/O MANIPULAT ASSOCIATE ION S RADEX 58881 [facility], EL[facility] 0 MEDICAL FAHRAN P COMPLETE IMAGING MINIMUM 3 ASSOCIATE VIEWS S RADEX 73486 [place] RIO, FOREARM 2 0 MEDICAL FARHAN P VIEWS IMAGING ASSOCIATE S US BREAST 07226 RADIOLOGY FRANCINE, REAL 0 BUDDY C TIME ASSOCIATE W/IMAGE S PSC DOCUMENTA TION IADNA 74808 [facility] STREPTOCO 9 [facility] GROUP A DIRECT PROBE TQ US PELVIC 40775 RADIOLOGY PAOLO DAVIS NONOBSTET ASSOCIATE T SOHAN S PSC REAL-TIME IMAGE COMPLETE GONADOTRO 66354 [facility] PIN [address] [facility] CHORIONIC MEDICALCE [place] [address] [facility] ABDOMEN 9 [facility] T MATERIAL CT PELVIS 86874 RADIOLOGY SCHMITTER PAOLO Rowe W/[facility] ASSOC[facility]ATE L T S PSC MATERIAL RADEX 47348 RADIOLOGY MCKAYLA, SPINE 9 TIERRA G CERVICAL ASSOCIATE 4 OR 5 S PSC VIEWS RADEX 44132 RADIOLOGY FRANCINE, SPINE 9 BUDDY Mercado SHAQUILLE ASSOCIATE STUDY S PSC W/SUPINE & ERECT STUDY FITTING 12026 GAURAV LEVI, SPECTACLE 9 VISION KHLOE M S XCPT APHAKIA MONOFOCAL FRAMES V2020 GAURAV LEVI, PURCHASES 9 VISION KHLOE M 1 VISN V2103 GAURAV LEVI, PLANO 9 VISION KHLOE M TO+/-4.00 D SPHER 0.12-2.00 D CYL EA OPHTH 70809 GAURAV LEVI, MEDICAL 9 VISION KHLOE M XM&EVAL COMPRHNSV ESTAB PT 1/> ANESTHESI 32124 Lin BROWER 9 MANUEL Ceballos INTRAORAL ANESTHEIS WITH AA BIOPSY SERVICES NOS PSC HEPATBL 70218 RADIOLOGY APPLE PRUETT SYS 9 BOB Maria IMG ASSOCIATE GLBLDR S PSC PROTHROMB [address] IN TIME 9 HELIO HELIO MEDICALCE MEDICALCE NTER NTER BLOOD [address] COUNT 9 HELIO HELIO COMPLETE AUTO&AUTO MEDICALCE MEDICALCE DIFRNTL NTER NTER WBC COLLECTIO 06985 [facility], N VENOUS 9 MEDICAL VIRAL BLOOD GROUP VENIPUNCT URE URNLS DIP 80882 [facility], 9 MEDICAL VIRAL STICK/TAB GROUP LET RG[place] AUTO [place] [address] RADIOLOGY SHAHZAD, ABDOMINAL 9 LITO Zaragoza REAL ASSOCIATE TIME S PSC W/[place] [address] AMYLASE 9 HELIO HELIO MEDICALCE MEDICALCE NTER NTER COLLECTIO 21725 [facility], N VENOUS 9 MEDICAL VIRAL [place] [address] LIPASE 9 [facility]IO [facility] MEDICALCE MEDICALCE NTER NTER HEPATIC [address] FUNCTION 9 HELIO HELIO PANEL MEDICALCE MEDICALCE NTER NTER HEPATIC [address] FUNCTION 8 HELIO HELIO PANEL MEDICALCE MEDICALCE NTER NTER ANTIBODY 19948 [facility] HELICOBAC [address] [facility] TER PYLORI MEDICALCE MEDICALCE NTER NTER BLOOD 18110 [facility] COUNT [address] [facility] [facility] COMPLETE AUTO&AUTO MEDICALCE MEDICALCE DIFRNTL NTER NTER WBC COLLECTIO 93963 [facility] STERNE[facility] N VENOUS 8 MEDICAL Patricia, ANTIONETTE BLOOD GROUP B VENIPUNCT URE CT PELVIS 99744 AMIRAH MACARIO W/O 8 [facility] CONTRAST INC INC MATERIAL RADIOLOGI 97271 AMIRAH Mercado EXAM 8 [facility] CHEST 2 INC INC VIEWS FRONTAL&L ATERAL URINE 53061 AMIRAH MACARIO 8 [facility] TEST INC INC VISUAL COLOR CMPRSN METHS BLOOD 33461 AMIRAH MACARIO COUNT 8 [facility] COMPLETE INC INC AUTO&AUTO DIFRNTL WBC URNLS DIP 20614 AMIRAH MACARIO 8 [facility] STICK/TAB INC INC LET REAGENT AUTO MICROSCOP Y FIBRIN 63381 AMIRAH MACARIO DGRADJ 8 [facility] PRODUCTS INC INC D-DIMER QUAL/SEMI CARLOS 3D 50480 [facility] [place] [place] FUENTES, RENDERING 8 MEDICAL SERGIO IMAGING W/INTERP& ASSOCIATE POSTPROC S DIFF WORK STATION COMPREHEN 29689 AMIRAH MACARIO SIVE 8 [facility] [place] [address] [facility] MIMSALFREDO, ABDOMEN 8 MEDICAL SERGIO W/O IMAGING CONTRAST ASSOCIATE MATERIAL S IADNA 67055 [facility] STREPTOCO 8 [facility] GROUP A AMPLIFIED PROBE TQ IRRIGATIO 9652 AMIRAH Pedersen OF EAR 8 [facility] INC INC Encounters Encounter Start End Date Code Location Performer Type Date HOSPITAL ST - OTHER 7 7 [facility] OFFICE 93316 [facility] OUTPATIEN 7 7 [facility] T NEW 45 MINUTES [facility]YSICIAN S [facility] - OTHER 7 7 [facility] OFF[facility] 42448 [facility] OUTPATIEN 7 7 [facility] T VISIT 15 PHYSICIAN MINUTES S OFFICE 75529 [facility]ALLY OUTPATIEN 7 7 [facility] T VISIT 15 PHYSICIAN MINUTES S [facility]OSP[facility] - OTHER 7 7 [facility] EMERGENCY 89770 [facility] 7 7 PHYSICIAN DEPARTMEN S, PLLC T VISIT MODERATE SEVERITY HOSPITAL AMIRAH - 7 7 [facility] OUTPATIEN INC T OFFICE 80715 [place] [facility] T VISIT INC [address]ES [address] [facility] OUTPAT[facility] 7 7 [facility] MOORE, DO T VISIT [address] - 7 7 [facility] OFFICE 915[address] [facility] 7 7 [facility] MOORE, DO T VISIT 15 PHYSICIAN [address] S [facility] - OTHER 7 7 [facility] ST - OTHER 7 7 [facility] EDGE PERIODIC 96654 [facility] PREVENTIV 7 7 [facility] E MED EST PATIENT PHYSICIAN 18-39 YRS S OFFICE 13983 [facility] 7 7 [facility] T VISIT 25 PHYSICIAN MIN[address]ES S HOSPITAL ST - OTHER 7 7 [facility] EDGE EMERGENCY 71914 SHERRI ALLEN 7 7 EMERGENCY DEPARTMEN T VISIT PHYSICIAN MODERATE S SEVERITY EMERGENCY 25623 [facility] SANDRO 7 7 EMERGENCY DEPARTMEN T VISIT PHYSICIAN HIGH/URGE S NT SEVERITY EMERGENCY 38464 [facility] BRIANKLEMAN 7 7 EMERGENCY DEPARTMEN T VISIT PHYSICIAN HIGH/URGE S NT SEVERITY EMERGENCY 54896 [facility] REMA LILI 6 6 EMERGENCY DEPARTMEN T VISIT PHYSICIAN HIGH/URGE S NT SEVERITY EMERGENCY 05408 [facility] NAT 6 6 EMERGENCY KRI DEPARTMEN T VISIT PHYSICIAN HIGH/URGE S NT SEVERITY EMERGENCY 09765 [facility] DAVREN 5 5 EMERGENCY MERRICK DEPARTMEN T VISIT PHYSICIAN HIGH/URGE S NT SEVERITY EMERGENCY 34876 [facility] DIYA 5 5 EMERGENCY JAILENE DEPARTMEN T VISIT PHYSICIAN HIGH/URGE S NT SEVERITY CRITICAL [facility] ACCESS 5 5 [facility] OFFICE [address] VIKY OUTPATIEN 5 5 [facility] MAR T VISIT 10 PHYSICIAN MINUTES S EMERGENCY 47052 [facility] REMA LILI 5 5 EMERGENCY DEPARTMEN T VISIT PHYSICIAN HIGH/URGE S NT SEVERITY HOSPITAL ST. - 5 5 [facility] OUTPATIEN PHYLLIS T EMERGENCY 43482 [facility] ELKEL 5 5 EMERGENCY RAC DEPARTMEN T VISIT PHYSICIAN HIGH/URGE S NT SEVERITY EMERGENCY 17647 [facility] ELEAZAR 5 5 EMERGENCY LINDA DEPARTMEN T VISIT PHYSICIAN MODERATE S SEVERITY EMERGENCY 75906 ST ANCHORAGE 4 4 [facility] IRVING DEPARTMEN MED CTR T VISIT MODERATE SEVERITY OFFICE [address]657 ST [place] OUTPATIEN 4 4 [facility] KIR T VISIT 15 PHYSICIAN MINUTES S OFFICE 54[address] [facility] VIR OUTPATIEN 4 4 [facility] T VISIT 25 PHYSICIAN MIN[address]ES S HOSPITAL ST - 4 4 [facility] OUTPATIEN MED CTR T SWITCH TENDER ST OFFICE 77376 ST VIKY OUTPATIEN 4 4 [facility] MAR T VISIT 10 PHYSICIAN MIN[address]ES S [facility] - 4 4 [facility] [address]91[address] [facility] VIR OUTPATIEN 4 4 [facility] T VISIT 25 PHYSICIAN [facility] ST - 4 4 [facility] SW[facility] TENDER OFFICE 61752 ST [facility]IR OUTPATIEN 4 4 [facility] T VISIT [address] [facility] ST - 4 4 [facility] SWITCH TENDER OFFICE 64797 [facility] 4 [facility] T VISIT [address] [facility] ST - 4 4 [facility] SWITCH TENDER EMERGENCY 41010 ELIN WORTHINGTON 4 4 DAVID DAVID DEPARTMEN T VISIT HIGH/URGE NT SEVERITY HOSPITAL ST - OTHER 4 4 [facility] MED CTR SWITCH TENDER EMERGENCY 17891 ELIN WORTHINGTON 4 4 DAVID DAVID DEPARTMEN T VISIT HIGH/URGE NT [facility] HOSPITAL ST - OTHER 4 4 [facility] MED CTR [facility] ST - 0 0 [facility] H[facility]PITAL ST - 0 0 [facility] T OFFICE 69792 [facility] 0 0 MEDICAL VIRAL T VISIT GROUP [facility] AMIR[facility] - 0 0 [facility] EMERGENCY 28051 ELFEGO WORTHINGTON, 0 0 [facility] VISIT MODERATE [facility] ST - 0 0 [facility] T OFFICE 45951 [facility] ADAIR LÓPEZ 9 9 MEDICAL VIRAL T VISIT GROUP 25 MINUTES OFFICE 70367 [facility] RENE OUTPATIEN 9 9 MEDICAL VIRAL T VISIT GROUP 15 MINUTES EMERGENCY 67262 [facility], 9 9 [facility] KARLOS Judd [facility] MED CTR T VISIT MODERATE SEVERITY HOSPITAL ST - 9 9 [facility] T EMERGENCY [address]39 ST 9 9 [facility] T VISIT LOW/MODER SEVERITY HOSPITAL ST - 9 9 [facility] T OFFICE 58574 [facility] ADAIR LÓPEZ 9 9 MEDICAL VIRAL T VISIT GROUP 15 MINUTES [facility] ST - 9 [address] [facility] MEDICALCE NTER OFFICE 01261 [facility] ADAIR LÓPEZ 9 9 MEDICAL VIRAL T VISIT GROUP [address] 9 9 [facility] T H[facility]PITAL ST 9 9 [facility] T OFFICE 80146 [facility] 9 9 MEDICAL VIRAL T VISIT GROUP [address] - 9 9 [facility] T EMERGENCY 24073 [facility] 9 9 [place] [facility] MED CTR T VISIT HIGH/URGE NT SEVERITY HOSPITAL ST 9 9 [facility] T OFFICE 95541 SANDRA MCCLELLAN 9 9 MEDICAL VIRAL ION GROUP NEW/ESTAB PATIENT [address] - 9 [address] [facility] MEDICALCE NTER OFFICE 43777 [facility] ADAIR L[facility]PEZ 9 9 MEDICAL VIRAL T VISIT GROUP 15 MINUTES HOSPITAL [facility] 9 9 [facility] T OFFICE 90602 [facility] 9 9 MEDICAL VIRAL T VISIT GROUP 15 [facility] - 9 9 [facility] MEDICALCE NTER OFFICE 33038 [facility] 8 8 MEDICAL VIRAL T VISIT GROUP 15 [facility] OFFICE 21956 [facility] 8 8 MEDICAL G, ANTIONETTE T NEW 20 [facility] 8 8 [facility] EMERGENCY 23361 8 8 [facility] T VISIT MODERATE SEVERITY EMERGENCY [address] [place] [address] 8 [facility] MED CTR T VISIT HIGH/URGE NT SEVERITY HOSPITAL [facility] 8 [facility] T EMERGENCY 87148 [facility] 8 [facility] T VISIT LOW/MODER SEVERITY HOSPITAL [facility] 8 [facility] T OFFICE 17688 [facility] 8 8 [place], T VISIT FAMILY DEB[place] 15 CARE, MINUTES [facility] [place] [address] 8 [facility] EMERGENCY [address] [place] [address] 8 [facility] T VISIT LOW/MODER SEVERITY EMERGENCY [address] [place] [address] 8 [facility] T VISIT MODERATE SEVERITY HOSPITAL [facility] 8 [facility] T EMERGENCY [address]2333 [place] 8 8 [facility] T VISIT LIMITED/M INOR PROB HOSPITAL [facility] 8 8 [facility] 32255 [facility], 8 8 [facility] T VISIT MODERATE SEVERITY HOSPITAL - 8 8 [facility] T EMERGENCY 27184 [facility] 8 [facility] T VISIT LOW/MODER SEVERITY EMERGENCY 76013 [place] 8 8 [facility] T VISIT LOW/MODER SEVERITY HOSPITAL AMIRAH - [address] [facility] T
--- OUTSIDE RECORDS SUMMARY | 2016-12-19 21:23 | External Medical Summary Rpt | CCD ---
Demographics Preferred Language Belarusian Marital Status Unknown Pentecostalism Affiliation Unknown Race Unknown Ethnic Group Unknown Author Author , [employer] Address Unknown Phone Immunization No patient found.
--- OUTSIDE RECORDS SUMMARY | 2016-12-19 21:23 | External Medical Summary Rpt | CCD ---
Demographics Preferred Language Khmer Marital Status Unknown Scientology Affiliation Unknown Race Unknown Ethnic Group Unknown Author Author , [facility] Address Unknown Phone Immunization No patient found.
--- OUTSIDE RECORDS SUMMARY | 2016-12-19 21:25 | External Medical Summary Rpt ---
Author Author TONYELIEZER Cat, [employer] Organization [employer] Address Unknown Phone Unavailable Results Urine test by rapid immunoassa Observa Value Referen Units Interpr Notes Date tion ce etation Range Urine NEGATIV NEG No No Sep 27 pregnan E informa informa informa 2016 cy test tion in tion in tion [...] Sep 20 ts 423 mcL informa informa 2016 [...] using the Aptima Combo 2 assay from [employer] be.\.br \A negativ e result does not [...] Glucose e e informa informa informa 2016 ti in ti in ti in 10:58 source source source AM data data data UA Negativ Negativ No No No July 23 Ketones e e informa informa informa 2016 tion in ti in ti in 10:58 source source source AM data data data UA Negativ Negativ No No No July 23 Blood e e informa informa informa 2016 ti in ti in ti in 10:58 source [...] 23 Nitrite e e informa informa informa 2017 tion in ti in ti in 10:58 [...] No Apr 6 ytes informa informa informa 2017 [#/volu tion in tion in tion in 1:19 PM me] in source source source Blood data data data by Automat ed count Monocyt 12.2 No % No No Apr 6 es informa informa informa 2017 [#/volu tion in tion in tion in [...] in 1:19 PM source source data data Dale# 0.5 0.0 - x10(3)/ No No May 6 1.3 mcL informa informa 2017 tion in tion in 1:19 PM source source data data Eos# 0.1 0.0 - x10(3)/ No No May 6 0.5 mcL informa informa 2017 tion in tion in 1:19 PM source source data data Baso# 0.0 0.0 - x10(3)/ No No May 6 0.2 mcL informa informa 2017 tion [...] Hemoglo 12.8 12.0 - gm/dL No No Jun 02 bin 15.6 informa informa 2016 [Mass/v tion in tion in 1:19 PM olume] source source in data data Blood Hematoc 38.8 35.7 - % No No Jun 02 rit 45.9 informa informa 2016 [Volume tion [...] No Jun 02 cyte 34.3 informa informa 2017 mean tion [...] using the Aptima Combo 2 assay from [employer] be.\.br \A negativ e result does not [...] HCG Negativ No No No No Apr 1 QUAL e informa informa informa informa 2017 tion in ti in ti in ti in 8:04 PM source source source source data data data data UA Observa Value Referen Units Interpr Notes Date tion ce etation Range UA Yellow No No No No Mar 1 Color informa informa informa informa 2017 tion in tion in tion in tion in 7:51 PM source source source source data data data data UA Slightl Clear No Abnorma No Apr 1 Appear y Hazy informa l informa 2017 tion in ti in 7:51 PM source source data data UA Negativ Negativ No No No Apr 27 Glucose e e informa informa informa 2016 tion in ti in tion in 7:51 PM source source source data data data UA Negativ Negativ No No No Apr 1 Ketones e e informa informa informa 2016 tion in ti in tion in 7:51 PM source source source data data data UA Negativ Negativ No No No Apr 1 Blood e e informa informa informa 2017 tion in tion in tion in 7:51 PM source source source data data data UA pH 7.0 5.0 - No No Referen Apr 1 8.0 informa informa ce 2017 tion [...] 1+ No No No No Apr 27 Bacteri informa informa informa informa 2017 a [...] using the Aptima Combo 2 assay from [employer] be.\.br \A negativ e result does not [...] onas Ag e informa informa informa informa 2015 tion [...] Erythro 85.7 82.5 - fL No No Oct 24 cyte 99.8 informa informa 2016 mean tion [...] in 6:26 PM source source data data Dale# 0.6 0.0 - x10(3)/ No No Oct [...] Range UA Yellow No No No No Oct 24 Color informa informa informa informa 2016 tion in tion in tion in tion in 6:12 PM source source source source data data data data UA Slightl Clear No Abnorma No Oct 24 Appear y informa l informa 2016 Cloudy tion in tion in 6:12 PM source source data data UA Negativ Negativ No No No Oct 24 Glucose e e informa informa informa 2016 tion in tion in tion in 6:12 PM source source source data data data UA Negativ Negativ No No No Oct 24 Ketones e e informa informa informa 2016 tion in tion in tion in 6:12 PM source source source data data data UA Negativ Negativ No No No Oct 24 Blood e e informa informa informa [...] /HPF Abnorma No Dec 20 l informa 2015on in 6:12 PM source data UA 2+ [...] data data data examina tion at the [facility] are Vascula r Laborat ory.\.b r\The complet e report can be found in the [facility] ([facility]) Electro rachel Medical Record of the patient . CT HEAD WO CONTRAST Observa Value Referen Units Interpr Notes Date ti ce etation Range \.br\NO No No No No Sep 29 NCONTRA informa informa informa informa 2015 ST HEAD tion in in in in 12:00 CT, source source source source [...] Sep 29 Holter informa informa informa informa 2015on in in in ti in 11:30 Report\ source source source source AM .br\St. 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 \.br\SV /AF Putnam: 0%\.br\ DAY 2\.br\1 . Rhythm was sinus with episode s of sinus tachyca rdia >150.\. br\2. There was rare suprave ntricul ar ectopy. \.br\3. There was rare ventric ular ectopy. \.br\4. Patient marker was not used.\. br\5. Diary was asympto matic.\ .br\SV/ AF Putnam: 0%\.br\ DAY 3\.br\1 . Rhythm was sinus with an episode of sinus arrhyth frederic\.br \2. There was rare suprave ntricul ar ectopy\ .br\3. No ventric ular ectopy. \.br\4. Patient marker was used.\. br\5. Diary was asympto matic.\ .br\SV/ AF Putnam: 0%\.br\ Electro nically Signed On 10-08-19 9:02:45 [...] count Monocyt 5.9 No % No No Aug 16 es informa informa informa 2016 [#/volu tion [...] in 7:06 PM source source data data Dale# 0.4 0.0 - x10(3)/ No No Aug [...] ed count Lymphoc 24.9 No % No Sep 06 ytes informa informa informa [...] in 7:11 AM source source data data Dale# 0.4 0.0 - x10(3)/ No No Sep [...] 06 pushpa ECG informa informa informa informa 2015 tion in tion in tion in tion in 7:00 AM Study\. source source source source br\St. data data data data Elicristhian th Florenc e\.br\I nterpre tive Stateme nts\.br \SINUS RHYTHM WITH SHORT NM INTERVA L\.br\n o old ekg's for compari son\.br \Electr onicall y Signed On 09-07-19 16 7:00:07 EDT by Alistair cunningham MD Glu Bed Observa Value Referen Units Interpr Notes Date tion ce etation Range GLU BED 102 70 [...] using the Aptima Combo 2 assay from [employer] be.\.br \A negativ e result does not [...] No Mar 25 ytes informa informa informa 2016 [#/volu tion in tion in tion in 2:18 AM me] in source source source Blood data data data by Automat ed count Monocyt 8.0 No % No No Mar 25 es informa informa informa 2016 [#/volu tion [...] in 2:18 AM source source data data Dale# 0.4 0.0 - x10(3)/ No No Mar [...] - x10(6)/ No Mar 25 cytes 5.10 [facility] informa informa 2016 [#/volu tion in tion [...] count Erythro 86.2 82.5 - fL No Mar 25 cyte 99.8 informa informa [...] 25 Protein mg/dl e informa l informa 2015 tion in tion in 2:31 AM source [...] 20 QUAL e informa informa informa informa 2014 [...] using the Aptima Combo 2 assay from [employer] be.\.br \A negativ e result does not [...] Chlamyd Negativ No No No No Dec 13 ia e informa informa informa informa 2015 [...] using the Aptima Combo 2 assay from [employer] be.\.br \A negativ e result does [...] Negativ Negativ No No No Jan 09 Ketones e e informa informa informa 2014 [...] Jan 09 Bacteri informa informa informa informa 2014 a tion in tion in tion in [...] in 23.30 informa informa 2014 tion in tion in 4:12 PM source source data data HCG Qual Observa Value Referen Units Interpr Notes Date ti ce etation Range HCG Negativ No No No No Jan 06 QUAL e informa informa informa informa 2014 tion in ti in tion in tion in 10:44 source source source source AM data data data data UA Observa Value Referen Units Interpr Notes ce etation Range UA Yellow No No No No Sep 17 Color informa informa informa informa 2014 tion in tion in tion in tion in 12:36 source source source source AM data data data data UA Cloudy Clear No Abnorma No Sep 17 Appear informa l informa 2014 tion in ti in 12:36 source source AM data data UA Negativ Negativ No No No Sep 17 Glucose e e informa informa informa 2014 tion in ti in ti in 12:36 source source source AM data data data UA Trace Negativ No Abnorma No Sep 17 Ketones (5 e informa l informa 2014 mg/dl) tion in tion in 12:36 source source AM data data UA Large Negativ No Abnorma No Sep 17 Blood e informa l informa 2014 tion in ti in 12:36 source source [...] /HPF Abnorma No Sep 17 l informa 2014on in 12:36 source AM data UA RBC [...] data data data data pelvic ultraso und, 7/3/201 5\.br\\ .br\COM PARISON : 10/22/19 14\.br\ \.br\HI [...] using the Aptima Combo 2 assay from [employer] be.\.br \A negativ e result does not [...] 25 Est e e informa informa informa 2014 tion [...] July 25 Squam informa informa informa informa 2014 Epi tion in tion in tion in [...] No July 25 7.7 mcL informa informa 2015 tion in tion in 1:06 PM source source data data Lymph# 1.7 0.6 - x10(3)/ No No July 25 4.8 mcL informa informa 2015 tion in tion in 1:06 PM source source data data Dale# 0.3 0.0 - x10(3)/ No July 25 [...] Range Thyrotr 2.060 0.270 - mcIU/mL No No Oct 14 opin 4.200 informa informa [...] etation Range Neutrop 49.0 No % No No Oct 14 hils informa informa informa [...] data Baso 0.6 No % No No Sep 18 Percent informa informa informa 2014 tion in tion in tion in 5:31 PM source source source data data data Neut# 2.5 1.8 - x10(3)/ No No Aug 18 7.7 mcL informa informa 2013 tion in tion in 5:31 PM source source data data Lymph# 1.8 0.6 - x10(3)/ No No Aug 18 4.8 mcL informa informa 2014 tion in tion in 5:31 PM source source data data Dale# 0.4 0.0 - x10(3)/ No No Aug [...] 5.1 4.0 - x10(3)/ No No Sep 18 SUMANTH 11.0 mcL informa informa 2013 tion in tion in 5:31 PM source source data data Erythro 4.24 3.80 - x10(6)/ No No Sep 18 cytes 5.10 mcL informa informa 2013 [#/volu tion in tion in 5:31 PM me] in source source Blood data data by Automat ed count Hemoglo 11.8 12.0 - gm/dL Low No Oct 14 bin 15.6 informa 2013 [Mass/v tion in 5:31 PM olume] source in data Blood Hematoc 35.7 35.7 - % No No Oct 14 rit 45.9 informa informa 2013 [Volume tion in tion in 5:31 PM source source Fractio data data n] of Blood by Automat ed count Erythro 84.3 82.5 - fL No No Aug 18 cyte 99.8 informa informa 2013 mean tion [...] count Erythro 13.8 11.5 - % No Oct 14 cyte 15.0 informa informa [...] oeae ed DNA Specime probe n using [employer] A negativ e result does not rule out the presenc e of DNA in concent rations below\. br\the level of detecti on of the assay.\ .br\\.b r\The perform ance charact eristic s of this test were validat ed by [facility] are Laborat ory. This laborat ory [...] oeae ed DNA Specime probe n using [employer] A negativ e result does not rule out the presenc e of DNA in concent rations below\. br\the level of detecti on of the assay.\ .br\\.b r\The perform ance charact eristic s of this test were validat ed by [facility] are Laborat ory. This laborat ory [...] Prealbu 21.8 20.0 - mg/dL No No May 14 min 40.0 informa informa 2014 tion [...] MPV 10.6 6.8 - fL No No Jun 10 10.8 informa informa 2014 tion in tion in 9:44 PM source source data data
--- OUTSIDE RECORDS SUMMARY | 2016-12-19 21:25 | External Medical Summary Rpt ---
[...] using the Aptima Combo 2 assay from [employer].\.br \A negativ e result does not [...] of this test were validat ed by [facility] are laborat ory. This assay is [...] develop ed and validat ed by the [facility] are laborat ory. Detaile d methodo [...] in 1:19 PM source source data data [place]# 0.5 0.0 - x10(3)/ No No May [...] using the Aptima Combo 2 assay from [employer].\.br \A negativ e result does not [...] of this test were validat ed by [facility] are laborat ory. This assay is [...] develop ed and validat ed by the [facility] are laborat ory. Detaile d methodo [...] using the Aptima Combo 2 assay from [employer].\.br \A negativ e result does not [...] of this test were validat ed by [facility] are laborat ory. This assay is [...] develop ed and validat ed by the [facility] are laborat ory. Detaile d methodo [...] in 6:26 PM source source data data [place]entress# 0.6 0.0 - x10(3)/ No No Oct [...] data data examina tion at the [facility] are [facility] r Laborat ory.\.b r\The complet e report can be found in the [facility] ([facility]) Electro rachel Medical Record of [...] source AM .br\St. data data data data [facility] [employer]\.br\ Interpr etive Stateme nts\.br \Clerk Date: 6\.br\R eferrin g Physici an: Korina [...] correla juma with sinus rhythm. \.br\SV /AF [place]: 0%\.br\ DAY 2\.br\1 . Rhythm was sinus with episode s of sinus tachyca rdia >150.\. br\2. There was rare suprave ntricul ar ectopy. \.br\3. There was rare ventric ular ectopy. \.br\4. Patient marker was not used.\. br\5. Diary was asympto matic.\ .br\SV/ AF [place]: 0%\.br\ DAY 3\.br\1 . Rhythm was sinus with an episode of sinus arrhyth frederic\.br \2. There was rare suprave ntricul ar ectopy\ .br\3. No ventric ular ectopy. \.br\4. Patient marker was used.\. br\5. Diary was asympto matic.\ .br\SV/ AF [place]: 0%\.br\ Electro nically Signed On 10-08-19 9:02:45 [...] in 7:06 PM source source data data [place]# 0.4 0.0 - x10(3)/ No No Aug [...] in 7:11 AM source source data data [place]# 0.4 0.0 - x10(3)/ No No Sep [...] tive Stateme nts\.br \SINUS RHYTHM WITH SHORT OR INTERVA L\.br\n o old ekg's for compari [...] using the Aptima Combo 2 assay from [employer].\.br \A negativ e result does not [...] of this test were validat ed by [facility] are laborat ory. This assay is [...] develop ed and validat ed by the [facility] are laborat ory. Detaile d methodo [...] in 2:18 AM source source data data [place]# 0.4 0.0 - x10(3)/ No No Mar [...] - x10(6)/ No Mar 25 cytes 5.10 [facility] informa informa 2016 [#/volu tion in [...] using the Aptima Combo 2 assay from [employer].\.br \A negativ e result does not [...] of this test were validat ed by [facility] are laborat ory. This assay is [...] develop ed and validat ed by the [facility] are laborat ory. Detaile d methodo [...] using the Aptima Combo 2 assay from [employer].\.br \A negativ e result does [...] of this test were validat ed by [facility] are laborat ory. This assay is [...] develop ed and validat ed by the [facility] are laborat ory. Detaile d methodo [...] using the Aptima Combo 2 assay from [employer].\.br \A negativ e result does not [...] of this test were validat ed by [facility] are laborat ory. This assay is [...] develop ed and validat ed by the [facility] are laborat ory. Detaile d methodo [...] in 1:06 PM source source data data [place]ress# 0.3 0.0 - x10(3)/ No July 25 [...] in 5:31 PM source source data data [place]# 0.4 0.0 - x10(3)/ No No Aug [...] oeae ed DNA Specime probe n using [employer] A negativ e result does not rule out the presenc e of DNA in concent rations below\. br\the level of detecti on of the assay.\ .br\\.b r\The perform ance charact eristic s of this test were validat ed by [facility] are Laborat ory. This laborat ory [...] oeae ed DNA Specime probe n using [employer] A negativ e result does not rule out the presenc e of DNA in concent rations below\. br\the level of detecti on of the assay.\ .br\\.b r\The perform ance charact eristic s of this test were validat ed by [facility] are Laborat ory. This laborat ory [...]
--- NOTE | 2016-12-19 21:36 | Emergency Room Report ---
History of Present Illness Time Seen by [id number] Presenting Problem in Triage Pt arrived:Walked Presenting Problem:C/O VOMITING AND FEVER. WAS SEEN IN [facility] TODAY IN DES AND DX WITH UTI WAS STARTED ON UNKNOWN PO ANTIBIOTICS AND TOOK ONE DOSE. TOOK TYLENOL 650 MG PO AT 2014. 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 Y Clinical Suspician of Infection? Y Mental Status: 1 - Regular (Normal Baseline) Sepsis Risk:Severe Sepsis Risk Have you (or family members/close friends) recently traveled outside the [place]? N If Yes, where/when: Have you had exposure to infectious disease within the past month? N TB? Other? Specify: Source patient, RN notes reviewed, family, old records Exam Limitations no limitations Comment pt with lt flank pain Cardiac Chest Pain Chest pain indicative of cardiac No Timing/Duration this evening Severity moderate ALLERGIES Coded Allergies: No Known Allergies (03/04/16) Home Medications Reported Medications VENLAFAXINE HCL (Venlafaxine HCl ER) 37.5 MG PO DAILY #14 NITROFURANTOIN MONOHYD/M-CRYST (Nitrofurantoin [place]-Mcr 100 MG) 100 MG PO BID #14 Metoprolol Succinate 25 MG PO DAILY #30 NORETHINDRONE-E.ESTRADIOL-IRON (Microgestin Fe 1-20 Tablet) 1 TAB PO DAILY #28 Mirtazapine 15 MG PO DAILY #30 History Medical History General CAD? No Angina: No [place]: No Hypertension? Yes Hyperlipidemia? No CHF? No DVT? No PE? No COPD? No Asthma? Yes Anemia? No GERD? No Gastric ulcers? No GI Bleed? No Hernia? No Thyroid Problems? No Hypothyroidism? No CVA? No Seizures? No Diabetes? No Renal Insuffiency? No End Stage Renal Disease? No UTI? Yes Stones? No BPH? No GB Disease: No Nephritic Syndrome? No Asplenia? No Hepatitis? No Sickle Cell Disease? No Arthritis? No Migraines? No Cataracts? No Glaucoma? No MRSA? No HIV? No TB? No Anxiety? Yes Depression? Yes Cancer? No More? 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 Respiratory denies cough, denies shortness of breath, denies wheezing Cardiovascular denies chest pain, denies palpitations, denies syncope Gastrointestinal see HPI, denies abdominal pain, nausea, vomiting Genitourinary see HPI. denies: abnormal vaginal bleeding, dysuria, frequency, hesitancy, hematuria. Musculoskeletal see HPI, back pain, denies joint pain, denies neck pain Skin denies rash Psychiatric/Neurological denies headache, denies seizure Physical Exam Vital Signs Vital Signs Date Time Temp Pulse Resp B/P Pulse O2 O2 Flow FiO2 Ox Delivery Rate 12/20 2151 16 12/20 2031 98.7 122 20 125/81 97 - WBC >12,000 or <4,000 or 10% bands? 2 or more SIRS Criteria Met? B/P:125/81 MAP:95 Creatinine >2.0? UA output<0.5ml/kg/hr for 2 hrs? Platelet count >100,000? Lactate >2.0mmol/1? INR >1.2 or PTT > than 60 sec? Evidence of Organ Dysfunction? Provider documented clinical suspician of infection? Y Sepsis Criteria Count: 2 Sepsis Risk: Severe Sepsis Risk General Appearance no apparent distress Eye Exam - bilateral eye PERRL, bilateral eye EOMI Ear, Nose, Throat normal ENT inspection Neck supple Respiratory Status No: respiratory distress. 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 No Results/Orders Laboratory Tests 12/19/162044: Sodium 137, Potassium 4.0, Chloride 100, Carbon Dioxide 27, BUN 13, Creatinine 0.8, Estimated Creat Clear 107, Estimated GFR (MDRD) 87, Glucose 98, Calcium 9.6 , Total Bilirubin 0.5, AST 21, ALT 22, Alkaline Phosphatase 66, Total Protein 8.3 H, Albumin 3.9, Globulin 4.4 H, Albumin/Globulin Ratio 0.9 L, WBC 13.3 H , RBC 4.43, Hgb 12.4, Hct 37.6, MCV 84.8, RDW 13.0, Plt Count 241, MPV 9.1, Gran % 69.1, Gran # 9.2 H, Lymphocytes % 21.6, Monocytes % 7.0, Eosinophils % 1.9, Basophils % 0.4, Lymphocytes # 2.9, Monocytes # 0.9, Eosinophils # 0.3, Basophils # 0.1, PUBS MCHC 33.0, MCH 28.0 12/19/162033: Urine Color YELLOW, Urine Appearance CLEAR, Urine pH 8.5, Ur Specific [place] 1.015, Urine Protein 1+ H, Urine Ketones TRACE H, Urine Blood 1+ H, Urine Nitrate NEGATIVE, Urine Bilirubin NEGATIVE, Urine Urobilinogen 0.2, Ur Leukocyte Esterase 2+ H, Urine RBC 3-5, Urine WBC 50-100, Ur Squamous Epith Cells 10-20, Urine Bacteria 3+, Urine Glucose NEGATIVE Current Medication Orders Sig/Jolene Start time Last Medication Dose Route Stop Time Status Admin Sodium Chloride 25 ML .STK-MED ONE 12/19 2148 DC IV Sodium Chloride 100 ML .STK-MED ONE 12/20 2147 DC IV Promethazine HCl 0 .STK-MED ONE 12/19 2146 DC .ROUTE Ketorolac 0 .STK-MED ONE 12/19 2145 DC Tromethamine .ROUTE Ceftriaxone Sodium 1 GM ONCE ONE 12/19 2144 AC 12/19 Sodium Chloride 50 ML IV 12/19 Ceftriaxone Sodium 0 .STK-MED ONE 12/19 2144 DC IV Ketorolac 30 MG ONCE ONE 12/19 2144 DC 12/19 Tromethamine IV 12/19 Promethazine HCl 12.5 MG ONCE ONE 12/19 2144 DC 12/19 IV 12/19 Sodium Chloride 25 ML ONCE ONE 12/19 2144 DC 12/19 IV 12/19 Ondansetron HCl 4 MG ONCE ONE 12/19 2099 DC 12/19 IV 12/19 Sodium Chloride 10 ML PRN PRN 12/19 2099 AC IV 12/20 2045 Sodium Chloride 1,000 ML .Q1H1M 12/19 2099 DC 12/19 IV 12/19 Sodium Chloride 10 ML PRN PRN 12/19 2099 AC IV 12/20 2045 Ondansetron HCl 0 .STK-MED ONE 12/19 2050 DC .ROUTE Sodium Chloride 1,000 ML .STK-MED ONE 12/19 2050 DC IV Orders Procedure Date/time Status IV SALINE LOCK 12/19 2046 Active URINALYSIS/COMPLETE 12/19 2046 Complete URINE 12/19 2046 Complete CBC WITH AUTO DIFF 12/19 2046 Complete CHEM 12 PROFILE 12/19 2046 Complete CULTURE, URINE 12/19 2033 Active Departure Departure Time of Disposition 2202 Disposition DC Home or Self Care(routine) Clinical Impression Primary Impression: UTI (urinary tract infection) Qualifiers: Urinary tract infection type: acute pyelonephritis Qualified Code: N10 - Acute pyelonephritis Condition STABLE Referrals LPÓEZ,VIRAL (Family) Patient Instructions DI for Urinary Tract Infection (UTI) Additional Instructions fluids and use meds and see pcp for follow up Discharge Counseling Counseled pt/family regarding diagnosis, test results, medications/RX, follow up needs ED Critical Care Critical Care No at 2204
--- NOTE | 2016-12-19 21:36 | Emergency Room Report ---
History of Present Illness Time Seen by 2034 Presenting Problem in Triage Pt arrived:Walked Presenting Problem:C/O VOMITING AND FEVER. WAS SEEN IN [facility] TODAY IN DES AND DX WITH UTI WAS STARTED ON UNKNOWN PO ANTIBIOTICS AND TOOK ONE DOSE. TOOK TYLENOL 650 MG PO AT 2014. 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 Y Clinical Suspician of Infection? Y Mental Status: 1 - Regular (Normal Baseline) Sepsis Risk:Severe Sepsis Risk Have you (or family members/close friends) recently traveled outside the [place]? N If Yes, where/when: Have you had exposure to infectious disease within the past month? N TB? Other? Specify: Source patient, RN notes reviewed, family, old records Exam Limitations no limitations Comment pt with lt flank pain Cardiac Chest Pain Chest pain indicative of cardiac No Timing/Duration this evening Severity moderate ALLERGIES Coded Allergies: No Known Allergies (03/04/16) Home Medications Reported Medications VENLAFAXINE HCL (Venlafaxine HCl ER) 37.5 MG PO DAILY #14 NITROFURANTOIN MONOHYD/M-CRYST (Nitrofurantoin [place]-Mcr 100 MG) 100 MG PO BID #14 Metoprolol Succinate 25 MG PO DAILY #30 NORETHINDRONE-E.ESTRADIOL-IRON (Microgestin Fe 1-20 Tablet) 1 TAB PO DAILY #28 Mirtazapine 15 MG PO DAILY #30 History Medical History General CAD? No Angina: No [place]: No Hypertension? Yes Hyperlipidemia? No CHF? No DVT? No PE? No COPD? No Asthma? Yes Anemia? No GERD? No Gastric ulcers? No GI Bleed? No Hernia? No Thyroid Problems? No Hypothyroidism? No CVA? No Seizures? No Diabetes? No Renal Insuffiency? No End Stage Renal Disease? No UTI? Yes Stones? No BPH? No GB Disease: No Nephritic Syndrome? No Asplenia? No Hepatitis? No Sickle Cell Disease? No Arthritis? No Migraines? No Cataracts? No Glaucoma? No MRSA? No HIV? No TB? No Anxiety? Yes Depression? Yes Cancer? No More? 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 Respiratory denies cough, denies shortness of breath, denies wheezing Cardiovascular denies chest pain, denies palpitations, denies syncope Gastrointestinal see HPI, denies abdominal pain, nausea, vomiting Genitourinary see HPI. denies: abnormal vaginal bleeding, dysuria, frequency, hesitancy, hematuria. Musculoskeletal see HPI, back pain, denies joint pain, denies neck pain Skin denies rash Psychiatric/Neurological denies headache, denies seizure Physical Exam Vital Signs Vital Signs Date Time Temp Pulse Resp B/P Pulse O2 O2 Flow FiO2 Ox Delivery Rate 12/20 2151 16 12/20 2031 98.7 122 20 125/81 97 - WBC >12,000 or <4,000 or 10% bands? 2 or more SIRS Criteria Met? B/P:125/81 MAP:95 Creatinine >2.0? UA output<0.5ml/kg/hr for 2 hrs? Platelet count >100,000? Lactate >2.0mmol/1? INR >1.2 or PTT > than 60 sec? Evidence of Organ Dysfunction? Provider documented clinical suspician of infection? Y Sepsis Criteria Count: 2 Sepsis Risk: Severe Sepsis Risk General Appearance no apparent distress Eye Exam - bilateral eye PERRL, bilateral eye EOMI Ear, Nose, Throat normal ENT inspection Neck supple Respiratory Status No: respiratory distress. 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 No Results/Orders Laboratory Tests 12/19/162044: Sodium 137, Potassium 4.0, Chloride 100, Carbon Dioxide 27, BUN 13, Creatinine 0.8, Estimated Creat Clear 107, Estimated GFR (MDRD) 87, Glucose 98, Calcium 9.6 , Total Bilirubin 0.5, AST 21, ALT 22, Alkaline Phosphatase 66, Total Protein 8.3 H, Albumin 3.9, Globulin 4.4 H, Albumin/Globulin Ratio 0.9 L, WBC 13.3 H , RBC 4.43, Hgb 12.4, Hct 37.6, MCV 84.8, RDW 13.0, Plt Count 241, MPV 9.1, Gran % 69.1, Gran # 9.2 H, Lymphocytes % 21.6, Monocytes % 7.0, Eosinophils % 1.9, Basophils % 0.4, Lymphocytes # 2.9, Monocytes # 0.9, Eosinophils # 0.3, Basophils # 0.1, PUBS MCHC 33.0, MCH 28.0 12/19/162033: Urine Color YELLOW, Urine Appearance CLEAR, Urine pH 8.5, Ur Specific [place] 1.015, Urine Protein 1+ H, Urine Ketones TRACE H, Urine Blood 1+ H, Urine Nitrate NEGATIVE, Urine Bilirubin NEGATIVE, Urine Urobilinogen 0.2, Ur Leukocyte Esterase 2+ H, Urine RBC 3-5, Urine WBC 50-100, Ur Squamous Epith Cells 10-20, Urine Bacteria 3+, Urine Glucose NEGATIVE Current Medication Orders Sig/Jolene Start time Last Medication Dose Route Stop Time Status Admin Sodium Chloride 25 ML .STK-MED ONE 12/19 2148 DC IV Sodium Chloride 100 ML .STK-MED ONE 12/20 2147 DC IV Promethazine HCl 0 .STK-MED ONE 12/19 2146 DC .ROUTE Ketorolac 0 .STK-MED ONE 12/19 2145 DC Tromethamine .ROUTE Ceftriaxone Sodium 1 GM ONCE ONE 12/19 2144 AC 12/19 Sodium Chloride 50 ML IV 12/19 Ceftriaxone Sodium 0 .STK-MED ONE 12/19 2144 DC IV Ketorolac 30 MG ONCE ONE 12/19 2144 DC 12/19 Tromethamine IV 12/19 Promethazine HCl 12.5 MG ONCE ONE 12/19 2144 DC 12/19 IV 12/19 Sodium Chloride 25 ML ONCE ONE 12/19 2144 DC 12/19 IV 12/19 Ondansetron HCl 4 MG ONCE ONE 12/19 2099 DC 12/19 IV 12/19 Sodium Chloride 10 ML PRN PRN 12/19 2099 AC IV 12/20 2045 Sodium Chloride 1,000 ML .Q1H1M 12/19 2099 DC 12/19 IV 12/19 Sodium Chloride 10 ML PRN PRN 12/19 2099 AC IV 12/20 2045 Ondansetron HCl 0 .STK-MED ONE 12/19 2050 DC .ROUTE Sodium Chloride 1,000 ML .STK-MED ONE 12/19 2050 DC IV Orders Procedure Date/time Status IV SALINE LOCK 12/19 2046 Active URINALYSIS/COMPLETE 12/19 2046 Complete URINE 12/19 2046 Complete CBC WITH AUTO DIFF 12/19 2046 Complete CHEM 12 PROFILE 12/19 2046 Complete CULTURE, URINE 12/19 2033 Active Departure Departure Time of Disposition 2202 Disposition DC Home or Self Care(routine) Clinical Impression Primary Impression: UTI (urinary tract infection) Qualifiers: Urinary tract infection type: acute pyelonephritis Qualified Code: N10 - Acute pyelonephritis Condition STABLE Referrals LÓPEZ,VIRAL (Family) Patient Instructions DI for Urinary Tract Infection (UTI) Additional Instructions fluids and use meds and see pcp for follow up Discharge Counseling Counseled pt/family regarding diagnosis, test results, medications/RX, follow up needs ED Critical Care Critical Care No at 2204
[2016-12-19 22:15] VITALS: BP 102/59
== END 2016-12-19 22:19 | disposition home or self-care (01) ==
LOC: ER 20:29
PROVIDERS: Emergency Medicine
DX: N10 Acute pyelonephritis (principal); F17.210 Nicotine dependence, cigarettes, uncomplicated; F41.8 Other specified anxiety disorders; I10 Essential (primary) hypertension
CPT/HCPCS: J2405

== ENCOUNTER 2017-01-22 14:31 | Emergency (ER) | payer MEDICAID ==
[~2017-01-22] VITALS: Ht 177.8 cm; Wt 65.8 kg
[~2017-01-22 14:31] MED LIST changes: +METOPROLOL SUCC25 M2 PO; +MICROGESTIN FE1 TA1 PO; +MIRTAZAPINE15 M1 PO; +NITROFURANTOIN100 M4 PO
--- OUTSIDE RECORDS SUMMARY | 2017-01-22 14:38 | External Medical Summary Rpt | CCD ---
Author Author , CHASE STONE Address Unknown Phone [email or web address] Care Team Providers Care Rn Mental Health Name Role Phone Ginger Núñez MD, Unavailable Unavailable Ginger Núñez MD Purpose Continuity of Care Document - 08-14-2012 through 2016 Problems Code Diagnosis DOS Provider Status 590.80 590.80 08-14-2012 Jack PYELONEPHRI [facility] B34.9 Viral infection, unspecified B37.3 Candidiasis of vulva and vagina F17.200 Nicotine dependence, unspecified , uncomplicat ed F31.31 Bipolar disorder, current episode depressed, mild F33.1 Major depressive disorder, recurrent, moderate J06.9 Acute upper respiratory infection, unspecified J20.9 Acute bronchitis, unspecified K59.01 Slow transit constipatio n M54.5 Low back pain N30.00 Acute cystitis without hematuria N30.01 Acute cystitis with hematuria N30.90 Cystitis, unspecified without hematuria N39.0 Urinary tract infection, site not specified N39.8 Other specified disorders of urinary system N76.0 Acute vaginitis N88.8 Other specified noninflamma tory disorders of cervix uteri N89.8 Other specified noninflamma tory disorders of vagina N92.6 Irregular menstruatio n, unspecified R00.0 Tachycardia , unspecified R10.9 Unspecified abdominal pain R11.0 Nausea R14.0 Abdominal distension (gaseous) R19.7 Diarrhea, unspecified R30.0 Dysuria R35.0 Frequency of micturition R39.14 Feeling of incomplete bladder emptying R39.198 Other difficultie s with micturition R51 HEADACHE R55 Syncope and collapse R63.0 Anorexia R63.4 Abnormal weight loss Z01.419 Encounter for [...] ia de te s n re d Sa 63 06 0 No li 80 -1 ne 70 8- Lo 10 20 ng Fl 07 13 er us 5 h Ac 10 ti ML ve Sy ri ng e Le 51 06 0 No vo 07 -1 fl 90 8- Lo ox 03 20 ng ac 52 13 er in 0 Ac 50 ti 0M ve G Ta bl et Vital Signs 08-14-2012 08:57 Name Value Interpretat [...] % 0.1-2.0 complet 017 ed 20:45 Automat 2 = 0.3 0.0-0.4 complet ed 017 K/mm3 [...] 017 K/mm3 ed monocyt 20:45 e count [place] % = 7.0 % 1.7-9.3 complet 017 ed 20:45 Automat 2 = 9.1 7.4-10. complet ed 017 fl 4 ed blood 20:45 platele t mean volume claudine Blood = 241 142-424 complet platele 017 K/mm3 ed t count 20:45 Red = 4.43 4.2-5.4 complet blood 017 M/mm3 ed cell 20:45 count Comprehensive metabolic panel (12-19-2016 20:45) ALT = 22 12-78 complet (SGPT) 017 U/L ed ser/fausto 20:45 s Protein = 8.3 6.4-8.2 complet total 017 gm/dL ed ser/fausto 20:45 s Serum = 0.9 1.1-1.8 complet or 017 ed plasma 20:45 albumin /globul in mass ra Serum = 3.9 3.4-5.0 complet or 017 gm/dL ed plasma 20:45 albumin measure ment (mas Serum = 66 46-116 complet or 017 U/L ed plasma 20:45 alkalin e phospha tase claudine Serum = 0.5 0.2-1.0 complet or 017 mg/dL ed plasma 20:45 total bilirub in measure m Serum = 13 7-18 complet or 017 mg/dL ed plasma 20:45 urea nitroge n measure men Serum = 9.6 8.5-10. complet or 017 mg/dL 1 ed plasma 20:45 calcium measure ment (mas Serum = 100 98-107 complet or 017 mmoL/L ed plasma 20:45 chlorid e measure ment (mo Carbon = 27 21.0-32 complet dioxide 017 mmoL/L .0 ed 20:45 measure ment Serum = 0.8 0.55-1. complet or 017 mg/dL 02 ed plasma 20:45 creatin ine measure ment ( Estimat = 107 50-200 complet ion of 017 ML/MIN ed creatin 20:45 ine renal clearan ce Estimat = 87 59- complet ed 017 ML/MIN ed glomeru 20:45 lar filtrat ion rate (GF Comment: REFERENCE RANGE: >60 ML/MIN/1.73 SQUARE METERS Comment: If this patient is -[place]ian, then multiply the Comment: result by 1.210. Serum = 4.4 1.3-3.2 complet globuli 017 gm/dL ed n 20:45 measure ment (mass/v olume) Serum = 98 74-106 complet or 017 mg/dL ed plasma 20:45 glucose measure ment (mas Serum = 4.0 3.5-5.1 complet potassi 017 mmoL/L ed um 20:45 measure ment Serum = 137 136-145 complet sodium 017 mmoL/L ed measure 20:45 ment Serum = 21 15-37 complet or 017 U/L ed plasma 20:45 asparta te aminotr ansfera Urine test (12-19-2016 20:34) Urine 12-19-2 = NEG complet pregnan 017 NEGATIV ed cy test 20:34 E Urinalysis with microscopy (12-19-2016 20:34) Urine 12-19-2 CLEAR CLEAR complet appeara 017 CLEAR L ed nce 20:34 determi nation Bacteri 12-19-2 3+ 3+ L O complet a 017 ed detecti 20:34 on in urine sedimen t by Urine 12-19- NEGATIV NEG complet total 017 E ed bilirub 20:34 NEGATIV in E L detecti on by test Urine 12-19-2 1+ 1+ L NEG complet blood 017 ed detecti 20:34 on Urine 12-19- YELLOW YELLOW complet color 017 YELLOW ed 20:34 L Glucose 12-19- = NEG complet ur 017 NEGATIV ed test 20:34 E strip Urine 12-19- TRACE NEG complet ketones 017 TRACE L ed 20:34 mg/dL detecti on by automat ed armando Mucus 12-19- 2+ 2+ L NEG complet detecti 017 ed on in 20:34 urine sedimen t by lig Urine NEGATIV NEG complet nitrite 017 E ed 20:34 NEGATIV detecti E L on by test strip Urine 12-19-2 = 8.5 5.0-8.5 complet pH 017 ed 20:34 Urine 12-19-2 1 + NEG complet protein 017 mg/dL ed 20:34 measure ment by automat ed t Erythro 12-19-2 3-5 3-5 0 complet cytes 017 L ed detecti 20:34 rbc/hpf on in urine sedimen t Urine 12-19-2 = 1.015 1.005-1 complet specifi 017 .030 ed c 20:34 gravity measure ment [place] --2 10-20 0-5 complet s 017 10-20 L ed epithel 20:34 #/hpf ial cells detecti on in u Urine 12-19-2 0.2 0.2 NEG complet urobili 017 L ed nogen 20:34 E.U./dL detecti on by test str Urine 12-19-2 50 - O complet leukocy 017 100 ed armando 20:34 wbc/hpf count (number /volume ) Urinalysis dipstick W Reflex Microscopic panel in Urine (12-19-2016 20:34) Bacteri --2 3+ O complet a 017 ed [Presen 20:34 ce] in Urine sedimen t by Light microsc opy Erythro 10-23-2 3-5 0 complet cytes 017 ed [Presen 20:34 ce] in Urine sedimen t by Light microsc opy Epithel -23-2 10-20 0#/hp complet ial 017 f - ed cells.s 20:34 5#/hp quamous f [Presen ce] in Urine sedimen t by Microsc opy high power field Leukocy 23-2 50-100 O complet armando 017 wbc/hpf ed [#/volu 20:34 me] in Urine Urinalysis dipstick W Reflex Microscopic panel in Urine (12-19-2016 20:34) Appeara 12-19-2 CLEAR CLEAR complet nce of 017 ed Urine 20:34 Bilirub 12-19-2 NEGATIV NEG complet in 017 E ed [Presen 20:34 ce] in Urine by Test strip Erythro 12-19-2 1+ NEG Abnorma complet cytes 017 l ed [Presen 20:34 ce] in Urine Color 12-19-2 YELLOW YELLOW complet of 017 ed Urine 20:34 Ketones 12-19-2 TRACE NEG Abnorma complet 017 l ed [Presen 20:34 ce] in Urine by Automat ed test strip Mucus 10-23-2 2+ NEG Abnorma complet [Presen 017 l ed ce] in 20:34 Urine sedimen t by Light microsc opy Nitrite 23-2 NEGATIV NEG complet 017 E ed [Presen 20:34 ce] in Urine by Test strip Urobili 10-23-2 0.2 NEG complet nogen 017 ed [Presen 20:34 ce] in Urine by Test strip Urine test by rapid immunoassa (09-27-2016 17:36) Urine NEGATIV NEG complet pregnan 017 E ed cy test 17:36 by rapid immunoa ssa COMPREHENSIVE METABOLIC PANEL (08-14-2012 06:50) Glucose 08-14- 110 74-106 complet 013 mg/dL ed Bld-mCn 06:50 c BUN 06-18-2 9 mg/dL 7-18 complet Bld-mCn 013 ed c 06:50 Creat -18-2 0.9 0.6-1.0 complet SerPl-m 013 mg/dL ed Cnc 06:50 ESTIMAT -18-2 83 50-200 complet ED 013 ML/MIN ed [...] complet SerPl-c 013 ed Cnc 06:50 ALP -18-2 59 U/L 50-136 complet SerPl-c 013 ed [...] 013 #/hpf ed S CELLS 06:50 URINE 2+ O complet BACTERI 013 ed A 06:50 Encounters Encounter Start End Date Code Location Performer Type Date Emergency RY Núñez MD (ER) 3 06:43 3 09:05 [facility]
--- OUTSIDE RECORDS SUMMARY | 2017-01-22 14:38 | External Medical Summary Rpt | CCD ---
Author Author , CHASE STONE Address Unknown Phone [email or web address] Care Team Providers Care Letter Of Credit Document Examiner Name Role Phone Ginger Núñez MD, Unavailable Unavailable Ginger Núñez MD Purpose Continuity of Care Document - 08-14-2012 through 2016 Problems Code Diagnosis DOS Provider Status 590.80 590.80 08-14-2012 Jack PYELONEPHRI [facility] B34.9 Viral infection, unspecified B37.3 Candidiasis of [...] 017 K/mm3 ed monocyt 20:45 e count [place] % = 7.0 % 1.7-9.3 complet 017 [...] SQUARE METERS Comment: If this patient is -[place], then multiply the Comment: result by 1.210. [...] Núñez MD (ER) 3 06:43 3 09:05 [facility]
--- OUTSIDE RECORDS SUMMARY | 2017-01-22 14:41 | External Medical Summary Rpt | CCD ---
Author Author , CHASE Organization [employer] Address Unknown Phone [email or web address] Team Providers Care Extrusion Manager Name Role Phone [facility] Unavailable Unavailable PHYSICIANS, [facility] SERGIO FUENTES, Unavailable Unavailable SERGIO FUENTES JEFFREY T, Unavailable Unavailable PAOLO LOERA [facility], Unavailable Unavailable [facility] MANUEL SHIN, Unavailable Unavailable MANUEL SHIN [facility] Unavailable Unavailable INC, [facility] GLORIA SAUCEDA, Unavailable Unavailable GLORIA SAUCEDA JACOB Unavailable Unavailable TIERRA BLCOK, Unavailable Unavailable TIERRA BLOCK HARRY, MILLS, Unavailable Unavailable FARHAN TONEY, Unavailable Unavailable FARHAN PATE ERIC W, NEILS, Unavailable Unavailable [facility], Unavailable Unavailable PLL[facility], [facility] LÓPEZ, VIRAL, LÓPEZ, Unavailable Unavailable [facility] Unavailable Unavailable OF [facility]ERT[facility], [facility] NOTReinaldo [id number], Unavailable Unavailable [id number] BUDDY ESCAMILLA, Unavailable Unavailable BUDDY ESCAMILLA ANGELA M, Unavailable Unavailable KHLOE LEVI DAVID, SOWER, Unavailable Unavailable [facility] Unavailable Unavailable [facility], Unavailable Unavailable [facility] Unavailable Unavailable [facility] Unavailable Unavailable [facility], [facility] Kee FERGUSON, Unavailable Unavailable [facility] STEVEN MEJIA, Unavailable Unavailable STEVEN LOPEZ STEVEN B, Unavailable Unavailable ANTIONETTE WALLACE [facility] Unavailable Unavailable #[id number], [facility] Unavailable Unavailable #591, [facility] [phone], Unavailable Unavailable TORIBIO [facility] [phone] Purpose Continuity of Care Document - 03-23-2007 through 2016 Problems Code Diagnosis DOS Provider Status [id number] SLOW 12-29-2016 [facility] TRANSIT [facility] CONSTIPATIO PHYLLIS N N3000 ACUTE 12-29-2016 ST. CYSTITIS [facility] WITHOUT PHYLLIS HEMATURIA N390 URINARY 12-29-2016 ST. TRACT [facility] INFECTION PHYLLIS SITE NOT SPECIFIED N398 OTHER 12-29-2016 ST. SPECIFIED [facility] DISORDERS PHYLLIS OF URINARY SYSTEM R3914 FEELING OF 12-29-2016 ST. INCOMPLETE [facility] BLADDER PHYLLIS EMPTYING M545 LOW BACK 12-19-2016 ST PAIN [facility] N10 ACUTE 12-19-2016 [facility] PYELONEPHRI [facility], TIS [facility] N3001 ACUTE 12-19-2016 ST CYSTITIS [facility] WITH PHYSICIANS HEMATURIA R350 FREQUENCY 12-19-2016 ST OF [facility] MICTURITION PHYSICIANS [id number] OTHER 11-09-2016 ST DIFFICULTIE [facility] S WITH PHYSICIANS MICTURITION N898 OTHER 10-25-2016 ST SPECIFIED [facility] NONINFLAMMA PHYSICIANS TORY DISORDERS [place] N926 IRREGULAR 10-25-2016 ST MENSTRUATIO [facility] N PHYSICIANS UNSPECIFIED Z681 BODY MASS 10-25-2016 ST INDEX 19.9 [facility] OR LESS PHYSICIANS ADULT R110 NAUSEA 09-30-2016 [facility], [facility] R51 HEADACHE 09-30-2016 [facility], [facility] [id number] MIGRAINE 09-27-2016 [facility] NOT INTRACT INC W/O STAT MIGRAIN R197 DIARRHEA 09-20-2016 ST UNSPECIFIED [facility] R630 ANOREXIA 09-20-2016 [facility] H5203 HYPERMETROP 09-19-2016 [place] IA BILATERAL R300 DYSURIA 09-02-2016 ST [facility] V04301 ENCOUNTER 08-23-2016 ST BUSINESS CONTINUITY PLANNER EXAM [facility] GENERAL RTN PHYSICIANS W/O ABNORMAL FIND B373 CANDIDIASIS 08-15-2016 ST OF [place] [facility] AND [place] PHYSICIANS N760 ACUTE 08-15-2016 ST VAGINITIS [facility] R140 ABDOMINAL 08-15-2016 ST DISTENSION [facility] GASEOUS PHYSICIANS Z6820 BODY MASS 08-15-2016 ST INDEX BMI [facility] 20.0-20.9 PHYSICIANS ADULT N3090 CYSTITIS 07-23-2016 [facility] UNSPECIFIED EMERGENCY WITHOUT PHYSICIANS HEMATURIA J069 ACUTE UPPER 06-02-2016 [facility] EMERGENCY RESPIRATORY PHYSICIANS INFECTION UNSPECIFIED N888 OTH SPEC 04-27-2016 [facility] NONINFLAMMA EMERGENCY TORY PHYSICIANS DISORDERS CERVIX UTERI J111 FLU D/T 05-21-2015 [facility] UNIDENTIFIE EMERGENCY D FLU VIRUS PHYSICIANS W/OTH RESP MANIF R109 UNSPECIFIED 03-25-2015 [facility] ABDOMINAL EMERGENCY PAIN PHYSICIANS A64 UNSPECIFIED 01-09-2015 [facility] SEXUALLY EMERGENCY TRANSMITTED PHYSICIANS DISEASE N12 TUBULO-INTE 01-09-2015 [facility] RST EMERGENCY NEPHRITIS PHYSICIANS NOT SPEC ACUTE/CHRON 5950 ACUTE 09-17-2014 [facility] CYSTITIS EMERGENCY PHYSICIANS 90925 HEMATURIA 09-17-2014 [facility] UNSPECIFIED EMERGENCY PHYSICIANS 6268 OTH D/O 08-29-2014 ST. 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 MENSTRUATIO [facility] N PHYLLIS 59188 ABDOMINAL 10-21-2013 ST. PAIN, [facility] UNSPECIFIED PHYLLIS SITE 91071 GENERALIZED 08-08-2013 ST ANXIETY [facility] DISORDER PHYSICIANS 71327 UNSPECIFIED 08-08-2013 ST [facility] CONSTIPATIO PHYSICIANS N V700 ROUTINE 07-19-2013 GENERAL [facility] MEDICAL [facility]YS[facility]ANS EXAM@HEALTH CARE FAC V7231 ROUTINE 07-19-2013 GYNECOLOGIC [facility] AL PHYSICIANS EXAMINATION 2639 UNSPECIFIED 06-10-2013 [facility] PROTEIN[facility]IRON [facility] DISTRICT FIRE MANAGEMENT OFFICER ORIE ST MALNUTRITIO N 7804 DIZZINESS 06-10-2013 AND [facility] GIDDINESS [facility] DISTRICT FIRE MANAGEMENT OFFICER ST 1101 DERMATOPHYT 04-05-2013 ST [facility] FI[facility]NA[facility] 77426 CLOSED 04-22-2009 [facility] FRACTURE OF ASSOCIATES HEAD OF [facility] RADIUS 09641 CONTUSION 03-25-2009 [facility] PSC 89741 CONTUSION 03-25-2009 [facility] OF HIP H ORTHOPAEDIC CTR [facility] 4779 ALLERGIC 03-23-2009 [facility] RH[facility]IS [facility] CAUSE GROUP UNSPECIFIED 92350 ESOPHAGEAL 03-23-2009 [facility] 38994 NAUSEA 03-23-2009 [facility]ONE [facility] 34665 CLOSED 03-23-2009 [facility] FRACTURE MEDICAL UNSPEC PART GROUP LOWER END HUMERUS E8490 PLACE OF 03-20-2009 [place] [facility]CC[facility]ENCE[facility] E8851 FALL FROM 03-20-2009 [facility] 13716 MASTODYNIA 03-11-2009 [facility] PSC 33996 LUMP OR 03-11-2009 [facility] M[facility] IN ASSOCIATES BREAST PSC 72541 UNSPECIFIED 02-12-2009 [facility] VIRAL [facility] INFECTION GROUP IN CCE & UNS SITE 462 ACUTE 02-12-2009 [facility] PHARYNGITIS [facility] 6100 SOLITARY 01-20-2009 [facility] CYST OF MEDICAL BREAST GROUP 50562 OTHER 01-20-2009 [facility] MALAISE AND MEDICAL FATIGUE GROUP 5969 UNSPECIFIED 12-10-2008 [facility] 24156 ABDOMINAL 12-10-2008 [facility] PAIN RIGHT ASSOCIATES LOWER [facility] QUADRANT 4619 ACUTE 12-08-2008 [facility] SINUSITIS, MEDICAL UNSPECIFIED GROUP 6253 DYSMENORRHE 12-08-2008 [facility] A [facility] 7231 CERVICALGIA 09-12-2008 [facility] PSC 97738 ABDOMINAL 09-12-2008 [facility] PAIN RIGHT MEDICAL UPPER GROUP QUADRANT 8470 NECK SPRAIN 09-12-2008 [facility] AND STRAIN [facility]ICAL [facility] 7379 UNSPECIFIED 09-02-2008 [facility] CURVATURE [facility] OF SPINE PSC 0340 STREPTOCOCC 06-10-2008 [facility] 7892 SPLENOMEGAL 06-10-2008 [facility] 3671 MYOPIA 06-06-2008 [facility] 99519 UNSPECIFIED 05-21-2008 [facility] DENTAL ANESTHEISAA CARIES SERVICES [facility] V7284 UNSPECIFIED 05-13-2008 [facility] VE EXAMINATION 95070 CALCU 04-17-2008 [facility] GALLBLADD MEDICAL W/O MENTION GROUP CHOLECYST/O BST 94396 ABDOMINAL 03-20-2008 [facility] TENDERNESS MEDICAL RIGHT UPPER GROUP QUADRANT 3829 UNSPECIFIED 02-27-2008 [facility] OTITIS MEDICAL MEDIA GROUP 6929 CONTACT 02-27-2008 [facility] DERMATITIS& MEDICAL OTHER GROUP ECZEMA DUE UNSPEC CAUSE 78160 DIARRHEA 01-25-2008 [facility] MEDICAL GROUP 64671 EXTRINSIC 12-21-2007 [facility] ASTHMATICUS 46054 ASTHMA, 12-21-[facility] 5110 PLEURISY 06-26-2007 [facility] MENTION INC EFFUS/CURRE NT TB 5997 HEMATURIA 06-26-2007 [facility] 14515 CHEST PAIN 06-26-2007 [facility] 4659 ACUTE URIS 04-25-2007 [facility] UNSPECIFIED [facility] CTR SITE 0549 HERPES 04-17-2007 [facility] WITHOUT INC MENTION OF COMPLICATIO N 54412 UNSPECIFIED 03-29-2007 [facility] 3804 IMPACTED 03-23-2007 [facility] 04899 SCOLIOSIS , 03-23-2007 [facility] Medications Na ND Rx Da Fi Fi Am Da Di Ph RX Ph St me C No te ll ll ou ys ag ar # ys at rm s nt no ma ic us Or Da si cy ia de te s n re d OK 51 10 11 28 28 00 [place] Ac CR 86 -3 -2 .0 00 L- ti OG 20 1- 4- 00 06 MA ve ES 01 20 20 13 RT TI 20 17 17 92 N 6 94 PH FE AR MA 1- CY 20 #5 TA 84 BL ET HY 00 10 11 [address] 40 -2 -1 .0 00 TE ti OC 60 0- 7- 00 01 ve OD 12 20 20 20 AI ON 30 17 17 48 D -A 1 70 PH CE AR TA MA OK CY NO PH #3 EN 93 8 5- 32 5 NI 47 10 11 14 7 00 [facility] TR 78 -2 -1 .0 00 L- ti OF 10 3- 7- 00 06 MA ve UR 30 20 20 15 RT AN 30 17 17 22 TO 1 44 PH IN AR MA MO CY NO -M #5 CR 84 10 0 MG FL 55 10 11 1. 1 00 [facility] UC 11 -2 -1 00 00 L- ti ON 10 3- 7- 0 06 MA ve AZ 14 20 20 15 RT OL 51 17 17 22 E 2 48 PH 15 AR 0 MA MG CY TA #5 BL 84 ET ME 62 10 11 30 30 00 [facility] TO 03 -1 -0 .0 00 L- ti WA 70 0- 3- 00 06 MA ve OL 83 20 20 10 RT OL 01 17 17 76 0 20 PH MERIDA AR CC MA CY ER #5 25 84 MG TA B VE 00 10 11 30 30 00 [facility] NL 09 -1 -0 .0 00 L- ti AF 37 0- 3- 00 06 MA ve AX 38 20 20 10 RT IN 65 17 17 76 E 6 22 PH HC AR L MA ER CY 15 #5 0 84 MG CA P OK 51 09 10 28 28 00 [facility] CR 86 -2 -2 .0 00 L- ti OG 20 9- 7- 00 06 MA ve ES 01 20 20 13 RT TI 20 17 17 92 N 6 94 PH FE AR MA 1- CY 20 #5 TA 84 BL ET OK 57 09 10 30 30 00 [facility] RT 23 -2 -2 .0 00 L- ti AZ 70 9- 7- 00 06 MA ve AP 00 20 20 12 RT IN 83 17 17 94 E 0 05 PH 15 AR MA MG CY TA #5 BL 84 ET FL 55 09 10 1. 1 00 [facility] UC 11 -1 -0 00 00 L- ti ON 10 3- 6- 0 06 MA ve AZ 14 20 20 14 RT OL 51 17 17 27 E 2 16 PH 15 AR 0 MA MG CY TA #5 BL 84 ET CE 68 09 10 14 7 00 [facility] PH 18 -1 -0 .0 00 L- ti AL 00 3- 6- 00 06 MA ve EX 12 20 20 14 RT IN 20 17 17 27 2 15 PH 50 AR 0 MA MG CY CA #5 PS 84 UL E PO 00 09 10 28 28 00 [facility] LY 57 -1 -0 .0 00 L- ti ET 40 3- 6- 00 06 MA ve HY 41 20 20 14 RT LE 20 17 17 27 NE 7 14 PH AR GL MA YC CY OL #5 33 84 50 PO WD ME 62 09 09 30 30 00 [facility] TO 03 -0 -2 .0 00 L- ti WA 70 6- 9- 00 06 MA ve OL 83 20 20 10 RT OL 01 17 17 76 0 20 PH MERIDA AR CC MA CY ER #5 25 84 MG TA B VE 00 09 09 30 30 00 [facility] NL 09 -0 -2 .0 00 L- ti AF 37 6- 9- 00 06 MA ve AX 38 20 20 10 RT IN 65 17 17 76 E 6 22 PH HC AR L MA ER CY 15 #5 0 84 MG CA P FL 55 09 09 1. 1 00 [facility] UC 11 -0 -2 00 00 L- ti ON 10 6- 9- 0 06 MA ve AZ 14 20 20 14 RT OL 51 17 17 09 E 2 31 PH 15 AR 0 MA MG CY TA #5 BL 84 ET FL 55 08 09 1. 1 00 [facility] UC 11 -2 -2 00 00 L- ti ON 10 9- 2- 0 06 MA ve AZ 14 20 20 13 RT OL 51 17 17 92 E 2 93 PH 15 AR 0 MA MG CY TA #5 BL 84 ET OK 51 08 09 28 28 00 [facility] CR 86 -2 -2 .0 00 L- ti OG 20 9- 2- 00 06 MA ve ES 01 20 20 13 RT TI 20 17 17 92 N 6 94 PH FE AR MA 1- CY 20 #5 TA 84 BL ET ME 50 08 09 14 7 00 [facility] TR 11 -3 -2 .0 00 L- ti ON 10 0- 2- 00 06 MA ve ID 33 20 20 13 RT AZ 40 17 17 96 OL 2 34 PH E AR 50 MA 0 CY MG #5 TA 84 BL ET FL 55 08 09 1. 1 00 [facility] UC 11 -2 -1 00 00 L- ti ON 10 1- 5- 0 06 MA ve AZ 14 20 20 13 RT OL 51 17 17 72 E 2 72 PH 15 AR 0 MA MG CY TA #5 BL 84 ET CE 68 08 09 21 7 00 CO Ac PH 18 -2 -1 .0 00 L- ti AL 00 1- 5- 00 06 MA ve EX 12 20 20 13 RT IN 20 17 17 72 2 71 PH 50 AR 0 MA MG CY CA #5 PS 84 UL E OK 57 08 09 30 30 00 CO Ac RT 23 -0 -0 .0 00 L- ti AZ 70 6- 1- 00 06 MA ve AP 00 20 20 12 RT IN 83 17 17 94 E 0 05 PH 15 AR MA MG CY TA #5 BL 84 ET ME 62 08 08 30 30 00 CO Ac TO 03 -0 -2 .0 00 L- ti WA 70 1- 5- 00 06 MA ve OL 83 20 20 10 RT OL 01 17 17 76 0 20 PH MERIDA AR CC MA CY ER #5 25 84 MG TA B VE 00 08 08 30 30 00 CO Ac NL 09 -0 -2 .0 00 L- ti AF 37 1- 5- 00 06 MA ve AX 38 20 20 10 RT IN 65 17 17 76 E 6 22 PH HC AR L MA ER CY 15 #5 0 84 MG CA P ON 57 07 08 12 3 00 [facility] DA 23 -2 -1 .0 00 L- ti NS 70 5- 8- 00 06 MA ve ET 07 20 20 13 RT RO 71 17 17 17 N 0 05 PH OD AR T MA 4 CY MG #5 TA 84 BL ET OK 57 07 08 30 30 00 CO Ac RT 23 -1 -1 .0 00 L- ti AZ 70 4- 1- 00 06 MA ve AP 00 20 20 12 RT IN 83 17 17 94 E 0 05 PH 15 AR MA MG CY TA #5 BL 84 ET NI 47 07 08 10 5 00 CO Ac TR 78 -0 -0 .0 00 L- ti OF 10 7- 4- 00 06 MA ve UR 30 20 20 12 RT AN 30 17 17 78 TO 1 43 PH IN AR MA MO CY NO -M #5 CR 84 10 0 MG FL 55 07 08 1. 1 00 [facility] UC 11 -0 -0 00 00 L- ti ON 10 7- 4- 0 06 MA ve AZ 14 20 20 12 RT OL 51 17 17 78 E 2 44 PH 15 AR 0 MA MG CY TA #5 BL 84 ET VE 00 07 08 30 30 00 CO Ac NL 09 -0 -0 .0 00 L- ti AF 37 7- 4- 00 06 MA ve AX 38 20 20 10 RT IN 65 17 17 76 E 6 22 PH HC AR L MA ER CY 15 #5 0 84 MG CA P ME 62 07 08 30 30 00 CO Ac TO 03 -0 -0 .0 00 L- ti WA 70 7- 4- 00 06 MA ve OL 83 20 20 10 RT OL 01 17 17 76 0 20 PH MERIDA AR CC MA CY ER #5 25 84 MG TA B ME 50 06 07 14 7 00 [facility] TR 11 -2 -2 .0 00 L- ti ON 10 7- 8- 00 06 MA ve ID 33 20 20 12 RT AZ 40 17 17 58 OL 2 57 PH E AR 50 MA 0 CY MG #5 TA 84 BL ET FL 55 06 07 1. 1 00 [facility] UC -1 -1 00 00 L- ti ON 10 9- 4- 0 06 MA ve AZ 14 20 20 12 RT OL 51 17 17 41 E 2 11 PH 15 AR 0 MA MG CY TA #5 BL 84 ET ME 50 06 07 4. 1 00 [facility] TR 11 2 -1 00 00 L- ti ON 10 1- 4- 0 06 MA ve ID 33 20 20 12 RT AZ 40 17 17 45 OL 2 67 PH E AR 50 MA 0 CY MG #5 TA 84 BL ET CE 68 05 06 15 5 00 [facility] PH 18 -2 -2 .0 00 L- ti AL 00 7- 3- 00 06 MA ve EX 12 20 20 11 RT IN 20 17 17 92 2 45 PH 50 AR 0 MA MG CY CA #5 PS 84 UL E FL 55 05 06 1. 1 00 [facility] UC 11 -2 -2 00 00 L- ti ON 7- 3- 0 06 MA ve AZ 14 20 20 11 RT OL 51 17 17 92 E 2 43 PH 15 AR 0 MA MG CY TA #5 BL 84 ET PH 51 05 06 6. 2 00 [facility] EN 29 -2 -2 00 00 L- ti AZ 30 7- 3- 0 06 MA ve OP 81 20 20 11 RT YR 10 17 17 92 ID 1 44 PH IN AR E MA 20 CY 0 MG #5 84 TA B VE 00 05 06 30 30 00 [facility] NL 09 -2 -1 .0 00 L- ti AF 37 4- 6- 00 06 MA ve AX 38 20 20 10 RT IN 65 17 17 76 E 6 22 PH HC AR L MA ER CY 15 #5 0 84 MG CA P OK 57 05 06 30 30 00 [facility] RT 23 -2 -1 .0 00 L- ti AZ 70 4- 6- 00 06 MA ve AP 00 20 20 10 RT IN 83 17 17 76 E 0 21 PH 15 AR MA MG CY TA #5 BL 84 ET ME 62 05 06 30 30 00 [facility] TO 03 -2 -1 .0 00 L- ti WA 70 4- 6- 00 06 MA ve OL 83 20 20 10 RT OL 01 17 17 76 0 20 PH MERIDA AR CC MA CY ER #5 25 84 MG TA B EQ 49 04 05 89 4 00 CO Ac 03 -0 -0 .0 00 L- ti CO 50 7- 5- 00 08 MA ve UG 38 20 20 86 RT H 42 17 17 46 DM 1 36 PH AR ER MA CY 30 #5 MG 84 /5 ML MERIDA SP CE 68 04 05 40 10 00 [facility] PH 18 -0 -0 .0 00 L- ti AL 00 7- 5- 00 06 MA ve EX 12 20 20 10 RT IN 10 17 17 76 1 18 PH 25 AR 0 MA MG CY CA #5 PS 84 UL E WA 60 04 05 24 8 00 [facility] OM 43 -0 -0 0. 00 L- ti ET 20 7- 5- 00 04 MA ve QURESHI 60 20 20 0 65 RT ZI 61 17 17 22 NE 6 60 PH -C AR OD MA EI CY NE #5 SY 84 RU P ME 62 04 05 30 30 00 [facility] TO 03 -0 -0 .0 00 L- ti WA 70 7- 5- 00 06 MA ve OL 83 20 20 10 RT OL 01 17 17 76 0 20 PH MERIDA AR CC MA CY ER #5 25 84 MG TA B OK 57 04 05 30 30 00 [facility] RT 23 -0 -0 .0 00 L- ti AZ 70 7- 5- 00 06 MA ve AP 00 20 20 10 RT IN 83 17 17 76 E 0 21 PH 15 AR MA MG CY TA #5 BL 84 ET VE 00 04 05 30 30 00 [facility] NL 09 -0 -0 .0 00 L- ti AF 37 7- 5- 00 06 MA ve AX 38 20 20 10 RT IN 65 17 17 76 E 6 22 PH HC AR L MA ER CY 15 #5 0 84 MG CA P FL 55 04 05 1. 1 00 [facility] Ac UC 11 -0 -0 00 00 L- ti ON 10 7- 5- 0 06 MA ve AZ 14 20 20 10 RT OL 51 17 17 76 E 2 17 PH 15 AR 0 MA MG CY TA #5 BL 84 ET FL 55 03 04 1. 1 00 [facility] Ac UC 11 -1 -0 00 00 L- ti ON 10 4- 7- 0 06 MA ve AZ 14 20 20 10 RT OL 51 17 17 09 E 2 10 PH 15 AR 0 MA MG CY TA #5 BL 84 ET ME 50 03 04 14 7 00 WA Ac TR 11 -1 -0 .0 00 L- ti ON 10 00 06 MA ve ID 33 20 [...] 15 0 IN MG C. CA P OK 57 03 03 30 30 00 GR Ac RT 66 -0 -3 .0 00 AN ti AZ 40 6- 1 00 02 T ve AP 49 20 20 25 CO IN 98 17 17 34 UN E [address] MG UG S, TA BL IN ET C. ME 49 03 03 30 30 00 GR Ac TO 88 -0 -3 .0 00 AN ti WA 40 6 02 T ve OL 82 20 20 25 CO OL 50 17 17 34 UN [address] UG ER S, 25 IN C. MG TA B SP 00 10 02 03 28 28 RI 80 CE Ac RI 55 -2 -2 .0 TE 49 NT ti NT 59 0- 6- 00 70 NE ve EC 01 20 20 AI R 65 09 10 D RO 28 8 PH NA AR LD DA M F Y #3 TA 93 BL 8 ET WA 37 06 02 00 28 28 RI [...] 0 93 MG 8 TA BL ET WA 68 01 02 00 30 7 WA [...] 20 20 RT 6 70 10 10 OK 5 PH CH AR AE MA L [...] CY CA #5 PS 84 UL E WA 68 12 12 00 20 6 WA [...] 00 30 15 WA 75 PA Ac WA 09 -1 -2 .0 L- 16 TE ti OX 30 2- 2- 00 MA 57 L ve EN 14 20 20 RT 0 91 09 09 RA 50 0 PH L 0 AR MG MA CY TA BL #5 ET 84 00 10 10 00 30 15 WA 75 PA Ac 37 -1 -2 .0 L- 16 TE ti 80 2- 2- 00 MA 56 L ve 75 20 20 RT 9 19 09 09 RA 3 PH L AR MA CY #5 84 54 06 10 03 30 30 [...] PH L AR MA CY #5 84 WA 37 06 07 00 28 28 WA [...] L- 74 TE ti RA 20 1 9 00 MA 39 L ve LI 21 20 20 RT 6 NE 43 09 09 RA 0 PH L HC AR L MA 10 CY 0 MG #5 84 TA BL ET PE 00 03 04 00 30 7 WA 74 IS Ac NI 78 -2 -0 .0 L- 72 ON ti CI 11 9 MA 94 ve LL 20 20 20 RT 0 DA IN 50 09 09 1 PH D VK AR E MA 25 CY 0 MG #5 84 TA BL ET CH 00 03 04 00 47 30 WA 74 IS Ac LO 11 -2 -0 3. L- 72 ON ti RH 62 9 MA 93 ve EX 00 20 20 0 RT 8 DA ID 11 09 09 IN 6 PH D E AR E 0. MA 12 CY % RI #5 NS 84 E ME 00 03 04 00 21 5 WA 74 IS Ac TH 60 -2 -0 .0 L- 72 ON ti YL 34 9 MA 93 ve WA 59 20 20 RT 9 DA ED [...] .0 L- 74 TE ti CL 70 9 MA 39 L ve OM 58 20 20 RT 8 IN 60 09 09 RA E 1 PH L 10 AR MA MG CY CA #5 PS 84 UL E CE 00 03 04 00 30 30 WA 88 PA Ac TI 37 -3 -0 .0 L- 26 TE ti RI 83 1 9- 00 MA 88 L ve ZI 63 20 20 RT 8 NE 70 09 09 RA 1 PH L HC AR L MA 10 CY MG #5 84 TA BL ET WA 68 02 02 00 30 7 WA 74 PA Ac OM 38 -1 -2 .0 L- 64 TE ti ET 20 9 6 00 MA 35 L ve QURESHI 04 20 20 RT 1 ZI 10 09 09 RA NE 1 PH L AR 25 MA CY MG #5 TA 84 BL ET MERIDA 53 02 02 00 14 7 WA 74 PA Ac LF 74 -1 -2 .0 L- 64 TE ti AM 60 9- 6- 00 MA 35 L ve ET 27 20 20 RT 0 HO 20 09 09 RA XA 5 PH L ZO AR LE MA -T CY MP #5 DS 84 TA BL ET WA 37 01 02 01 28 28 RI 76 QURESHI Ac IL 00 -2 -2 .0 TE 81 RT ti OS 00 2- 6- 00 11 IG ve EC 45 20 20 AI 50 09 09 D CLAUS OT 3 PH SE C AR PH 20 M E .6 #3 93 MG 8 TA BL ET WA 37 01 01 00 28 28 RI [...] PH L AR MA CY #5 84 DE 51 12 01 00 30 7 [...] EN B TA #5 BL 84 ET WA 00 10 11 00 8. 4 WA [...] CY CA #5 PS 84 UL E LO 00 07 08 00 30 30 WA 88 LI Ac RA 78 -1 -0 .0 L- 24 CH ti TA 15 2- 1- 00 MA 43 TE ve DI 07 20 20 RT 6 NS NE 70 08 08 TE 1 PH IN 10 AR MA PH MG CY IL IP TA #5 K BL 84 ET WA 00 07 08 00 6. 25 WA 74 LI Ac OV 08 -2 -0 70 L- 15 CH ti EN 51 1- 1- 0 MA 44 TE ve TI 13 20 20 RT 1 NS L 20 08 08 TE HF 1 PH IN A AR 90 MA PH CY IL MC IP G #5 K IN 84 QURESHI LE R 53 04 05 00 15 5 RI 73 No Ac 74 -2 -2 .0 TE 17 t ti 60 9- 2- 00 63 Av ve 13 20 20 AI ai 10 08 08 D la 5 PH bl AR e M #3 93 8 AZ 59 04 05 00 6. 5 RI 73 No Ac IT 76 -2 -2 00 TE 17 t ti HR 23 9- 2- 0 64 Av ve OM 06 20 20 AI ai YC 00 08 08 D la IN 1 PH bl AR e 25 M 0 #3 MG 93 8 TA BL ET AC 00 02 03 00 40 10 RI 72 No Ac YC 09 -1 -2 .0 TE 06 t ti LO 38 9- 6- 00 93 Av ve 94 20 20 AI ai R 30 08 08 D la 40 1 PH bl 0 AR e MG M #3 TA 93 BL 8 ET AN 24 01 03 00 10 [...] M bl 10 e -0 58 4 AZ 59 01 03 00 6. 5 RI 71 No Ac IT 76 -3 -2 00 TE 78 t ti HR 23 1- 6- 0 22 Av ve OM 06 20 20 AI ai YC 00 08 08 D la IN 1 PH bl AR e 25 M 0 #3 MG 93 8 TA BL ET 53 01 03 00 9. 3 WA 73 No Ac 74 -2 -2 00 LM 73 t ti 60 6- 6- 0 AR 45 Av ve 13 20 20 T 7 ai 20 08 08 PH la 5 M bl 10 e -0 58 4 WA 00 03 03 00 10 20 WA [...] Procedures Procedure DOS Code Location Performer Comment IRRIGATIO [id number] [facility] Encounters Encounter Start End Date Code Location Performer Type Date CRITICAL [facility] ACCESS 7 [address] [facility] [address] - OTHER 7 [address] [facility] - OTHER 7 7 [facility] - OTHER 7 7 [facility] - OTHER 7 7 [facility]IR[facility] - 7 7 [facility] - 7 7 [facility] - OTHER 7 7 [facility] - OTHER 7 7 [facility] - OTHER 7 7 [facility] ACCESS 5 5 [facility] - [address] [facility] - 4 4 [facility] - [address] [facility] - 4 [facility] - 4 4 [facility] - 4 4 [facility] - OTHER 4 4 [facility] - OTHER 4 4 [facility] - 0 0 [facility] - 0 0 [facility] AMIR[facility] - 0 0 [facility] - 0 0 [facility] - 9 9 [facility] - 9 9 [facility] 9 9 [facility] 9 [facility] [place] [id number] [facility] [place] [id number] [facility] 8 [facility] [place] [id number] 8 [facility]
--- OUTSIDE RECORDS SUMMARY | 2017-01-22 14:41 | External Medical Summary Rpt | CCD ---
Author Author , CHASE Organization [employer] Address Unknown Phone [email or web address] Care Team Providers Care Instrument Designer Name Role Phone [facility] Unavailable Unavailable PHYSICIANS, [facility] SERGIO FUENTES, Unavailable Unavailable SERGIO FUENTES JEFFREY T, Unavailable Unavailable PAOLO LOERA [facility], Unavailable Unavailable [facility] MANUEL SHIN, Unavailable Unavailable MANUEL SHIN [facility] Unavailable Unavailable [facility], [facility] GLORIA SUACEDA, Unavailable Unavailable GLORIA SAUCEDA JACOB Unavailable Unavailable TIERRA BLOCK, Unavailable Unavailable TIERRA BLOCK HARRY, MILLS, Unavailable [...] KHLOE LEVI DAVID, SOWER, Unavailable Unavailable STEVEN [facility] Unavailable Unavailable [facility], Unavailable Unavailable [facility] Unavailable [facility]available [facility] Unavailable Unavailable PHYSICIANS, [facility] Kee FERGUSON, Unavailable Unavailable [facility] STEVEN MEJIA, Unavailable Unavailable STEVEN LOPEZ STEVEN B, Unavailable Unavailable ANTIONETTE WALLACE [facility] Unavailable Unavailable #[phone], [facility] Unavailable Unavailable #591, [facility] [phone], Unavailable Unavailable TORIBIO [facility] [phone] Purpose Continuity of Care Document - 03-23-2007 [...] N10 ACUTE 12-19-2016 [facility] PYELONEPHRI [facility]ANS, TIS [facility] N3001 ACUTE 12-19-2016 ST CYSTITIS [facility] WITH [facility]YSICIANS HEMATURIA R350 FREQUENCY 12-19-2016 [facility] OF [facility] MICTURITION PHYSICIANS [id number] OTHER 11-09-2016 ST DIFFICULTIE [facility] S WITH PHYSICIANS MICTURITION N898 OTHER 10-25-2016 ST SPECIFIED [facility] NONINFLAMMA PHYSICIANS TORY DISORDERS [place] N926 IRREGULAR 10-25-2016 ST MENSTRUATIO [facility] N PHYSICIANS UNSPECIFIED Z681 BODY MASS 10-25-2016 ST INDEX 19.9 [facility] OR LESS PHYSICIANS ADULT R110 NAUSEA 09-30-2016 [facility], [facility] R51 HEADACHE 09-30-2016 [facility], [facility] [id number] MIGRAINE 09-27-2016 [facility] NOT INTRACT INC W/O STAT MIGRAIN R197 DIARRHEA 09-20-2016 ST UNSPECIFIED [facility] R630 ANOREXIA 09-20-2016 [facility] H5203 HYPERMETROP 09-19-2016 [place] IA BILATERAL R300 DYSURIA 09-02-2016 ST [facility] L06505 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 08-23-2016 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 [facility] GENERAL RTN PHYSICIANS W/O ABNORMAL FIND B373 CANDIDIASIS 08-15-2016 ST OF [place] [facility] AND [place] PHYSIC[facility]ANS N760 ACUTE 08-15-2016 ST VAGINITIS [facility] R140 ABDOMINAL 08-15-2016 ST DISTENSION [facility] GASEOUS PHYSICIANS Z6820 BODY MASS 08-15-2016 ST INDEX BMI [facility] 20.0-20.9 PHYSICIANS ADULT N3090 CYSTITIS 07-23-2016 [facility] UNSPECIFIED EMERGENCY WITHOUT PHYSICIANS HEMATURIA J069 ACUTE UPPER 06-02-2016 [facility] EMERGENCY RESPIRATORY PHYSICIANS INFECTION UNSPECIFIED N888 OTH SPEC 04-27-2016 [facility] NONINFLAMMA EMERGENCY TORY PHYSICIANS DISORDERS CERVIX UTERI J111 FLU D/T 05-21-2015 [facility] UNIDENTIFIE EMERGENCY D FLU VIRUS PHYSICIANS W/OTH RESP MANIF R109 UNSPECIFIED 03-25-2015 [facility] ABDOMINAL EMERGENCY PAIN PHYSICIANS A64 UNSPECIFIED 01-09-2015 [facility] SEXUALLY EMERGENCY TRANSMITTED PHYSICIANS DISEASE N12 TUBULO-INTE 01-09-2015 [facility] RST EMERGENCY NEPHRITIS PHYSICIANS NOT SPEC ACUTE/CHRON 5950 ACUTE 09-17-2014 [facility] CYSTITIS EMERGENCY PHYSICIANS 42930 HEMATURIA 09-17-2014 [facility] UNSPECIFIED EMERGENCY PHYSICIANS 6268 OTH D/O 08-29-2014 [facility] 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 N PHYLLIS 63835 ABDOMINAL 10-21-2013 ST. PAIN, [facility] UNSPECIFIED PHYLLIS SITE 08262 GENERALIZED 08-08-2013 ST ANXIETY [facility] DISORDER PHYSICIANS 41606 UNSPECIFIED 08-08-2013 ST [facility] CONSTIPATIO PHYSICIANS N V700 ROUTINE 07-19-2013 GENERAL [facility] MEDICAL [facility] EXAM@HEALTH CARE FAC V7231 ROUTINE 07-19-2013 GYNECOLOGIC [facility] AL PHYSICIANS EXAMINATION 2639 UNSPECIFIED 06-10-2013 [facility] PROTEIN-IRON [facility] CTR PUNCH PRESS SETTER ORIE ST MALNUTRITIO N 7804 DIZZINESS 06-10-2013 AND [facility] GIDDINESS MED CTR PUNCH PRESS SETTER ST 1101 DERMATOPHYT 04-05-2013 [facility] [place] [facility] [place] [address] [address] CLOSED 04-22-2009 [facility] FRACTURE OF ASSOCIATES HEAD OF [facility] RADIUS 10148 CONTUSION 03-25-2009 [facility] H REGION [facility]AED[facility] CTR PSC 10007 CONTUSION 03-25-2009 [facility] OF HIP H [facility]THOPAEDIC CTR [facility] 4779 ALLERGIC 03-23-2009 [facility] RHINITIS [facility]ICAL CAUSE GROUP UNSPECIFIED 15805 ESOPHAGEAL 03-23-2009 [facility] 97005 NAUSEA 03-23-2009 [facility]ONE [facility] 07566 CLOSED 03-23-2009 [facility] FRACTURE MEDICAL UNSPEC PART GROUP LOWER END HUMERUS E8490 PLACE OF 03-20-2009 [place] [facility] E8851 FALL [facility] 03-20-2009 [facility] 59555 MASTODYNIA 03-11-2009 [facility] PSC 97078 LUMP OR 03-11-2009 [facility] MASS IN ASSOCIATES BREAST PSC 18608 UNSPECIFIED 02-12-2009 [facility] VIRAL [facility] INFECTION GROUP IN CCE & UNS SITE 462 ACUTE 02-12-2009 [facility] PHARYNGITIS [facility] 6100 SOLITARY 01-20-2009 [facility] CYST OF MEDICAL BREAST GROUP 85813 OTHER 01-20-2009 [facility] MALAISE AND MEDICAL FATIGUE GROUP 5969 UNSPECIFIED 12-10-2008 [facility] 21545 ABDOMINAL 12-10-2008 [facility] PAIN RIGHT ASSOCIATES LOWER [facility] QUADRANT 4619 ACUTE 12-08-2008 [facility] SINUSITIS, MEDICAL UNSPECIFIED GROUP 6253 DYSMENORRHE 12-08-2008 [facility] A [facility] 7231 CERVICALGIA 09-12-2008 [facility] PSC 20500 ABDOMINAL 09-12-2008 [facility] PAIN RIGHT MEDICAL UPPER GROUP QUADRANT 8470 NECK SPRAIN 09-12-2008 [facility] AND STRAIN [facility]ICAL [facility] 7379 UNSPECIFIED 09-02-2008 [facility] CURVATURE ASSOCIATES OF SPINE PSC 0340 STREPTOCOCC 06-10-2008 [facility] [place] [facility] 7892 SPLENOMEGAL 06-10-2008 [facility] 3671 MYOPIA 06-06-2008 [facility] 29006 UNSPECIFIED 05-21-2008 [facility] DENTAL ANESTHEISAA CARIES SERVICES [facility] V7284 UNSPECIFIED 05-13-2008 [facility] PRE-OPERATI GROUP VE EXAMINATION 88813 CALCU 04-17-2008 [facility] GALLBLADD MEDICAL W/O MENTION GROUP CHOLECYST/O BST 77743 ABDOMINAL 03-20-2008 [facility] TENDERNESS MEDICAL RIGHT UPPER GROUP QUADRANT 3829 UNSPECIFIED 02-27-2008 [facility] OTITIS MEDICAL MEDIA GROUP 6929 CONTACT 02-27-2008 [facility] DERMATITIS& MEDICAL OTHER GROUP ECZEMA DUE UNSPEC CAUSE 44389 DIARRHEA 01-25-2008 [facility] 24706 EXTRINSIC 12-21-2007 [facility] [place] [facility] ASTHMATICUS 26534 ASTHMA, 12-21-2007 [facility] 5110 PLEURISY 06-26-2007 [facility] MENTION INC EFFUS/CURRE NT TB 5997 HEMATURIA 06-26-2007 [facility] 12015 CHEST PAIN 06-26-2007 [facility] 4659 ACUTE URIS 04-25-2007 [facility] UNSPECIFIED [facility] SITE 0549 HERPES 04-17-2007 [facility] WITHOUT INC MENTION OF COMPLICATIO N 59089 UNSPECIFIED 03-29-2007 [facility] 3804 IMPACTED 03-23-2007 [facility] 71478 SCOLIOSIS , 03-23-2007 [facility] Medications Na ND Rx Da Fi Fi Am Da Di Ph RX Ph St me C No te ll ll ou ys ag ar # ys at rm s nt no ma ic us Or Da si cy ia de te s n re d NC 51 10 11 28 28 00 WA [...] 1 70 PH CE AR TA MA NC CY NO PH #3 EN 93 8 5- 32 5 NI 47 10 11 14 7 00 [facility] TR 78 -2 -1 .0 00 L- ti OF 10 3- 7- 00 06 MA ve UR 30 20 20 15 RT AN 30 17 17 22 TO 1 44 PH IN AR MA MO CY NO -M #5 CR 84 10 0 MG FL 55 10 11 1. 1 00 [facility] UC 11 -2 -1 00 00 L- ti ON 10 3- 7- 0 06 MA ve AZ 14 20 20 15 RT OL 51 17 17 22 E 2 48 PH 15 AR 0 MA MG CY TA #5 BL 84 ET ME 62 10 11 30 30 00 [facility] TO 03 -1 -0 .0 00 L- ti LA 70 0- 3- 00 06 MA ve OL 83 20 20 10 RT OL 01 17 17 76 0 20 PH MERIDA AR CC MA CY ER #5 25 84 MG TA B VE 00 10 11 30 30 00 [facility] NL 09 -1 -0 .0 00 L- ti AF 37 0- 3- 00 06 MA ve AX 38 20 20 10 RT IN 65 17 17 76 E 6 22 PH HC AR L MA ER CY 15 #5 0 84 MG CA P NC 51 09 10 28 28 00 [facility] CR 86 -2 -2 .0 00 L- ti OG 20 9- 7- 00 06 MA ve ES 01 20 20 13 RT TI 20 17 17 92 N 6 94 PH FE AR MA 1- CY 20 #5 TA 84 BL ET NC 57 09 10 30 30 00 [facility] RT 23 -2 -2 .0 00 L- ti AZ 70 9- 7- 00 06 MA ve AP 00 20 20 12 RT IN 83 17 17 94 E 0 05 PH 15 AR MA MG CY TA #5 BL 84 ET FL 55 09 10 1. 1 00 [facility] UC 11 -1 -0 00 00 L- ti ON 10 3- 6- 0 06 MA ve AZ 14 20 20 14 RT OL 51 17 17 27 E 2 16 PH 15 AR 0 MA MG CY TA #5 BL 84 ET CE 68 09 10 14 7 00 [facility] PH 18 -1 -0 .0 00 L- ti AL 00 3- 6- 00 06 MA ve EX 12 20 20 14 RT IN 20 17 17 27 2 15 PH 50 AR 0 MA MG CY CA #5 PS 84 UL E PO 00 09 10 28 28 00 [facility] LY 57 -1 -0 .0 00 L- ti ET 40 3- 6- 00 06 MA ve HY 41 20 20 14 RT LE 20 17 17 27 NE 7 14 PH AR GL MA YC CY OL #5 33 84 50 PO WD ME 62 09 09 30 30 00 [facility] TO 03 -0 -2 .0 00 L- ti LA 70 6- 9- 00 06 MA ve OL 83 20 20 10 RT OL 01 17 17 76 0 20 PH MERIDA AR CC MA CY ER #5 25 84 MG TA B VE 00 09 09 30 30 00 [facility] NL 09 -0 -2 .0 00 L- ti AF 37 6- 9- 00 06 MA ve AX 38 20 20 10 RT IN 65 17 17 76 E 6 22 PH HC AR L MA ER CY 15 #5 0 84 MG CA P FL 55 09 09 1. 1 00 [facility] UC 11 -0 -2 00 00 L- ti ON 10 6- 9- 0 06 MA ve AZ 14 20 20 14 RT OL 51 17 17 09 E 2 31 PH 15 AR 0 MA MG CY TA #5 BL 84 ET FL 55 08 09 1. 1 00 [facility] UC 11 -2 -2 00 00 L- ti ON 10 9- 2- 0 06 MA ve AZ 14 20 20 13 RT OL 51 17 17 92 E 2 93 PH 15 AR 0 MA MG CY TA #5 BL 84 ET NC 51 08 09 28 28 00 [facility] CR 86 -2 -2 .0 00 L- ti OG 20 9- 2- 00 06 MA ve ES 01 20 20 13 RT TI 20 17 17 92 N 6 94 PH FE AR MA 1- CY 20 #5 TA 84 BL ET ME 50 08 09 14 7 00 [facility] TR 11 -3 -2 .0 00 L- ti ON 10 0- 2- 00 06 MA ve ID 33 20 20 13 RT AZ 40 17 17 96 OL 2 34 PH E AR 50 MA 0 CY MG #5 TA 84 BL ET FL 55 08 09 1. 1 00 [facility] UC 11 -2 -1 00 00 L- ti ON 10 1- 5- 0 06 MA ve AZ 14 20 20 13 RT OL 51 17 17 72 E 2 72 PH 15 AR 0 MA MG CY TA #5 BL 84 ET CE 68 08 09 21 7 00 [place] Ac PH 18 -2 -1 .0 00 L- ti AL 00 1- 5- 00 06 MA ve EX 12 20 20 13 RT IN 20 17 17 72 2 71 PH 50 AR 0 MA MG CY CA #5 PS 84 UL E NC 57 08 09 30 30 00 [place] Ac RT 23 -0 -0 .0 00 L- ti AZ 70 6- 1- 00 06 MA ve AP 00 20 20 12 RT IN 83 17 17 94 E 0 05 PH 15 AR MA MG CY TA #5 BL 84 ET ME 62 08 08 30 30 00 [place] Ac TO 03 -0 -2 .0 00 L- ti LA 70 1- 5- 00 06 MA ve OL 83 20 20 10 RT OL 01 17 17 76 0 20 PH MERIDA AR CC MA CY ER #5 25 84 MG TA B VE 00 08 08 30 30 00 [facility] Ac NL 09 -0 -2 .0 00 L- ti AF 37 1- 5- 00 06 MA ve AX 38 20 20 10 RT IN 65 17 17 76 E 6 22 PH HC AR L MA ER CY 15 #5 0 84 MG CA P ON 57 07 08 12 3 00 [facility] DA 23 -2 -1 .0 00 L- ti NS 70 5- 8- 00 06 MA ve ET 07 20 20 13 RT RO 71 17 17 17 N 0 05 PH OD AR T MA 4 CY MG #5 TA 84 BL ET NC 57 07 08 30 30 00 [place] Ac RT 23 -1 -1 .0 00 L- ti AZ 70 4- 1- 00 06 MA ve AP 00 20 20 12 RT IN 83 17 17 94 E 0 05 PH 15 AR MA MG CY TA #5 BL 84 ET NI 47 07 08 10 5 00 [place] Ac TR 78 -0 -0 .0 00 L- ti OF 10 7- 4- 00 06 MA ve UR 30 20 20 12 RT AN 30 17 17 78 TO 1 43 PH IN AR MA MO CY NO -M #5 CR 84 10 0 MG FL 55 07 08 1. 1 00 [facility] UC 11 -0 -0 00 00 L- ti ON 10 7- 4- 0 06 MA ve AZ 14 20 20 12 RT OL 51 17 17 78 E 2 44 PH 15 AR 0 MA MG CY TA #5 BL 84 ET VE 00 07 08 30 30 00 [facility] Ac NL 09 -0 -0 .0 00 L- ti AF 37 7- 4- 00 06 MA ve AX 38 20 20 10 RT IN 65 17 17 76 E 6 22 PH HC AR L MA ER CY 15 #5 0 84 MG CA P ME 62 07 08 30 30 00 [facility] TO 03 -0 -0 .0 00 L- ti LA 70 7- 4- 00 06 MA ve OL 83 20 20 10 RT OL 01 17 17 76 0 20 PH MERIDA AR CC MA CY ER #5 25 84 MG TA B ME 50 06 07 14 7 00 [facility] TR 11 -2 -2 .0 00 L- ti ON 10 7- 8- 00 06 MA ve ID 33 20 20 12 RT AZ 40 17 17 58 OL 2 57 PH E AR 50 MA 0 CY MG #5 TA 84 BL ET FL 55 06 07 1. 1 00 [facility] UC -1 -1 00 00 L- ti ON 10 9- 4- 0 06 MA ve AZ 14 20 20 12 RT OL 51 17 17 41 E 2 11 PH 15 AR 0 MA MG CY TA #5 BL 84 ET ME 50 06 07 4. 1 00 [facility] TR 11 2 -1 00 00 L- ti ON 10 1- 4- 0 06 MA ve ID 33 20 20 12 RT AZ 40 17 17 45 OL 2 67 PH E AR 50 MA 0 CY MG #5 TA 84 BL ET CE 68 05 06 15 5 00 [facility] PH 18 -2 -2 .0 00 L- ti AL 00 7- 3- 00 06 MA ve EX 12 20 20 11 RT IN 20 17 17 92 2 45 PH 50 AR 0 MA MG CY CA #5 PS 84 UL E FL 55 05 06 1. 1 00 [facility] UC 11 -2 -2 00 00 L- ti ON 7- 3- 0 06 MA ve AZ 14 20 20 11 RT OL 51 17 17 92 E 2 43 PH 15 AR 0 MA MG CY TA #5 BL 84 ET PH 51 05 06 6. 2 00 [facility] EN 29 -2 -2 00 00 L- ti AZ 30 7- 3- 0 06 MA ve OP 81 20 20 11 RT YR 10 17 17 92 ID 1 44 PH IN AR E MA 20 CY 0 MG #5 84 TA B VE 00 05 06 30 30 00 [facility] NL 09 -2 -1 .0 00 L- ti AF 37 4- 6- 00 06 MA ve AX 38 20 20 10 RT IN 65 17 17 76 E 6 22 PH HC AR L MA ER CY 15 #5 0 84 MG CA P NC 57 05 06 30 30 00 [facility] RT 23 -2 -1 .0 00 L- ti AZ 70 4- 6- 00 06 MA ve AP 00 20 20 10 RT IN 83 17 17 76 E 0 21 PH 15 AR MA MG CY TA #5 BL 84 ET ME 62 05 06 30 30 00 [facility] TO 03 -2 -1 .0 00 L- ti LA 70 4- 6- 00 06 MA ve OL 83 20 20 10 RT OL 01 17 17 76 0 20 PH MERIDA AR CC MA CY ER #5 25 84 MG TA B EQ 49 04 05 89 4 00 [place] Ac 03 -0 -0 .0 00 L- ti CO 50 7- 5- 00 08 MA ve UG 38 20 20 86 RT H 42 17 17 46 DM 1 36 PH AR ER MA CY 30 #5 MG 84 /5 ML MERIDA SP CE 68 04 05 40 10 00 [facility] PH 18 -0 -0 .0 00 L- ti AL 00 7- 5- 00 06 MA ve EX 12 20 20 10 RT IN 10 17 17 76 1 18 PH 25 AR 0 MA MG CY CA #5 PS 84 UL E LA 60 04 05 24 8 00 [facility] OM 43 -0 -0 0. 00 L- ti ET 20 7- 5- 00 04 MA ve QURESHI 60 20 20 0 65 RT ZI 61 17 17 22 NE 6 60 PH -C AR OD MA EI CY NE #5 SY 84 RU P ME 62 04 05 30 30 00 [facility] TO 03 -0 -0 .0 00 L- ti LA 70 7- 5- 00 06 MA ve OL 83 20 20 10 RT OL 01 17 17 76 0 20 PH MERIDA AR CC MA CY ER #5 25 84 MG TA B NC 57 04 05 30 30 00 [facility] RT 23 -0 -0 .0 00 L- ti AZ 70 7- 5- 00 06 MA ve AP 00 20 20 10 RT IN 83 17 17 76 E 0 21 PH 15 AR MA MG CY TA #5 BL 84 ET VE 00 04 05 30 30 00 [facility] NL 09 -0 -0 .0 00 L- ti AF 37 7- 5- 00 06 MA ve AX 38 20 20 10 RT IN 65 17 17 76 E 6 22 PH HC AR L MA ER CY 15 #5 0 84 MG CA P FL 55 04 05 1. 1 00 [place] [facility] UC 11 -0 -0 00 00 L- ti ON 10 7- 5- 0 06 MA ve AZ 14 20 20 10 RT OL 51 17 17 76 E 2 17 PH 15 AR 0 MA MG CY TA #5 BL 84 ET FL 55 03 04 1. 1 00 [place] [facility] UC 11 -1 -0 00 00 [...] 15 0 IN MG C. CA P NC 57 03 03 30 30 00 GR [...] 88 -0 -3 .0 00 AN ti LA 40 6 02 T ve OL 82 [...] Y #3 TA 93 BL 8 ET LA 37 06 02 00 28 28 RI [...] 0 93 MG 8 TA BL ET LA 68 01 02 00 30 7 WA [...] 20 20 RT 6 70 10 10 NC 5 PH CH AR AE MA L [...] CY CA #5 PS 84 UL E LA 68 12 12 00 20 6 WA [...] 00 30 15 WA 75 PA Ac LA 09 -1 -2 .0 L- 16 TE [...] PH L AR MA CY #5 84 LA 37 06 07 00 28 28 WA [...] ti YL 34 9 MA 93 ve LA 59 20 20 RT 9 DA ED [...] CY MG #5 84 TA BL ET LA 68 02 02 00 30 7 WA [...] MP #5 DS 84 TA BL ET LA 37 01 02 01 28 28 RI 76 QURESHI Ac IL 00 -2 -2 .0 TE 81 RT ti OS 00 2- 6- 00 11 IG ve EC 45 20 20 AI 50 09 09 D CLAUS OT 3 PH SE C AR PH 20 M E .6 #3 93 MG 8 TA BL ET LA 37 01 01 00 28 28 RI [...] EN B TA #5 BL 84 ET LA 00 10 11 00 8. 4 WA [...] IP TA #5 K BL 84 ET LA 00 07 08 00 6. 25 WA [...] M bl 10 e -0 58 4 LA 00 03 03 00 10 20 WA [...] Type Date CRITICAL [facility] ACCESS 7 [address] [facility] - OTHER [address] [facility] [address] - OTHER [address] [facility] [address] - OTHER [address] [facility] - OTHER 7 7 [facility] - 7 7 [facility] - [facility] [address] [facility] - OTHER [address] [facility] - OTHER [address] [facility] - OTHER 7 [address] [facility] ACCESS [address] [facility] - [address] [facility] - [facility] [place] - [address] [facility] - 4 4 [facility] [place] - 4 4 [facility] [place] - 4 4 [facility] [place] - OTHER 4 4 [facility] [place] - OTHER 4 4 [facility] [place] - 0 0 [facility] - 0 0 [facility] - 0 0 [facility] - 0 0 [facility] - 9 9 [facility] - 9 9 [facility] 9 [facility] [place] [address] [facility] [place] [address] [facility] [place] [address] 8 [facility]
--- OUTSIDE RECORDS SUMMARY | 2017-01-22 14:43 | External Medical Summary Rpt | CCD ---
Demographics Preferred Language Icelandic Marital Status Unknown Baptism Affiliation Unknown Race Unknown Ethnic Group Unknown Author Author , CHASE STONE Address Unknown Phone Immunization No patient found.
--- OUTSIDE RECORDS SUMMARY | 2017-01-22 14:43 | External Medical Summary Rpt | CCD ---
Demographics Preferred Language Yoruba Marital Status Unknown Episcopal Affiliation Unknown Race Unknown Ethnic Group Unknown Author Author , CHASE STONE Address Unknown Phone Immunization No patient found.
--- OUTSIDE RECORDS SUMMARY | 2017-01-22 14:45 | External Medical Summary Rpt ---
Author Author CHASE Stephania, [employer] Address Unknown Phone Unavailable Results US RENAL AND BLADDER Observa Value Referen Units Interpr Notes Date ti ce etation Range PROCEDU No No No No Dec 29 RE: informa informa informa informa 2016 Ultraso tion in tion in tion in tion in 2:42 PM und source source source source bilater data data data data al kidneys and urinary bladder , 017 2:42\.b r\PM\.b r\\.br\ INDICAT ION: Recurre nt UTI's, voiding dysfunc tion.\. br\\.br \FINDIN GS: Ultraso und bilater al kidneys and urinary bladder . No prior. There\. br\is\. br\no hydrone phrosis , nephrol ithiasi s, solid or cystic mass in either kidney. \.br\Th e\.br\r ight kidney measure s 10.7 x 5.3 x 3.5 CM. The left kidney measure s 10.3 x\.br\4 .4 x\.br\4 .3 CM. The urinary bladder is sonogra phic normal. Prevoid volume is 690\.br \cc.\.b r\Postv oid residua l is 185 cc. Both uretera l jets were identif ied.\.b r\\.br\ IMPRESS ION:\.b r\Moder ate post void residua l in the urinary bladder . Otherwi se,\.br \negati ve ultraso und of bilater al kidneys and urinary bladder .\.br\ Comprehensive metabolic 2000 panel in Serum or Plasma Observa Value Referen Units Interpr Notes Date tion ce etation Range Albumin/G 1.1 - 1.8 No Low No Dec 19 lobulin informati informati 2016 8:45 [Mass on in on in PM ratio] in source source Serum or data data Plasma Albumin 3.4 - 5.0 gm/dL Normal No Dec 19 [Mass/vol informati 2017 8:45 ume] in on in PM Serum or source Plasma data Alkaline 46 - 116 U/L Normal No Dec 19 phosphata informati 2017 8:45 se on in PM [Enzymati source c data activity/ volume] in Serum or Plasma Bilirubin 0.2 - 1.0 mg/dL Normal No Dec 19 .total informati 2016 8:45 [Mass/vol on in PM ume] in source Serum or data Plasma Urea 7 - 18 mg/dL Normal No Dec 19 nitrogen informati 2016 8:45 [Mass/vol on in PM ume] in source Serum or data Plasma Calcium 8.5 - mg/dL Normal No Dec 19 [Mass/vol 10.1 informati 2016 8:45 ume] in on in PM Serum or source Plasma data Chloride 98 - 107 mmoL/L Normal No Dec 19 [Moles/vo informati 2016 8:45 lume] in on in PM Serum or source Plasma data Carbon 21.0 - mmoL/L Normal No Dec 19 dioxide, 32.0 informati 2017 8:45 total on in PM [Moles/vo source lume] in data Serum or Plasma Creatinin 0.55 - mg/dL Normal No Dec 19 e 1.02 informati 2016 8:45 [Mass/vol on in PM ume] in source Serum or data Plasma Creatinin 50 - 200 ML/MIN Normal No Dec 19 e renal informati 2016 8:45 clearance on in PM source predicted data by Cockcroft -Gault formula Estimated 59- ML/MIN No REFERENCE Dec 19 informati RANGE: 2017 8:45 glomerula on in >60 PM r source ML/MIN/1. filtratio data 73 SQUARE n rate METERSIf (GF this patient is -A merican, then multiply theresult by 1.210. Globulin 1.3 - 3.2 gm/dL High No Dec 19 [Mass/vol informati 2016 8:45 ume] in on in PM Serum source data Glucose 74 - 106 mg/dL Normal No Dec 19 [Mass/vol informati 2016 8:45 ume] in on in PM Serum or source Plasma data Potassium 3.5 - 5.1 mmoL/L Normal No Dec 19 informati 2016 8:45 [Moles/vo on in PM lume] in source Serum or data Plasma Sodium 136 - 145 mmoL/L Normal No Dec 19 [Moles/vo informati 2016 8:45 lume] in on in PM Serum or source Plasma data Aspartate 15 - 37 U/L Normal No Dec 19 inform2016 8:45 aminotran on in PM sferase source [Enzymati data c activity/ volume] in Serum or Plasma Alanine 12 - 78 U/L Normal No Dec 19 aminotran 2016 8:45 sferase on in PM [Enzymati source c data activity/ volume] in Serum or Plasma Protein 6.4 - 8.2 gm/dL High No Dec 19 [Mass/vol inform2016 8:45 ume] in on in PM Serum or source Plasma data CBC W Auto Differential panel in Blood Observa Value Referen Units Interpr Notes Date tion ce etation Range Basophils 0 - 0.2 K/MM3 Normal No Dec 192016 8:45 [#/volume on in PM ] in source Blood by data Automated count Basophils 0.1 - 2.0 % Normal No Dec 19 informati 2016 8:45 leukocyte on in PM s in source Blood by data Automated count Eosinophi 0.0 - 0.4 K/mm3 Normal No Dec 19 ls informati 2016 8:45 [#/volume on in PM ] in source Blood by data Automated count Eosinophi 0.1 - % Normal No Dec 19 ls/100 12.0 informati 2016 8:45 leukocyte on in PM s in source Blood by data Automated count Granulocy 1.8 - 7.8 K/mm3 High No Dec 19 sumanth ati 2016 8:45 [#/volume on in PM ] in source Blood by data Automated count Granulocy 37.0 - % Normal No Dec 19 sumanth/100 80.0 informati 2016 8:45 leukocyte on in PM s in source Blood by data Automated count Hematocri 37.0 - % Normal No Dec 19 t [Volume 47.0 informati 2016 8:45 on in PM Fraction] source of Blood data Hemoglobi 12.2 - g/dL Normal No Dec 19 n 16.2 informati 2016 8:45 [Mass/vol on in PM ume] in source Blood data Lymphocyt 0.7 - 4.5 K/mm3 Normal No Dec 19 es ati 2016 8:45 [#/volume on in PM ] in source Unspecifi data ed specimen by Automated count Lymphocyt 10 - 50.0 % Normal No Dec 19 es informati 2016 8:45 [#/volume on in PM ] in source Unspecifi data ed specimen by Automated count Erythrocy 27 - 31.2 pg Normal No Dec 19 te mean inform2016 8:45 corpuscul on in PM ar source hemoglobi data n [Entitic mass] Erythrocy 31.8 - g/dl Normal No Dec 19 te mean 35.4 informati 2016 8:45 corpuscul on in PM ar source hemoglobi data n concentra tion [Mass/vol ume] by Automated count Erythrocy 82.2 - fl Normal No Dec 19 te mean 97.8 informati 2016 8:45 corpuscul on in PM ar volume source [Entitic data volume] by Automated count Monocytes 0.1 - 1.0 K/mm3 Normal No Dec 19 informati 2016 8:45 [#/volume on in PM ] in source Blood by data Automated count Monocytes 1.7 - 9.3 % Normal No Dec 19 /100 informati 2016 8:45 leukocyte on in PM s in source Blood by data Automated count Platelet 7.4 - fl Normal No Dec 19 mean 10.4 informati 2016 8:45 volume on in PM [Entitic source volume] data in Blood by Automated count Platelets 142 - 424 K/mm3 Normal No Dec 19 informati 2016 8:45 [#/volume on in PM ] in source Blood data Erythrocy 4.2 - 5.4 M/mm3 Normal No Dec 19 sumanth informati 2016 8:45 [#/volume on in PM ] in source Amniotic data fluid Erythrocy 11.5 - % Normal No Dec 19 te 17.5 informati 2016 8:45 distribut on in PM ion width source [Entitic data volume] by Automated count Leukocyte 4.8 - K/MM3 High No Dec 19 s 10.8 informati 2016 8:45 [#/volume on in PM ] in source Blood data Urinalysis dipstick W Reflex Microscopic panel in Urine Observa Value Referen Units Interpr Notes Date tion ce etation Range Appeara CLEAR CLEAR No No No Dec 19 nce of informa informa informa 2016 Urine tion in tion in tion in 8:34 PM source source source data data data Bacteri 3+ O No No No Dec 19 a informa informa informa 2017 [Presen tion in tion in tion in 8:34 PM ce] in source source source Urine data data data sedimen t by Light microsc opy Bilirub NEGATIV NEG No No No Dec 19 in E informa informa informa 2016 [Presen tion in tion in tion in 8:34 PM ce] in source source source Urine data data data by Test strip Erythro 1+ NEG No Abnorma No Dec 19 cytes informa l informa 2016 [Presen tion in tion in 8:34 PM ce] in source source Urine data data Color YELLOW YELLOW No No No Dec 19 of informa informa informa 2017 Urine tion in tion in tion in 8:34 PM source source source data data data Glucose NEG No No No Dec 19 [Mass/vol informati informati informati 2016 8:34 ume] in on in on in on in PM Urine by source source source Test data data data strip Ketones TRACE NEG mg/dL Abnorma No Dec 19 l informa 2016 [Presen tion in 8:34 PM ce] in source Urine data by Automat ed test strip Mucus 2+ NEG No Abnorma No Dec 19 [Presen informa l informa 2016 ce] in tion in tion in 8:34 PM Urine source source sedimen data data t by Light microsc opy Nitrite NEGATIV NEG No No No Dec 19 E informa informa informa 2016 [Presen tion in tion in tion in 8:34 PM ce] in source source source Urine data data data by Test strip pH of 5.0 - 8.5 No Normal No Dec 19 Urine informati informati 2017 8:34 on in on in PM source source data data Protein NEG mg/dL High No Dec 19 [Mass/vol informati 2017 8:34 ume] in on in PM Urine by source Automated data test strip Erythro 3-5 0 rbc/hpf No No Dec 19 cytes informa informa 2016 [Presen tion in tion in 8:34 PM ce] in source source Urine data data sedimen t by Light microsc opy Specific 1.005 - No Normal No Dec 19 gravity 1.030 informati informati 2017 8:34 of Urine on in on in PM source source data data Epithel 10-20 0 - 5 #/hpf No No Dec 19 ial informa informa 2017 cells.s tion in tion in 8:34 PM quamous source source data data [Presen ce] in Urine sedimen t by Microsc opy high power field Urobili 0.2 NEG E.U./dL No No Dec 19 nogen informa informa 2016 [Presen tion in tion in 8:34 PM ce] in source source Urine data data by Test strip Leukocy [50 O wbc/hpf No No Dec 19 sumanth wbc/hpf informa informa 2016 [#/volu ; 100 tion in tion in 8:34 PM me] in wbc/hpf source source Urine ] data data Urinalysis dipstick W Reflex Microscopic panel in Urine Observa Value Referen Units Interpr Notes Date tion ce etation Range Appeara CLEAR CLEAR No No No Dec 19 nce of informa informa informa 2016 Urine tion in tion in tion in 8:34 PM source source source data data data Bilirub NEGATIV NEG No No No Dec 19 in E informa informa informa 2016 [Presen tion in tion in tion in 8:34 PM ce] in source source source Urine data data data by Test strip Erythro 1+ NEG No Abnorma No Dec 19 cytes informa l informa 2016 [Presen tion in tion in 8:34 PM ce] in source source Urine data data Color YELLOW YELLOW No No No Dec 19 of informa informa informa 2016 Urine tion in tion in tion in 8:34 PM source source source data data data Glucose NEG No No No Dec 19 [Mass/vol informati informati informati 2016 8:34 ume] in on in on in on in PM Urine by source source source Test data data data strip Ketones TRACE NEG mg/dL Abnorma No Dec 19 l informa 2016 [Presen tion in 8:34 PM ce] in source Urine data by Automat ed test strip Mucus 2+ NEG No Abnorma No Dec 19 [Presen informa l informa 2016 ce] in tion in tion in 8:34 PM Urine source source sedimen data data t by Light microsc opy Nitrite NEGATIV NEG No No No Dec 19 E informa informa informa 2016 [Presen tion in tion in tion in 8:34 PM ce] in source source source Urine data data data by Test strip pH of 5.0 - 8.5 No Normal No Dec 19 Urine informati informati 2017 8:34 on in on in PM source source data data Protein NEG mg/dL High No Dec 19 [Mass/vol informati 2017 8:34 ume] in on in PM Urine by source Automated data test strip Specific 1.005 - No Normal No Dec 19 gravity 1.030 informati informati 2016 8:34 of Urine on in on in PM source source data data Urobili 0.2 NEG E.U./dL No No Dec 19 nogen informa informa 2016 [Presen tion in tion in 8:34 PM ce] in source source Urine data data by Test strip Choriogonadotropin.beta subunit [Units] in 24 hour Urine Observa Value Referen Units Interpr Notes Date ti ce etation Range Choriogon NEG No No No Dec 19 adotropin informati informati informati 2016 8:34 .beta on in on in on in PM subunit source source source [Units] data data data in 24 hour Urine URINE CULTURE Observa Value Referen Units Interpr Notes Date ti ce etation Range Bacteri Positiv No No Abnorma No Dec 19 a e informa informa l informa 2016 identif Growth tion in tion in tion in 3:15 PM ied in source source source Unspeci data data data fied specime n by Culture Bacteri 491^STA No No No Staphyl Dec 19 a PHYLOCO informa informa informa ococcus 2016 identif CCUS tion in tion in tion in 3:15 PM ied in SAPROPH source source source saproph Unspeci YTICUS data data data yticus fied typical specime ly n by respond Culture s to urine concent rations of nitrofu rantoin , trimeth oprim/s ulfa, or a fluoroq uinolon e commonl y used to treat acute, uncompl icated UTIs. Urine test by rapid immunoassa Observa Value Referen Units Interpr Notes Date tion ce etation Range Urine NEGATIV NEG No No No Sep 27 pregnan E informa informa informa 2017 cy test tion in tion in tion in 5:36 PM by source source source rapid data data data immunoa ssa Hemogram Observa Value Referen Units Interpr Notes Date ti ce etation Range LEUKOCY 5.1 4.0 - x10(3)/ No No Sep 20 SUMANTH 11.0 mcL informa informa 2017 tion in tion in 7:58 PM source source data data Erythro 4.22 3.80 - x10(6)/ No Sep 20 cytes 5.10 mcL informa informa 2017 [#/volu tion in tion in 7:58 PM me] in source source Blood data data by Automat ed count Hemoglo 11.7 12.0 - gm/dL Low No Sep 20 bin 15.6 informa 2017 [Mass/v tion in 7:58 PM olume] source in data Blood Hematoc 35.9 35.7 - % No Sep 20 rit 45.9 informa informa 2017 [Volume tion in tion in 7:58 PM source source Fractio data data n] of Blood by Automat ed count Erythro 85.0 82.5 - fL No Sep 20 cyte 99.8 informa informa 2017 mean tion in tion in 7:58 PM corpusc source source ular data data volume [Entiti c volume] by Automat ed count Erythro 27.7 27.0 - pg No Sep 20 cyte 34.3 informa informa [...] count Erythro 13.7 11.5 - % No Sep 20 cyte 15.0 informa informa [...] count MPV 10.8 6.8 - fL No Sep 20 10.8 informa informa 2017 tion in tion in 7:58 PM source source data data Chlamyd/GC TMA Observa Value Referen Units Interpr Notes Date tion ce etation Range Chlamyd Negativ No No No No Aug 24 ia e informa informa informa informa 2016 trachom tion in ti in tion in ti in 10:19 atis source source source source AM data data data data Neisser Negativ No No No Testing Aug 24 ia e informa informa informa 2017 gonorrh tion in tion in tion in methodo 10:19 oeae source source source logy is AM data data data transcr iption mediate d amplifi cation (TMA) using the Aptima Combo 2 assay from [employer] [facility] [facility].\.br \A negativ e result does not [...] of this test were validat ed by [facility] are laborat ory. This assay is [...] develop ed and validat ed by the [facility] are laborat ory. Detaile d methodo [...] 23 Glucose e e informa informa informa 2017 tion in tion in ti in 10:58 source source source AM data data data UA Negativ Negativ No No No July 23 Ketones e e informa informa informa 2017 tion in tion in ti in 10:58 source source source AM data data data UA Negativ Negativ No No No July 23 Blood e e informa informa informa 2017 tion in tion in ti in 10:58 source source source AM data data data UA pH 6.0 5.0 - No No ReferJuly 23 8.0 informa informa ce 2016 tion in ti in range 10:58 source source valid AM data data for random specime ns only. UA Trace Negativ No Abnorma No July 23 Protein e informa l informa 2016 ti in in 10:58 source source AM data data UA 0.2 <=1 No No No July 23 Urobili E.U./dL E.U./dL informa informa informa 2017 nogen tion in ti in ti in 10:58 source source source AM data data data UA Negativ Negativ No No No July 23 Nitrite e e informa informa informa 2016 tion in ti in ti in 10:58 source source source AM data data data UA Leuk Small Negativ No Abnorma No July 23 Est e informa l informa 2016 ti in in 10:58 source source AM data data UA Spec >=1.030 1.001 - No No ReferJuly 23 Grav 1.035 informa informa ce 2016 ti in ti in range 10:58 source source valid AM data data for random specime ns only. UA WBC 20-50 0 - 4 /HPF Abnorma No July 23 l informa 2016 tion in 10:58 source AM data UA 1+ No No No No July 23 Squam informa informa informa informa 2017 Epi tion in tion in tion in ti in 10:58 source source source source AM data data data data UA 1+ No No No No July 23 Mucous informa informa informa informa 2017 tion in tion in ti in ti in 10:58 [...] No Apr 6 hils informa informa informa 2017 [#/volu tion in [...] Lymph# 1.4 0.6 - x10(3)/ No No Apr 6 4.8 mcL informa informa 2017 tion in tion in 1:19 PM source source data data [place]# 0.5 0.0 - x10(3)/ No No Apr [...] LEUKOCY 4.1 4.0 - x10(3)/ No No Jun 02 SUMANTH 11.0 mcL informa informa 2017 tion in tion in 1:19 PM source source data data Erythro 4.52 3.80 - x10(6)/ No No Jun 02 cytes 5.10 mcL informa informa 2016 [#/volu [...] No Jun 02 cyte 99.8 informa informa 2016 mean tion [...] No Jun 02 cyte 35.3 informa informa 2016 mean tion in tion in 1:19 PM corpusc source source ular data data hemoglo bin concent ration [Mass/v olume] by Automat ed count Erythro 14.0 11.5 - % No No Jun 02 cyte 15.0 informa informa 2016 distrib tion in tion in 1:19 PM ution source source width data data [Ratio] by Automat ed count Platele 154 144 - x10(3)/ No No Jun 02 ts 423 mcL informa informa 2016 [#/volu tion in tion in 1:19 PM me] in source source Blood data data by Automat ed count MPV 10.3 6.8 - fL No No Apr 6 10.8 informa informa 2017 tion in tion [...] using the Aptima Combo 2 assay from [employer] [facility] [facility].\.br \A negativ e result does not [...] of this test were validat ed by [facility] are laborat ory. This assay is [...] develop ed and validat ed by the [facility] are laborat ory. Detaile d methodo logy is availab le upon request . Ag Trich Observa Value Referen Units Interpr Notes Date tion ce etation Range Trichom Negativ No No No No Apr 1 onas Ag e informa informa informa informa 2017 tion in tion in tion in tion in 8:28 PM source source source source data data data data HCG Qual Observa Value Referen Units Interpr Notes Date tion ce etation Range HCG Negativ No No No No Mar 1 QUAL e informa informa informa informa 2017 tion in tion in tion in tion in 8:04 PM source source [...] Negativ Negativ No No No Apr 1 Glucose e e informa informa informa 2017 tion in tion in tion in 7:51 PM source source source data data data UA Negativ Negativ No No No Apr 1 Ketones e e informa informa informa 2017 tion [...] Negativ Negativ No No No Apr 1 Protein e e informa informa informa 2017 tion in tion in tion in 7:51 PM source source source data data data UA 0.2 <=1 No No No Mar 1 Urobili E.U./dL E.U./dL informa informa informa 2017 nogen tion in tion in tion in 7:51 PM source source source data data data UA Negativ Negativ No No No Mar 1 Nitrite e e informa informa informa 2017 tion in tion in tion in 7:51 PM source source source data data data UA Leuk Trace Negativ No Abnorma No Apr 1 Est e informa l informa 2017 tion in tion in 7:51 PM source source data data UA Spec 1.020 1.001 - No No Referen Mar 1 Grav 1.035 informa informa ce 2017 tion in tion in range 7:51 PM source source valid data data for random specime ns only. UA WBC 3-5 0 - 4 /HPF No No Mar 1 informa informa 2017 tion in tion in 7:51 PM source source data data UA 1+ No No No No Apr 1 Squam informa informa informa informa 2017 Epi tion in tion in tion in tion in 7:51 PM source source source source data data data data UA 1+ No No No No Apr 1 Amorph informa informa informa informa 2017 tion [...] using the Aptima Combo 2 assay from [employer] [facility] [facility].\.br \A negativ e result does not [...] of this test were validat ed by [facility] are laborat ory. This assay is [...] develop ed and validat ed by the [facility] are laborat ory. Detaile d methodo [...] Range HCG Negativ No No No No Nov 24 QUAL e informa informa informa informa 2016 tion in tion in tion in tion in 6:37 PM source source source source data data data data CBC Observa Value Referen Units Interpr Notes Date tion ce etation Range LEUKOCY 7.7 4.0 - x10(3)/ No No Nov 24 SUMANTH 11.0 mcL informa informa 2016 tion [...] Platele 220 144 - x10(3)/ No No Oct 24 ts 423 mcL informa informa 2016 [#/volu tion in tion in 6:26 PM me] in source source Blood data data by Automat ed count MPV 10.4 6.8 - fL No No Nov 24 10.8 informa informa 2016 tion in tion in 6:26 PM source source data data Auto Diff Observa Value Referen Units Interpr Notes Date tion ce etation Range Neutrop 64.1 No % No No Nov 24 hils informa informa informa 2016 [#/volu tion in tion in tion in 6:26 PM me] in source source source Blood data data data by Automat ed count Lymphoc 24.1 No % No No Nov 24 ytes informa informa informa 2016 [#/volu tion in tion in tion in 6:26 PM me] in source source source Blood data data data by Automat ed count Monocyt 8.4 No % No No Nov 24 es informa informa informa 2016 [#/volu tion in tion in tion in 6:26 PM me] in source source source Blood data data data by Automat ed count Eos 2.8 No % No No Nov 24 Percent informa informa informa 2016 tion in tion in tion in 6:26 PM source source source data data data Baso 0.6 No % No No Nov 24 Percent informa informa informa 2016 tion [...] in 6:26 PM source source data data [place]# 0.6 0.0 - x10(3)/ No No Oct 24 1.3 mcL informa informa 2016 tion in tion in 6:26 PM source source data data Eos# 0.2 0.0 - x10(3)/ No No Oct 24 0.5 mcL informa informa 2016 tion in tion in 6:26 PM source source data data Baso# 0.0 0.0 - x10(3)/ No No Nov 24 0.2 mcL informa informa 2016 tion [...] 24 Glucose e e informa informa informa 2015 tion in tion in tion in 6:12 [...] pH 6.0 5.0 - No No Referen Nov 24 8.0 informa informa ce 2016 tion in tion in range 6:12 PM source source valid data data for random specime ns only. UA Negativ Negativ No No No Nov 24 Protein e e informa informa informa 2015 tion in tion in tion in 6:12 PM source source source data data data UA 0.2 <=1 No No No Nov 24 Urobili E.U./dL E.U./dL informa informa informa 2016 nogen tion in tion in tion in 6:12 PM source source source data data data UA Positiv Negativ No Abnorma No Nov 24 Nitrite e e informa l informa 2015 tion in tion in 6:12 PM source source data data UA Leuk Small Negativ No Abnorma No Nov 24 Est e informa l informa 2015 tion in tion in 6:12 PM source [...] Units Interpr Notes Date ce etation Range This No No No No Sep 29 patient informa informa informa informa 2016 tion in tion in tion in tion in 12:06 receive source source source source PM d an data data data data examina tion at the [facility] are [facility]at ory.\.b r\The complet e report can be found in the [facility] ([facility]) Electro rachel Medical Record of the patient . CT HEAD WO CONTRAST Observa Value Referen Units Interpr Notes Date tion ce etation Range \.br\NO No No No No Sep 29 NCONTRA informa informa informa informa 2016 ST HEAD tion in tion in tion [...] Interpr Notes Date tion ce etation Range Scanned No No No No Sep 3 Holter informa informa informa informa 2015 tion in tion in on in ti in 11:30 Report\ source source source source AM .br\[facility]. [facility]\ Interpr etive Stateme nts\.br \Ceramic Plater Date: 6\.br\R eferrin g Physici an: Korina [...] correla juma with sinus rhythm. \.br\SV /AF [place]: 0%\.br\ DAY 2\.br\1 . Rhythm was sinus with episode s of sinus tachyca rdia >150.\. br\2. There was rare suprave ntricul ar ectopy. \.br\3. There was rare ventric ular ectopy. \.br\4. Patient marker was not used.\. br\5. Diary was asympto matic.\ .br\SV/ AF [place]: 0%\.br\ DAY 3\.br\1 . Rhythm was sinus with an episode of sinus arrhyth frederic\.br \2. There was rare suprave ntricul ar ectopy\ .br\3. No ventric ular ectopy. \.br\4. Patient marker was used.\. br\5. Diary was asympto matic.\ .br\SV/ AF [place]: 0%\.br\ Electro nically Signed On 10-08-19 16 9:02:45 EDT by Denny inman MD HCG [...] No Sep 11 es informa informa informa 2015 [#/volu tion in tion in tion in 7:06 PM me] in source source source Blood data data data by Automat ed count Eos 3.5 No % No No Sep 11 Percent informa informa informa 2016 tion in tion in tion in 7:06 PM source source source data data data Baso 0.8 No % No No Sep 11 Percent informa informa informa 2016 tion in tion in tion in 7:06 PM source source source data data data Neut# 4.2 1.8 - x10(3)/ No No Aug 16 7.7 mcL informa informa 2016 tion in tion in 7:06 PM source source data data Lymph# 1.4 0.6 - x10(3)/ No No Sep 11 4.8 mcL informa informa 2016 tion in tion in 7:06 PM source source data data [place]# 0.4 0.0 - x10(3)/ No No Sep 11 1.3 mcL informa informa 2016 tion in [...] ed count Eos 2.6 No % No No Sep 06 Percent informa informa informa 2016 tion in tion in tion in 7:11 AM source source source data data data Baso 0.7 No % No No Sep 06 Percent informa informa informa [...] in 7:11 AM source source data data [place]# 0.4 0.0 - x10(3)/ No No Sep [...] count Erythro 86.2 82.5 - fL No Sep 06 cyte 99.8 informa informa [...] tive Stateme nts\.br \SINUS RHYTHM WITH SHORT CO INTERVA L\.br\n o old ekg's for compari [...] Interpr Notes Date tion ce etation Range HSV 2 0.11 <=0.90 [...] Jul 28 ne (T4) 1.70 informa informa 2015 free tion in tion in 9:21 PM [Mass/v source source olume] data data in Serum or Plasma TSH Observa Value Referen Units Interpr Notes Date tion ce etation Range Thyrotr 1.000 0.270 - mcIU/mL No No Jul 28 opin 4.200 informa informa 2015 [Units/ tion in tion in 9:21 PM [...] pH 6.0 5.0 - No No Referen Apr 24 8.0 informa informa ce 2016 tion [...] UA Spec 1.025 1.001 - No No Referen May 20 Grav 1.035 informa informa ce 2016 [...] using the Aptima Combo 2 assay from [employer] be.\.br \A negativ e result does [...] of this test were validat ed by [facility] are laborat ory. This assay is [...] develop ed and validat ed by the [facility] are laborat ory. Detaile d methodo [...] 25 QUAL e informa informa informa informa 2015 [...] ed count Monocyt 8.0 No % No Mar 25 es informa informa informa 2016 [#/volu tion in tion in tion in 2:18 AM me] in source source source Blood data data data by Automat ed count Eos 4.5 No % No Mar 25 Percent informa informa informa [...] in 2:18 AM source source data data [place]# 0.4 0.0 - x10(3)/ No No Mar [...] Range LEUKOCY 4.7 4.0 - x10(3)/ No No Mar 25 SUMANTH 11.0 mcL informa informa 2016 tion in tion in 2:18 AM source source data data Erythro 4.39 3.80 - x10(6)/ No Mar 25 cytes 5.10 mcL informa informa 2016 [#/volu tion in tion in 2:18 AM me] in source source Blood data data by Automat ed count Hemoglo 12.2 12.0 - gm/dL No No Mar 25 bin 15.6 informa informa 2016 [Mass/v tion in tion in 2:18 AM olume] source source in data data Blood Hematoc 37.8 35.7 - % No No Mar 25 rit 45.9 informa informa [...] count Erythro 27.8 27.0 - pg No No Mar 25 cyte 34.3 informa informa 2016 mean tion in tion in 2:18 AM corpusc source source ular data data hemoglo bin [Entiti c mass] by Automat ed count Erythro 32.3 32.1 - gm/dL No No Mar 25 cyte 35.3 informa informa 2016 mean tion in tion in 2:18 AM corpusc source source ular data data hemoglo bin concent ration [Mass/v olume] by Automat ed count Erythro 14.2 11.5 - % No No Mar 25 cyte 15.0 informa informa [...] Feb 20 Color informa informa informa informa 2015 POC tion in tion in tion in tion in 11:52 source source source source PM data data data data UA Cloudy Clear No Abnorma No Feb 20 Appear informa l informa 2015 POC tion in tion in 11:52 source source PM data data UA Gluc Negativ Negativ No No No Feb 20 POC e e informa informa informa 2015 tion in tion in tion in 11:52 source source source PM data data data UA Negativ Negativ No No No Feb 20 Ketones e e informa informa informa 2015 POC [...] Feb 20 POC 1.035 informa informa informa 2014 tion in tion [...] using the Aptima Combo 2 assay from [employer] be.\.br \A negativ e result does not [...] of this test were validat ed by [facility] are laborat ory. This assay is [...] develop ed and validat ed by the [facility] are laborat ory. Detaile d methodo [...] using the Aptima Combo 2 assay from [employer] be.\.br \A negativ e result does not [...] of this test were validat ed by [facility] are laborat ory. This assay is [...] develop ed and validat ed by the [facility] are laborat ory. Detaile d methodo [...] Spec >=1.030 1.001 - No No Referen Jan 09 Grav 1.035 informa informa ce 2014 [...] Interpr Notes Date ti ce etation Range Thyrotr 1.100 0.270 - mcIU/mL No No Jan 06 opin 4.200 informa informa 2014 [Units/ tion in tion in 4:51 PM volume] source source in data data Serum or Plasma Glyco Observa Value Referen Units Interpr Notes Date ti ce etation Range Hemoglo 4.7 <=7.0 % [...] Range Lutropi 32.98 No mIU/mL No Suggest Nov n informa informa ed 2014 [Moles/ tion [...] Interpr Notes Date tion ce etation Range Prolact 17.76 4.79 - ng/mL No No Nov 10 in 23.30 informa informa 2014 tion in tion in 4:12 PM source source data data HCG Qual Observa Value Referen Units Interpr Notes Date tion ce etation Range HCG Negativ No No No No Jan 06 QUAL e informa informa informa informa 2014 tion in tion in tion in ti in 10:44 source source source [...] informa informa 2014 tion in tion in ti in 12:36 source source source AM data data data UA Trace Negativ No Abnorma No Sep 17 Ketones (5 e informa l informa 2014 mg/dl) tion in in 12:36 source source AM data data UA Large Negativ No Abnorma No Sep 17 Blood e informa l informa 2014 tion in ti in 12:36 source source AM data data UA pH 6.0 5.0 - No No Referen Sep 17 8.0 informa informa ce 2014 tion in in range 12:36 source source valid AM data data for random specime ns only. UA 100 Negativ No Abnorma No Sep 17 Protein mg/dl e informa l informa 2014 ti in ti in 12:36 source source AM data data UA 0.2 <=1 No No No Sep 17 Urobili E.U./dL E.U./dL informa informa informa 2014 nogen tion in tion in ti in 12:36 source source source [...] Sep 17 Squam informa informa informa informa 2014 Epi [...] Sep 17 Bacteri informa informa informa informa 2014 a [...] 30 ia e informa informa informa informa 2015 trachom tion in tion in tion in tion in 10:41 atis source source source source AM data data data data Neisser Negativ No No No Testing Jul 3 ia e informa informa informa 2014 gonorrh tion in tion in tion in methodo 10:41 oeae source source source logy is AM data data data transcr iption mediate d amplifi cation (TMA) using the Aptima Combo 2 assay from [employer] be.\.br \A negativ e result does [...] of this test were validat ed by [facility] are laborat ory. This assay is [...] develop ed and validat ed by the [facility] are laborat ory. Detaile d methodo [...] data UA Spec >=1.030 No No No ReferJuly 25 Grav informa informa informa ce 2014 tion in tion in tion in range [...] ed count Lymphoc 40.1 No % No July 25 ytes informa informa informa [...] data Neut# 2.0 1.8 - x10(3)/ No July 25 7.7 mcL informa informa 2014 tion in tion in 1:06 PM source source data data Lymph# 1.7 0.6 - x10(3)/ No July 25 4.8 mcL informa informa 2014 tion in tion in 1:06 PM source source data data [place]# 0.3 0.0 - x10(3)/ No No July 25 1.3 mcL informa informa 2014 tion in tion in 1:06 PM source source data data Eos# 0.2 0.0 - x10(3)/ No July 25 0.5 mcL informa informa 2014 tion in tion in 1:06 PM source source data data Baso# 0.0 0.0 - x10(3)/ No July 25 0.2 mcL informa informa [...] count Erythro 85.2 82.5 - fL No July 25 cyte 99.8 informa informa 2014 mean tion in tion in 1:06 PM corpusc source source ular data data volume [Entiti c volume] by Automat ed count Erythro 27.7 27.0 - pg No July 25 cyte 34.3 informa informa 2014 mean tion in tion in 1:06 PM corpusc source source ular data data hemoglo bin [Entiti c mass] by Automat ed count Erythro 32.6 32.1 - gm/dL No July 25 cyte 35.3 informa informa [...] 04 QUAL e informa informa informa informa 2013 tion in tion in tion in tion in 7:03 PM source source source source data data data data US PELVIS AND TRANSVAGINAL NON OB COMPLETE Observa Value Referen Units Interpr Notes Date ti ce etation Range Transab No No No No Oct 21 dominal informa informa informa informa 2013 tion in tion in tion in tion [...] Thyrotr 2.060 0.270 - mcIU/mL No No Sep 18 opin 4.200 informa informa 2013 [Units/ tion in tion in 7:15 PM volume] source source in data data Serum or Plasma hCG Quant Observa Value Referen Units Interpr Notes Date tion ce etation Range hCG 1 No mIU/mL No No Oct 14 Quant informa informa informa [...] count Eos 7.2 No % No No Sep 18 Percent informa informa informa 2013 tion in tion in tion in 5:31 PM source source source data data data Baso 0.6 No % No No Sep 18 Percent informa informa informa 2013 tion in tion in tion in 5:31 PM source source source data data data Neut# 2.5 1.8 - x10(3)/ No No Sep 18 7.7 mcL informa informa 2013 tion in tion in 5:31 PM source source data data Lymph# 1.8 0.6 - x10(3)/ No No Sep 18 4.8 mcL informa informa 2014 tion in tion in 5:31 PM source source data data [place]# 0.4 0.0 - x10(3)/ No No Sep 18 1.3 mcL informa informa 2014 tion in tion in 5:31 PM source source data data Eos# 0.4 0.0 - x10(3)/ No No Aug 18 0.5 [facility] informa informa 2014 tion in tion in 5:31 PM source source data data Baso# 0.0 0.0 - x10(3)/ No No Sep 18 0.2 mcL informa informa 2014 tion in tion in 5:31 PM source source data data CBC Observa Value Referen Units Interpr Notes Date tion ce etation Range LEUKOCY 5.1 4.0 - x10(3)/ No No Sep 18 SUMANTH 11.0 [facility] informa informa 2014 tion in tion in 5:31 PM source source data data Erythro 4.24 3.80 - x10(6)/ No No Sep 18 cytes 5.10 [facility] informa informa 2013 [#/volu tion in tion in 5:31 PM me] in source source Blood data data by Automat ed count Hemoglo 11.8 12.0 - gm/dL Low No Oct 14 bin 15.6 informa 2013 [Mass/v tion in 5:31 PM olume] source in data Blood Hematoc 35.7 35.7 - % No No Sep 18 rit 45.9 informa informa 2013 [Volume tion in tion in 5:31 PM source source Fractio data data n] of Blood by Automat ed count Erythro 84.3 82.5 - fL No No Sep 18 cyte 99.8 informa informa 2014 mean tion in tion in 5:31 PM corpusc source source ular data data volume [Entiti c volume] by Automat ed count Erythro 27.9 27.0 - pg No No Sep 18 cyte 34.3 informa informa 2014 mean tion in tion in 5:31 PM corpusc source source ular data data hemoglo bin [Entiti c mass] by Automat ed count Erythro 33.1 32.1 - gm/dL No No Sep 18 cyte 35.3 informa informa 2014 mean tion in tion in 5:31 PM corpusc source source ular data data hemoglo bin concent ration [Mass/v olume] by Automat ed count Erythro 13.8 11.5 - % No No Sep 18 cyte 15.0 informa informa 2014 distrib tion in tion in 5:31 PM [...] oeae ed DNA Specime probe n using [employer] A negativ e result does not rule out the presenc e of DNA in concent rations below\. br\the level of detecti on of the assay.\ .br\\.b r\The perform ance charact eristic s of this test were validat ed by [facility] are Laborat ory. This laborat ory [...] oeae ed DNA Specime probe n using [employer] A negativ e result does not rule out the presenc e of DNA in concent rations below\. br\the level of detecti on of the assay.\ .br\\.b r\The perform ance charact eristic s of this test were validat ed by [facility] are Laborat ory. This laborat ory [...] 22 ia e informa informa informa informa 2014 gonorrh tion in [...] No May 14 min 40.0 informa informa 2013 tion in tion in 10:04 source source PM data data Hemogram Observa Value Referen Units Interpr Notes Date tion ce etation Range LEUKOCY 7.3 4.0 - x10(3)/ No No May 14 SUMANTH 11.0 mcL informa informa 2013 tion in tion in 9:44 PM source source data data Erythro 4.21 3.80 - x10(6)/ No No Jun 10 cytes 5.10 mcL informa informa 2013 [#/volu tion in tion in 9:44 PM me] in source source Blood data data by Automat ed count Hemoglo 11.9 12.0 - gm/dL Low No May 14 bin 15.6 informa 2013 [Mass/v tion in 9:44 PM olume] source in data Blood Hematoc 35.7 35.7 - % No No May 14 rit 45.9 informa informa 2013 [Volume [...] No No Jun 10 10.8 informa informa 2013 tion in tion in 9:44 PM source source data data
--- OUTSIDE RECORDS SUMMARY | 2017-01-22 14:45 | External Medical Summary Rpt ---
[...] using the Aptima Combo 2 assay from [employer] be.\.br \A negativ e result does not [...] of this test were validat ed by [facility] are laborat ory. This assay is [...] develop ed and validat ed by the [facility] are laborat ory. Detaile d methodo [...] in 1:19 PM source source data data [place]# 0.5 0.0 - x10(3)/ No No Apr [...] using the Aptima Combo 2 assay from [employer] be.\.br \A negativ e result does not [...] of this test were validat ed by [facility] are laborat ory. This assay is [...] develop ed and validat ed by the [facility] are laborat ory. Detaile d methodo [...] using the Aptima Combo 2 assay from [employer].\.br \A negativ e result does not [...] of this test were validat ed by [facility] are laborat ory. This assay is [...] develop ed and validat ed by the [facility] are laborat ory. Detaile d methodo [...] in 6:26 PM source source data data [place]# 0.6 0.0 - x10(3)/ No No Oct [...] data data data examina tion at the [facility] are [facility]at or[facility].\.b r\The complet e report can be found in the [facility] (PSYCHIATRIC) Electro rachel Medical Record of the patient [...] source AM .br\St. [facility]\ Interpr etive Stateme nts\.br \Pool Player Date: 6\.br\R eferrin g Physici an: Korina [...] correla juma with sinus rhythm. \.br\SV /AF [place]: 0%\.br\ DAY 2\.br\1 . Rhythm was sinus with episode s of sinus tachyca rdia >150.\. br\2. There was rare suprave ntricul ar ectopy. \.br\3. There was rare ventric ular ectopy. \.br\4. Patient marker was not used.\. br\5. Diary was asympto matic.\ .br\SV/ AF [place]: 0%\.br\ DAY 3\.br\1 . Rhythm was sinus with an episode of sinus arrhyth frederic\.br \2. There was rare suprave ntricul ar ectopy\ .br\3. No ventric ular ectopy. \.br\4. Patient marker was used.\. br\5. Diary was asympto matic.\ .br\SV/ AF [place]: 0%\.br\ Electro nically Signed On 10-08-19 16 [...] in 7:06 PM source source data data [place]# 0.4 0.0 - x10(3)/ No No Sep [...] in 7:11 AM source source data data [place]# 0.4 0.0 - x10(3)/ No No Sep [...] tive Stateme nts\.br \SINUS RHYTHM WITH SHORT NV INTERVA L\.br\n o old ekg's for compari [...] using the Aptima Combo 2 assay from [employer].\.br \A negativ e result does [...] of this test were validat ed by [facility] are laborat ory. This assay is [...] develop ed and validat ed by the [facility] are laborat ory. Detaile d methodo [...] in 2:18 AM source source data data [place]# 0.4 0.0 - x10(3)/ No No Mar [...] using the Aptima Combo 2 assay from [employer] be.\.br \A negativ e result does not [...] of this test were validat ed by [facility] are laborat ory. This assay is [...] develop ed and validat ed by the [facility] are laborat ory. Detaile d methodo [...] using the Aptima Combo 2 assay from [employer].\.br \A negativ e result does not [...] of this test were validat ed by [facility] are laborat ory. This assay is [...] develop ed and validat ed by the [facility] are laborat ory. Detaile d methodo [...] using the Aptima Combo 2 assay from [employer].\.br \A negativ e result does [...] of this test were validat ed by [facility] are laborat ory. This assay is [...] develop ed and validat ed by the [facility] are laborat ory. Detaile d methodo [...] in 1:06 PM source source data data [place]# 0.3 0.0 - x10(3)/ No No July [...] in 5:31 PM source source data data [place]# 0.4 0.0 - x10(3)/ No No Sep 18 1.3 mcL informa informa 2014 tion in tion in 5:31 PM source source data data Eos# 0.4 0.0 - x10(3)/ No No Aug 18 0.5 [facility] informa informa 2014 tion in tion in 5:31 PM source source data data Baso# 0.0 0.0 - x10(3)/ No No Sep 18 0.2 mcL informa informa 2014 tion in tion in 5:31 PM source source data data CBC Observa Value Referen Units Interpr Notes Date tion ce etation Range LEUKOCY 5.1 4.0 - x10(3)/ No No Sep 18 SUMANTH 11.0 [facility] informa informa 2014 tion in tion in 5:31 PM source source data data Erythro 4.24 3.80 - x10(6)/ No No Sep 18 cytes 5.10 [facility] informa informa 2013 [#/volu tion in tion [...] oeae ed DNA Specime probe n using [employer] A negativ e result does not rule out the presenc e of DNA in concent rations below\. br\the level of detecti on of the assay.\ .br\\.b r\The perform ance charact eristic s of this test were validat ed by [facility] are Laborat or[facility]. This laborat ory [...] oeae ed DNA Specime probe n using [employer] A negativ e result does not rule out the presenc e of DNA in concent rations below\. br\the level of detecti on of the assay.\ .br\\.b r\The perform ance charact eristic s of this test were validat ed by [facility] are Laborat or[facility]. This laborat ory [...]
--- NOTE | 2017-01-22 15:32 | Urgent Treatment Center Report ---
History of Present Issue Date/Time Seen by Provider 01/22/17 1531 Visit Reason Pt arrived:Walked Presenting Problem:PT C/O CONGESTION, COUGH FOR THE PAST WEEK Location if Accident: Onset of symptoms date/time:/ or onset unknown for:MEDICAL HX UNKNOWN Have you (or family members/close friends) recently traveled outside the [place]? N If Yes, where/when: Have you had exposure to infectious disease within the past month? TB? Other? Specify: c/o "a cold for a week". nonprod cough, cristian ear pain eith right worse then left, runny nose x 4-5 days. Hasn't taken or tried anything for symptoms. No fever, aches, chills. No known sick contacts. Source patient Exam Limitations no limitations ALLERGIES Coded Allergies: No Known Allergies (03/04/16) Home Medications Reported Medications VENLAFAXINE HCL (Venlafaxine HCl ER) 37.5 MG PO DAILY #14 Metoprolol Succinate 25 MG PO DAILY #30 NORETHINDRONE-E.ESTRADIOL-IRON (Microgestin Fe 1-20 Tablet) 1 TAB PO DAILY #28 Mirtazapine 15 MG PO DAILY #30 History Medical History General CAD? No Angina: No HI: No Hypertension? Yes Hyperlipidemia? No CHF? No DVT? No PE? No COPD? No Asthma? Yes Anemia? No GERD? No Gastric ulcers? No GI Bleed? No Hernia? No Thyroid Problems? No Hypothyroidism? No CVA? No Seizures? No Diabetes? No Renal Insuffiency? No UTI? Yes Stones? No BPH? No GB Disease: No Nephritic Syndrome? No Asplenia? No Hepatitis? No Sickle Cell Disease? No Arthritis? No Migraines? No Cataracts? No Glaucoma? No MRSA? No HIV? No TB? No Anxiety? Yes Depression? Yes Cancer? No More? No Immunization HX DT/Tetanus 1-4 YRS Surgical Hx Previous Surgery?Y BILATERAL EAR TUBES T&A WISDOM TEETH Social History Smoking Hx Smoker: Current Every Day Smoker Tobacco: Yes Type Cigarettes Packs/day < 1 Pack Alcohol Alcohol: No Review of Systems All Other Systems Reviewed and Negative Constitutional see HPI Eyes denies drainage ENT see HPI, nose congestion. denies: ear discharge, throat pain ("just more scratchy"). Respiratory see HPI, denies shortness of breath, denies wheezing Cardiovascular denies chest pain Gastrointestinal denies no symptoms reported Musculoskeletal denies joint pain Skin denies rash Psychiatric/Neurological headache (mild, intermittent) Physical Exam Vital Signs Vital Signs Date Time Temp Pulse Resp B/P Pulse O2 O2 Flow FiO2 Ox Delivery Rate 01/22 1455 97.5 87 16 112/70 98 General Appearance no apparent distress Eye Exam - bilateral eye normal exam Ear, Nose, Throat normal pharynx, minimal clear nasal drainage, EAC and TM unremarkable on left, right TM w/ impacted cerumen completely blocking view of TM, tenderness w/ exam but not auricle movement Neck non-tender, supple Respiratory Status Yes: non productive cough. No: respiratory distress, use of accessory muscles, pain on inspiration, pain on expiration. Lung Sounds anterior: lungs clear. posterior: lungs clear. bilateral: lungs clear. Cardiovascular regular rate/rhythm, no peripheral edema, no murmur Neurologic alert, oriented x 3 Skin normal color, warm/dry Lymphatic no adenopathy Medical Decision Making LABS/Meds/Orders Pt receiving controlled substance in ED? No Procedures General/Other Procedure [facility] Procedure Note Date 01/22/17 - Cerumen easily removed from right EAC using warm soapy water in elephant ear wash. Cerumen slightly erythematous following irrigation but TM intact and pearly burns Departure Departure Time of Disposition 1623 Disposition DC Home or Self Care(routine) Clinical Impression Primary Impression: Upper respiratory virus Secondary Impressions: Right ear impacted cerumen Condition STABLE Referrals LÓPEZ,VIRAL (Family) IMMEDIATELY for new or worsening symptoms OR no noticeable improvement over the next 48-72 hours. 911 for difficulty breathing or swallowing. Patient Instructions DI for Viral Upper Respiratory Infection -- Adult Additional Instructions * Cerumen all removed * No sign of bacterial infection. Likely viral. Virus can take 7-14 days to run their course * Monitor Temp. Follow up if fever develops * Encourage fluids, water, gatorade, powerade, pedialyte if infant/toddler/child * warm salt water gargles * warm fluids * sore throat lozenges * sleep elevated * humidifier/vaporizer * flonase 2 sprays each nostril daily but may take 2-3 days to notice improvement with it. Discharge Counseling Counseled pt/family regarding diagnosis, test results, medications/RX, home care, follow up needs at 1628
[2017-01-22 16:27] VITALS: BP 112/70
== END 2017-01-22 16:28 | disposition home or self-care (01) ==
LOC: UTC 14:31
DX: J06.9 Acute upper respiratory infection, unspecified (principal); H61.21 Impacted cerumen, right ear; I10 Essential (primary) hypertension; J45.909 Unspecified asthma, uncomplicated; F41.8 Other specified anxiety disorders